=== PATIENT | female | born 1970 | race Caucasian/White ===

== ENCOUNTER 2017-06-03 09:14 | Emergency (ER) | payer BC, SELFPAY ==
[2017-06-03 09:29] VITALS: BP 152/98; PULSE 117; RESP 18; TEMP 37.5; O2SAT 95; BMI 34.9
[2017-06-03 09:57] LABS: UTC Influenza A Antigen Positive (Negative); UTC Influenza B Antigen Negative (Negative)
--- NOTE | 2017-06-03 10:03 | HMH.EDUTC ---
[facility] [place] Disposition Clinical Impression: Influenza A Disposition: Home, Self-Care Condition on Discharge: Good Instructions: Influenza Additional Instructions: Rest, fluids. Alternate Tylenol and Motrin as needed for fever. RTC or PCP if symptoms worsen. Referrals: Provider,Referral, MD [Primary Care Provider] - Time of Disposition: 10:11 Medical Decision Making Vital Signs: 06/03/17 09:29 Temperature 99.5 F Temperature Source Oral Pulse Rate [Left Brachial] 117 H Respiratory Rate 18 Blood Pressure [Right Arm] 152/98 Blood Pressure Mean [Right Arm] 116 Blood Pressure Source [Right Arm] Automatic Cuff Blood Pressure Position [Right Arm] Sitting 02 Sat by Pulse Oximetry 95 Oxygen Delivery Method Room Air - Lab Data Lab Results 06/03/17 09:31: Influenza Type A Ag Positive A, Influenza Type B Ag Negative - Miguel A Inquiry Pt receiving controlled substance: No [facility] HPI - General Stated complaint: poss flu Time Seen by Provider: 06/03/17 09:55 Mode of Arrival: Ambulatory Source of Information: Patient Limitations: No Limitations Description of Symptoms (Recalled from Triage Doc. by RN): Flu like symptoms; aches, chills, fever, cough; started feeling poorly on 06/01/17 after being exposed to the flu at work. Has tried OTC remedies without relief. HEENT Symptoms (Recalled from RN notes): Yes (runny nose) Resp Symptoms (Recalled from RN notes): Yes (cough) Skin Symptoms (Recalled from RN notes): No MS Symptoms (Recalled from RN notes): Yes (body aches) Functional Status (Recalled from RN notes): na - Related Data Previous Rx's Medication Instructions Recorded Oseltamivir Phosphate [Tamiflu 75 mg PO BID 5 Days #10 cap 06/03/17 75mg Capsule] Promethazine/Dextromethorphan 5 ml PO Q6HP PRN 10 Days #180 syrup 06/03/17 [Promethazine-Dm Syrup] predniSONE [Prednisone 20mg 20 mg PO BID 5 Days #10 tab 06/03/17 Tab] Allergies Allergy/AdvReac Type Severity Reaction Status Date / Time bisacodyl [BISACODYL] Allergy Unknown Unverified 05/15/17 15:18 - Worker's Comp Is this a Worker's Comp case?: No Is this an [facility] Worker's Comp?: No Is this a [place] Worker's Comp?: No [facility] History Medical History: Reports:: Diabetes Mellitus Type 2 Denies:: Cancer, Diabetes Mellitus Type 1, MRSA Amputation: No Fractures: No - *Social History Alcohol Intake: never - Psychiatric History Expresses thoughts of harming self/others: None Suicide Plan Description: No Plan - Constitutional Reports body ache(s), Reports fatigue, Reports fever(s), Reports headache(s), Reports malaise - ENT Reports headache(s), Reports nasal congestion, Reports nasal discharge - Respiratory Reports cough - Musculoskeletal Reports body aches Physical Exam - General General appearance: alert Comment: appears ill but non-toxic - Head Head exam: atraumatic, normocephalic, normal inspection - Eye Eye exam: Present: normal appearance, PERRL, EOMI - ENT ENT exam: Present: normal exam, normal oropharynx, mucous membranes moist, TM's normal bilaterally, normal external ear exam - Neck Neck exam: Present: normal inspection, full ROM, trachea midline. Absent: meningismus, lymphadenopathy - Chest Chest inspection: Present: normal inspection, symmetric chest wall rise. Absent: tenderness - Respiratory Respiratory exam: Present: normal lung sounds bilaterally. Absent: respiratory distress - Cardiovascular Cardiovascular exam: Present: regular rate, normal rhythm. Absent: JVD - Abdominal Exam Abdominal exam: Present: soft, normal bowel sounds. Absent: distention, tenderness, guarding - Extremities Exam Extremities exam: Present: normal inspection, full ROM, normal capillary refill. Absent: calf tenderness - Back Exam Back exam: Present: normal inspection. Absent: tenderness - Neurological Exam Neurological exam: Present: alert, oriented X3 - Psychiatric Psychiatric exam: Pres
--- NOTE | 2017-06-03 10:06 | ED_ITS ---
[facility] [place] Disposition Clinical Impression: Influenza A Disposition: Home, Self-Care Condition on Discharge: Good Instructions: Influenza Additional Instructions: Rest, fluids. Alternate Tylenol and Motrin as needed for fever. RTC or PCP if symptoms worsen. Referrals: Provider,Referral, MD [Primary Care Provider] - Time of Disposition: 10:11 Medical Decision Making Vital Signs: 06/03/17 09:29 Temperature 99.5 F Temperature Source Oral Pulse Rate [Left Brachial] 117 H Respiratory Rate 18 Blood Pressure [Right Arm] 152/98 Blood Pressure Mean [Right Arm] 116 Blood Pressure Source [Right Arm] Automatic Cuff Blood Pressure Position [Right Arm] Sitting 02 Sat by Pulse Oximetry 95 Oxygen Delivery Method Room Air - Lab Data Lab Results 06/03/17 09:31: Influenza Type A Ag Positive A, Influenza Type B Ag Negative - Miguel A Inquiry Pt receiving controlled substance: No [facility] HPI - General Stated complaint: poss flu Time Seen by Provider: 06/03/17 09:55 Mode of Arrival: Ambulatory Source of Information: Patient Limitations: No Limitations Description of Symptoms (Recalled from Triage Doc. by RN): Flu like symptoms; aches, chills, fever, cough; started feeling poorly on 06/01/17 after being exposed to the flu at work. Has tried OTC remedies without relief. HEENT Symptoms (Recalled from RN notes): Yes (runny nose) Resp Symptoms (Recalled from RN notes): Yes (cough) Skin Symptoms (Recalled from RN notes): No MS Symptoms (Recalled from RN notes): Yes (body aches) Functional Status (Recalled from RN notes): na - Related Data Previous Rx's Medication Instructions Recorded Oseltamivir Phosphate [Tamiflu 75 mg PO BID 5 Days #10 cap 06/03/17 75mg Capsule] Promethazine/Dextromethorphan 5 ml PO Q6HP PRN 10 Days #180 syrup 06/03/17 [Promethazine-Dm Syrup] predniSONE [Prednisone 20mg 20 mg PO BID 5 Days #10 tab 06/03/17 Tab] Allergies Allergy/AdvReac Type Severity Reaction Status Date / Time bisacodyl [BISACODYL] Allergy Unknown Unverified 05/15/17 15:18 - Worker's Comp Is this a Worker's Comp case?: No Is this an [facility] Worker's Comp?: No Is this a [place] Worker's Comp?: No [facility] History Medical History: Reports:: Diabetes Mellitus Type 2 Denies:: Cancer, Diabetes Mellitus Type 1, MRSA Amputation: No Fractures: No - *Social History Alcohol Intake: never - Psychiatric History Expresses thoughts of harming self/others: None Suicide Plan Description: No Plan - Constitutional Reports body ache(s), Reports fatigue, Reports fever(s), Reports headache(s), Reports malaise - ENT Reports headache(s), Reports nasal congestion, Reports nasal discharge - Respiratory Reports cough - Musculoskeletal Reports body aches Physical Exam - General General appearance: alert Comment: appears ill but non-toxic - Head Head exam: atraumatic, normocephalic, normal inspection - Eye Eye exam: Present: normal appearance, PERRL, EOMI - ENT ENT exam: Present: normal exam, normal oropharynx, mucous membranes moist, TM's normal bilaterally, normal external ear exam - Neck Neck exam: Present: normal inspection, full ROM, trachea midline. Absent: meningismus, lymphadenopathy - Chest Marisol
== END 2017-06-03 10:17 | disposition home or self-care (01) ==
PROVIDERS: Emergency Provider Physician Assistant; Family Provider Family Medicine
DX: J10.1 Influenza due to other identified influenza virus with other respiratory manifestations (principal); E11.9 Type 2 diabetes mellitus without complications
CPT/HCPCS: 87276; 87804; 99202

== ENCOUNTER → 2017-11-02 07:55 | Outpatient (CLI) | payer BC, SELFPAY ==
--- NOTE | 2017-11-02 08:02 | NVE_ITS ---
Venous Exam Indications: 729.5 Pain in limb. 729.81 Swelling of limb. IMPRESSIONS 1. There is no evidence of significant Reflux. 2. No evidence of deep or superficial vein thrombosis involving the left lower extremity Left lower extremity venous duplex evaluation. Doppler flow study including spectral analysis, color and meek scale imaging. Location: Vascular laboratory. Patient status: Outpatient. Tables: Venous flow and imaging: + +-------+ + Location Overall Flow properties + +-------+ + Left common femoral Patent Normal phasicity; spontaneous; normal augmentation; compressible + +-------+ + Left saphenofemoral junction Patent Compressible + +-------+ + Left profunda femoral Patent Compressible + +-------+ + Left femoral Patent Normal phasicity; spontaneous; normal augmentation; compressible + +-------+ + Left greater saphenous Patent Normal phasicity; spontaneous; normal augmentation; compressible + +-------+ + Left popliteal Patent Normal phasicity; spontaneous; normal augmentation; compressible + +-------+ + Left posterior tibial Patent Compressible + +-------+ + Left peroneal Patent Compressible + +-------+ + Left gastrocnemius Patent Compressible + +-------+ + Left soleal Patent Compressible + +-------+ + Electronically signed by: Sherman Martinez [id number]
== END ==
PROVIDERS: Family Provider Family Medicine; PCP Family Medicine; Visit Provider Family Medicine
DX: R60.0 Localized edema (principal)
CPT/HCPCS: 93971

== ENCOUNTER → 2018-05-07 12:42 | Outpatient (CLI) | payer BC, SELFPAY ==
--- NOTE | 2018-05-07 12:48 | US_ITS ---
US thyroid HISTORY: Dysphagia. Abnormal thyroid function test ITS.REASON: DYSPHAGIA ORDERING PHYSICIAN: Sharon Pagan MD PATIENT AGE: 48 years Comparison: None FINDINGS: The right lobe is 4.3 x 2.1 x 2.7 cm. There is heterogeneous echogenicity. Small cysts are present on the right. In addition, there is a poorly defined isoechoic nodule in the mid polar region at 2 x 2 centimeters with a small cystic area posteriorly. In the lower pole there is a 1 x 0.9 cm hypoechoic nodular area. The left lobe is 4.8 x 2.5 x 2.7 cm. 15 x 7 mm hypoechoic nodule upper pole. 2.5 x 1.5 cm ill-defined hypoechoic nodule mid polar region 12 x 9 mm hypoechoic nodule lower pole. There are decreased echogenicity centrally slight increased echogenicity peripherally. The isthmus is prominent at 5 mm. IMPRESSION: Multinodular goiter. There are bilateral heterogeneous areas of echogenicity. It is difficult to determine if these represent nodules or merely heterogeneous echogenicity of the thyroid gland. The largest nodular area is on the left. Fine-needle aspiration by ultrasound guidance is considered however, would first suggest a nuclear thyroid scan to determine if there are any of these areas which may be hypofunctioning/cold nodules which would better guide the determination of when to do a fine needle aspiration
== END ==
PROVIDERS: PCP Family Medicine; Visit Provider Family Medicine
DX: R13.10 Dysphagia, unspecified (principal)
CPT/HCPCS: 76536

== ENCOUNTER → 2018-05-29 08:40 | Outpatient (CLI) | payer BC, SELFPAY ==
--- NOTE | 2018-05-29 08:43 | MM_ITS ---
MM Dig screening mamm BI w/CAD CAD Screening COMPARISON: Analog mammograms 04/19/2004 and digital mammograms with CAD 01/28/2010 INDICATION: There is a history of breast cancer in patient's sister diagnosed before menopause. TECHNIQUE: Standard CC and MLO images were obtained. R2 CAD reviewed. FINDINGS: Moderate diffuse scattered fibroglandular densities are seen throughout each breast. There is a mole marker left breast. There is a stable nodular density deep within the left breast. There is no suspicious lesion and there are no suspicious microcalcifications. IMPRESSION: Fibrofatty parenchyma with no suspicious lesion seen BI-RADS Category: 2 Benign Finding(s) RECOMMENDED FOLLOW-UP: 1YR - 1 YEAR FOLLOW-UP (A letter has been sent to the patient regarding results of the study.)
== END ==
PROVIDERS: PCP Family Medicine; Visit Provider Family Medicine
DX: Z12.31 Encounter for screening mammogram for malignant neoplasm of breast (principal)
CPT/HCPCS: 77067

== ENCOUNTER → 2018-06-03 06:33 | Outpatient (CLI) | payer BC, SELFPAY ==
--- NOTE | 2018-06-03 07:00 | NM_ITS ---
NM thyroid image uptake CLINICAL INDICATION: Multinodular goiter, dysphasia ITS.REASON: THYROID NODULE ORDERING PHYSICIAN: Sharon Pagan MD PATIENT AGE: 48 years Comparison: 05/07/2018 DOSE: 353 uCi I-123 orally FINDINGS: The 24 hour radioiodine uptake is 16.7% which is within normal limits. Images obtained of the thyroid gland demonstrates homogeneous decrease activity of the right lobe of the thyroid gland. No obvious hypo or hyper functioning areas on the left. Specifically, the dominant nodular area of the left lobe does not demonstrate decrease activity. The thyroid gland is enlarged bilaterally. IMPRESSION: Bilateral thyroid enlargement with decrease activity of the right lobe compared to the left. If any areas are of clinical concern for biopsy then would consider fine-needle aspiration of the dominant nodule on the right due to the hypoactivity.
--- NOTE | 2018-06-03 08:12 | HMH.ITSHM ---
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 []INVOKAMET XR TRULICITY LEVOTHYROXINE CRESTOR CEFDINER
== END ==
PROVIDERS: PCP Family Medicine; Visit Provider Family Medicine
DX: E04.1 Nontoxic single thyroid nodule (principal)
CPT/HCPCS: 78014; A9516

== ENCOUNTER → 2018-06-28 14:02 | Outpatient (CLI) | payer BC, SELFPAY ==
[2018-06-28 16:04] LABS: Thyroid Stimulating Hormone 12.18 uIU/ml (0.358-3.740)
[2018-06-30 08:13] LABS: Thyroid Peroxidase Antibodies 243 IU/mL (0-34)
[2018-06-30 17:20] LABS: Triiodothyronine (T3) Free 2.7 pg/mL (2.0-4.4)
[2018-07-02 08:08] LABS: Thyroglobulin Level 928.2 IU/mL (0.0-0.9)
== END ==
PROVIDERS: Visit Provider Internal Medicine Endocrinology, Diabetes & Metabolism
DX: E04.2 Nontoxic multinodular goiter (principal); E03.8 Other specified hypothyroidism; R94.6 Abnormal results of thyroid function studies
CPT/HCPCS: 36415; 84443; 84481; 86376; 86800

== ENCOUNTER → 2018-10-07 17:26 | Outpatient (CLI) | payer BC, SELFPAY ==
[2018-10-07 19:08] LABS: Free T4 (Free Thyroxine) 0.87 ng/dl (0.76-1.46); Thyroid Stimulating Hormone 2.56 uIU/ml (0.358-3.740)
[2018-10-09 06:53] LABS: Triiodothyronine (T3) Free 2.8 pg/mL (2.0-4.4)
== END ==
PROVIDERS: Visit Provider Internal Medicine Endocrinology, Diabetes & Metabolism
DX: E04.2 Nontoxic multinodular goiter (principal); E03.8 Other specified hypothyroidism; E06.3 Autoimmune thyroiditis; R94.6 Abnormal results of thyroid function studies
CPT/HCPCS: 36415; 84439; 84443; 84481

== ENCOUNTER → 2018-10-15 07:49 | Outpatient (CLI) | payer BC, SELFPAY ==
--- NOTE | 2018-10-15 08:00 | US_ITS ---
US abdomen limited History:Right upper quadrant pain Ordering Physician:CATIE Holder Patient Age: 48 years Comparison:None Findings: Pancreas:Unremarkable. No obvious mass or abnormal fluid collection. No ductal dilatation Liver:Unremarkable. No obvious mass or abnormal fluid collection. No ductal dilatation. There are few areas of fatty infiltration within the liver. Right Kidney:Unremarkable. Normal size and echogenicity. No hydronephrosis Gallbladder:Prior cholecystectomy. No ductal dilatation. Common bile duct is 4 mm. Impression: Postcholecystectomy. No acute finding
== END ==
PROVIDERS: PCP Physician Assistant; Visit Provider Physician Assistant
DX: R10.11 Right upper quadrant pain (principal)
CPT/HCPCS: 76705

== ENCOUNTER 2019-01-18 20:35 | Observation (INO) ==
--- NOTE | 2019-01-18 20:53 | Emergency Department Note ---
ED Disposition Clinical Impression: Acquired hypothyroidism, Obesity (BMI 30.0-34.9) Chest pain Qualifiers: Chest pain type: precordial pain Qualified Code(s): R07.2 - Precordial pain Diabetes mellitus Qualifiers: Diabetes mellitus type: type 2 Diabetes mellitus fdc insulin use: unspe cified fdc insulin use status Diabetes mellitus complication status: with other specified complication Qualified Code(s): E11.69 - Type 2 diabetes mellitus with other specified complication Disposition: Admitted as Observation Condition on Discharge: Good Referrals: Provider,Referral, [Primary Care Provider] - - Critical Care Critical Care Time: No Attestation: On , the high probability of a clinically significant, sudden or life threatening deterioration of the following system(s) required my full and direct attention, intervention and personal management. The time I documented below is in addition to time spent performing reported procedures but includes the following listed in this critical care notation. Medical Decision Making - Medical Records Medical records reviewed: Yes: I reviewed the patient's medical records. - Miguel A Inquiry Pt receiving controlled substance: No Vital Signs: 01/18/19 20:35 Temperature 98.0 F Temperature Source Oral Pulse Rate [Left Radial] 87 Respiratory Rate 18 Blood Pressure [Right Arm] 133/83 Blood Pressure Mean [Right Arm] 99 Blood Pressure Source [Right Arm] Automatic Cuff Blood Pressure Position [Right Arm] Supine 02 Sat by Pulse Oximetry 99 Oxygen Delivery Method Room Air - Lab Data Lab results reviewed: Yes: I reviewed the patient's lab results. Lab Results 01/18/19 20:54: WBC 11.0 H, RBC 4.96, Hgb 16.2, Hct 46.4, MCV 93.6, MCH 32.7 H, MCHC 35.0, RDW 13.4, Plt Count 233, MPV 7.4, Neut % (Auto) 37.4, Lymph % (Auto) 45.4, [place] % (Auto) 5.7, Eos % (Auto) 11.0, Baso % (Auto) 0.5, Neut # (Auto) 4.1, Lymph # (Auto) 5.0 H, [place] # (Auto) 0.6, Eos # (Auto) 1.2 H, Baso # (Auto) 0.1 01/18/19 20:54: Sodium 139, Potassium 3.8, Chloride 104, Carbon Dioxide 27, Anion Gap 11.8, BUN 10, Creatinine 0.64, Estimated Creat Clear 165, Estimated GFR 100, Est GFR ( Amer) 121, Glucose 157 H, Calcium 9.0, Troponin I < 0.02, C-Reactive Protein 0.5 Result diagrams: 01/18/19 20:54 01/18/19 20:54 Orders (Tests/Meds): ED MEDICATIONS Discontinued Medications Generic Name Dose Route Start Last Admin Trade Name Freq PRN Reason Stop Dose Admin Aspirin 324 mg 01/18/19 20:53 01/18/19 21:01 Aspirin 81mg Chewable Tablet PO 01/18/19 20:54 324 mg ONCE ONE Administration Morphine Sulfate 4 mg 01/18/19 21:01 01/18/19 21:05 Morphine 4mg/Ml Syringe IV 01/18/19 21:02 4 mg ONCE ONE Administration Nitroglycerin 1 gm 01/18/19 21:01 01/18/19 21:05 Nitroglycerin 1 Inch Oint Udp TD 01/18/19 21:02 1 gm ONCE ONE Administration ORDERS Category Date Time Status XR chest 2V Stat Exams 01/18/19 20:50 Taken Complete Blood Count Auto Diff Stat Lab 01/18/19 20:54 Results Erythrocyte Sedimentation Rate Stat Lab 01/18/19 20:54 Results - Radiology Data #1 Image(s): Chest Image Reviewed: Yes I reviewed the patient's radiology image Preliminary Findings: Normal/NAD - ECG Data Tracing #1 Normal Sinus Rhythm: Yes Ischemic changes: non-specific ST-T wave changes - Physician Consults Physician Consulted: em Reason -: Admission Chest Pain HPI - General Chief Complaint: Chest Pain Stated Complaint: chest pain Time Seen by Provider: 01/18/19 20:53 Mode of Arrival: Ambulatory Source of Information: Patient, Medical Record Limitations: No Limitations Description of Symptoms (Recalled from ER Triage Doc. by RN): pt stated she experienced chest pain last night at bedtime for about 30 minutes. pt stated it felt like a stabbing pain that radiated up the eft side of her neck and top. of her head. pt stated shes been vatigued all day today. - History of Present Illness HPI narrative: pt with acute episode of chest pain last pm for 30 min and again this pm - has no known card dis and no tob but is diabetic - MD complaint: chest pain indicative of cardiac Onset (ago): hour(s) Duration: now resolved Activity at onset: during rest Pain location: left chest Severity: moderate Quality: tightness Pain radiation: neck Risk Factors for CAD: Family Hx of CAD, Diabetes Treatments prior to or on arrival for Cardiac Chest Pain: none - YE Score for Non-Stemi Age of Patient: 40-49 years old Heart Rate: 70-89 bpm Systolic Blood Pressure: 120-139 mmhg Serum Creatinine: 0.40-0.79 mg/dl CHF [place] Class: I-No CHF Other Risk Factors: None Non-Stemi Risk Score: 72 - Related Data On Oral Contraceptives: No Home Medications Medication Instructions Recorded Confirmed Dulaglutide [Trulicity] 1.5 mg SQ WEEKLY 01/18/19 01/18/19 Empagliflozin/Metformin HCl 2 each PO DAILY 01/18/19 01/18/19 [Synjardy 5-1,000 mg Tablet] Levothyroxine Sodium [Synthroid 112 mcg PO DAILYDM 01/18/19 01/18/19 112mcg (0.112mg) tablet] Allergies Allergy/AdvReac Type Severity Reaction Status Date / Time bisacodyl [BISACODYL] Allergy Unknown Verified 01/18/19 20:44 [facility] History - Hepatitis A Screen Drug use history?: No High risk sexual behaviors?: No History of sexually transmitted infection?: No Currently employed?: No Childcare worker?: No Do you have indoor plumbing?: Yes Do you have electricity?: Yes Attestation statement:: This patient has been screened for Hepatitis A risk factors. I have reviewed the patient's past medical history: Yes Medical History: Reports:: Diabetes Mellitus Type 2 Denies:: Cancer, Diabetes Mellitus Type 1, MRSA Amputation: No Fractures: No - Social History Educational Level: Completed High School Alcohol Intake: never Occupational Status: employed Household Members: spouse ROS Obtained: Yes All systems reviewed & no additional complaints - Constitutional Constitutional: Denies fever(s) - Eyes Eyes: Denies change in vision - ENT Ears, Nose, Mouth, and Throat: Denies sore throat - Cardiovascular Cardiovascular: Reports chest pain, Denies dyspnea, Reports radiating jaw, neck or arm pain - Respiratory Respiratory: No cough - Gastrointestinal Gastrointestingal: Denies: abdominal pain - Genitourinary Female Genitourinary: Denies abnormal vaginal bleeding - Musculoskeletal Musculoskeletal: Denies joint pain - Integumentary/Breasts Skin/Breast: Denies rash - Neurologic Neurologic: Denies seizure-like activity Physical Exam - General General appearance: alert, obese - Head Head exam: normocephalic - Eye Eye exam: Present: PERRL, EOMI. Absent: scleral icterus - ENT ENT exam: Present: mucous membranes dry - Neck Neck exam: Present: trachea midline - Respiratory Respiratory exam: Present: normal lung sounds bilaterally. Absent: respiratory distress - Cardiovascular Cardiovascular exam: Present: regular rate, systolic murmur - Abdominal Exam Abdominal exam: Present: soft - Extremities Exam Extremities exam: Absent: calf tenderness - Neurological Exam Neurological exam: Present: alert, oriented X3, CN II-XII intact - Psychiatric Psychiatric exam: Present: normal affect - Skin Skin exam: Absent: rash
[2019-01-18 21:09] LABS: Basophils # 0.1 K/mm3 (0-0.2); Basophils % 0.5 % (0.1-2.0); Eosinophils # 1.2 K/mm3 (0.0-0.4); Hematocrit 46.4 % (37.0-47.0); Hemoglobin 16.2 g/dL (12.2-16.2); Lymphocytes % 45.4 % (10-50); Mean Corpuscular Volume 93.6 fl (81-99); Mean Platelet Volume 7.4 fl (7.4-10.4); Monocytes # 0.6 K/mm3 (0.1-1.0); Monocytes % 5.7 % (1.7-9.3); Neutrophils # 4.1 K/mm3 (1.8-7.8); Neutrophils % 37.4 % (37.0-80.0); Platelet Count 233 K/mm3 (142-424); Red Blood Count 4.96 M/mm3 (4.20-5.40); Red Cell Distribution Width 13.4 % (11.5-17.5)
[2019-01-18 21:24] LABS: Anion Gap 11.8 mEq/L (5-15); Blood Urea Nitrogen 10 mg/dL (7-18); C-Reactive Protein 0.5 mg/dL (0.0-0.9); Carbon Dioxide 27 mmol/L (21.0-32.0); Chloride 104 mmol/L (98-107); Glucose 157 mg/dL (74-106); Sodium 139 mmol/L (136-145)
[2019-01-18 21:55] LABS: Erythrocyte Sedimentation Rate 8 mm/hr (0-20)
[2019-01-19 04:10] LABS: Basophils % 0.4 % (0.1-2.0); Hematocrit 42.7 % (37.0-47.0); Lymphocytes # 3.5 K/mm3 (0.7-4.5); Lymphocytes % 42.6 % (10-50); Mean Corpuscular HGB Conc 33.5 g/dL (31.8-35.4); Mean Corpuscular Volume 93.7 fl (81-99); Mean Platelet Volume 7.1 fl (7.4-10.4); Monocytes # 0.5 K/mm3 (0.1-1.0); Monocytes % 5.7 % (1.7-9.3); Neutrophils # 3.2 K/mm3 (1.8-7.8); Neutrophils % 39.3 % (37.0-80.0); Platelet Count 230 K/mm3 (142-424); Red Blood Count 4.56 M/mm3 (4.20-5.40); Red Cell Distribution Width 13.5 % (11.5-17.5); White Blood Count 8.2 K/mm3 (4.8-10.8)
[2019-01-19 04:12] LABS: Hemoglobin 14.3 g/dL (12.2-16.2)
[2019-01-19 04:25] LABS: Anion Gap 11.3 mEq/L (5-15); Blood Urea Nitrogen 11 mg/dL (7-18); Calcium 8.5 mg/dL (8.5-10.1); Carbon Dioxide 28 mmol/L (21.0-32.0); Chloride 106 mmol/L (98-107); Chol/HDL Ratio 4.9 (1-3.5); Cholesterol 162 mg/dL (140-200); Glucose 177 mg/dL (74-106); HDL Cholesterol 33 mg/dL (29-89); LDL Cholesterol 93 mg/dL (0-130); Sodium 141 mmol/L (136-145); Triglycerides 181 mg/dL (30-200); VLDL Cholesterol 36 mg/dL (0-40)
--- NOTE | 2019-01-19 08:21 | Pharmacy Consult Notes ---
[facility] Pharmacy VTE Monitoring - Patient Demographics Admission date: 01/18/19 Report Date: 01/19/19 Time: 08:21 Allergies/Adverse Reactions: Patient Allergies bisacodyl [BISACODYL] Allergy (Unknown, Verified 01/18/19 20:44) Height: 1.68 m Weight: 95.056 kg Patient Problems: Current Active Problems Chest pain (Acute) Diabetes mellitus (Acute) Acquired hypothyroidism (Acute) Obesity (BMI 30.0-34.9) (Acute) - VTE Risk Labs: VTE Related Lab Results Hgb 14.3 g/dL (12.2-16.2) D 01/19/19 04:00 Hct 42.7 % (37.0-47.0) 01/19/19 04:00 Plt Count 230 K/mm3 (142-424) 01/19/19 04:00 BUN 11 mg/dL (7-18) 01/19/19 04:00 Creatinine 0.72 mg/dL (0.55-1.02) 01/19/19 04:00 Estimated Creat Clear 143 mL/min (50-200) 01/19/19 04:00 Was VTE Risk Assessment Performed: Yes VTE Score: 5 VTE Risk Level: Low Risk - Prophylaxis VTE Prophylaxis Ordered?: Yes Types of VTE Prophylaxis: TEDS Knee High Location of Applied Device: Bilateral Lower Extremeties
--- NOTE | 2019-01-19 10:01 | History & Physical Report ---
*Admission Date: 01/18/19 *Chief complaint: Pain in the chest and headache. *History of present illness: This 48-year-old diabetic patient presented to the emergency room at [facility] last evening. She reports 2 days of left-sided chest pain with radiation up the left side of the neck and with headache. She states that she was really more concerned about the headache than the chest pain. She does not have shortness of breath and she has had some nausea with no vomiting. She does not have a past history of heart disease. She does have a strong family history of heart disease including her sister. Patient is not a smoker. 2 weeks ago the patient was treated for a cellulitis in the right leg. She took Bactrim DS 1 p.o. twice daily. She finished this about a week ago. She denies heartburn with the antibiotic. [facility] History Medical History: Reports:: Diabetes Mellitus Type 2, Hyperlipidemia, MRSA Denies:: Cancer, Diabetes Mellitus Type 1 *Have you ever received a pneumonia vaccine?: No *Have you received a flu vaccine this season?: No Other Medical History: Reports: Hypothyroidism Other Surgeries: Yes: Appendectomy, Cholecystectomy, Amputation: No Fractures: No - *Social History Educational Level: Completed College Smoking Status: Never smoker Alcohol Intake: never *Occupational Status:: employed Housing: house Household Members: spouse *Travel in the last 8 weeks: None - Psychiatric History Expresses thoughts of harming self/others: None Suicide Plan Description: No Plan Family Hx:: Cancer, Heart Attack (Father in his 60s from heart disease. Her sister has coronary artery disease. Her grandmother also), Kidney Disease, Stroke Review of Systems - Constitutional Denies body ache(s), Denies chills - Eyes Denies blurry vision, Denies double vision - ENT Denies dizziness, Denies mouth lesions, Denies sinus pain - *Cardiovascular Reports chest pain, Reports chest pain at rest, Reports radiating jaw, neck or arm pain, Denies shortness of breath, Denies irregular heart rhythm, Denies fast heart rate - *Respiratory Denies chest congestion, Denies cough, Denies shortness of breath - *Gastrointestinal Denies abdominal pain, Denies heartburn - *Genitourinary Denies abnormal vaginal bleeding - *Musculoskeletal Denies joint pain - Integumentary/Breasts Reports boil (Recent cellulitis of right lower leg pretibial area after ocean vacation) - *Neurologic Denies seizure-like activity - Psychiatric Denies abnormal sleep pattern - Endocrine Denies increased thirst - Hematologic/Lymphatic Denies easy bleeding - Allergic/Immunologic Denies GI upset with certain foods Meds Home Medications Medication Instructions Recorded Confirmed Type Dulaglutide [Trulicity] 1.5 mg SQ WEEKLY 01/18/19 01/18/19 History Empagliflozin/Metformin HCl 2 each PO DAILY 01/18/19 01/18/19 History [Synjardy 5-1,000 mg Tablet] Levothyroxine Sodium [Synthroid 112 mcg PO DAILYDM 01/18/19 01/18/19 History 112mcg (0.112mg) tablet] Allergies Allergy/AdvReac Type Severity Reaction Status Date / Time bisacodyl [BISACODYL] Allergy Unknown Verified 01/18/19 20:44 Exam Vital signs and Labs for Last 24 Hours: Temp Pulse Resp BP Pulse Ox 97.7 F 65 16 97/60 L 96 01/19/19 04:00 01/19/19 04:00 01/19/19 04:00 01/19/19 04:00 01/19/19 04:00 Laboratory Results - last 24 hr 01/18/19 20:54: WBC 11.0 H, RBC 4.96, Hgb 16.2, Hct 46.4, MCV 93.6, MCH 32.7 H, MCHC 35.0, RDW 13.4, Plt Count 233, MPV 7.4, Neut % (Auto) 37.4, Lymph % (Auto) 45.4, Cloud % (Auto) 5.7, Eos % (Auto) 11.0, Baso % (Auto) 0.5, Neut # (Auto) 4.1, Lymph # (Auto) 5.0 H, Cloud # (Auto) 0.6, Eos # (Auto) 1.2 H, Baso # (Auto) 0.1, ESR 8 01/18/19 20:54: Sodium 139, Potassium 3.8, Chloride 104, Carbon Dioxide 27, Anion Gap 11.8, BUN 10, Creatinine 0.64, Estimated Creat Clear 165, Estimated GFR 100, Est GFR ( Amer) 121, Glucose 157 H, Calcium 9.0, Troponin I < 0.02, C-Reactive Protein 0.5 08/25/19 01:15: Troponin I < 0.02 01/19/19 04:00: WBC 8.2 D, RBC 4.56, Hgb 14.3 D, Hct 42.7, MCV 93.7, MCH 31.4 H, MCHC 33.5, RDW 13.5, Plt Count 230, MPV 7.1 L, Neut % (Auto) 39.3, Lymph % (Auto) 42.6, Cloud % (Auto) 5.7, Eos % (Auto) 12.0, Baso % (Auto) 0.4, Neut # (Auto) 3.2, Lymph # (Auto) 3.5, Cloud # (Auto) 0.5, Eos # (Auto) 1.0 H, Baso # (Auto) 0.0 01/19/19 04:00: Sodium 141, Potassium 4.3, Chloride 106, Carbon Dioxide 28, Anion Gap 11.3, BUN 11, Creatinine 0.72, Estimated Creat Clear 143, Estimated GFR 87, Est GFR ( Amer) 106, Glucose 177 H, Calcium 8.5, Troponin I < 0.02, Triglycerides 181, Cholesterol 162, LDL Cholesterol 93, VLDL Cholesterol 36, HDL Cholesterol 33, Cholesterol/HDL Ratio 4.9 H 01/19/19 06:32: POC Glucose 155 H I & O for Last 24 hours: Intake & Output 01/16/19 01/17/19 01/18/19 01/19/19 11:59 11:59 11:59 11:59 Intake Total 598 / 598 Balance 598 / 598 Weight 209 lb 9 oz - Constitutional no acute distress - *Routine HEENT Exam Head: Present: normocephalic Eye: Present: PERRL, normal accommodation ENT: Present: mucous membranes moist - *Routine Neck Exam Present: supple, full ROM. Absent: lymphadenopathy - Routine Chest/Breast/Axilla Exam Chest wall: Absent: tenderness - *Routine Respiratory Exam Present: CTA bilaterally - *Routine Cardiovascular Exam Present: RRR. Absent: murmur Comments: No ectopics - *Routine Abdominal Exam Present: soft (Obese). Absent: tenderness - *Routine Extremities Exam Absent: edema Comments: There is a healed wound to the anterior tibial area on the right lower leg. - *Routine Skin Exam Comments: The leg lesion as mentioned - *Routine Neurological Exam Present: alert, oriented X3 Assessment and Plan (1) Chest pain Current visit: Yes Status: Acute Qualifiers: Chest pain type: precordial pain Qualified Code(s): R07.2 - Precordial pain Category: Medical Code(s): R07.9 - Chest pain, unspecified (2) Headache Current visit: Yes Status: Acute Category: Medical Code(s): R51 - Headache (3) Neck pain Current visit: Yes Status: Acute Category: Medical Code(s): M54.2 - Cervicalgia (4) Acquired hypothyroidism Current visit: Yes Status: Acute Category: Medical Code(s): E03.9 - Hypothyroidism, unspecified (5) Diabetes mellitus Current visit: Yes Status: Acute Qualifiers: Diabetes mellitus type: type 2 Diabetes mellitus 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 Cardiology will be consulted. Her headache is actually been accentuated with the use of nitroglycerin.
--- NOTE | 2019-01-20 07:59 | Progress Note ---
<Adrianna Espinosa - Last Filed: 01/20/19 07:54> Internal Medicine - PN: Subj *Date: 01/20/19 *Time: 07:54 Interval history: Patient biggest complaint is an ongoing headache. He states Tylenol and the morphine take the edge off. The headache starts in the left top of her head and goes down around to her neck. She did experience some chest pain yesterday which morphine relieved. She denies shortness of breath. She is been out of bed to the bathroom. She is eating without difficulty. Exam Vital signs and Labs for Last 24 Hours: Temp Pulse Resp BP Pulse Ox 98.4 F 66 19 124/74 97 01/20/19 04:00 01/20/19 04:00 01/20/19 04:00 01/20/19 04:00 01/20/19 04:00 Laboratory Results - last 24 hr 01/19/19 11:08: POC Glucose 111 H 01/19/19 16:34: POC Glucose 144 H 01/19/19 19:59: POC Glucose 161 H I & O for Last 24 hours: Intake & Output 01/17/19 01/18/19 01/19/19 01/20/19 11:59 11:59 11:59 11:59 Intake Total 718 / 718 3157 / 3157 Balance 718 / 718 3157 / 3157 Weight 209 lb 9 oz 214 lb 7 oz Radiology Reports for the Last 24 Hours: Chest x-ray 01/18/2019 IMPRESSION: No acute findings. - Constitutional no acute distress Comments: Awake and alert and complaining of a headache. - *Routine HEENT Exam Eye: Absent: conjunctival icterus ENT: Present: mucous membranes moist, oropharynx clear - *Routine Neck Exam Comments: Tender left lymphadenopathy - *Routine Respiratory Exam Present: CTA bilaterally - *Routine Cardiovascular Exam Present: RRR - *Routine Abdominal Exam Present: soft, normoactive bowel sounds. Absent: tenderness, distended - *Routine Extremities Exam Absent: edema - *Routine Neurological Exam Present: alert, oriented X3 Assessment and Plan (1) Chest pain Current visit: Yes Status: Acute Qualifiers: Chest pain type: precordial pain Qualified Code(s): R07.2 - Precordial pain Category: Medical Code(s): R07.9 - Chest pain, unspecified (2) Headache Current visit: Yes Status: Acute Category: Medical Code(s): R51 - Headache (3) Neck pain Current visit: Yes Status: Acute Category: Medical Code(s): M54.2 - Cervicalgia (4) Acquired hypothyroidism Current visit: Yes Status: Acute Category: Medical Code(s): E03.9 - Hypothyroidism, unspecified (5) Diabetes mellitus Current visit: Yes Status: Acute Qualifiers: Diabetes mellitus type: type 2 Diabetes mellitus 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 insulin 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: unspecified penitentiary insulin use status Diabetes mellitus complication status: with other specified complication Qualified Code(s): E11.69 - Type 2 diabetes mellitus with other specified complication Category: Medical Code(s): E11.9 - Type 2 diabetes mellitus without complications (6) Obesity (BMI 30.0-34.9) Current visit: Yes Status: Acute Category: Medical Code(s): E66.9 - Obesity, unspecified (7) History of mitral valve prolapse Current visit: Yes Status: Acute Category: Medical Code(s): Z86.79 - Personal history of other diseases of the circulatory system - Assessment and plan all Dx Assessment and Plan for all problems:: We will obtain an echocardiogram. Cardiology to see today. <Mike Cosby - Last Filed: 01/20/19 08:50> Internal Medicine - PN: Subj *Date: 01/20/19 *Time: 08:50 Exam Vital signs and Labs for Last 24 Hours: Temp Pulse Resp BP Pulse Ox 98.3 F 88 18 161/81 H 93 L 01/20/19 08:00 01/20/19 08:00 01/20/19 08:00 01/20/19 08:00 01/20/19 08:00 Laboratory Results - last 24 hr 01/19/19 11:08: POC Glucose 111 H 01/19/19 16:34: POC Glucose 144 H 01/19/19 19:59: POC Glucose 161 H I & O for Last 24 hours: Intake & Output 01/17/19 01/18/19 01/19/19 01/20/19 23:59 23:59 23:59 23:59 Intake Total 2218 / 2218 1657 / 1657 Balance 2218 / 2218 1657 / 1657 Weight 205 lb 2 oz 209 lb 9 oz 214 lb 7 oz Assessment and Plan (1) Chest pain Current visit: Yes Status: Acute Qualifiers: Chest pain type: precordial pain Qualified Code(s): R07.2 - Precordial pain Category: Medical Code(s): R07.9 - Chest pain, unspecified (2) Headache Current visit: Yes Status: Acute Category: Medical Code(s): R51 - Headache (3) Neck pain Current visit: Yes Status: Acute Category: Medical Code(s): M54.2 - Cervicalgia (4) Acquired hypothyroidism Current visit: Yes Status: Acute Category: Medical Code(s): E03.9 - Hypothyroidism, unspecified (5) Diabetes mellitus Current visit: Yes Status: Acute Qualifiers: Diabetes mellitus type: type 2 Diabetes mellitus 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 insulin use: unspecified penitentiary insulin use status Diabetes mellitus complication status: with other specified complication Qualified Code(s): E11.69 - Type 2 diabetes mellitus with other specified complication Category: Medical Code(s): E11.9 - Type 2 diabetes mellitus without complications (6) Obesity (BMI 30.0-34.9) Current visit: Yes Status: Acute Category: Medical Code(s): E66.9 - Obesity, unspecified (7) History of mitral valve prolapse Current visit: Yes Status: Acute Category: Medical Code(s): Z86.79 - Personal history of other diseases of the circulatory system - Assessment and plan all Dx Assessment and Plan for all problems:: Saw patient, agree with above note.
--- NOTE | 2019-01-20 08:00 | Consult Report ---
History of Present Illness Consult date: 01/20/19 Requesting physician: Sharon Pagan Consult reason: chest pain Chief complaint: chest pain Additional Medical History:: 1. Chest pain, 2014 A. [facility], 10/2014, 1. The left main artery normal 2. The left anterior descending artery mild luminal irregularities 3. The circumflex artery dominant with mild luminal irregularities 4. The right coronary artery normal 5. The MARTÍNEZ ventriculogram reveals normal ejection fraction estimated at 65% 6. The left ventricular end-diastolic pressure less than 10 mmHg 7. The right renal artery is singular and normal 8. The left renal artery is singular and normal 2. Diabetes 3. Obesity 4. FH of CAD (Sister with MN/CABG in her early 40's) 5. Hypothyroidism, on replacement 6. Cholecystectomy, Appendectomy 7. History of Gastroparesis History of present illness: 48-year-old white female with history of diabetes presented to the emergency department 2 days ago for evaluation of recurrent chest pain. Patient states symptoms started on Sunday night with a sharp stabbing sensation in the left side of the chest that lasts less than 30 minutes. Symptoms did radiate into the neck and was associated with a headache that has been persistent throughout the weekend. Symptoms again occurred Sunday morning and Sunday evening waking her from sleep. No association with exertion. No nausea or vomiting or shortness of breath. Patient denies any history of reflux or heartburn symptoms. EKG during chest pain this admission showed sinus bradycardia with no acute ST segment changes. Troponins are returned normal x3. Patient did receive nitroglycerin paste with some improvement in chest discomfort but with worsening of her headache. Symptoms are similar to what she had for years ago at which time she underwent cardiac catheterization showing only mild intraluminal irregularities and normal renal arteries. She had normal left ventricular size and function at that time. Cardiology consulted for evaluation recommendations. [facility] History Medical History: Reports:: Diabetes Mellitus Type 2, Hyperlipidemia, MRSA Denies:: Cancer, Diabetes Mellitus Type 1 *Have you ever received a pneumonia vaccine?: No *Have you received a flu vaccine this season?: No Other Medical History: Reports: Hypothyroidism Other Surgeries: Yes: Appendectomy, Cholecystectomy, Amputation: No Fractures: No - *Social History Educational Level: Completed College Smoking Status: Never smoker Alcohol Intake: never *Occupational Status:: employed Housing: house Household Members: spouse *Travel in the last 8 weeks: None - Psychiatric History Expresses thoughts of harming self/others: None Suicide Plan Description: No Plan Family Hx:: Cancer, Heart Attack (Father in his 60s from heart disease. Her sister has coronary artery disease. Her grandmother also), Kidney Disease, Stroke Meds Home Medications Medication Instructions Recorded Confirmed Type Dulaglutide [Trulicity] 1.5 mg SQ WEEKLY 01/18/19 01/18/19 History Empagliflozin/Metformin HCl 2 each PO DAILY 01/18/19 01/18/19 History [Synjardy 5-1,000 mg Tablet] Levothyroxine Sodium [Synthroid 112 mcg PO DAILYDM 01/18/19 01/18/19 History 112mcg (0.112mg) tablet] Allergies Allergy/AdvReac Type Severity Reaction Status Date / Time bisacodyl [BISACODYL] Allergy Unknown Verified 01/18/19 20:44 Review of Systems - *Cardiovascular Reports chest pain, Denies shortness of breath - *Respiratory Denies shortness of breath - *Gastrointestinal Denies loose stools, Denies nausea, Denies vomiting - *Genitourinary Denies blood in urine - *Musculoskeletal Denies joint pain, Denies back pain - *Neurologic Denies dizziness, Denies seizure-like activity Exam Vital signs and Labs for Last 24 Hours: Temp Pulse Resp BP Pulse Ox 98.4 F 66 19 124/74 97 01/20/19 04:00 01/20/19 04:00 01/20/19 04:00 01/20/19 04:00 01/20/19 04:00 Laboratory Results - last 24 hr 01/19/19 11:08: POC Glucose 111 H 01/19/19 16:34: POC Glucose 144 H 01/19/19 19:59: POC Glucose 161 H I & O for Last 24 hours: Intake & Output 01/17/19 01/18/19 01/19/19 01/20/19 11:59 11:59 11:59 11:59 Intake Total 718 / 718 3157 / 3157 Balance 718 / 718 3157 / 3157 Weight 209 lb 9 oz 214 lb 7 oz - *Routine HEENT Exam Head: Present: normocephalic Eye: Present: EOMI, PERRL ENT: Present: mucous membranes moist - *Routine Neck Exam Present: supple. Absent: JVD, carotid bruit - *Routine Respiratory Exam Present: CTA bilaterally. Absent: accessory muscle use, rales, rhonchi, wheezes - *Routine Cardiovascular Exam Present: RRR, murmur. Absent: gallop, rubs - *Routine Abdominal Exam Present: soft. Absent: tenderness, distended, guarding - *Routine Extremities Exam Absent: edema, calf tenderness - *Routine Neurological Exam Present: alert, oriented X3, moving all extremities Assessment and Plan (1) Chest pain Current visit: Yes Status: Acute Qualifiers: Qualified Code(s): R07.2 - Precordial pain Category: Medical Code(s): R07.9 - Chest pain, unspecified (2) Headache Current visit: Yes Status: Acute Category: Medical Code(s): R51 - Headache (3) Neck pain Current visit: Yes Status: Acute Category: Medical Code(s): M54.2 - Cervicalgia (4) Acquired hypothyroidism Current visit: Yes Status: Acute Category: Medical Code(s): E03.9 - Hypothyroidism, unspecified (5) Diabetes mellitus Current visit: Yes Status: Acute Qualifiers: Qualified Code(s): E11.69 - Type 2 diabetes mellitus with other specified complication Category: Medical Code(s): E11.9 - Type 2 diabetes mellitus without complications (6) Obesity (BMI 30.0-34.9) Current visit: Yes Status: Acute Category: Medical Code(s): E66.9 - Obesity, unspecified - Assessment and plan all Dx Assessment and Plan for all problems:: 1. Nonexertional chest pain with normal troponins, EKG with no acute changes with essentially normal cardiac catheterization 4 years ago. Recommend obtaining echocardiogram and if left ventricular ejection fraction continues to be normal then no further cardiac work-up at this time. 2. Consider GI etiology as patient does have a history of gastroparesis. 3. Thank you for allowing us to participate in the care of this patient.
--- NOTE | 2019-01-20 09:43 | Electrocardiograph Report ---
APPROVED REPORT Exam: Resting ECG HR:59 bpm ECG Measurements Heart Rate 59 AXES VA 152 P 19 QRSd 88 QRS 44 QT 434 T46 QTc 429 <Conclusion> Sinus bradycardia Otherwise normal ECG Electronically signed by : Max Red, 01/20/2019 09:43:12
--- NOTE | 2019-01-20 09:44 | Electrocardiograph Report ---
APPROVED REPORT Exam: Resting ECG HR:82 bpm ECG Measurements Heart Rate 82 AXES WA 130 P 44 QRSd 76 QRS 16 QT 398 T44 QTc 464 <Conclusion> Normal sinus rhythm Low voltage QRS Borderline ECG Electronically signed by : Max Red, 01/20/2019 09:44:10
--- NOTE | 2019-01-20 14:03 | Discharge Summary ---
General - General Admission date:: 01/18/19 Discharge date: 01/20/19 HPI HPI: This 48-year-old diabetic patient presented to the emergency room at [facility] reporting 2 days of left-sided chest pain with radiation up the left side of the neck and with headache. She stated that she was really more concerned about the headache than the chest pain. She denied shortness of breath. She reported some nausea with no vomiting. She was noted not to have a past personal history of heart disease, but a strong family history of heart disease including her sister. Patient also noted that she was not a smoker. Also to note 2 weeks ago the patient was treated for a cellulitis in the right leg. She took Bactrim DS 1 p.o. twice daily. She finished this about a week ago. She denied heartburn with the antibiotic. Hospital Course Hospital Course: Patient was admitted from the emergency room with a cardiology consult. Cardiology did see the patient and noted normal troponins, EKG without acute changes, and normal cardiac catheterization 4 years ago. They recommended echocardiogram and if normal, no further cardiac work-up needed. Patient was able to eat without problems, ambulate without problems, and denied respiratory issues. Her biggest complaint was the headache on the left side of her head down behind the ear and into the neck. Exam of the ear and throat were normal. She received morphine and Tylenol for chest pain which did ease the headache somewhat. She was on a sliding scale with insulin coverage before meals and at bedtime. Echocardiogram preliminary report revealed a good ejection fraction. She was felt to be stable to be discharged. On 02/20/2019 patient was discharged to home in stable and satisfactory condition. She is to follow-up with Dr. Cosby in 3 days. She will continue on meds as per medication list to include meloxicam and a PPI. Objective Vital signs: Temp Pulse Resp BP Pulse Ox 98.3 F 88 18 161/81 H 93 L 01/20/19 08:00 01/20/19 08:00 01/20/19 08:00 01/20/19 08:00 01/20/19 08:00 Narrative: Exam Vital signs and Labs for Last 24 Hours: Temp Pulse Resp BP Pulse Ox 98.4 F 66 19 124/74 97 01/20/19 04:00 01/20/19 04:00 01/20/19 04:00 01/20/19 04:00 01/20/19 04:00 Laboratory Results - last 24 hr 01/19/19 11:08: POC Glucose 111 H 01/19/19 16:34: POC Glucose 144 H 01/19/19 19:59: POC Glucose 161 H I & O for Last 24 hours: Intake & Output 01/17/19 01/18/19 01/19/19 01/20/19 11:59 11:59 11:59 11:59 Intake Total 718 / 718 3157 / 3157 Balance 718 / 718 3157 / 3157 Weight 209 lb 9 oz 214 lb 7 oz Radiology Reports for the Last 24 Hours: Chest x-ray 01/18/2019 IMPRESSION: No acute findings. - Constitutional no acute distress Comments: Awake and alert and complaining of a headache. - *Routine HEENT Exam Eye: Absent: conjunctival icterus ENT: Present: mucous membranes moist, oropharynx clear - *Routine Neck Exam Comments: Tender left lymphadenopathy - *Routine Respiratory Exam Present: CTA bilaterally - *Routine Cardiovascular Exam Present: RRR - *Routine Abdominal Exam Present: soft, normoactive bowel sounds. Absent: tenderness, distended - *Routine Extremities Exam Absent: edema - *Routine Neurological Exam Present: alert, oriented X3 Results Completed studies during hospitalization [Text1]: Laboratory Tests 01/18/19 01/18/19 01/19/19 20:54 20:54 01:15 WBC 11.0 H RBC 4.96 Hgb 16.2 Hct 46.4 MCV 93.6 MCH 32.7 H MCHC 35.0 Plt Count 233 Sodium 139 Potassium 3.8 Chloride 104 Carbon Dioxide 27 Anion Gap 11.8 BUN 10 Creatinine 0.64 Estimated Creat Clear 165 Estimated GFR 100 Glucose 157 H Calcium 9.0 Troponin I < 0.02 < 0.02 Triglycerides Cholesterol LDL Cholesterol VLDL Cholesterol HDL Cholesterol Cholesterol/HDL Ratio 01/19/19 01/19/19 04:00 04:00 WBC 8.2 D RBC 4.56 Hgb 14.3 D Hct 42.7 MCV 93.7 MCH 31.4 H MCHC 33.5 Plt Count 230 Sodium 141 Potassium 4.3 Chloride 106 Carbon Dioxide 28 Anion Gap 11.3 BUN 11 Creatinine 0.72 Estimated Creat Clear 143 Estimated GFR 87 Glucose 177 H Calcium Troponin I < 0.02 Triglycerides 181 Cholesterol 162 LDL Cholesterol 93 VLDL Cholesterol 36 HDL Cholesterol 33 Cholesterol/HDL Ratio 4.9 H Chest x-ray 01/18/2019 IMPRESSION: No acute findings. Labs on day of discharge: Labs from last 24 hours 01/20/19 01/20/19 01/19/19 11:01 06:06 19:59 POC Glucose 136 H 106 161 H 01/19/19 16:34 POC Glucose 144 H DS: Diagnosis - Discharge Diagnosis (1) Chest pain Status: Acute (2) Headache Status: Acute (3) Neck pain Status: Acute (4) Acquired hypothyroidism Status: Acute (5) Diabetes mellitus Status: Acute (6) Obesity (BMI 30.0-34.9) Status: Acute Discharge Plan - Patient Discharge Instructions ACTIVITY: Continue current activity DIET: continue same diet Patient Instructions: DI for Chest Pain - Follow up Plan Follow up with: Mike Cosby MD [Primary Care Provider] - 01/23/19 9:30 am Disposition: Home, Self-Alf Medications: Home Medications Medication Instructions Recorded Confirmed Type Dulaglutide [Trulicity] 1.5 mg SQ WEEKLY 01/18/19 01/18/19 History Empagliflozin/Metformin HCl 2 each PO DAILY 01/18/19 01/18/19 History [Synjardy 5-1,000 mg Tablet] Levothyroxine Sodium [Synthroid 112 mcg PO DAILYDM 01/18/19 01/18/19 History 112mcg (0.112mg) tablet] Meloxicam 15 mg PO DAILY #30 tab 01/20/19 Rx Pantoprazole Sodium [Protonix 40mg 40 mg PO DAILY 30 Days #30 tab 01/20/19 Rx tablet] Prescriptions/Medication Reconciliation: New Meloxicam 15 mg PO DAILY #30 tab Pantoprazole Sodium [Protonix 40mg tablet] 40 mg PO DAILY 30 Days #30 tab Continued Dulaglutide [Trulicity] 1.5 mg SQ WEEKLY Levothyroxine Sodium [Synthroid 112mcg (0.112mg) tablet] 112 mcg PO DAILYDM Empagliflozin/Metformin HCl [Synjardy 5-1,000 mg Tablet] 2 each PO DAILY - Problem Reconciliation Problems Reviewed?: Yes
== END 2019-01-20 12:32 | disposition home or self-care (01) ==
LOC: ER 20:35 → 2ND 20:35
PROVIDERS: ADMIT Family Medicine; ATTEND Family Medicine
CPT/HCPCS: 36415; 71020; 71046; 80048; 80061; 82962; 84484; 85025; 85651; 86140; 93005; 93306; 96374; 99203; G0378

== ENCOUNTER → 2020-01-21 08:11 | Outpatient (CLI) | payer BC, SELFPAY ==
--- NOTE | 2020-01-21 08:13 | MM_ITS ---
PROCEDURE: MM DIG SCREENING MAMM BI W/CAD Digital Breast Tomosynthesis Included CLINICAL INDICATION: SCREENING There is a history of breast cancer patient's sister diagnosed before menopause. COMPARISON: MG DIGMAMMS MAMMOGRAM SCREEN-APPLICATION CONSULTANT N/C from 04/19/2004 MG DMSB DIGITAL MAMM-SCREEN BILATERAL from 01/28/2010 MG SCBI MM Dig screening mamm BI w/CAD from 05/29/2018 TECHNIQUE: Standard CC and MLO images and 3D Tomosynthesis was obtained. R2 CAD reviewed. FINDINGS: Scattered diffuse fibroglandular densities are seen throughout both breast and the findings are bilateral and symmetrical. There is a stable benign-appearing nodular density deep within the right breast. There is no suspicious lesion in either breast and no suspicious microcalcifications. IMPRESSION: Fibrofatty parenchyma with no suspicious lesions seen BI-RAD Category: 2 Benign Finding(s) FOLLOW-UP: Yearly follow-up (A letter has been sent to the patient regarding results of the study.) Dictated by: Dr. Sandeep Piña MD 01/24/2020 14:53 Dr. Sandeep Piña MD in [place] 01/24/2020 14:53
== END ==
PROVIDERS: PCP Family Medicine; Visit Provider Physician Assistant
DX: Z12.31 Encounter for screening mammogram for malignant neoplasm of breast (principal)
CPT/HCPCS: 77063; 77067

== ENCOUNTER → 2020-02-11 11:11 | Outpatient (CLI) | payer BC, SELFPAY ==
[2020-02-11 12:19] LABS: Coronavirus 19 IgG Antibody Negative (Negative); Coronavirus 19 IgM Antibody Negative (Negative)
== END ==
PROVIDERS: Visit Provider Surgery
DX: Z01.818 Encounter for other preprocedural examination (principal); Z12.11 Encounter for screening for malignant neoplasm of colon; Z13.810 Encounter for screening for upper gastrointestinal disorder
CPT/HCPCS: 36415; 86328

== ENCOUNTER 2020-02-12 07:32 | Day surgery (SDC) | payer BC, SELFPAY ==
[2020-02-10 11:00] VITALS: BMI 33.9
[2020-02-12 07:49] VITALS: BP 150/91; PULSE 100; RESP 18; TEMP 36.6; O2SAT 98
[2020-02-12 08:06] LABS: POC Glucose,Bedside 201 (70-110)
--- NOTE | 2020-02-12 08:24 | P.PN_ITS ---
[facility] Anesthesia Checklist - Patient Identification Patient Identification: Arm Band, Verbal (Name & ) - Structural Data Admitted From: Home Planned Operative Procedure/s: EGD and Colonoscopy Consent for Planned Operative Procedure(s) Verified: Yes Verified Documents: Surgical Consent, History and Physical - NPO Status Verified Time NPO: 22:00 - Additional verifications Fingerstick Blood Glucose: 201 Patient : No Anesthesia Reactions: No - Airway Assessment C-Spine Mobility Assessed: Yes TMJ Mobility Assessed: Yes Dentition: Poor Dentition (a) - Neurological Assessment Level of Consciousness: Awake, Alert, Appropriate, Follows Commands Hx Seizures: No Numbness or tingling in extremities: No - Anesthesia Plan Anesthesia Risk discussed: Yes Anesthesia Plan: Verified ASA Class: III Anesthesia Type: MAC [facility] History I have reviewed the patient's past medical history: Yes Medical History: Reports:: Chronic Obstructive Pulmonary Disease (COPD), Diabetes Mellitus Type 2, Hyperlipidemia, Hypertension, MRSA (5x different location) Denies:: Cancer, Diabetes Mellitus Type 1, Internal Pacemaker, Seizures *Have you ever received a pneumonia vaccine?: Yes *Have you received a flu vaccine this season?: No Other Medical History: Reports: Hypothyroidism, Liver Disease (Fatty liver) Comment:: Obesity Anesthesia experience/problems:: No prior complications Other Surgeries: Yes: Appendectomy, Cholecystectomy, , Other. No: Pacemaker Amputation: No Fractures: No - *Social History Last grade of school completed: Advanced degree Smoking Status: Never smoker Alcohol Intake: never Substance Use Type: denies use *Occupational Status:: retired Housing: house Household Members: spouse *Travel in the last 8 weeks: None Family Hx:: Cancer, Heart Attack, Kidney Disease, Stroke
[2020-02-12 08:31] VITALS: O2SAT 98
--- NOTE | 2020-02-12 09:22 | HMH.SCOPE ---
- Procedure: Date: 02/12/20 Patient Date of :: 1970 Procedure Performed:: Esophagogastroduodenoscopy with biopsy Colonoscopy Indications:: Right upper quadrant abdominal pain Screening colonoscopy Performing Provider:: Jr Jaffe MD Referring Provider:: . Sedation:: Monitored anesthesia care Procedure:: After informed consent was obtained the patient was taken to the endoscopy suite. Sedation ensued after the patient was transferred to the left lateral decubitus position. Pulse, blood pressure, and oxygen saturation were monitored throughout the procedure. The endoscope was advanced beyond the duodenal bulb. Retroflexion within the gastric lumen was accomplished. The gastroscope was carefully removed. Digital rectal exam revealed no significant abnormality. The colonoscope was placed in position. The entire colon was evaluated. The colonoscope was carefully removed and the patient was transferred to recovery in stable condition. Please see findings and specimens below for detail. Findings:: Gastroesophageal junction at 36 cm Mild inflammatory change at gastroesophageal junction Moderate gastritis Mild duodenitis Bowel preparation fair to moderate Significant lack of relaxation Moderate colonic tortuosity Hemorrhoidal tags Specimens:: Antral biopsy Biopsy of focal inflammation of colon at 50 cm Recommendations:: Follow-up pathology Likely repeat colonoscopy in 2-3 years secondary to visualization limitations Consider abdominal wall MRI Complications:: No immediate Estimated blood obtained (mL): 1
[2020-02-12 09:26] VITALS: BP 112/73; PULSE 88; RESP 18; TEMP 36.1; O2SAT 90
[2020-02-12 09:36] VITALS: BP 122/68; PULSE 87; RESP 18; O2SAT 92
[2020-02-12 09:45] VITALS: BP 126/79; PULSE 87; RESP 18; O2SAT 94
== END 2020-02-12 09:50 ==
PROVIDERS: PCP Physician Assistant; Visit Provider Surgery
PROC: 0DJ08ZZ Inspection of Upper Intestinal Tract, Via Natural or Artificial Opening Endoscopic (ICD-10-PCS; CPT 43235; principal; 2020-02-12 08:30)
DX: Z12.11 Encounter for screening for malignant neoplasm of colon (principal); K56.2 Volvulus; K64.0 First degree hemorrhoids; K63.89 Other specified diseases of intestine; K29.80 Duodenitis without bleeding; K29.70 Gastritis, unspecified, without bleeding; K22.9 Disease of esophagus, unspecified; E11.9 Type 2 diabetes mellitus without complications; I10 Essential (primary) hypertension; J44.9 Chronic obstructive pulmonary disease, unspecified; E78.5 Hyperlipidemia, unspecified; Z86.14 Personal history of Methicillin resistant Staphylococcus aureus infection
CPT/HCPCS: 43239; 45378; 82962

== ENCOUNTER → 2020-05-07 12:57 | Outpatient (CLI) | payer BC, SELFPAY ==
--- NOTE | 2020-05-07 13:15 | CT_ITS ---
PROCEDURE: CT ABDOMEN PELVIS WO CON CLINICAL INDICATION: HEMATURIA Hematuria, right flank pain COMPARISON: No exams were available for comparison TECHNIQUE: Axial images obtained with sagittal and coronal reformats. All CT scans at the facility use one or more dose reduction, viz: automated exposure control, ma/kV adjustment per patient size (including targeted exams where dose is matched to indication, i.e. head), or iterative reconstruction technique. FINDINGS: LOWER THORAX: Patchy ground-glass attenuation noted in the lung bases nonspecific and may be due to inflammatory change/infection or atelectasis. ABDOMEN & PELVIS: The liver, spleen, adrenal glands, pancreas, and kidneys have an unremarkable appearance. No renal or ureteral calculi. Prior appendectomy. No intestinal obstruction or free air. There is thickening of the urinary bladder wall. No acute bony findings. IMPRESSION: There is thickening of the urinary bladder wall which may be seen with cystitis. Patchy ground-glass attenuation in the lung bases which may be due to atelectasis inflammation or infection. Dictated by: Yves Najera MD 05/07/2020 14:52 Yves Najera MD in [place] 05/07/2020 14:52
== END ==
PROVIDERS: PCP Family Medicine; Visit Provider Physician Assistant
DX: R31.9 Hematuria, unspecified (principal)
CPT/HCPCS: 74176

== ENCOUNTER → 2020-09-06 11:11 | Outpatient (CLI) | payer BC, SELFPAY ==
[2020-09-06 12:45] LABS: Chloride 105 mmol/L (98-107); Potassium 4.6 mmoL/L (3.5-5.1); Sodium 140 mmol/L (136-145)
[2020-09-06 12:47] LABS: Alanine Aminotransferase 28 U/L (12-78); Aspartate Amino Transferase 36 U/L (14-36); Blood Urea Nitrogen 17 mg/dl (7-17); Estimated Glomerular Filt Rate 107 ml/min (>60); GFR (African American) 129 ML/MIN (>60)
[2020-09-06 12:48] LABS: Albumin Level 5.1 g/dl (3.5-5.0); Albumin/Globulin Ratio 1.3 (1.1-1.8); Alkaline Phosphatase 63 U/L (38-126); Anion Gap 17.6 mEq/L (5-15); Bilirubin,Total 1.2 mg/dl (0.2-1.3); Calcium 10.1 mg/dl (8.4-10.2); Carbon Dioxide 22 mmol/L (22.0-30.0); Chol/HDL Ratio 4.7 (1-3.5); Cholesterol 203 mg/dl (140-200); Glucose 146 mg/dl (74-100); HDL Cholesterol 43 mg/dl (40-60); Total Protein,Serum 9.1 g/dl (6.3-8.2); Triglycerides 134 mg/dl (30-150); VLDL Cholesterol 27 mg/dL (0-40)
[2020-09-06 12:59] LABS: Direct LDL Cholesterol 129.87 mg/dL (100-129)
[2020-09-06 13:16] LABS: Hemoglobin A1C 8.5 % (4.0-6.0)
[2020-09-06 20:36] LABS: Free T4 (Free Thyroxine) 1.71 ng/dl (0.78-2.19)
[2020-09-07 16:34] LABS: FSH 37.9 mIU/mL (.); LH 24.9 mIU/mL (.)
[2020-09-14 12:36] LABS: Estrogen 108 pg/mL (.)
== END ==
PROVIDERS: Visit Provider Physician Assistant
DX: E11.9 Type 2 diabetes mellitus without complications (principal); E03.9 Hypothyroidism, unspecified; E78.2 Mixed hyperlipidemia; N95.1 Menopausal and female climacteric states; Z79.4 Long term (current) use of insulin
CPT/HCPCS: 36415; 80053; 80061; 82672; 83001; 83002; 83036; 84439

== ENCOUNTER → 2020-12-20 13:55 | Outpatient (CLI) | payer BC, SELFPAY ==
--- NOTE | 2020-12-20 13:59 | US_ITS ---
PROCEDURE: US THYROID CLINICAL INDICATION: THYROID NODULE COMPARISON: US THY US thyroid from 05/07/2018 FINDINGS: Right lobe: 4.4 x 1.8 x 1.9 cm . Left lobe: 4.8 x 1.8 x 3 cm Isthmus: The isthmus is upper limits of normal at 4 mm Additional findings: There is diffuse heterogeneous echogenicity of the thyroid gland with no discrete nodule apparent on the right. On the left there is a ill-defined 8 mm by 11 mm nodular area of decreased echogenicity in the lower pole. This may only represent an area heterogeneous echogenicity versus a nodule. Month follow-up suggested. IMPRESSION: Mild enlargement of the thyroid gland with diffuse heterogeneous echogenicity with questionable nodule on the left at 11 x 8 mm. Suggest 12 month follow-up Dictated by: Yves Najera MD 12/20/2020 18:03 Yves Najera MD in [place] 12/20/2020 18:03
== END ==
PROVIDERS: PCP Family Medicine; Visit Provider Physician Assistant
DX: E04.1 Nontoxic single thyroid nodule (principal)
CPT/HCPCS: 76536

== ENCOUNTER → 2021-01-21 10:23 | Outpatient (CLI) | payer BC, SELFPAY ==
--- NOTE | 2021-01-21 10:30 | MM_ITS ---
PROCEDURE: MM DIG SCREENING MAMM BI W/CAD Digital Breast Tomosynthesis Included CLINICAL INDICATION: SCREENING COMPARISON: MG DMSB DIGITAL MAMM-SCREEN BILATERAL from 01/28/2010 MG [facility]BI MM Dig screening mamm BI w/CAD from 05/29/2018 MG MM DIG SCREENING MAMM BI W/CAD from 01/21/2020 TECHNIQUE: Standard CC and MLO images and 3D Tomosynthesis was obtained. R2 CAD reviewed. FINDINGS: There are scattered areas of fibroglandular density. No suspicious appearing mass, malignant-appearing microcalcification, architectural distortion, or skin thickening. No change with no evidence of malignancy. IMPRESSION: Negative BI-RAD Category: 1 Negative FOLLOW-UP: 1 YR 1 Year Follow-up (A letter has been sent to the patient regarding results of the study.) Dictated by: Yves Najera MD 01/27/2021 17:50 Yves Najera MD in [place] 01/27/2021 17:50
--- NOTE | 2021-01-21 10:31 | US_ITS ---
PROCEDURE: US TRANSVAGINAL CLINICAL INDICATION: OVARIAN CYST COMPARISON: CT CT ABDOMEN PELVIS WO CON from 05/07/2020 FINDINGS: No recent MRI available for comparison UTERUS: 8cm x 5cmx 4cm with a combined endometrial thickness of 3.1mm. Small nabothian cysts are present LEFT OVARY: [id number] with a volume of 8.9ml. There is a 2 cm simple appearing left ovarian cyst. No right adnexal cystic lesions demonstrated. RIGHT OVARY: [id number] with a volume of 5.2ml. No cul-de-sac fluid IMPRESSION: 2 cm left ovarian cyst otherwise negative Dictated by: Yves Najera MD 01/21/2021 14:27 Yves Najera MD in [place] 01/21/2021 14:27
== END ==
PROVIDERS: PCP Family Medicine; Visit Provider Physician Assistant
DX: Z12.31 Encounter for screening mammogram for malignant neoplasm of breast (principal); N83.209 Unspecified ovarian cyst, unspecified side
CPT/HCPCS: 76830; 77063; 77067

== ENCOUNTER → 2021-11-12 11:38 | Outpatient (CLI) | payer BC, OTHER, SELFPAY ==
--- NOTE | 2021-11-12 12:46 | XR_ITS ---
PROCEDURE INFORMATION: Exam: XR Chest Exam date and time: 11/12/2021 12:46 PM Age: 51 years old Clinical indication: Other: Positive tb test; Additional info: Positive skin tb test TECHNIQUE: Imaging protocol: Radiologic exam of the chest. Views: 1 view. COMPARISON: CR XR CHEST 2V 01/18/2019 9:07 PM FINDINGS: Lungs: Hypoinflation and mild interstitial prominence, without acute airspace disease. Pleural spaces: No pleural effusion. Heart/Mediastinum: No cardiomegaly. Bones/joints: Mild degenerative change. IMPRESSION: No radiographic evidence for active tuberculosis.
== END ==
PROVIDERS: PCP Physician Assistant; Visit Provider Family Medicine
DX: R76.11 Nonspecific reaction to tuberculin skin test without active tuberculosis (principal)
CPT/HCPCS: 71045

== ENCOUNTER → 2021-12-08 08:12 | Outpatient (CLI) | payer BC, OTHER, SELFPAY ==
--- NOTE | 2021-12-08 08:16 | US_ITS ---
FINAL REPORT CLINICAL HISTORY: LLQ pain FINDINGS: Transvaginal Ultrasound Technique: Transvaginal sonographic images of the pelvis were obtained. Findings: The uterus is normal in size. The endometrium is unremarkable. The right ovary is unremarkable. The left ovary is unremarkable. There is no significant free fluid. IMPRESSION: No acute process. Reviewed, Interpreted and Dictated by Zane Hoang MD Transcribed by Lam Quinn Authenticated and [facility]
== END ==
PROVIDERS: PCP Physician Assistant; Visit Provider Obstetrics & Gynecology
DX: R10.2 Pelvic and perineal pain (principal)
CPT/HCPCS: 76830

== ENCOUNTER → 2022-12-05 10:52 | Outpatient (CLI) | payer BC, OTHER, SELFPAY ==
--- NOTE | 2022-12-05 11:00 | ECG_ITS ---
APPROVED REPORT Exam: Resting ECG HR:76 bpm ECG Measurements Heart Rate 76 AXES MN 149 P 26 QRSd 91 QRS 91 QT 379 T -1 QTc 410 Conclusion SINUS RHYTHM BORDERLINE RIGHT AXIS DEVIATION [QRS AXIS > 90] ABNORMAL QRS-T ANGLE [QRS-T AXIS DIFFERENCE > 60] ABNORMAL ECG UNCONFIRMED REPORT Electronically signed by : Max Red MD 12/07/2022 21:40:31
--- NOTE | 2022-12-05 11:21 | XR_ITS ---
FINAL REPORT TECHNIQUE: Chest PA & Lateral CLINICAL HISTORY: CHEST PAIN COMPARISON: October 2021 FINDINGS: 2 views of the chest were performed. The heart size is normal. The mediastinum is within normal limits. There is no acute infiltrate. There are no pleural effusions. There is no pneumothorax. The bony thorax appears intact. IMPRESSION: No acute cardiopulmonary process. Reviewed, Interpreted and Dictated by Jason Allen III, MD Transcribed by Lam Quinn Authenticated and [facility]
[2022-12-05 11:54] LABS: Basophils % 0.5 % (0.1-2.0); Eosinophils # 0.5 K/mm3 (0.0-0.4); Eosinophils % 6.6 % (0.1-12.0); Hematocrit 48.2 % (37.0-47.0); Hemoglobin 15.7 g/dL (12.2-16.2); Lymphocytes # 3.2 K/mm3 (0.7-4.5); Mean Corpuscular HGB Conc 32.6 g/dL (31.8-35.4); Mean Corpuscular Hemoglobin 30.1 pg (27.0-31.2); Mean Corpuscular Volume 92.3 fl (81-99); Mean Platelet Volume 8.3 fl (7.4-10.4); Monocytes # 0.4 K/mm3 (0.1-1.0); Monocytes % 5.8 % (1.7-9.3); Neutrophils # 3.2 K/mm3 (1.8-7.8); Neutrophils % 43.1 % (37.0-80.0); Platelet Count 200 K/mm3 (142-424); Red Blood Count 5.22 M/mm3 (4.20-5.40); White Blood Count 7.4 K/mm3 (4.8-10.8)
[2022-12-05 13:17] LABS: Alanine Aminotransferase 24 U/L (12-78); Albumin Level 4.5 g/dl (3.5-5.0); Albumin/Globulin Ratio 1.2 (1.1-1.8); Alkaline Phosphatase 90 U/L (38-126); Anion Gap 13.4 mEq/L (5-15); Aspartate Amino Transferase 35 U/L (14-36); Bilirubin,Total 0.9 mg/dl (0.2-1.3); Blood Urea Nitrogen 15 mg/dl (7-17); Calcium 9.2 mg/dl (8.4-10.2); Carbon Dioxide 25 mmol/L (22.0-30.0); Chloride 105 mmol/L (98-107); Estimated Glomerular Filt Rate 106 ml/min (>60); GFR (African American) 128 ML/MIN (>60); Globulin 3.9 g/dL (1.3-3.2); Glucose 125 mg/dl (74-100); Potassium 4.4 mmoL/L (3.5-5.1); Sodium 139 mmol/L (136-145); Total Protein,Serum 8.4 g/dl (6.3-8.2)
[2022-12-05 13:31] LABS: NT Pro Brain Natriuretic Pep. < 20.0 pg/mL (0-125)
[2022-12-05 13:32] LABS: Troponin I < 0.01 ng/ml (0.00-0.034)
== END ==
LOC: LAB 10:53
PROVIDERS: PCP Family Medicine; Visit Provider Family Medicine
DX: R06.02 Shortness of breath (principal); R07.9 Chest pain, unspecified; E11.9 Type 2 diabetes mellitus without complications; Z79.84 Long term (current) use of oral hypoglycemic drugs
CPT/HCPCS: 36415; 71046; 80053; 83036; 83880; 84484; 85025; 93005

== ENCOUNTER → 2022-12-14 06:34 | Outpatient (CLI) | payer BC, OTHER, SELFPAY ==
--- NOTE | 2022-12-14 | CA_ITS ---
APPROVED REPORT Exam: Exercise Treadmill Technologist: Parul Elias, Ht: 5 ft 7 in Wt: 201 lbs BSA: 2.03 m2 HR: 75 bpm BP: 153/98 mmHg Rhythm: NSR, NS ST-T ABNS IN LEADS III, AVF Medical History Medical History: Diabetes Medications: Levothyroxine,,,,, EMpagliflozin-Metformin,,,,, Allergies: BISACODYL Cardiac Risk Factors: Diabetes, FHX of CAD Stress Test Details Test: Yony HR Resting HR: 94 bpm Max Heart Rate (APMHR): 170 bpm Max HR Achieved: 152 bpm Target HR (85% APMHR): 145 bpm % of APMHR: 89 Recovery HR: 91 bpm HR response to stress: Normal HR response to stress BP Resting BP: 153.0/98 mmHg Max BP: 180/86 mmHg Recovery BP: 158.0/86.0 mmHg BP response to stress: Normal blood pressure response to stress. ECG Resting ECG: NSR, NS ST-T ABNS IN LEADS III, AVF Clinical Exercise duration: 07:16 min Highest Stage Achieved: Stage 3: 3.4 mph at 14% grade. Exercise capacity: 10.1 METs Overall Exercise Capacity for Age: Average Stress ECG Conclusion PT WALKED 7:15 ON YONY PROTOCOL MAX HR: 152 % OF PM: 89% MAX BP: 180/86 METS: 10.1 TEST STOPPED DUE TO: SOA, FATIGUE PT HAD CHEST HEAVINESS WITH EXERCISE RARE PVC EXAGGERATION OF BASELINE T-WAVE CHANGES. CHEST PAIN WITH EXERCISE. CONCLUSION NON-DIAGNOSTIC EXERCISE STRESS TEST DUE TO BASELINE ABNORMALITIES MYOVIEW IMAGES REPORTED SEPARATELY Test Summary REST . . . . . . . Standing REST . . . . . . . Sitting REST 05:12 0.0 0.0 94 . 153/ 98 . . Stage 1 01:00 10.0 1.7 106 . . . . Stage 1 02:00 10.0 1.7 115 . . . . Stage 1 03:00 10.0 1.7 120 . 158/ 86 . . Stage 2 01:00 12.0 2.5 128 . . . . Stage 2 02:00 12.0 2.5 132 . . . . Stage 2 03:00 12.0 2.5 138 . 180/ 86 . . Stage 3 01:00 14.0 3.4 147 . . . . Stage 3 01:16 14.0 3.4 151 . . . Stop exercise at 07:16 RECOVERY 01:00 0.0 0.0 133 . . . . RECOVERY 02:00 0.0 0.0 108 . . . . RECOVERY 03:00 0.0 0.0 113 . 177/ 79 . . RECOVERY 04:00 0.0 0.0 93 . 166/ 88 . . RECOVERY 05:00 0.0 0.0 91 . 166/ 88 . . RECOVERY 05:35 0.0 0.0 92 . 158/ 86 . . Electronically signed by : Venus Morales, 12/15/2022 12:39:25
--- NOTE | 2022-12-14 06:37 | NM_ITS ---
APPROVED REPORT Exam: Nuclear Stress Test Indication: OBESITY, DM, FM HX, C.P., SOB, FATIGUE, ABN EKG Patient Location: Outpatient Stress Tech: Parul Elias [place] Tech:Jenny LimonSARAH RT(R)(N) Ht: 5 ft 6 in Wt: 200 lbs Bra Size: 38D HR: 94 bpm BP: 153/98 mmHg BSA: 2.00 m2 Rhythm: NSR TID: 10.90 BMI: 32.2 History: OBESITY, DM, FM HX, C.P., SOB, FATIGUE, ABN EKG Procedure: Patient exercised on Kamron protocol 7:16 minutes and sec, resting heart rate 94 bpm, resting blood pressure 153/98 mmHg, with exercise maximum heart rate achived was 152 bpm which is 89 % of the maximum predicted heart rate and blood pressure was 180/86 mmHg. Test was stopped due to FATIGUE. Patient denied any complaint of chest pain. Patient has Average exercise capacity, achieved 10.1 METs of workload on treadmill, the blood pressure response to exercise was Normal. Cardiac Stress and Resting SPECT Images: Cardiac Stress and Resting SPECT images were obtained using technetium 99m Myoview 31.0 mCi stress and 10.40 mCi at rest. Resting and stress imaging in both supine and prone positions demonstrate a medium sized, moderate, predominantly reversible perfusion defect in the mid to distal anterior LV wall Gated imaging demonstrates normal global and regional LV systolic function. LVEF is calculated at 71%. Conclusion: Medium sized, moderate, predominantly reversible perfusion defect in the mid to distal anterior LV wall. Findings are consistent with reversible ischemia. Gated imaging demonstrates normal global and regional LV systolic function. LVEF is calculated at 71%. Electronically signed by : Venus Morales, 12/15/2022 12:43:11
== END ==
PROVIDERS: PCP Family Medicine; Visit Provider Family Medicine
DX: R06.02 Shortness of breath (principal); R07.89 Other chest pain; R94.31 Abnormal electrocardiogram [ECG] [EKG]; M25.522 Pain in left elbow
CPT/HCPCS: 78452; 93017; A9502

== ENCOUNTER → 2022-12-22 08:25 | Outpatient (CLI) | payer BC, OTHER, SELFPAY ==
--- NOTE | 2022-12-22 | CA_ITS ---
APPROVED REPORT EXAM: Comprehensive 2D, Doppler, and color-flow Echocardiogram Spray Blender: Zulema Garcia CRT Ht: 5 ft 7 in Wt: 201lbs BSA: 2.03 BP: 130/88 mmHg Indications: Chest Pain, Diabetes, Obesity, Hyperlipidemia 2D Dimensions LVOT 1.94 cm (M/F) 1.5-2.5 LA Volume 34.60 mL LA Volume Index 16.60 mL/m2 (M/F) 16-34 M-Mode Dimensions RVDd 1.75 cm (0.9-2.6) LA Diam 3.91 cm (1.9-4.0) LVDd 3.43 cm (3.5-5.7) Ao Diam 3.70 cm (2.0-3.7) LVDs 1.90 cm (3.5-5.7) IVSd 2.04 cm (0.6-1.1) PWd 0.68 cm (0.6-1.1) EF (Teich) 76.90% FS 44.60% EDV (Teich) 48.50 mL TAPSE 2.29 (<1.7) ESV (Teich) 11.20 mL LV Diastology E Decel Time 260.00 (160-240 msec) E/A Ratio 0.84 MED E' 8.40 (< 7 cm/sec) MED A' 12.00 cm/s E'/MED E' Ratio 8.17 (>14) LAT E' 7.00 (<10 cm/sec) LAT A' 10.20 cm/s E/LAT E' Ratio 9.80 (>14) Aortic Valve AO Peak GR. 4.70 mmHg Mitral Valve MV A Velocity 82.00 (40-130 cm/s) E/A Ratio 0.84 MV Decel. Time 260.00 (160-240 ms) Pulmonary Valve PV Peak Velocity 108.00 (50-150 cm/s) Tricuspid Valve TR P. Velocity 166.00 cm/s Left Ventricle The left ventricle is normal size. The left ventricular systolic function is normal. The left ventricular ejection fraction is within the normal range. There is increased LV wall thickness There is normal LV segmental wall motion. LVEF is 60%. Right Ventricle The right ventricle is normal size. The right ventricular systolic function is normal. Atria The left atrium size is normal. The right atrium size is normal. There is no Doppler evidence of interatrial shunt. Aortic Valve The aortic valve is mildly thickened. There is no aortic valvular stenosis. No aortic regurgitation is present. Mitral Valve The mitral valve is mildly thickened. No evidence of mitral valve stenosis. There is no mitral valve regurgitation noted. Tricuspid Valve The tricuspid valve leaflets are thin and pliable. There is trace tricuspid valve regurgitation noted. RVSP is normal. Pulmonic Valve The pulmonic valve is grossly normal in structure and function. Trace pulmonic regurgitation. Great Vessels The aortic root is normal in size. The ascending aorta is normal in size. IVC is normal in size and collapses >50% with inspiration. Pericardium There is no pericardial effusion. Other Information Study Quality: Technically Difficult. Technically limited study due to poor accoustic windows. Conclusion Normal biventricular systolic function. No significant valvular disease. Electronically signed by : Venus Morales, 12/23/2022 13:37:49
== END ==
PROVIDERS: PCP Family Medicine; Visit Provider Family Medicine
DX: R06.02 Shortness of breath (principal); R07.89 Other chest pain; R94.31 Abnormal electrocardiogram [ECG] [EKG]
CPT/HCPCS: 93306

== ENCOUNTER 2022-12-29 23:33 | Inpatient (IN) | payer BC, OTHER, SELFPAY ==
--- NOTE | 2022-12-29 23:32 | ECG_ITS ---
APPROVED REPORT Exam: Resting ECG HR:83 bpm ECG Measurements Heart Rate 83 AXES MT 146 P 57 QRSd 89 QRS 92 QT 386 T 78 QTc 426 Conclusion SINUS RHYTHM BORDERLINE RIGHT AXIS DEVIATION [QRS AXIS > 90] BORDERLINE ECG UNCONFIRMED REPORT Electronically signed by : Max Red MD 12/31/2022 07:04:08
[2022-12-29 23:34] VITALS: BP 157/95; PULSE 88; RESP 18; TEMP 36.8; O2SAT 100; BMI 33.0
--- NOTE | 2022-12-29 23:39 | XR_ITS ---
PROCEDURE INFORMATION: Exam: XR Chest Exam date and time: 12/29/2022 11:39 PM Age: 52 years old Clinical indication: Pain; Chest pressure; Additional info: Chest pain TECHNIQUE: Imaging protocol: Radiologic exam of the chest. Views: 1 view. COMPARISON: CR XR CHEST 2V 12/05/2022 11:31 AM FINDINGS: Lungs: No focal airspace consolidation. Linear density within the right mid lung likely represents atelectasis and/or scarring. Stable left lower lobe calcified granuloma. Pleural spaces: Unremarkable. No pleural effusion. No pneumothorax. Heart/Mediastinum: Unremarkable. No cardiomegaly. Bones/joints: Unremarkable. IMPRESSION: No acute pulmonary findings.
--- NOTE | 2022-12-29 23:46 | HMH.EDGENADL ---
Discharge Plan Disposition Patient Disposition: Admitted Condition: Fair Chief Complaint: Chest Pain Prescriptions Prescriptions: No Action Trulicity 0.75 mg/0.5 mL pen injector SQ WEEKLY aspirin [Adult Low Dose Aspirin] 81 mg tablet,delayed release (DR/EC) 81 mg PO DAILY Qty: 30 5RF atorvastatin [Lipitor] 40 mg tablet 40 mg PO DAILY Qty: 30 3RF nitroglycerin 0.4 mg tablet, sublingual 0.4 mg sublingual Q5M PRN (Reason: chest pain) Qty: 25 0RF Rx Instructions: do not exceed 3 doses per episode metoprolol succinate [Toprol XL] 25 mg tablet extended release 24 hr 25 mg PO DAILY Qty: 30 3RF levothyroxine 112 MCG tablet 112 mcg PO DAILYDM empagliflozin-metformin 1 EACH tablet 2 each PO DAILY Referrals Follow up/Referrals: Mike Cosby MD [Primary Care Provider] - See instructions Clinical Impressions Clinical Impression: Unstable angina Discharge ED Provider: Hayden Aviles General Adult HPI General Chief complaint: Chest Pain Stated complaint: CHEST PAIN Time Seen by Provider: 12/29/22 23:45 Mode of Arrival: Ambulatory Limitations: No Limitations Description of Symptoms (Recalled from ER Triage Doc. by RN): PT C/O RIGHT SIDED CHEST PAIN THAT RADIATES TO NECK. HAS BEEN INTERMITTENT FOR 3 WEEKS. STARTED ABOUT 1700 TODAY, PT TOOK 2 NITRO AND PAIN IMPROVED. STARTED AGAIN ABOUT 2245, TOOK 1 NITRO, WITH SOME IMPROVEMENT. REPORTS SHORTNESS OF BREATH, DENIES N/V History of Present Illness HPI narrative: Patient is a 52-year-old female with past medical history of bxw-yfgjjbl-zaxdksvub diabetes, acquired hypothyroidism, previous chest pain who presents emergency department for evaluation of chest pain. She states that it is exertional, resolves with rest, has been waxing waning over the last 3 weeks. Particularly worse over the past week. It radiates up into her right neck. Denies shortness of breath with rest however occurs with exertion, cough, abdominal pain, fevers, other acute complaints at this time. Per review of recent cardiology note patient has ejection fraction of 71%, Myoview abnormal with reversible ischemia in the distal left ventricular wall. Patient was started on metoprolol extended release, daily aspirin, Lipitor, nitroglycerin as needed and was pending left heart cath in a couple weeks. Related Data Home Medications Medication Instructions Recorded Confirmed empagliflozin 5 mg-metformin 1,000 2 each PO DAILY diabetes 01/18/19 12/27/22 mg tablet levothyroxine 112 mcg tablet 112 mcg PO DAILYDM thyroid 01/18/19 12/27/22 dulaglutide 0.75 mg/0.5 mL mg SQ WEEKLY 12/27/22 12/27/22 subcutaneous pen injector (Trulicity) Previous Rx's Medication Instructions Recorded aspirin 81 mg tablet,delayed 81 mg PO DAILY #30 tabs 12/27/22 release (Adult Low Dose Aspirin) atorvastatin 40 mg tablet (Lipitor) 40 mg PO DAILY #30 tabs 12/27/22 metoprolol succinate 25 mg 25 mg PO DAILY #30 tabs 12/27/22 tablet,extended release 24 hr (Toprol XL) nitroglycerin 0.4 mg sublingual 0.4 mg sublingual Q5M PRN chest 12/27/22 tablet pain #25 tabs Allergies Allergy/AdvReac Type Severity Reaction Status Date / Time bisacodyl [BISACODYL] Allergy Unknown Verified 12/27/22 11:28 [facility] Disclaimer: The information contained in this section may have been updated after the patient was seen, as this information can be updated by other users. Medical History (Updated 12/30/22 @ 00:52 by Hayden Aviles MD) Abnormal result of cardiovascular function study Dyspnea Typical angina Social History Smoking Status: Never smoker alcohol intake: never substance use type: denies use current occupational status: retired Travel in the last 8 weeks: None household members: spouse housing: house caffeine: Yes ROS Obtained: Yes Systems reviewed as appropriate & no additional complaints e
[2022-12-29 23:52] LABS: Basophils # 0.1 K/mm3 (0-0.2); Basophils % 0.7 % (0.1-2.0); Eosinophils # 0.8 K/mm3 (0.0-0.4); Eosinophils % 10.3 % (0.1-12.0); Hemoglobin 16.4 g/dL (12.2-16.2); Lymphocytes # 3.3 K/mm3 (0.7-4.5); Lymphocytes % 43.4 % (10-50); Mean Corpuscular HGB Conc 32.8 g/dL (31.8-35.4); Mean Corpuscular Hemoglobin 29.9 pg (27.0-31.2); Mean Corpuscular Volume 91.1 fl (81-99); Monocytes # 0.6 K/mm3 (0.1-1.0); Monocytes % 7.4 % (1.7-9.3); Neutrophils # 2.9 K/mm3 (1.8-7.8); Neutrophils % 38.2 % (37.0-80.0); Platelet Count 188 K/mm3 (142-424); Red Blood Count 5.49 M/mm3 (4.20-5.40); Red Cell Distribution Width 13.5 % (11.5-17.5); White Blood Count 7.7 K/mm3 (4.8-10.8)
[2022-12-30] VITALS (14 sets, daily range): BP systolic 102–145; BP diastolic 57–93; PULSE 19–93; RESP 14–28; TEMP 35.5–36.9; O2SAT 92–100; BMI 33.7
[2022-12-30 00:03] LABS: Alanine Aminotransferase 31 U/L (12-78); Albumin Level 4.9 g/dl (3.5-5.0); Alkaline Phosphatase 107 U/L (38-126); Anion Gap 15.3 mEq/L (5-15); Aspartate Amino Transferase 37 U/L (14-36); Blood Urea Nitrogen 18 mg/dl (7-17); Calcium 9.2 mg/dl (8.4-10.2); Carbon Dioxide 26 mmol/L (22.0-30.0); Chloride 103 mmol/L (98-107); Creatinine Clearance Estimated 141 mL/min (50-200); Estimated Glomerular Filt Rate 89 ml/min (>60); GFR (African American) 107 ML/MIN (>60); Glucose 163 mg/dl (74-100); Potassium 4.3 mmoL/L (3.5-5.1); Sodium 140 mmol/L (136-145); Total Protein,Serum 9.9 g/dl (6.3-8.2)
[2022-12-30 00:18] LABS: Troponin I < 0.01 ng/ml (0.00-0.034)
--- NOTE | 2022-12-30 00:30 | PC.NURSE ---
Rounded on patient, no concerns at this time.
--- NOTE | 2022-12-30 00:45 | PC.NURSE ---
o/p with at this time.
--- NOTE | 2022-12-30 00:52 | PC.NURSE ---
OBSERVATION ADMISSION TO 200 WITH DX OF UNSTABLE ANGINA TO SERVICE OF DR. MANRIQUEZ TO [place].
--- NOTE | 2022-12-30 00:54 | ECG_ITS ---
APPROVED REPORT Exam: Resting ECG HR:77 bpm ECG Measurements Heart Rate 77 AXES RI 166 P 64 QRSd 102 QRS 92 QT 395 T 70 QTc 427 Conclusion SINUS RHYTHM BORDERLINE RIGHT AXIS DEVIATION [QRS AXIS > 90] LOW QRS VOLTAGE IN PRECORDIAL LEADS [QRS DEFLECTION < 1.0 mV IN CHEST LEADS] BORDERLINE ECG UNCONFIRMED REPORT Electronically signed by : Max Red MD 12/31/2022 07:04:01
--- NOTE | 2022-12-30 01:03 | PC.NURSE ---
REPORT GIVEN TO PAIGE LAU
--- NOTE | 2022-12-30 01:16 | PC.NURSE ---
Pt arrived to floor via wheelchair @ 0116
[2022-12-30 01:56] LABS: INR 0.99 (0.9-1.1); Prothrombin Time 10.7 seconds (10.1-12.5)
[2022-12-30 01:57] LABS: Activated Partial Thrombo Time 26.8 seconds (22.8-30.6)
--- NOTE | 2022-12-30 02:24 | PC.NURSE ---
Spoke to Dena at [facility], Hep drip and bolus verified and PTT hep protocol lab will be drawn again at 8am. Dena to put that order in.
[2022-12-30 03:20] LABS: Troponin I < 0.01 ng/ml (0.00-0.034)
--- NOTE | 2022-12-30 05:10 | PC.NURSE ---
After arriving to the floor the patient has rested. Heparin drip is running at 20ml/hr. Patient has not complained of chest pain since arriving to floor. No other issues noted
[2022-12-30 05:52] LABS: POC Glucose,Bedside 153 (70-110)
--- NOTE | 2022-12-30 08:14 | EXP.HP ---
History of Present Illness *Admission Date: 12/30/22 *Reason for visit:: Chest pain *History of present illness: Mrs. Stark is a 52 yrear old patient of [facility] who has had chest pain off and on for the past month. She had a stress test a few weeks ago that was abnormal and she was referred to [facility] cardiology. She was seen in there office this past week and was scheduled for a left heart cath later this month. She states over the past few days her pain has become more frequent and has been related to exertion. She took NTG last night and got minimal relief, so she came to the ER for an evaluation. [facility] Disclaimer: The information contained in this section may have been updated after the patient was seen, as this information can be updated by other users. Medical History (Updated 12/30/22 @ 08:22 by Mike Cosby MD) Abnormal result of cardiovascular function study Diabetes mellitus, type 2 Dyspnea Hyperlipidemia Hypothyroid Obesity (BMI 30.0-34.9) PTSD (post-traumatic stress disorder) Typical angina Surgical History (Updated 12/30/22 @ 08:20 by Mike Cosby MD) History of appendectomy History of History of cholecystectomy Hx of nasal septoplasty Family History (Updated 12/30/22 @ 08:20 by Mike Cosby MD) Diabetes Coronary artery disease Social History Smoking Status: Never smoker alcohol intake: never substance use type: denies use current occupational status: retired Travel in the last 8 weeks: None household members: spouse housing: house marital status: caffeine: Yes Review of Systems Constitutional Constitutional: Denies chills and Denies fever(s) Eyes Eyes: Denies blurry vision ENT Ears, Nose, Mouth, and Throat: Denies dizziness and Denies epistaxis *Cardiovascular Cardiovascular: Reports as per HPI and Denies dyspnea *Respiratory Respiratory: Denies dyspnea *Gastrointestinal Gastrointestinal: Denies abdominal pain *Genitourinary Genitourinary: Denies difficulty voiding *Musculoskeletal Musculoskeletal: Denies arthralgias Integumentary/Breasts Skin/Breast: Denies rash *Neurologic Neurologic: Denies dizziness Meds Home Medications and Allergies Home Medications Medication Instructions Recorded Confirmed Type empagliflozin 5 mg-metformin 1,000 2 each PO DAILY diabetes 01/18/19 12/30/22 History mg tablet levothyroxine 112 mcg tablet 112 mcg PO DAILYDM thyroid 01/18/19 12/30/22 History aspirin 81 mg tablet,delayed 81 mg PO DAILY #30 tabs 12/27/22 12/30/22 Rx release (Adult Low Dose Aspirin) atorvastatin 40 mg tablet (Lipitor) 40 mg PO DAILY #30 tabs 12/27/22 12/30/22 Rx dulaglutide 0.75 mg/0.5 mL 1 mg SQ WEEKLY Diabetes 12/27/22 12/27/22 History subcutaneous pen injector (Trulicity) metoprolol succinate 25 mg 25 mg PO DAILY #30 tabs 12/27/22 12/30/22 Rx tablet,extended release 24 hr (Toprol XL) nitroglycerin 0.4 mg sublingual 0.4 mg sublingual Q5M PRN chest 12/27/22 12/30/22 Rx tablet pain #25 tabs New Prescriptions to Start Prescriptions: Allergies Allergy/AdvReac Type Severity Reaction Status Date / Time bisacodyl [BISACODYL] Allergy Unknown Verified 12/27/22 11:28 Exam Data for Last 24 hours Vital signs and Labs for Last 24 Hours: Temp Pulse Resp BP Pulse Ox O2 Del Method 96 F L 19 L 16 131/79 98 Room Air 12/30/22 07:27 12/30/22 07:27 12/30/22 06:00 12/30/22 07:27 12/30/22 06:00 12/30/22 06:48 Laboratory Results - last 24 hr 12/29/22 00:00: PT Cancelled, INR Cancelled, APTT Cancelled 12/29/22 23:43: WBC 7.7, RBC 5.49 H, Hgb 16.4 H, Hct 50.0 H, MCV 91.1, MCH 29.9, MCHC 32.8, RDW 13.5, Plt Count 188, MPV 8.0, Neut % (Auto) 38.2, Lymph % (Auto) 43.4, [place] % (Auto) 7.4, Eos % (Auto) 10.3, Baso % (Auto) 0.7, Neut # (Auto) 2.9, Lymph # (Auto) 3.3, [place] # (Auto) 0.6, Eos # (Auto) 0.8 H, Baso # (Auto) 0.1, PT 10.7, IN
--- NOTE | 2022-12-30 08:22 | HMH.PHAHEP ---
[facility] Heparin Dosing Demographic Data Admission date:: 12/30/22 Date: 12/30/22 Time: 08:22 Allergies Allergy/AdvReac Type Severity Reaction Status Date / Time bisacodyl [BISACODYL] Allergy Unknown Verified 12/27/22 11:28 Height: 1.68 m Weight: 95.283 kg Indication Medication therapy:: Heparin Current Indications:: ACS - UNSTABLE ANGINA - LOW DOSE PROTOCOL Current Active Problems (Updated 12/30/22 @ 08:22 by Mike Cosby MD) Obesity (BMI 30.0-34.9) (Acute) Chest pain (Acute) Diabetes mellitus (Acute) Acquired hypothyroidism (Acute) Unstable angina (Acute) Abnormal result of cardiovascular function study (Acute) Dyspnea (Acute) CVA?: No Bleeding problem?: No Kidney disease?: No NE?: No Additional History:: CHEST PAIN, DIABETES, HYPOTHYROIDISM, OBESITY, MITRAL VALVE PROLAPSE Desired PTT range:: 50-75 seconds Labs Anticoagulation Lab Results:: 12/29/22 23:43 Hgb 16.4 H Hct 50.0 H Plt Count 188 Monitoring Dose Monitor 1: Date: 12/29/22 Time: 23:43 PTT Result:: 26.8 SECONDS (BASELINE) Infusion Rate:: INITIATED HEPARIN DRIP AT 1000 UNITS/HOUR = 20 ML/HOUR AND BOLUSED 4000 UNITS HEPARIN IV ONCE. Dose Monitor 2: Date: 12/30/22 Time: 08:02 PTT Result:: 43.4 SECONDS Infusion Rate:: INCREASED HEPARIN DRIP TO 1200 UNITS/HOUR = 24 ML/HOUR AND BOLUSED 3000 UNITS HEPARIN IV ONCE. Dose Monitor 3: Date: 12/30/22 Time: 14:05 PTT Result:: 78.6 seconds Infusion Rate:: MARCIAL ECARE REDUCED RATE TO 1100 UNITS/HOUR = 22 ML/HOUR Dose Monitor 4: Date: 12/30/22 Time: 22:00 PTT Result:: 54.4 SECONDS Infusion Rate:: MARCIAL ECARE CONTINUED CURRENT RATE OF 1100 UNITS/HOUR = 22 ML/HOUR Dose Monitor 5: Date: 12/31/22 Time: 04:00 PTT Result:: 52.8 SECONDS Infusion Rate:: MARCIAL ECARE CONTINUED CURRENT RATE OF 1100 UNITS/HOUR = 22 ML/HOUR Dose Monitor 6: Date: 12/31/22 Time: 10:07 PTT Result:: 49.3 SECONDS Infusion Rate:: INCREASE HEPARIN DRIP TO 1300 UNITS/HOUR = 26 ML/HOUR Dose Monitor 7: Date: 12/31/22 Time: 15:58 PTT Result:: 57.8 seconds Infusion Rate:: CONTINUE CURRENT HEPARIN DRIP RATE OF 1300 UNITS/HOUR = 26 ML/HOUR Dose Monitor 8: Date: 12/31/22 Time: 22:07 PTT Result:: 56.1 SECONDS Infusion Rate:: CONTINUED CURRENT HEPARIN DRIP RATE OF 1300 UNITS/HOUR = 26 ML/HOUR Dose Monitor 9: Date: 01/02/23 Time: 06:51 PTT Result:: 61.8 SECONDS Infusion Rate:: CONTINUED CURRENT HEPARIN DRIP RATE OF 1300 UNITS/HOUR = 26 ML/HOUR Comment:: PATIENT WENT TO [facility], DRIP STOPPED. Core Measures Is INR > or = 2 at discharge?: No Most Recent Labs:: Laboratory Results - last 24 hr 12/29/22 00:00: PT Cancelled, INR Cancelled, APTT Cancelled 12/29/22 23:43: WBC 7.7, RBC 5.49 H, Hgb 16.4 H, Hct 50.0 H, MCV 91.1, MCH 29.9, MCHC 32.8, RDW 13.5, Plt Count 188, MPV 8.0, Neut % (Auto) 38.2, Lymph % (Auto) 43.4, [place] % (Auto) 7.4, Eos % (Auto) 10.3, Baso % (Auto) 0.7, Neut # (Auto) 2.9, Lymph # (Auto) 3.3, [place] # (Auto) 0.6, Eos # (Auto) 0.8 H, Baso # (Auto) 0.1, PT 10.7, INR 0.99, APTT 26.8, Sodium 140, Potassium 4.3, Chloride 103, Carbon Dioxide 26, Anion Gap 15.3 H, BUN 18 H, Creatinine 0.70, Estimated Creat Clear 141, Estimated GFR 89, Est GFR ( Amer) 107, Glucose 163 H, Calcium 9.2, Total Bilirubin 1.0, AST 37 H, ALT 31, Alkaline Phosphatase 107, Troponin I < 0.01, Total Protein 9.9 H, Albumin 4.9, Globulin 5.0 H, Albumin/Globulin Ratio 1.0 L 12/30/22 02:30: Troponin I < 0.01 12/30/22 05:43: POC Glucose 153 H If INR was < than 2.0 why was therapy stopped?: PATIENT WENT TO [facility], DRIP STOPPED. Were Heparin and Warfarin started on the same day?: No If not, why?: PATIENT WENT TO [facility], DRIP STOPPED.
[2022-12-30 08:36] LABS: Basophils % 0.4 % (0.1-2.0); Eosinophils # 0.9 K/mm3 (0.0-0.4); Lymphocytes # 2.9 K/mm3 (0.7-4.5); Lymphocytes % 37.2 % (10-50); Mean Corpuscular HGB Conc 33.2 g/dL (31.8-35.4); Mean Corpuscular Hemoglobin 30.3 pg (27.0-31.2); Mean Platelet Volume 8.4 fl (7.4-10.4); Monocytes # 0.5 K/mm3 (0.1-1.0); Monocytes % 6.1 % (1.7-9.3); Neutrophils # 3.4 K/mm3 (1.8-7.8); Neutrophils % 44.3 % (37.0-80.0); Platelet Count 182 K/mm3 (142-424); Red Blood Count 4.95 M/mm3 (4.20-5.40); Red Cell Distribution Width 13.5 % (11.5-17.5); White Blood Count 7.8 K/mm3 (4.8-10.8)
[2022-12-30 08:58] LABS: Chloride 103 mmol/L (98-107); Potassium 4.1 mmoL/L (3.5-5.1); Sodium 137 mmol/L (136-145)
[2022-12-30 09:01] LABS: Blood Urea Nitrogen 17 mg/dl (7-17); Creatinine Clearance Estimated 169 mL/min (50-200); Estimated Glomerular Filt Rate 106 ml/min (>60); GFR (African American) 128 ML/MIN (>60)
[2022-12-30 09:02] LABS: Anion Gap 12.1 mEq/L (5-15); Calcium 9.1 mg/dl (8.4-10.2); Carbon Dioxide 26 mmol/L (22.0-30.0); Glucose 160 mg/dl (74-100)
[2022-12-30 09:25] LABS: PTT Heparin (inpatient only) 43.4 Seconds (23.6-34.0)
--- NOTE | 2022-12-30 09:33 | PC.NURSE ---
notified pharm of aptt of 43.4
--- NOTE | 2022-12-30 09:57 | HMH.PHAINT1 ---
Pharmacy Intervention Comments: MEDICATION RECONCILIATION COMPLETE USING EXTERNAL PHARMACY FILL HISTORY AND RECENT CARDIOLOGY OFFICE VISIT (12/28/22)
--- NOTE | 2022-12-30 11:13 | PC.NURSE ---
courtesy tech note: pt is lying in bed resting. BSC emptied after use. call light is within reach.
[2022-12-30 12:37] LABS: POC Glucose,Bedside 145 (70-110)
[2022-12-30 15:14] LABS: PTT Heparin (inpatient only) 78.6 Seconds (23.6-34.0)
[2022-12-30 16:54] LABS: POC Glucose,Bedside 158 (70-110)
[2022-12-30 20:01] LABS: POC Glucose,Bedside 186 (70-110)
[2022-12-30 22:43] LABS: PTT Heparin (inpatient only) 54.4 Seconds (23.6-34.0)
--- NOTE | 2022-12-30 23:16 | PC.NURSE ---
spoke with the e-pharmacy for aptt results for heparin drip. no changes at this time.
[2022-12-31] VITALS (7 sets, daily range): BP systolic 94–117; BP diastolic 51–67; PULSE 18–88; RESP 16–20; TEMP 36.3–36.9; O2SAT 94–97; BMI 34.3
--- NOTE | 2022-12-31 03:28 | PC.NURSE ---
NO ACUTE CHANGES THIS SHIFT. PT HAS RESTED WELL. NO C/O PAIN THIS SHIFT. HEPARIN GTT TITRATED PER PHARMACY. VSS.
[2022-12-31 04:44] LABS: PTT Heparin (inpatient only) 52.8 Seconds (23.6-34.0)
--- NOTE | 2022-12-31 05:09 | PC.NURSE ---
SPOKE WITH WALKER WITH THE E-PHARMACY. STATED CONTINUE CURRENT HEPARIN GTT RATE.
[2022-12-31 05:44] LABS: POC Glucose,Bedside 166 (70-110)
--- NOTE | 2022-12-31 09:27 | EXP.ACUTE.PN ---
Subjective *Date: 12/31/22 *Time: 09:27 Interval history: Patient states she feels better today. No CP or SOB. Medical Exam Vital signs and Labs for Last 24 Hours: Vital Signs Temp Pulse Pulse Resp BP Pulse Ox O2 Del Method 12/31/22 08:00 97.5 F L 72 18 117/64 96 Room Air 12/31/22 07:34 Room Air 12/31/22 06:53 Room Air 12/31/22 05:00 Room Air 12/31/22 04:00 70 12/31/22 04:00 97.9 F 69 18 108/66 L 94 L Room Air 12/31/22 03:00 Room Air 12/31/22 00:00 70 12/31/22 01:00 Room Air 12/31/22 00:00 97.4 F L 85 16 95/51 L 94 L Room Air 12/30/22 23:00 Room Air 12/30/22 21:00 Room Air 12/30/22 20:00 Room Air 12/30/22 20:00 70 12/30/22 20:00 98.1 F 62 16 114/57 L 97 Room Air 12/30/22 18:11 Room Air 12/30/22 17:00 Room Air 12/30/22 16:00 80 12/30/22 16:00 98.2 F 68 18 111/70 94 L Room Air 12/30/22 15:00 Room Air 12/30/22 12:00 80 12/30/22 13:00 Room Air 12/30/22 11:00 Room Air 12/30/22 11:57 98.1 F 66 18 102/63 L 92 L Room Air Intake and Output 12/30/22 12/31/22 12/31/22 23:59 07:59 15:59 Intake Total 347 / 1157 245 / 785 540 / 785 Output Total 0 / 1100 1200 / 1200 Balance 347 / 57 -955 / -415 540 / -415 Intake: Intake, Oral Amount 540 / 540 Intake, Total IV Amount 347 / 347 245 / 245 Heparin Sodium,Porcine/D5w 500 347 / 347 245 / 245 ml @ 1,100 UNITS/HR 22 mls/hr IV .[id number] [facility] Rx#:[id number] Output: Output, Urine Amount 0 / 1100 1200 / 1200 Other: Number of Unmeasured Voids 1 1 Number of Bowel Movements 1 Weight 213 lb 14.4 oz Patient Weight 12/31/22 23:59 Weight 213 lb 14.4 oz Laboratory Results - last 24 hr 12/30/22 11:49: POC Glucose 145 H 12/30/22 14:05: APTT 78.6 H* 12/30/22 16:38: POC Glucose 158 H 12/30/22 19:41: POC Glucose 186 H 12/30/22 22:00: APTT 54.4 H* 12/31/22 04:05: APTT 52.8 H* 12/31/22 05:18: POC Glucose 166 H I & O for Labs for Last 24 Hours: Intake & Output 12/28/22 12/29/22 12/30/22 12/31/22 23:59 23:59 23:59 23:59 Intake Total 1157 / 1157 785 / 785 Output Total 900 / 1100 1200 / 1200 Balance 257 / 57 -415 / -415 Weight 205 lb 210 lb 1.009 oz 213 lb 14.4 oz Constitutional: Present no acute distress Respiratory: Present normal respiratory effort Cardiac: Present Reg Rate and Rhythm GI: Present normal bowel sounds; Absent tenderness Extremities: Present normal inspection and full ROM Skin: Present intact; Absent erythema Neuro: Present Grossly Intact and moves all extremities Assessment and Plan *Assessment and plan (1) Chest pain: Status: Acute Qualifiers: Chest pain type: precordial pain Qualified Code(s): R07.2 - Precordial pain Category: Medical Code(s): R07.9 - Chest pain, unspecified (2) Abnormal result of cardiovascular function study: Status: Acute Category: Medical Code(s): R94.30 - Abnormal result of cardiovascular function study, unspecified (3) Diabetes mellitus: Status: Acute Qualifiers: Diabetes mellitus complication status: with other specified complication Diabetes mellitus 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 insulin use: unspecified termite 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 insulin use status Diabetes mellitus type: type 2 Qualified Code(s): E11.69 - Type 2 diabetes mellitus with other specified complication Category: Medical Code(s): E11.9 - Type 2 diabetes mellitus without complications (4) Acquired hypothyroidism: Status: Acute Category: Medical Code(s): E03.9 - Hypothyroidism, unspecified (5) Obesity (BMI 30.0-34.9): Status: Acute Category: Medical Code(s): E66.9 - Obesity, unspecified (6) Dyspnea: Status: Acute Qualifiers: Dyspnea type: dyspnea on exertion Qualified Code(s): R06.09 - Other forms of dyspnea Category: Medical
[2022-12-31 10:53] LABS: PTT Heparin (inpatient only) 49.3 Seconds (23.6-34.0)
--- NOTE | 2022-12-31 11:38 | PC.NURSE ---
increased heparin to 26ml/hr. 1300 units/hr
[2022-12-31 11:59] LABS: POC Glucose,Bedside 169 (70-110)
--- NOTE | 2022-12-31 13:38 | PC.NURSE ---
pt called out with cp. pt at rest, lying in bed when cp started. rt side cp that radiates to back. no soa, vss. B/P-101/67 HR-71 O2-94 ra will cont to monitor.
--- NOTE | 2022-12-31 14:26 | PC.NURSE ---
Home Medications Mary Anne Stark Medication Instructions Recorded Confirmed levothyroxine 112 mcg tablet 112 mcg PO DAILYDM thyroid 01/18/19 12/30/22 dulaglutide 0.75 mg/0.5 mL 0.75 mg SQ WEEKLY Diabetes 12/27/22 12/30/22 subcutaneous pen injector (Trulicity) aspirin 81 mg tablet,delayed 81 mg PO DAILY Coronary Artery 12/30/22 12/30/22 release Disease atorvastatin 40 mg tablet 40 mg PO DAILY Cholesterol 12/30/22 12/30/22 empagliflozin 12.5 mg-metformin ER 2 tab PO DAILY Diabetes 12/30/22 12/30/22 1,000 mg tablet,extended rel 24 hr (Synjardy XR) metoprolol succinate 25 mg 25 mg PO DAILY High Blood Pressure 12/30/22 12/30/22 tablet,extended release 24 hr nitroglycerin 0.4 mg sublingual 0.4 mg sublingual Q5MINP PRN Chest 12/30/22 12/30/22 tablet Pain
[2022-12-31 17:11] LABS: POC Glucose,Bedside 117 (70-110)
[2022-12-31 17:22] LABS: PTT Heparin (inpatient only) 57.8 Seconds (23.6-34.0)
[2022-12-31 20:00] LABS: POC Glucose,Bedside 192 (70-110)
[2022-12-31 23:11] LABS: PTT Heparin (inpatient only) 56.1 Seconds (23.6-34.0)
[2023-01-01] VITALS (22 sets, daily range): BP systolic 112–163; BP diastolic 55–94; PULSE 60–94; RESP 16–20; TEMP 36.1–36.9; O2SAT 92–100; BMI 34.3
--- NOTE | 2023-01-01 04:21 | PC.NURSE ---
NO ACUTE CHANGES THIS SHIFT. PT HAS RESTED WELL. NO C/O PAIN THIS SHIFT. VSS. REMAINS ON ROOM AIR.
[2023-01-01 06:40] LABS: POC Glucose,Bedside 135 (70-110)
[2023-01-01 07:38] LABS: PTT Heparin (inpatient only) 61.8 Seconds (23.6-34.0)
--- NOTE | 2023-01-01 07:47 | EXP.ACUTE.PN ---
Subjective *Date: 01/01/23 *Time: 08:57 Interval history: Patient states she was able to sleep about 4 hours last night. She had some minimal chest pain yesterday and her chest feels tight this morning. She is short of breath with exertion with just walking around in the room. She states she is having a cardiac cath this morning. On heparin drip Medical Exam Vital signs and Labs for Last 24 Hours: Vital Signs Temp Pulse Pulse Pulse Resp BP Pulse Ox 01/01/23 07:00 01/01/23 05:00 01/01/23 04:00 70 01/01/23 04:00 98.1 F 81 16 114/55 L 92 L 01/01/23 00:00 80 12/31/22 20:00 70 12/31/22 20:00 70 01/01/23 03:00 01/01/23 00:00 80 01/01/23 01:00 01/01/23 00:00 98.2 F 74 16 121/61 92 L 12/31/22 20:00 70 12/31/22 23:00 12/31/22 20:00 98.4 F 71 20 111/55 L 12/31/22 20:40 12/31/22 20:00 12/31/22 18:03 12/31/22 17:00 12/31/22 16:00 88 12/31/22 16:00 98.2 F 58 L 16 115/66 97 12/31/22 15:00 12/31/22 13:00 12/31/22 12:00 60 12/31/22 08:00 80 12/31/22 13:38 71 101/67 L 94 L 12/31/22 12:00 98.3 F 18 L 71 94/60 L 94 L 12/31/22 11:00 12/31/22 09:00 12/31/22 08:00 97.5 F L 72 18 117/64 96 O2 Del Method 01/01/23 07:00 Room Air 01/01/23 05:00 Room Air 01/01/23 04:00 01/01/23 04:00 Room Air 01/01/23 00:00 12/31/22 20:00 12/31/22 20:00 01/01/23 03:00 Room Air 01/01/23 00:00 01/01/23 01:00 Room Air 01/01/23 00:00 12/31/22 20:00 12/31/22 23:00 Room Air 12/31/22 20:00 Room Air 12/31/22 20:40 Room Air 12/31/22 20:00 Room Air 12/31/22 18:03 Room Air 12/31/22 17:00 Room Air 12/31/22 16:00 12/31/22 16:00 Room Air 12/31/22 15:00 Room Air 12/31/22 13:00 Room Air 12/31/22 12:00 12/31/22 08:00 12/31/22 13:38 Room Air 12/31/22 12:00 Room Air 12/31/22 11:00 Room Air 12/31/22 09:00 Room Air 12/31/22 08:00 Room Air Intake and Output 12/31/22 01/01/23 01/01/23 19:59 03:59 11:59 Intake Total 480 / 480 300 / 780 601 / 1381 Output Total 0 / 0 450 / 450 Balance 480 / 480 300 / 780 151 / 931 Intake: Intake, Oral Amount 480 / 480 300 / 780 Intake, Total IV Amount 601 / 601 Heparin Sodium,Porcine/D5w 500 601 / 601 ml @ 1,300 UNITS/HR 26 mls/hr IV .[id number] [facility] Rx#:[id number] Output: Output, Urine Amount 0 / 0 450 / 450 Other: Number of Unmeasured Voids 1 Weight 213 lb 14.385 oz Patient Weight 01/01/23 11:59 Weight 213 lb 14.385 oz Laboratory Results - last 24 hr 12/31/22 10:07: APTT 49.3 H 12/31/22 11:35: POC Glucose 169 H 12/31/22 15:58: APTT 57.8 H* 12/31/22 16:33: POC Glucose 117 H 12/31/22 19:51: POC Glucose 192 H 12/31/22 22:07: APTT 56.1 H* 01/01/23 05:36: POC Glucose 135 H 01/01/23 06:51: APTT 61.8 H* I & O for Labs for Last 24 Hours: Intake & Output 12/29/22 12/30/22 12/31/22 01/01/23 11:59 11:59 11:59 11:59 Intake Total 1942 / 1942 1381 / 1381 Output Total 900 / 900 1200 / 1200 450 / 450 Balance -900 / -900 742 / 742 931 / 931 Weight 210 lb 1.009 oz 213 lb 14.4 oz 213 lb 14.385 oz Constitutional: Present no acute distress Comment:: Sitting in recliner at bedside and appears comfortable. Family is visiting Respiratory: Present wheezes (On the right which clears with deep breathing) Cardiac: Present Reg Rate and Rhythm GI: Present soft; Absent distention or tenderness Extremities: Absent tenderness, edema or calf tenderness Neuro: Present alert and oriented x 3 Assessment and Plan *Assessment and plan (1) Chest pain: Status: Acute Qualifiers: Chest pain type: precordial pain Qualified Code(s): R07.2 - Precordial pain Category: Medical Code(s): R07.9 - Chest pain, unspecified (2) Abnormal result of cardiovascular function study: Status: Acut
--- NOTE | 2023-01-01 08:24 | PC.NURSE ---
COURTESY TECH NOTE; ROUNDED ON PT 0730, PT DENIED NEED FOR ASSISTANCE WITH RESTROOM AND NEED TO REPOSITION IN BED. CALL LIGHT WITHIN REACH, NO FURTHER REQUESTS AT THIS TIME STAS PRATT
--- NOTE | 2023-01-01 09:05 | IR_ITS ---
APPROVED REPORT Patient Location: Inpatient PROCEDURES Left heart catheterization Left ventriculogram Selective coronary angiogram FFR to the LAD Drug-eluting stent deployment to the proximal ID INDICATION Angina pectoris, Abnormal stress test, Angiographic ambiguous proximal LAD disease, Ischemic response to adenosine with an FFR index of 0.80, Informed consent was obtained prior to the procedure. COMPLICATIONS None Estimated Blood Loss: Less than 10 ML TECHNIQUE One percent lidocaine used to anesthetize the right anterior aspect of the wrist. The right radial artery was accessed via the Seldinger technique. A 6 Canadian sheath was placed in the right radial artery. 150 mg magnesium sulfate, 800 mcg of nitroglycerin, 1mg Lidocaine and 5000 U Heparin were given through the arterial sheath. The papa catheter was also used to perform left heart catheterization, left ventriculogram and selective coronary angiogram. At the end the diagnostic angiogram therapeutic heparin was administered giving a therapeutic ACT and a Choice PT extra-support wire was placed down the LAD. Cornelius's FFR catheter was advanced to the mid LAD after being equalized proximally. Adenosine was infused per protocol and the FFR index immediately dropped to 0.80. The test was then terminated. At this point a 3.5 x 22 mm Adán frontier stent was deployed in the proximal LAD at 18 deion reducing the severe stenosis to 0%. ILANA-3 flow was present before and after the procedure. At the end the procedure the apparatus was removed the sheath was removed and hemostasis was achieved using TR banding patient was transferred the postop putting in stable addition ANGIOGRAPHIC RESULTS The left main artery Normal The left anterior descending artery Has a proximal 50 to 60% stenosis The circumflex artery Large dominant normal The right coronary artery Nondominant normal The MARTÍNEZ ventriculogram reveals Normal 65% The left ventricular end-diastolic pressure Elevated at 20 to 25 mmHg IMPRESSION Hemodynamically severe proximal LAD disease Successful stenting the proximal LAD severe disease reduced to 0% with 1 drug-eluting stent Normal ejection fraction Elevated LVEDP Ischemic response to adenosine with an FFR index of 0.80 PLAN 1. Dual antiplatelet therapy 2. LDL less than 55 to be achieved with high intensity statin 3. Avoidance of tobacco products 4. Risk factor modification 5. Cardiac rehabilitation Electronically signed by : Manny Ji MD 01/01/2023 11:07:15
--- NOTE | 2023-01-01 09:39 | EXP.CARD.CON ---
History of Present Illness History of Present Illness Consult date: 01/01/23 Consult reason: chest pain Chief complaint: Unstable angina History of present illness: 52-year-old white female with past medical history of diabetes mellitus type 2, hyperlipidemia, hypothyroidism, obesity, and recent abnormal cardiovascular function study presented to emergency department on Sunday with complaints of chest pain. Patient reports has been experiencing an increase in chest pain over the past 2 weeks progressing to chest pain at rest associated with shortness of breath worse with exertion. Patient reports on Sunday she developed chest pain and took a sublingual nitro with minimal relief which prompted her to go to the emergency department. EKG on presentation was normal sinus rhythm at a rate of [address] elevation or depression noted. Serial troponins remain negative. Patient was admitted for unstable angina and cardiology evaluation. Patient reports she has had intermittent chest pain at rest during hospitalization over the weekend. [facility] Disclaimer: The information contained in this section may have been updated after the patient was seen, as this information can be updated by other users. Medical History (Updated 12/30/22 @ 08:22 by Mike Cosby MD) Abnormal result of cardiovascular function study Diabetes mellitus, type 2 Dyspnea Hyperlipidemia Hypothyroid Obesity (BMI 30.0-34.9) PTSD (post-traumatic stress disorder) Typical angina Surgical History (Updated 12/30/22 @ 08:20 by Mike Cosby MD) History of appendectomy History of History of cholecystectomy Hx of nasal septoplasty Family History (Updated 12/30/22 @ 08:20 by Mike Cosby MD) Other Coronary artery disease Diabetes Social History Smoking Status: Never smoker alcohol intake: never substance use type: denies use current occupational status: retired Travel in the last 8 weeks: None household members: spouse housing: house marital status: caffeine: Yes Review of Systems ENT Ears, Nose, Mouth, and Throat: Denies dizziness *Cardiovascular Cardiovascular: Reports chest pain *Neurologic Neurologic: Denies dizziness Exam Data for Last 24 hours Vital signs and Labs for Last 24 Hours: Temp Pulse Resp BP Pulse Ox O2 Del Method 97.7 F 77 20 128/90 93 L Room Air 01/01/23 08:00 01/01/23 08:00 01/01/23 08:00 01/01/23 08:00 01/01/23 08:00 01/01/23 08:00 Laboratory Results - last 24 hr 12/31/22 10:07: APTT 49.3 H 12/31/22 11:35: POC Glucose 169 H 12/31/22 15:58: APTT 57.8 H* 12/31/22 16:33: POC Glucose 117 H 12/31/22 19:51: POC Glucose 192 H 12/31/22 22:07: APTT 56.1 H* 01/01/23 05:36: POC Glucose 135 H 01/01/23 06:51: APTT 61.8 H* I & O for Last 24 hours: Intake & Output 12/29/22 12/30/22 12/31/22 01/01/23 23:59 23:59 23:59 23:59 Intake Total 1157 / 1157 1265 / 1565 901 / 901 Output Total 900 / 1100 1200 / 1200 450 / 450 Balance 257 / 57 65 / 365 451 / 451 Weight 205 lb 210 lb 1.009 oz 213 lb 14.4 oz 213 lb 14.385 oz Constitutional Constitutional: no acute distress *Routine Respiratory Exam Respiratory: Present CTA bilaterally and symmetric chest movement *Routine Cardiovascular Exam Cardiovascular: Present RRR, Normal S1 and Normal S2 *Routine Abdominal Exam Abdominal: Present soft and normoactive bowel sounds; Absent tenderness *Routine Extremities Exam Extremities: Present full ROM and normal capillary refill; Absent edema *Routine Skin Exam Skin: Present intact, dry and warm Detailed Neck Exam: Thyroids Thyroid: Absent bruit Meds Home Medications and Allergies Home Medications Medication Instructions Recorded Confirmed Type levothyroxine 112 mcg tablet 112 mcg PO DAILYDM thyroid 01/18/19 12/30/22 History dulaglutide 0.75 mg/0.5 mL 0.75 mg SQ WEEKLY Diabetes 12/27/22 12/30/22 History sub
--- NOTE | 2023-01-01 10:20 | PC.NURSE ---
pt going off the floor to medical laboratory technicians at this time.
--- NOTE | 2023-01-01 11:16 | SUR.PHASEII ---
report called back to PAIGE Villanueva
--- NOTE | 2023-01-01 11:37 | PC.NURSE ---
pt returned to room at this time.
[2023-01-01 14:29] LABS: CATHL Activated Clotting Time 318 SEC (74-125)
[2023-01-01 16:27] LABS: POC Glucose,Bedside 122 (70-110)
--- NOTE | 2023-01-01 16:44 | PC.NURSE ---
pt alert and oriented t/o shift. LS clear. pt has denied any chest pain. pt did have cardiac cath and received 1 stent to the LAD. pt was given Brilinta after cath and c/o SOA shortly after so medication was switch to Plavix. All air removed from radial band and dressing placed- telfa, tegaderm. pt given teaching on post cath usage of right arm. pt has been up to chair intermittently. call light w/i reach, family at bedside.
[2023-01-01 21:05] LABS: POC Glucose,Bedside 198 (70-110)
[2023-01-02] VITALS: BP 101/54; PULSE 69; PULSE 71; RESP 18; TEMP 36.8; O2SAT 96
[2023-01-02 04:00] VITALS: BP 103/55; PULSE 70; PULSE 71; RESP 18; TEMP 36.7; O2SAT 96; BMI 34.8
--- NOTE | 2023-01-02 05:21 | PC.NURSE ---
Patient has rested through the night. No issues have been stated. Did have a headache early in the shift, see MAR. No other issues noted
[2023-01-02 06:26] LABS: POC Glucose,Bedside 171 (70-110)
[2023-01-02 07:59] VITALS: BP 115/85; PULSE 87; RESP 17; TEMP 36.7; O2SAT 96
--- NOTE | 2023-01-02 08:16 | EXP.ACUTE.PN ---
Subjective *Date: 01/02/23 *Time: 08:27 Interval history: Had a reaction to Brilinta with shortness of breath and some chest discomfort which is now resolved. She was able to sleep during the night. This morning she is pain-free and denies shortness of breath she has ambulated in the room without difficulties. She was able to eat a little breakfast. She is planning on going home. Medical Exam Vital signs and Labs for Last 24 Hours: Vital Signs Temp Pulse Pulse Resp BP Pulse Ox O2 Del Method 01/02/23 07:59 98.0 F 87 17 115/85 96 Room Air 01/02/23 04:00 98.0 F 71 18 103/55 L 96 Room Air 01/02/23 04:00 70 01/02/23 01:00 Room Air 01/02/23 00:00 98.2 F 69 18 101/54 L 96 Room Air 01/02/23 00:00 71 01/02/23 06:51 Room Air 01/02/23 05:00 Room Air 01/02/23 03:00 Room Air 01/01/23 23:00 Room Air 01/01/23 20:00 94 H 01/01/23 21:00 Room Air 01/01/23 20:00 Room Air 01/01/23 20:00 98.4 F 84 19 131/74 97 Room Air 01/01/23 18:31 Room Air 01/01/23 18:19 79 18 141/81 H 98 Room Air 01/01/23 17:25 77 18 140/81 97 Room Air 01/01/23 17:00 Room Air 01/01/23 16:00 60 01/01/23 16:20 73 18 124/70 97 Room Air 01/01/23 13:36 65 01/01/23 15:00 Room Air 01/01/23 15:22 68 18 126/61 100 Room Air 01/01/23 14:25 77 16 112/75 97 Room Air 01/01/23 13:55 82 16 136/85 97 Room Air 01/01/23 13:25 72 16 130/79 98 Room Air 01/01/23 12:55 79 18 136/91 H 97 Room Air 01/01/23 12:57 Room Air 01/01/23 12:25 77 16 155/78 H 98 Room Air 01/01/23 12:10 74 18 139/86 98 01/01/23 11:55 74 18 136/89 94 L Room Air 01/01/23 11:40 79 18 163/94 H 94 L Room Air 01/01/23 10:25 76 20 142/82 H 95 Room Air 01/01/23 10:20 77 20 158/83 H 94 L Room Air 01/01/23 11:15 80 16 150/87 H 94 L Room Air 01/01/23 11:19 97 F L 80 80 20 156/87 H 93 L Room Air 01/01/23 09:00 Room Air Intake and Output 01/01/23 01/02/23 01/02/23 19:59 03:59 11:59 Intake Total 480 / 480 0 / 480 480 / 960 Output Total 0 / 0 0 / 0 Balance 480 / 480 0 / 480 480 / 960 Intake: Intake, Oral Amount 480 / 480 0 / 480 480 / 960 Output: Output, Urine Amount 0 / 0 0 / 0 Other: Number of Unmeasured Voids 1 1 Weight 216 lb 14.4 oz Patient Weight 01/02/23 11:59 Weight 216 lb 14.4 oz Laboratory Results - last 24 hr 01/01/23 10:51: Activated Clotting Time 318 H* 01/01/23 16:18: POC Glucose 122 H 01/01/23 19:56: POC Glucose 198 H 01/02/23 06:04: POC Glucose 171 H I & O for Labs for Last 24 Hours: Intake & Output 12/30/22 12/31/22 01/01/23 01/02/23 11:59 11:59 11:59 11:59 Intake Total 1942 / 1942 1381 / 1381 960 / 960 Output Total 900 / 900 1200 / 1200 450 / 450 0 / 0 Balance -900 / -900 742 / 742 931 / 931 960 / 960 Weight 210 lb 1.009 oz 213 lb 14.4 oz 213 lb 14.385 oz 216 lb 14.4 oz Constitutional: Present no acute distress Comment:: Sitting in chair with legs crossed. Appears very comfortable. Respiratory: Present CTA bilaterally (Anteriorly and posteriorly) Cardiac: Present Regular Rate Extremities: Present full ROM; Absent tenderness or edema Neuro: Present alert and oriented x 3 Assessment and Plan *Assessment and plan (1) Unstable angina: Status: Acute Category: Medical Code(s): I20.0 - Unstable angina (2) Abnormal result of cardiovascular function study: Status: Acute Category: Medical Code(s): R94.30 - Abnormal result of cardiovascular function study, unspecified (3) Diabetes mellitus: Status: Acute Qualifiers: Diabetes mellitus complication status: with other specified complication Diabetes mellitus correction insulin 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
--- NOTE | 2023-01-02 09:10 | EXP.CARD.PN ---
Subjective Subjective Date: 01/02/23 Time: 08:00 Principal diagnosis: Unstable angina Interval history: Doing well this morning, denies chest pain or shortness of breath, morning labs reviewed. Exam Data for Last 24 hours Vital signs and Labs for Last 24 Hours: Temp Pulse Resp BP Pulse Ox O2 Del Method 98.0 F 87 17 115/85 96 Room Air 01/02/23 07:59 01/02/23 07:59 01/02/23 07:59 01/02/23 07:59 01/02/23 07:59 01/02/23 08:00 Laboratory Results - last 24 hr 01/01/23 10:51: Activated Clotting Time 318 H* 01/01/23 16:18: POC Glucose 122 H 01/01/23 19:56: POC Glucose 198 H 01/02/23 06:04: POC Glucose 171 H I & O for Last 24 hours: Intake & Output 12/30/22 12/31/22 01/01/23 01/02/23 23:59 23:59 23:59 23:59 Intake Total 1157 / 1157 1265 / 1565 1381 / 1381 480 / 480 Output Total 900 / 1100 1200 / 1200 450 / 450 Balance 257 / 57 65 / 365 931 / 931 480 / 480 Weight 210 lb 1.009 oz 213 lb 14.4 oz 213 lb 14.385 oz 216 lb 14.4 oz Constitutional Constitutional: no acute distress *Routine Respiratory Exam Respiratory: Present CTA bilaterally and symmetric chest movement *Routine Cardiovascular Exam Cardiovascular: Present RRR, Normal S1 and Normal S2 *Routine Abdominal Exam Abdominal: Present soft and normoactive bowel sounds; Absent tenderness *Routine Extremities Exam Extremities: Present full ROM and normal capillary refill; Absent edema *Routine Skin Exam Skin: Present intact, dry and warm Detailed Neck Exam: Thyroids Thyroid: Absent bruit Progress Note: A&P Assessment and plan (1) Unstable angina: Status: Acute (2) Abnormal result of cardiovascular function study: Status: Acute (3) Diabetes mellitus: Status: Acute (4) Obesity (BMI 30.0-34.9): Status: Acute (5) Acquired hypothyroidism: Status: Acute (6) CAD (coronary artery disease): Status: Acute (7) Status post coronary artery stent placement: Status: Acute Assessment and Plan Assessment and Plan for All Diagnoses:: Unstable angina ccs3 Abnormal cardiovascular function study -Stress test from 11/2022 shows a medium sized moderate predominantly reversible perfusion defect in the mid to distal anterior LV wall consistent with reversible ischemia. -Echo from 11/2022 shows normal biventricular systolic function with no significant valvular disease noted -Given patient's ongoing and worsening chest pain and abnormal stress test we will proceed with left heart catheterization today. Discussed risk versus benefits with patient. She is agreeable. -Continue aspirin statin and beta-maurizio 01/02/2023: Status post left heart cath with ANDRESSA to proximal LAD. Continue DAPT with Plavix aspirin, metoprolol succinate 25 mg p.o. daily and atorvastatin 40 mg p.o. daily. We will also add lisinopril 2.5 mg daily. Diabetes mellitus type 2 -Defer to primary service and consider addition of Jardiance or Ozempic. Obesity -Weight loss encouraged CV summary 01/01/2023: Stable status post left heart cath with stenting to LAD. Patient is stable for discharge home, please have patient follow-up in cardiology clinic in 1 week for reevaluation. Please send patient home on below listed medications. Cardiac medications Aspirin 81 mg p.o. daily Plavix 75 mg p.o. daily Metoprolol succinate 25 mg p.o. daily Atorvastatin 40 mg p.o. daily Lisinopril 2.5 mg daily
--- NOTE | 2023-01-02 09:48 | HMH.PHACL ---
PHA School Psychologist Assistant Discharge Med Family Support Specialist: Mary Anne Stark has received discharge medication counseling on the following medications: -ASPIRIN (PATIENT ON PREVIOUSLY) -ATORVASTATIN (PATIENT ON PREVIOUSLY) -PLAVIX (BLOOD THINNER, DAILY, BLEED/BRUISE RISK, BLEED LOCATION AND APPEARANCE, BUMP HEAD = GO TO ER TO RULE OUT HEAD BLEED, SHORTNESS OF BREATH POSSIBLE) -LISINOPRIL (FOR BLOOD PRESSURE, DAILY, DIZZINESS, LIGHTHEADEDNESS, LOWER LIMB SWELLING, COUGH POSSIBLE) -METOPROLOL (PATIENT ON PREVIOUSLY) PATIENT VERBALIZED NO QUESTIONS AT THIS TIME.
--- NOTE | 2023-01-02 12:38 | EXP.DC.SUM ---
General Admission date:: 12/30/22 Discharge date: 01/02/23 HPI HPI HPI: Mrs. Stark is a 52 yrear old patient of [facility] who has had chest pain off and on for the past month. She had a stress test a few weeks ago that was abnormal and she was referred to [facility] cardiology. She was seen in there office this past week and was scheduled for a left heart cath later this month. She states over the past few days her pain has become more frequent and has been related to exertion. She took NTG last night and got minimal relief, so she came to the ER for an evaluation. Hospital Course Hospital Course Hospital Course: On admission from the emergency room patient was started on heparin drip with plans to have a cardiac cath in a couple of days. She did feel better after admission. Troponin I was noted to be normal. On 01/01/2023 patient did admit to shortness of breath with exertion and some chest discomfort. She did have a cardiac cath which revealed severe proximal LAD disease with successful stenting to the proximal LAD. Patient was started on Brilinta which she did not tolerate. She thus will be switched to the Plavix and aspirin. On 01/03/2020 3 AM patient remained pain-free. She was able to ambulate in the room without shortness of breath. She was seen by cardiology and was stable to be discharged with follow-up in cardiology in 1 week for reevaluation. Medicines to be aspirin 81 mg daily, Plavix 75 mg daily, metoprolol 25 daily, and atorvastatin 40 mg daily and lisinopril 2.5 mg daily. She was discharged home in stable and satisfactory condition Cardiology documentation as follows: Abnormal cardiovascular function study -Stress test from 11/2022 shows a medium sized moderate predominantly reversible perfusion defect in the mid to distal anterior LV wall consistent with reversible ischemia. -Echo from 11/2022 shows normal biventricular systolic function with no significant valvular disease noted -Given patient's ongoing and worsening chest pain and abnormal stress test we will proceed with left heart catheterization today. Discussed risk versus benefits with patient. She is agreeable. -Continue aspirin statin and beta-maurizio 01/02/2023: Status post left heart cath with ANDRESSA to proximal LAD. Continue DAPT with Plavix aspirin, metoprolol succinate 25 mg p.o. daily and atorvastatin 40 mg p.o. daily. We will also add lisinopril 2.5 mg daily. CV summary 01/01/2023: Stable status post left heart cath with stenting to LAD. Patient is stable for discharge home, please have patient follow-up in cardiology clinic in 1 week for reevaluation. Please send patient home on below listed medications. Cardiac medications Aspirin 81 mg p.o. daily Plavix 75 mg p.o. daily Metoprolol succinate 25 mg p.o. daily Atorvastatin 40 mg p.o. daily Lisinopril 2.5 mg daily Exam Data for Last 24 hours Vital signs and Labs for Last 24 Hours: Temp Pulse Resp BP Pulse Ox O2 Del Method 98.0 F 87 17 115/85 96 Room Air 01/02/23 07:59 01/02/23 07:59 01/02/23 07:59 01/02/23 07:59 01/02/23 07:59 01/02/23 09:00 Laboratory Results - last 24 hr 01/01/23 10:51: Activated Clotting Time 318 H* 01/01/23 16:18: POC Glucose 122 H 01/01/23 19:56: POC Glucose 198 H 01/02/23 06:04: POC Glucose 171 H I & O for Last 24 hours: Intake & Output 12/31/22 01/01/23 01/02/23 01/03/23 11:59 11:59 11:59 11:59 Intake Total 1942 / 1942 1381 / 1381 960 / 960 Output Total 1200 / 1200 450 / 450 0 / 0 Balance 742 / 742 931 / 931 960 / 960 Weight 213 lb 14.4 oz 213 lb 14.385 oz 216 lb 14.4 oz Narrative: Medical Exam Vital signs and Labs for Last 24 Hours: Vital Signs Temp Pulse Pulse Resp BP Pulse Ox O2 Del Method 01/02/23 07:59 98.0 F 87 17 115/85 96 Room Air 01/02/23 04:00 98.0 F 71 18 103/55 L 96 Room Air 01/02/23 04:00 70 01/02/23 01:00 Room Air 01/02/23 00:00 98.2 F 69 18 101/54 L 96 Room Air 01/02/23 00:00
--- NOTE | 2023-01-03 13:26 | CARE MANAGER ---
Spok with patient for post-discharge phone interview, no issues noted.
== END 2023-01-02 10:39 | disposition home or self-care (01) | DRG 247 ==
LOC: ER 12-30 00:52 → 2ND 12-30 01:03
PROVIDERS: Internal Medicine; Admitting Provider Family Medicine; Emergency Provider Emergency Medicine; PCP Family Medicine; Visit Provider Family Medicine
PROC: 027034Z Dilation of Coronary Artery, One Artery with Drug-eluting Intraluminal Device, Percutaneous Approach (ICD-10-PCS; principal; 2023-01-01 12:30)
DX: I25.119 Atherosclerotic heart disease of native coronary artery with unspecified angina pectoris (principal); E11.9 Type 2 diabetes mellitus without complications; E03.9 Hypothyroidism, unspecified; E66.9 Obesity, unspecified; E78.5 Hyperlipidemia, unspecified; Z68.34 Body mass index [BMI] 34.0-34.9, adult
CPT/HCPCS: 36415; 71045; 80048; 80053; 82962; 84484; 85025; 85347; 85610; 85730; 92928; 93005; 93458; 93571; 99152; 99291; C1725; C1769; C1876; C9600; J0153; J1644; J2405; Q9967

== ENCOUNTER → 2023-01-08 12:05 | Outpatient (CLI) | payer BC, OTHER, SELFPAY ==
[2023-01-08 12:22] LABS: Basophils % 0.5 % (0.1-2.0); Eosinophils # 0.7 K/mm3 (0.0-0.4); Eosinophils % 9.8 % (0.1-12.0); Hematocrit 45.2 % (37.0-47.0); Hemoglobin 15.5 g/dL (12.2-16.2); Lymphocytes % 40.3 % (10-50); Mean Corpuscular HGB Conc 34.3 g/dL (31.8-35.4); Mean Corpuscular Hemoglobin 32.2 pg (27.0-31.2); Mean Corpuscular Volume 93.8 fl (81-99); Mean Platelet Volume 7.4 fl (7.4-10.4); Monocytes # 0.4 K/mm3 (0.1-1.0); Monocytes % 5.2 % (1.7-9.3); Neutrophils # 3.3 K/mm3 (1.8-7.8); Neutrophils % 44.2 % (37.0-80.0); Platelet Count 207 K/mm3 (142-424); Red Blood Count 4.82 M/mm3 (4.20-5.40); Red Cell Distribution Width 13.4 % (11.5-17.5); White Blood Count 7.4 K/mm3 (4.8-10.8)
[2023-01-08 12:33] LABS: Anion Gap 17.2 mEq/L (5-15); Blood Urea Nitrogen 18 mg/dl (7-17); Calcium 9.3 mg/dl (8.4-10.2); Carbon Dioxide 21 mmol/L (22.0-30.0); Chloride 108 mmol/L (98-107); Estimated Glomerular Filt Rate 89 ml/min (>60); GFR (African American) 107 ML/MIN (>60); Glucose 120 mg/dl (74-100); Potassium 4.2 mmoL/L (3.5-5.1); Sodium 142 mmol/L (136-145)
== END ==
PROVIDERS: PCP Family Medicine; Visit Provider Internal Medicine
DX: I25.10 Atherosclerotic heart disease of native coronary artery without angina pectoris (principal); Z95.5 Presence of coronary angioplasty implant and graft
CPT/HCPCS: 36415; 80048; 85025

== ENCOUNTER 2023-06-27 06:19 | Outpatient (CLI) | payer BC, OTHER, SELFPAY ==
--- NOTE | 2023-06-27 | CA_ITS ---
APPROVED REPORT Exam: Pharmacologic Technologist: Zora Barragan, Ht: 5 ft 7 in Wt: 211 lbs BSA: 2.07 m2 HR: 90 bpm BP: 134/85 mmHg Rhythm: NNSR, rightward axis Medical History Medications: Lisinopril,,,,, Levothyroxine,,,,, Aspirin,,,,, Metoprolol Succinate,,,,, CloPIdogrel,,,,, Nitroglycerin,,,,, AtorvaASTATIN,,,,, TrULicity,,,,, Isosorbide Monoitrate,,,,, Cardiac Risk Factors: Hyperlipidemia, Diabetes (insulin), , FHX of CAD Stress Test Details Test: LEXISCAN HR Resting HR: 95 bpm Max Heart Rate (APMHR): 169 bpm Max HR Achieved: 122 bpm Target HR (85% APMHR): 144 bpm % of APMHR: 72 Recovery HR: 112 bpm BP Resting BP: 134/85 mmHg Max BP: 134/85 mmHg Recovery BP: 108.0/72.0 mmHg ECG Resting ECG: NSR, rightward axis, T wave abnormalities Stress ECG: No significant ST changes Arrhythmia: None Clinical Exercise duration: 04:00 min Highest Stage Achieved: Exercise capacity: 1.0 METs Stress ECG Conclusion During lexiscan pt experinced mild SOA, head and leg discomfort. No CP noted. No arrhythmias noted. No significant ST changes. Conclusion: Unremarkable lexiscan stress. Myoview images reported separately. Test Summary REST . . . . . . . Sitting REST 03:23 . . 95 . 134/ 85 . . Stage 1 01:00 . . 118 . . . . Stage 2 01:00 . . 119 . 130/ 74 . . Stage 3 01:00 . . 116 . 113/ 68 . . Stage 4 01:00 . . 115 . 113/ 74 . Stop exercise at 04:00 RECOVERY 01:00 . . 112 . . . . RECOVERY 02:00 . . 112 . 108/ 72 . . RECOVERY 03:00 . . 109 . 102/ 75 . . RECOVERY 04:00 . . 111 . 115/ 74 . . RECOVERY 04:26 . . 106 . 115/ 74 . . Electronically signed by : Venus Morales MD 06/27/2023 13:27:08
[2023-06-27] MEDS: SODIUM CHLORIDE 0.9% 10ML SYR (RAD ONLY) 10 ML IV ×2 (06:30→08:10)
--- NOTE | 2023-06-27 06:33 | NM_ITS ---
APPROVED REPORT Exam: Nuclear Stress Test Indication: CAD, 1 STENT, DM, FM HX, C.P., SOB Patient Location: Outpatient Stress Tech: Zora Barragan NM Tech:Edith Heart, ARRT, RT (R)(N) Ht: 5 ft 7 in Wt: 210 lbs Bra Size: 42C HR: 95 bpm BP: 134/85 mmHg BSA: 2.07 m2 TID: 1.54 BMI: 32.8 History: CAD, 1 STENT, DM, FM HX, C.P., SOB Procedure: Patient received 0.4 mg of intravenous Lexiscan, resting heart rate 95 bpm, resting blood pressure 134/85 mmHg, with Lexiscan maximum heart rate achieved was 119 bpm which is % of the maximum predicted heart rate and blood pressure was 130/74 mmHg. With Lexiscan, patient denied any complaint of chest pain. Electrocardiogram Cardiac Stress and Resting SPECT Images: Cardiac Stress and Resting SPECT images were obtained using technetium 99m Myoview 31.0 mCi stress and 10.80 mCi at rest. Resting and stress imaging in supine and prone positions demonstrate no evidence of focal fixed or reversible perfusion defects. There is marked increase in transient ischemic dilatation (TID 1.54), suggestive of multivessel disease or balanced ischemia. Gated imaging demonstrates normal global LV systolic function. LVEF is calculated at 69%. Conclusion: No evidence of focal fixed or reversible perfusion defects. Marked increase in transient ischemic dilatation (TID 1.54), suggestive of multivessel disease or balanced ischemia. Gated imaging demonstrates normal global LV systolic function. LVEF is calculated at 69%. Electronically signed by : Venus Morales MD 06/27/2023 13:35:57
[2023-06-27] MEDS: REGADENOSON 0.4MG/5ML SYRINGE 0.400000000000000022 MG IV (08:10)
--- NOTE | 2023-06-27 08:19 | US_ITS ---
FINAL REPORT CLINICAL HISTORY: CLAUDICATION LEFT LEG,DM,HTN,CAD FINDINGS: LOWER EXTREMITY SEGMENTAL PRESSURE MEASUREMENTS Pressure indices are as follows: RIGHT LOWER EXTREMITY: Upper thigh: 0.89 Calf: 0.87 Ankle, posterior tibial artery: 0.87 Ankle, dorsalis pedis: 0.95 Toe: 0.73 LEFT LOWER EXTREMITY: Upper thigh: 1.02 Calf: 0.90 Ankle, posterior tibial artery: 0.97 Ankle, dorsalis pedis: 0.94 Toe: 0.64 IMPRESSION: Mild peripheral vascular disease on the right. No significant peripheral vascular disease on the left. Reviewed, Interpreted and Dictated by Sharon Love MD Transcribed by Adrianna Ngo Authenticated and [facility]
[2023-06-27] MEDS: ISOTOPE MYOVIEW (PER STUDY) 1 DOSE IV (09:03)
== END 2023-06-27 23:59 ==
LOC: RAD 06:19
PROVIDERS: PCP Family Medicine; Visit Provider Nurse Practitioner Family
DX: R06.09 Other forms of dyspnea (principal); R07.89 Other chest pain; I20.89 Other forms of angina pectoris; I70.212 Atherosclerosis of native arteries of extremities with intermittent claudication, left leg
CPT/HCPCS: 78452; 93017; 93018; 93923; A9502; J2785

== ENCOUNTER 2023-07-07 14:10 | Observation (INO) | payer BC, OTHER, SELFPAY ==
[2023-07-07] VITALS (12 sets, daily range): BP systolic 114–149; BP diastolic 66–94; PULSE 64–74; RESP 12–24; TEMP 36.7–37; O2SAT 91–98; BMI 32.7; BMI 32.6
--- NOTE | 2023-07-07 14:09 | ECG_ITS ---
APPROVED REPORT Exam: Resting ECG HR:91 bpm ECG Measurements Heart Rate 91 AXES IL 135 P 27 QRSd 98 QRS 60 QT 371 T 72 QTc 420 Conclusion SINUS RHYTHM NORMAL ECG UNCONFIRMED REPORT Electronically signed by : Max Red MD 07/09/2023 17:58:51
--- NOTE | 2023-07-07 14:21 | XR_ITS ---
PROCEDURE INFORMATION: Exam: XR Chest Exam date and time: 07/07/2023 2:23 PM Age: 53 years old Clinical indication: Shortness of breath and wheezing; Additional info: Chest pain, SOB TECHNIQUE: Imaging protocol: Radiologic exam of the chest. Views: 2 views. COMPARISON: CR XR CHEST PORTABLE 12/29/2022 11:39 PM FINDINGS: Lungs: There are some faint ground-glass opacities projecting peripherally over the mid lung zones more apparent on the left that may be infectious in nature and could be further assessed on CT exam.. There are no consolidating infiltrates detected. Pleural spaces: Unremarkable. No pleural effusion. No pneumothorax. Heart/Mediastinum: Unremarkable. No cardiomegaly. Bones/joints: Unremarkable for age. IMPRESSION: Patchy faint ground-glass opacities mid lung zones probably infectious in nature.
[2023-07-07 14:28] LABS: Basophils % 0.4 % (0.1-2.0); Eosinophils # 0.7 K/mm3 (0.0-0.4); Eosinophils % 9.1 % (0.1-12.0); Hematocrit 46.3 % (37.0-47.0); Hemoglobin 16.1 g/dL (12.2-16.2); Lymphocytes # 3.5 K/mm3 (0.7-4.5); Lymphocytes % 43.4 % (10-50); Mean Corpuscular HGB Conc 34.9 g/dL (31.8-35.4); Mean Corpuscular Hemoglobin 32.8 pg (27.0-31.2); Mean Corpuscular Volume 94.2 fl (81-99); Mean Platelet Volume 8.4 fl (7.4-10.4); Monocytes # 0.6 K/mm3 (0.1-1.0); Monocytes % 7.4 % (1.7-9.3); Neutrophils # 3.2 K/mm3 (1.8-7.8); Neutrophils % 39.7 % (37.0-80.0); Platelet Count 195 K/mm3 (142-424); Red Blood Count 4.92 M/mm3 (4.20-5.40); Red Cell Distribution Width 13.8 % (11.5-17.5)
[2023-07-07 14:35] LABS: Alanine Aminotransferase 36 U/L (12-78); Albumin Level 4.5 g/dl (3.5-5.0); Albumin/Globulin Ratio 1.2 (1.1-1.8); Alkaline Phosphatase 105 U/L (38-126); Anion Gap 15.3 mEq/L (5-15); Aspartate Amino Transferase 36 U/L (14-36); Bilirubin,Total 0.5 mg/dl (0.2-1.3); Blood Urea Nitrogen 14 mg/dl (7-17); Calcium 9.3 mg/dl (8.4-10.2); Carbon Dioxide 23 mmol/L (22.0-30.0); Chloride 106 mmol/L (98-107); Creatinine Clearance Estimated 166 mL/min (50-200); Estimated Glomerular Filt Rate 105 ml/min (>60); GFR (African American) 128 ML/MIN (>60); Globulin 3.7 g/dL (1.3-3.2); Glucose 269 mg/dl (74-100); Potassium 4.3 mmoL/L (3.5-5.1); Sodium 140 mmol/L (136-145); Total Protein,Serum 8.2 g/dl (6.3-8.2)
[2023-07-07 14:54] LABS: Troponin I < 0.01 ng/ml (0.00-0.034)
--- NOTE | 2023-07-07 15:35 | PC.NURSE ---
PT ASSISTED TO BR
--- NOTE | 2023-07-07 15:37 | PC.NURSE ---
DR MELLO AT BEDSIDE TO UPDATE PT
--- NOTE | 2023-07-07 15:41 | CT_ITS ---
PROCEDURE INFORMATION: Exam: CTA Chest With Contrast Exam date and time: 07/07/2023 3:50 PM Age: 53 years old Clinical indication: Pain; Radiating; Additional info: Cp rad to back TECHNIQUE: Imaging protocol: Computed tomographic angiography of the chest with contrast. Exam focused on the arteries. 3D rendering (Not supervised by radiologist): MIP and/or 3D reconstructed images were created by the technologist. Radiation optimization: All CT scans at this facility use at least one of these dose optimization techniques: automated exposure control; mA and/or kV adjustment per patient size (includes targeted exams where dose is matched to clinical indication); or iterative reconstruction. Contrast material: ISOVUE 370; Contrast volume: 75 ml; Contrast route: INTRAVENOUS (IV); COMPARISON: CR XR CHEST 2V 07/07/2023 2:23 PM FINDINGS: Pulmonary arteries: Pulmonary vasculature is adequately opacified without filling defects or other evidence of acute pulmonary embolism. Aorta: Thoracic aorta is unremarkable. No aortic aneurysm or evidence of aortic dissection. Lungs: Lung volumes are decreased. 1 cm calcified granuloma left lung base. Diffuse scattered ground-glass opacities both lung escobar intermixed with focal areas of relative radiolucency in a mosaic pattern that may be due to combination of hypoventilatory changes and reactive small airway disease with air trapping. No consolidating infiltrates detected. Pleural spaces: Unremarkable. No pneumothorax. No pleural effusion. Heart: Heart is borderline enlarged. Coronary artery stent noted within the left anterior descending coronary artery. No significant coronary artery calcifications. No significant pericardial effusion. Lymph nodes: Unremarkable. No enlarged lymph nodes. Gallbladder and bile ducts: Gallbladder has been removed. Bile ducts are not appreciably dilated. Bones/joints: Unremarkable. No acute fracture. Soft tissues: Unremarkable. IMPRESSION: 1. Negative CT angiogram of the chest. No evidence of acute pulmonary embolism. 2. Scattered ground-glass opacities in a mosaic pattern as discussed above.
--- NOTE | 2023-07-07 15:43 | ED_ITS ---
Discharge Plan Disposition Patient Disposition: Admitted Chief Complaint: Chest Pain Clinical Impressions Clinical Impression: Angina pectoris, unstable Discharge ED Provider: Hayden Aviles General Chief Complaint: Chest Pain Stated Complaint: CP Time Seen by Provider: 07/07/23 15:35 Mode of Arrival: Ambulatory Source of Information: Patient Limitations: No Limitations Description of Symptoms (Recalled from ER Triage Doc. by RN): pt reports chest pain that started around 13:45, states chest pain is in the center of her chest and radiates through to her L shoulder blade, had a stent placed 5 months ago, currently waiting for cardiology to contact her with a date for another heart cath, took 2 nitro prior to arrival, also reports dizziness and shortness of breath History of Present Illness HPI narrative: Patient is a 53-year-old female with past medical history of [id number] diabetes on Trulicity and Synjardy, coronary artery disea se status post stenting who presents emergency department for evaluation of chest pain shortness of breath. Onset was acute, occurring a couple hours prior to arrival, radiating through to her back. She has been compliant with her diabetes medications. There is associated shortness of breath, no cough. No other acute complaints at this time. Cardiac history per review of cardiology office note 06-18-2023 patient has EF of 60%, A1c of 9.3, proximal LAD stent placed in 2022 on DAPT. Related Data Home Medications Medication Instructions Recorded Confirmed levothyroxine 112 mcg tablet 112 mcg PO DAILYDM thyroid 01/18/19 07/02/23 dulaglutide 0.75 mg/0.5 mL 0.75 mg SQ WEEKLY Diabetes 12/27/22 07/02/23 subcutaneous pen injector (Trulicity) aspirin 81 mg tablet,delayed 81 mg PO DAILY Coronary Artery 12/30/22 07/02/23 release Disease empagliflozin 12.5 mg-metformin ER 2 tab PO DAILY Diabetes 12/30/22 07/02/23 1,000 mg tablet,extended rel 24 hr (Synjardy XR) Previous Rx's Medication Instructions Recorded atorvastatin 40 mg tablet 40 mg PO DAILY Cholesterol #90 tabs 03/15/23 clopidogrel 75 mg tablet 75 mg PO DAILY #90 tabs 03/15/23 isosorbide mononitrate 60 mg 60 mg PO DAILY 90 days #90 tabs 03/15/23 tablet,extended release 24 hr lisinopril 2.5 mg tablet 2.5 mg PO DAILY 30 days #30 tabs 03/15/23 metoprolol succinate 25 mg 25 mg PO DAILY High Blood Pressure 03/15/23 tablet,extended release 24 hr 90 days #90 tabs nitroglycerin 0.4 mg sublingual 0.4 mg sublingual Q5MINP PRN Chest 06/29/23 tablet Pain #20 tabs Allergies Allergy/AdvReac Type Severity Reaction Status Date / Time bisacodyl [BISACODYL] Allergy Unknown Verified 07/02/23 14:51 [facility] Disclaimer: The information contained in this section may have been updated after the patient was seen, as this information can be updated by other users. Medical History (Updated 07/07/23 @ 17:51 by Hayden Aviles MD) Abnormal ankle brachial index ([place]) Abnormal nuclear cardiac imaging test Abnormal result of cardiovascular function study Angina pectoris Claudication Diabetes mellitus, type 2 Dyspnea History of mitral valve prolapse Hyperlipidemia Hypothyroid Obesity (BMI 30.0-34.9) PTSD (post-traumatic stress disorder) Typical angina Surgical History History of appendectomy History of History of cholecystectomy Hx of nasal septoplasty Status post coronary artery stent placement Family History Other Coronary artery disease Diabetes Social History Smoking Status: Never smoker alcohol intake: never substance use type: denies use current occupational status: retired Travel in the last 8 weeks: None household members: spouse housing: house marital status: caffeine: Yes ROS Obtained: Yes Systems reviewed as appropriate & no additional complaints except as documented Physical Exam General General appearance: alert and in no apparent distress Head Head exam: atraumatic and normocephalic Eye Eye exam: Present PERRL and EOMI ENT ENT exam: Present mucous membranes moist Neck Neck exam: Present normal inspection Chest Chest inspection: Present normal inspection and symmetric chest wall rise Respiratory Respiratory exam: Present normal lung sounds bilaterally; Absent respiratory distress Cardiovascular Cardiovascular exam: Present regular rate and normal rhythm Abdominal Exam Abdominal exam: Present soft; Absent tenderness Extremities Exam Extremities exam: Present normal inspection Neurological Exam Neurological exam: Present alert Psychiatric Psychiatric exam: Present normal affect Skin Skin exam: Present warm and dry HEART Score HEART Score HEART Score assessment performed?: Yes History (anamnesis): Highly suspicious ECG: Normal Age: 45-65 years Risk factors: Atherosclerosis history Troponin: </= normal limit HEART Score: 5 Critical Care Critical Care Time Critical Care Time: Yes Attestation: On 07/07/23, the high probability of a clinically significant, sudden or life threatening deterioration of the following system(s) required my full and direct attention, intervention and personal management. The time I documented below is in addition to time spent performing reported procedures but includes the following listed in this critical care notation. Total Time Total Critical Care Time: 30 Medical Decision Making Miguel A Inquiry Pt receiving controlled substance: No Vital Signs Vital Signs: 07/07/23 14:10 07/07/23 14:28 07/07/23 15:00 Temperature 98.1 F Temperature Source Oral Pulse Rate 74 71 Pulse Rate [Left Radial] 74 Respiratory Rate 18 24 Blood Pressure 142/94 H Blood Pressure [Right Arm] 149/90 H Blood Pressure Mean Blood Pressure Mean [Right Arm] 109 Blood Pressure Source [Right Arm] Automatic Cuff Blood Pressure Position [Right Arm] Sitting 02 Sat by Pulse Oximetry 98 96 Oxygen Delivery Method Room Air Room Air 07/07/23 15:30 07/07/23 16:15 07/07/23 16:30 Temperature Temperature Source Pulse Rate 72 69 67 Pulse Rate [Left Radial] Respiratory Rate 15 12 15 Blood Pressure 145/86 H 125/78 125/80 Blood Pressure [Right Arm] Blood Pressure Mean Blood Pressure Mean [Right Arm] Blood Pressure Source [Right Arm] Blood Pressure Position [Right Arm] 02 Sat by Pulse Oximetry 96 95 95 Oxygen Delivery Method Room Air Room Air Room Air 07/07/23 17:00 07/07/23 17:30 Temperature Temperature Source Pulse Rate 74 64 Pulse Rate [Left Radial] Respiratory Rate 14 17 Blood Pressure 120/74 121/78 Blood Pressure [Right Arm] Blood Pressure Mean 90 Blood Pressure Mean [Right Arm] Blood Pressure Source [Right Arm] Blood Pressure Position [Right Arm] 02 Sat by Pulse Oximetry 96 98 Oxygen Delivery Method Room Air Lab Data Labs: Lab Results 07/07/23 14:15: WBC 8.0, RBC 4.92, Hgb 16.1, Hct 46.3, MCV 94.2, MCH 32.8 H, MCHC 34.9, RDW 13.8, Plt Count 195, MPV 8.4, Neut % (Auto) 39.7, Lymph % (Auto) 43.4, [place] % (Auto) 7.4, Eos % (Auto) 9.1, Baso % (Auto) 0.4, Neut # (Auto) 3.2, Lymph # (Auto) 3.5, [place] # (Auto) 0.6, Eos # (Auto) 0.7 H, Baso # (Auto) 0.0, Sodium 140, Potassium 4.3, Chloride 106, Carbon Dioxide 23, Anion Gap 15.3 H, BUN 14, Creatinine 0.60, Estimated Creat Clear 166, Estimated GFR 105, Est GFR ( Amer) 128, Glucose 269 H, Calcium 9.3, Total Bilirubin 0.5, AST 36, ALT 36, Alkaline Phosphatase 105, Troponin I < 0.01, Total Protein 8.2, Albumin 4.5, Globulin 3.7 H, Albumin/Globulin Ratio 1.2, Acetone Level None detected 07/07/23 15:38: VBG pH 7.31, VBG pCO2 42.7, VBG pO2 46.9 H, VBG HCO3 21.1 L, VBG Total CO2 22.4 L, VBG O2 Saturation 81.8 H, VBG Base Excess -5.1 L 07/07/23 14:15 07/07/23 14:15 Response Orders (Tests/Meds): ED MEDICATIONS Generic Name Dose Route Start Last Admin Trade Name Freq PRN Reason Stop Dose Admin Morphine Sulfate 2 mg 07/07/23 17:35 Morphine 2mg/Ml Syringe IV 08/06/23 17:34 Q2HP PRN Severe Pain (7-10) Nitroglycerin 0.4 mg 07/07/23 15:42 Nitroglycerin 0.4mg Sl Tablet SL 08/06/23 15:41 Q5MINP PRN Chest Pain Nitroglycerin 2 gm 07/07/23 17:43 Nitroglycerin 1 Gm Ointment TD 07/07/23 17:44 ONCE ONE Discontinued Medications Generic Name Dose Route Start Last Admin Trade Name Freq PRN Reason Stop Dose Admin Aspirin 324 mg 07/07/23 15:42 07/07/23 15:50 Aspirin 81mg Chewable Tablet PO 07/07/23 15:43 324 mg ONCE ONE Administration Iopamidol 75 ml 07/07/23 16:05 07/07/23 16:06 Iopamidol-370 (76%);100ml Bottle IV 07/07/23 16:06 75 ml ONCE ONE Administration Morphine Sulfate 4 mg 07/07/23 15:42 07/07/23 15:50 Morphine 4mg/Ml Syringe IV 07/07/23 15:43 4 mg ONCE ONE Administration Sodium Chloride 50 ml 07/07/23 16:05 07/07/23 16:06 0.9 % Sodium Chloride 50 Ml Vial IV 07/07/23 16:06 50 ml ONCE ONE Administration Sodium Chloride 10 ml 07/07/23 16:05 07/07/23 16:06 Sodium Chloride 0.9% 10ml Syr (Rad Only) IV 07/07/23 16:06 10 ml ONCE ONE Administration ORDERS Category Date Time Status CTA Chest [CT angio chest PE protocol] Stat Cat Scan 07/07/23 15:41 Completed XR chest 2V Stat Exams 07/07/23 14:21 Completed Acetone, Serum (Rapid) Stat Lab 07/07/23 14:15 Completed Complete Blood Count Auto Diff Stat Lab 07/07/23 14:15 Completed Comprehensive Metabolic Panel Stat Lab 07/07/23 14:15 Completed Troponin I Q3H Lab 07/07/23 17:40 Received Troponin I Q3H Lab 07/07/23 20:30 Ordered Troponin I Stat Lab 07/07/23 14:15 Completed VBG [Venous Blood Gas] Stat RT 07/07/23 15:38 Completed ECG Data Tracing #1: ECG Narrative: Independently interpreted by me, rate is 91, rhythm is regular, axis is normal, no ST elevation in anatomical contiguous leads, QTc 420 Tracing #2: ECG Narrative: Independently interpreted by me, rate is 69, rhythm is regular, axis is normal, no ST elevation in anatomical contiguous leads, QTc 418. [facility] Narrative Medical Decision Narrative: In summary patient is a 53-year-old female past medical history described above presents emergency department for evaluation of chest pain and shortness of breath. Patient is hemodynamically stable nontoxic-appearing upon arrival, afebrile. Differential diagnosis includes ACS, noncardiac chest pain, euglycemic DKA, among others. Workup will be conducted with hematologic labs, chest x-ray, EKG, VBG, acetone. Initial inventions include nitroglycerin, aspirin, morphine. Initial workup reviewed by me, hematologic labs are nonactionable, no acidosis, no critical electrolyte abnormalities, hyperglycemia without evidence of DKA. Initial troponin below detectable limit. On repeat evaluation upon patient ambulated to the bathroom had significant substernal chest pain is concerning to me for unstable angina. Repeat EKG shows no dynamic changes. CTA chest shows no acute findings, mosaic groundglass opacities reflective of reactive small airway disease without infiltrate. Given this the case discussed with cardiology regarding management who agrees patient would benefit from inpatient management and likely heart catheterization on Sunday. Nitropaste was administered and the case was discussed with Dr. Olivares regarding management patient will be admitted to his service for continued evaluation at this time.
[2023-07-07 15:49] LABS: VBG Base Excess -5.1 mmol/L (-2.4-2.3); VBG HCO3 21.1 mmol/L (23-30); VBG Oxygen Saturation 81.8 % (50-70); VBG PCO2 42.7 mmol/L (35-51); VBG PH 7.31 mmol/L (7.31-7.41); VBG PO2 46.9 mmol/L (28-40); VBG Total CO2 22.4 mmol/L (23-27)
[2023-07-07] MEDS: MORPHINE 4MG/ML SYRINGE 4 MG IV ×2 (15:50→18:16)
[2023-07-07] MEDS: ASPIRIN 81MG CHEWABLE TABLET 324 MG PO (15:50)
--- NOTE | 2023-07-07 15:57 | PC.NURSE ---
Pt gone to CT
[2023-07-07 15:58] LABS: Acetone, Serum (Rapid) None Detected (None Detect)
[2023-07-07] MEDS: 0.9 % SODIUM CHLORIDE 50 ML VIAL IV (16:06)
[2023-07-07] MEDS: SODIUM CHLORIDE 0.9% 10ML SYR (RAD ONLY) 10 ML IV (16:06)
[2023-07-07] MEDS: IOPAMIDOL-370 (76%);100ML BOTTLE 75 ML IV (16:06)
--- NOTE | 2023-07-07 16:46 | ECG_ITS ---
APPROVED REPORT Exam: Resting ECG HR:69 bpm ECG Measurements Heart Rate 69 AXES MD 146 P 43 QRSd 102 QRS 56 QT 399 T 53 QTc 418 Conclusion SINUS RHYTHM NORMAL ECG UNCONFIRMED REPORT Electronically signed by : Max Red MD 07/08/2023 14:32:30
--- NOTE | 2023-07-07 16:52 | PC.NURSE ---
DR VALENTIN PAGED
--- NOTE | 2023-07-07 17:25 | PC.NURSE ---
pt accepted by dr bush for admission
--- NOTE | 2023-07-07 17:29 | PC.NURSE ---
house aware of admission. pt will be going to room 266. er admissions aware.
--- NOTE | 2023-07-07 17:45 | PC.NURSE ---
PT TO BE ADMITTED TO [address] UNST[address]GINA TO DR MEEKS, OBS.; Cris MAC RN AND Adrien JAIMES, SRNA TO ADMIT PT TO THE UNIT.
[2023-07-07] MEDS: NITROGLYCERIN 1 GM OINTMENT 2 GM TD (17:50)
[2023-07-07 18:12] LABS: Troponin I < 0.01 ng/ml (0.00-0.034)
--- NOTE | 2023-07-07 18:17 | PC.NURSE ---
pt continues to c/o cp 10/04. notified MD. new orders received
--- NOTE | 2023-07-07 18:20 | PC.NURSE ---
Pt remains in the ER awaiting staff availability on Med/Surg
--- NOTE | 2023-07-07 18:23 | PC.NURSE ---
called for a tray for the pt.
--- NOTE | 2023-07-07 18:35 | PC.NURSE ---
pt arrived to the floor via wheelchair.
[2023-07-07 21:24] LABS: Troponin I < 0.01 ng/ml (0.00-0.034)
[2023-07-07] MEDS: LISINOPRIL 5MG TABLET 2.5 MG PO (22:05)
[2023-07-07] MEDS: METOPROLOL SUCCINATE XL 25MG TABLET 25 MG PO (22:05)
[2023-07-07] MEDS: ISOSORBIDE MONO 60MG TAB.ER.24H 60 MG PO (22:05)
[2023-07-07] MEDS: CLOPIDOGREL 75MG TAB 75 MG PO (22:05)
[2023-07-07] MEDS: MORPHINE 2MG/ML SYRINGE 2 MG IV (22:09)
[2023-07-07] MEDS: humaLOG 100 UNITS/ML 3ML VIAL (SSI) SQ (22:09)
[2023-07-08] VITALS: BP 96/67; PULSE 68; PULSE 70; RESP 17; TEMP 36.8; O2SAT 91
[2023-07-08 04:00] VITALS: BP 94/65; PULSE 65; PULSE 70; RESP 14; TEMP 36.9; O2SAT 90; BMI 32.8
[2023-07-08] MEDS: humaLOG 100 UNITS/ML 3ML VIAL (SSI) SQ ×4 (06:19→21:32)
[2023-07-08 07:39] LABS: Basophils % 0.5 % (0.1-2.0); Chloride 108 mmol/L (98-107); Eosinophils # 0.6 K/mm3 (0.0-0.4); Eosinophils % 9.9 % (0.1-12.0); Hematocrit 42.3 % (37.0-47.0); Lymphocytes % 46.6 % (10-50); Mean Corpuscular HGB Conc 34.1 g/dL (31.8-35.4); Mean Corpuscular Volume 93.8 fl (81-99); Mean Platelet Volume 8.4 fl (7.4-10.4); Monocytes # 0.4 K/mm3 (0.1-1.0); Monocytes % 6.6 % (1.7-9.3); Neutrophils # 2.3 K/mm3 (1.8-7.8); Neutrophils % 36.3 % (37.0-80.0); Platelet Count 187 K/mm3 (142-424); Red Blood Count 4.52 M/mm3 (4.20-5.40); Red Cell Distribution Width 13.8 % (11.5-17.5); Sodium 137 mmol/L (136-145); White Blood Count 6.4 K/mm3 (4.8-10.8)
[2023-07-08 07:41] LABS: Blood Urea Nitrogen 14 mg/dl (7-17); Creatinine Clearance Estimated 166 mL/min (50-200); Estimated Glomerular Filt Rate 105 ml/min (>60); GFR (African American) 128 ML/MIN (>60)
[2023-07-08 07:42] LABS: Alanine Aminotransferase 27 U/L (12-78); Albumin Level 3.9 g/dl (3.5-5.0); Albumin/Globulin Ratio 1.2 (1.1-1.8); Alkaline Phosphatase 75 U/L (38-126); Aspartate Amino Transferase 30 U/L (14-36); Bilirubin,Total 0.8 mg/dl (0.2-1.3); Calcium 8.4 mg/dl (8.4-10.2); Carbon Dioxide 26 mmol/L (22.0-30.0); Globulin 3.2 g/dL (1.3-3.2); Glucose 189 mg/dl (74-100); Total Protein,Serum 7.1 g/dl (6.3-8.2)
[2023-07-08 07:48] LABS: Hemoglobin 14.5 g/dL (12.2-16.2)
[2023-07-08 08:00] VITALS: BP 97/63; PULSE 65; PULSE 66; RESP 20; TEMP 37; O2SAT 95
--- NOTE | 2023-07-08 09:19 | EXP.HP ---
History of Present Illness *Admission Date: 07/07/23 *Reason for visit:: Chest pain *History of present illness: Mrs. Stark is a 53 year old patient of [facility] with a history of DM type 2 and CAD who presented to [facility] ER yesterday after experiencing anterior chest pain associated with shortness of breath and chest tightness. She had more chest pain after ambulating in the ER yesterday. Patient reports over the past few weeks she has been waking up at night with chest pain associated with SOB. She had a PCI with stent placement in December of 2022. She had a cardiac stress test a few weeks ago that was reportedly abnormal and is scheduled to have another left heart cath. [facility] Disclaimer: The information contained in this section may have been updated after the patient was seen, as this information can be updated by other users. Medical History (Updated 07/08/23 @ 09:25 by Mike Cosby MD) Abnormal ankle brachial index ([place]) Abnormal nuclear cardiac imaging test Abnormal result of cardiovascular function study Angina pectoris CAD (coronary artery disease) Claudication Diabetes mellitus, type 2 Dyspnea History of mitral valve prolapse Hyperlipidemia Hypothyroid Obesity (BMI 30.0-34.9) PTSD (post-traumatic stress disorder) Typical angina Surgical History History of appendectomy History of History of cholecystectomy Hx of nasal septoplasty Status post coronary artery stent placement Family History Other Coronary artery disease Diabetes Social History (Updated 07/07/23 @ 18:04 by Marah Rangel, PAIGE) Smoking Status: Never smoker alcohol intake: never substance use type: denies use current occupational status: retired Travel in the last 8 weeks: None household members: spouse housing: house marital status: caffeine: Yes Review of Systems Constitutional Constitutional: Denies chills and Denies fever(s) ENT Ears, Nose, Mouth, and Throat: Denies dizziness *Cardiovascular Cardiovascular: Reports as per HPI and Denies syncope *Respiratory Respiratory: Denies cough *Gastrointestinal Gastrointestinal: Denies abdominal pain *Genitourinary Genitourinary: Denies dysuria *Musculoskeletal Musculoskeletal: Denies arthralgias *Neurologic Neurologic: Denies dizziness and Denies syncope Meds Home Medications and Allergies Home Medications Medication Instructions Recorded Confirmed Type levothyroxine 112 mcg tablet 112 mcg PO DAILYDM thyroid 01/18/19 07/08/23 History dulaglutide 0.75 mg/0.5 mL 0.75 mg SQ WEEKLY Diabetes 12/27/22 07/07/23 History subcutaneous pen injector (Trulicity) aspirin 81 mg tablet,delayed 81 mg PO DAILY Coronary Artery 12/30/22 07/07/23 History release Disease empagliflozin 12.5 mg-metformin ER 2 tab PO DAILY Diabetes 12/30/22 07/07/23 History 1,000 mg tablet,extended rel 24 hr (Synjardy XR) atorvastatin 40 mg tablet 40 mg PO DAILY Cholesterol #90 tabs 03/15/23 07/07/23 Rx metoprolol succinate 25 mg 25 mg PO DAILY High Blood Pressure 03/15/23 07/07/23 Rx tablet,extended release 24 hr 90 days #90 tabs nitroglycerin 0.4 mg sublingual 0.4 mg sublingual Q5MINP PRN Chest 06/29/23 07/07/23 Rx tablet Pain #20 tabs clopidogrel 75 mg tablet 75 mg PO DAILY Blood Thinner 07/08/23 07/08/23 History isosorbide mononitrate 60 mg 60 mg PO DAILY Chest Pain 07/08/23 07/08/23 History tablet,extended release 24 hr lisinopril 2.5 mg tablet 2.5 mg PO DAILY High Blood Pressure 07/08/23 07/08/23 History New Prescriptions to Start Prescriptions: Allergies Allergy/AdvReac Type Severity Reaction Status Date / Time bisacodyl [BISACODYL] Allergy Unknown Verified 07/07/23 19:10 Exam Data for Last 24 hours Vital signs and Labs for Last 24 Hours: Temp Pulse Resp BP Pulse Ox O2 Del Method 98.5 F 65 14 94/65 L 90 L Room Air 07/08/23 04:00 07/08/23 04:00 07/08/23 04:00 07/08/23 04:00 07/08/23 04:00 07/08/23 06:40 Laboratory Results - last 24 hr 07/07/23 14:15: WBC 8.0, RBC 4.92, Hgb 16.1, Hct 46.3, MCV 94.2, MCH 32.8 H, MCHC 34.9, RDW 13.8, Plt Count 195, MPV 8.4, Neut % (Auto) 39.7, Lymph % (Auto) 43.4, [place] % (Auto) 7.4, Eos % (Auto) 9.1, Baso % (Auto) 0.4, Neut # (Auto) 3.2, Lymph # (Auto) 3.5, [place] # (Auto) 0.6, Eos # (Auto) 0.7 H, Baso # (Auto) 0.0, Sodium 140, Potassium 4.3, Chloride 106, Carbon Dioxide 23, Anion Gap 15.3 H, BUN 14, Creatinine 0.60, Estimated Creat Clear 166, Estimated GFR 105, Est GFR ( Amer) 128, Glucose 269 H, Calcium 9.3, Total Bilirubin 0.5, AST 36, ALT 36, Alkaline Phosphatase 105, Troponin I < 0.01, Total Protein 8.2, Albumin 4.5, Globulin 3.7 H, Albumin/Globulin Ratio 1.2, Acetone Level None detected 07/07/23 15:38: VBG pH 7.31, VBG pCO2 42.7, VBG pO2 46.9 H, VBG HCO3 21.1 L, VBG Total CO2 22.4 L, VBG O2 Saturation 81.8 H, VBG Base Excess -5.1 L 07/07/23 17:40: Troponin I < 0.01 07/07/23 20:51: Troponin I < 0.01 07/08/23 07:07: WBC 6.4, RBC 4.52, Hgb 14.5, Hct 42.3, MCV 93.8, MCH 32.0 H, MCHC 34.1, RDW 13.8, Plt Count 187, MPV 8.4, Neut % (Auto) 36.3 L, Lymph % (Auto) 46.6, [place] % (Auto) 6.6, Eos % (Auto) 9.9, Baso % (Auto) 0.5, Neut # (Auto) 2.3, Lymph # (Auto) 3.0, [place] # (Auto) 0.4, Eos # (Auto) 0.6 H, Baso # (Auto) 0.0, Sodium 137, Potassium 4.0, Chloride 108 H, Carbon Dioxide 26, Anion Gap 7.0, BUN 14, Creatinine 0.60, Estimated Creat Clear 166, Estimated GFR 105, Est GFR ( Amer) 128, Glucose 189 H D, Calcium 8.4, Total Bilirubin 0.8, AST 30, ALT 27, Alkaline Phosphatase 75, Total Protein 7.1, Albumin 3.9 D, Globulin 3.2, Albumin/Globulin Ratio 1.2 I & O for Last 24 hours: Intake & Output 07/05/23 07/06/23 07/07/23 07/08/23 23:59 23:59 23:59 23:59 Intake Total 120 / 120 Output Total 0 / 0 0 / 0 Balance 120 / 120 0 / 0 Weight 208 lb 9.6 oz 209 lb 3.2 oz Constitutional Constitutional: no acute distress *Routine HEENT Exam Head: Present normocephalic Eye: Present EOMI and PERRL ENT: Present mucous membranes moist *Routine Neck Exam Neck: Present supple; Absent lymphadenopathy *Routine Respiratory Exam Respiratory: Present CTA bilaterally *Routine Cardiovascular Exam Cardiovascular: Present RRR *Routine Abdominal Exam Abdominal: Present soft and normoactive bowel sounds; Absent tenderness *Routine Rectal Exam Rectal:: deferred *Routine Genitalia Exam Genitalia:: deferred *Routine Extremities Exam Extremities: Absent cyanosis, clubbing or edema *Routine Skin Exam Skin: Present warm; Absent rash *Routine Neurological Exam Neurological: Present alert and oriented X3 Assessment and Plan *Assessment and plan (1) Angina pectoris, unstable: Status: Acute Category: Medical Code(s): I20.0 - Unstable angina (2) Abnormal ankle brachial index ([place]): Status: Acute Category: Medical Code(s): R68.89 - Other general symptoms and signs (3) Abnormal nuclear cardiac imaging test: Status: Acute Category: Medical Code(s): R93.1 - Abnormal findings on diagnostic imaging of heart and coronary circulation (4) Claudication: Status: Acute Category: Medical Code(s): I73.9 - Peripheral vascular disease, unspecified (5) Hyperlipidemia: Status: Acute Qualifiers: Hyperlipidemia type: mixed hyperlipidemia Qualified Code(s): E78.2 - Mixed hyperlipidemia Category: Medical Code(s): E78.5 - Hyperlipidemia, unspecified (6) CAD (coronary artery disease): Status: Acute Qualifiers: Coronary Disease-Associated Artery/Lesion type: [place] artery [place] vs. 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
--- NOTE | 2023-07-08 09:20 | HMH.PHAINT1 ---
Pharmacy Intervention Comments: MEDICATION RECONCILIATION COMPLETE USING RX BOTTLES AND EXTERNAL PHARMACY FILL HISTORY.
[2023-07-08] MEDS: TRULICITY 0.75 MG/0.5 ML 0.75 EACH SQ (10:13)
[2023-07-08] MEDS: ISOSORBIDE MONO 60MG TAB.ER.24H 60 MG PO (10:14)
[2023-07-08] MEDS: LEVOTHYROXINE 112MCG (0.112MG) TAB 112 MCG PO (10:14)
[2023-07-08] MEDS: SYNJARDY 2 EACH PO (10:14)
[2023-07-08] MEDS: ATORVASTATIN 40MG TABLET 40 MG PO (10:14)
[2023-07-08] MEDS: LISINOPRIL 2.5MG TABLET 2.5 MG PO (10:14)
[2023-07-08] MEDS: CLOPIDOGREL 75MG TAB 75 MG PO (10:14)
[2023-07-08] MEDS: METOPROLOL SUCCINATE XL 25MG TABLET 25 MG PO (10:14)
[2023-07-08] MEDS: ASPIRIN EC 81MG TABLET 81 MG PO (10:15)
[2023-07-08 12:00] VITALS: BP 92/58; PULSE 60; PULSE 61; RESP 15; TEMP 36.7; O2SAT 93
[2023-07-08 12:11] LABS: POC Glucose,Bedside 178 (70-110)
[2023-07-08 12:11] LABS: POC Glucose,Bedside 157 (70-110)
[2023-07-08 12:11] LABS: POC Glucose,Bedside 227 (70-110)
--- NOTE | 2023-07-08 13:29 | PC.NURSE ---
Dr. Red notified of 10 beat run v-tach, patient alert and oriented times 4, no lingering chest pain. no new orders
[2023-07-08 16:00] VITALS: BP 101/69; PULSE 60; PULSE 61; RESP 21; TEMP 36.9; O2SAT 93
[2023-07-08] MEDS: NITROGLYCERIN 1 GM OINTMENT TD (16:01)
[2023-07-08] MEDS: 0.9 % SODIUM CHLORIDE 1000ML 1,000 ML 100 ML IV (16:01)
[2023-07-08 16:43] LABS: POC Glucose,Bedside 166 (70-110)
[2023-07-08 20:00] VITALS: BP 119/67; PULSE 75; PULSE 82; RESP 23; TEMP 37.3; O2SAT 96
[2023-07-08 20:11] LABS: POC Glucose,Bedside 179 (70-110)
[2023-07-09] VITALS (18 sets, daily range): BP systolic 103–144; BP diastolic 62–93; PULSE 70–90; RESP 14–24; TEMP 36.6–37.6; O2SAT 90–96; BMI 32.8
[2023-07-09] MEDS: 0.9 % SODIUM CHLORIDE 1000ML 1,000 ML 100 ML IV ×2 (02:14→12:31)
[2023-07-09 06:17] LABS: POC Glucose,Bedside 127 (70-110)
[2023-07-09] MEDS: LEVOTHYROXINE 112MCG (0.112MG) TAB 112 MCG PO (06:27)
--- NOTE | 2023-07-09 06:56 | PC.NURSE ---
Pt has had no complaints through the night. Walks to bathroom. RA. MICHELLE.
--- NOTE | 2023-07-09 07:50 | P.PN_ITS ---
Subjective *Date: 07/09/23 *Time: 08:11 Interval history: Had some chest discomfort with associated shortness of breath when up to bathroom. Otherwise she has done well. She slept some as well. Nurses report no further arrhythmias. Patient did complain of a headache for which Tylenol w as given Medical Exam Vital signs and Labs for Last 24 Hours: Vital Signs Temp Pulse Pulse Resp BP Pulse Ox O2 Del Method 07/09/23 06:46 Room Air 07/09/23 04:00 97.9 F 76 17 129/72 94 L Room Air 07/09/23 04:00 80 07/09/23 05:00 Room Air 07/09/23 03:00 Room Air 07/09/23 00:00 90 07/08/23 20:00 75 07/09/23 00:55 Room Air 07/09/23 00:00 99.6 F 77 18 129/72 90 L Room Air 07/08/23 23:00 Room Air 07/08/23 21:00 Room Air 07/08/23 20:00 Room Air 07/08/23 20:00 99.2 F 82 23 119/67 96 Room Air 07/08/23 18:57 Room Air 07/08/23 16:00 60 07/08/23 17:00 Room Air 07/08/23 16:00 98.5 F 61 21 101/69 L 93 L Room Air 07/08/23 15:00 Room Air 07/08/23 08:00 Room Air 07/08/23 13:00 Room Air 07/08/23 11:00 Room Air 07/08/23 09:00 Room Air 07/08/23 12:00 61 07/08/23 08:00 65 07/08/23 12:00 98.0 F 60 15 92/58 L 93 L Room Air 07/08/23 08:00 98.6 F 66 20 97/63 L 95 Room Air Intake and Output 07/08/23 07/09/23 07/09/23 19:59 03:59 11:59 Intake Total 1020 / 1020 1317 / 2337 Output Total 650 / 650 200 / 850 Balance 370 / 370 1117 / 1487 Intake: Intake, Oral Amount 1020 / 1020 Intake, Total IV Amount 1317 / 1317 0.9 % Sodium Chloride 1000ML 1, 1317 / 1317 000 ml @ 100 mls/hr IV .Q10H MAKAYLA Rx#:[id number] Output: Output, Urine Amount 650 / 650 200 / 850 Other: Number of Unmeasured Voids 0 Weight 209 lb 3.252 oz Patient Weight 07/09/23 11:59 Weight 209 lb 3.252 oz Laboratory Results - last 24 hr 07/07/23 22:03: POC Glucose 178 H 07/08/23 06:09: POC Glucose 227 H 07/08/23 12:04: POC Glucose 157 H 07/08/23 16:06: POC Glucose 166 H 07/08/23 20:04: POC Glucose 179 H 07/09/23 06:10: POC Glucose 127 H I & O for Labs for Last 24 Hours: Intake & Output 07/06/23 07/07/23 07/08/23 07/09/23 11:59 11:59 11:59 11:59 Intake Total 620 / 620 2337 / 2337 Output Total 0 / 0 850 / 850 Balance 620 / 620 1487 / 1487 Weight 209 lb 3.2 oz 209 lb 3.252 oz Constitutional: Present no acute distress Comment:: Awake and alert and sitting quietly in the bed. Appears very comfortable. Respiratory: Present CTA bilaterally (Anteriorly and posteriorly) Cardiac: Present Regular Rate (Monitor showing sinus rhythm) GI: Present soft and normal bowel sounds; Absent distention or tenderness Extremities: Absent edema or calf tenderness Neuro: Present alert, awake and oriented x 3 Assessment and Plan *Assessment and plan (1) Angina pectoris, unstable: Status: Acute Category: Medical Code(s): I20.0 - Unstable angina (2) Abnormal ankle brachial index ([place]): Status: Acute Category: Medical Code(s): R68.89 - Other general symptoms and signs (3) Abnormal nuclear cardiac imaging test: Status: Acute Category: Medical Code(s): R93.1 - Abnormal findings on diagnostic imaging of heart and coronary circulation (4) Claudication: Status: Acute Category: Medical Code(s): I73.9 - Peripheral vascular disease, unspecified (5) Hyperlipidemia: Status: Acute Qualifiers: Hyperlipidemia type: mixed hyperlipidemia Qualified Code(s): E78.2 - Mixed hyperlipidemia Category: Medical Code(s): E78.5 - Hyperlipidemia, unspecified (6) CAD (coronary artery disease): Status: Acute Qualifiers: Associated angina: unspecified whether angina present Coronary Disease- Associated Artery/Lesion type: [place] artery [place] vs. 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 Probable cardiac cath. Dr. Cosby entry - Saw patient, agree with above note.
[2023-07-09] MEDS: ASPIRIN EC 81MG TABLET 81 MG PO (09:13)
[2023-07-09] MEDS: CLOPIDOGREL 75MG TAB 75 MG PO (09:13)
[2023-07-09] MEDS: ATORVASTATIN 40MG TABLET 40 MG PO (09:13)
[2023-07-09] MEDS: LISINOPRIL 2.5MG TABLET 2.5 MG PO (09:13)
[2023-07-09] MEDS: ISOSORBIDE MONO 60MG TAB.ER.24H 60 MG PO (09:13)
[2023-07-09] MEDS: METOPROLOL SUCCINATE XL 25MG TABLET 25 MG PO (09:13)
--- NOTE | 2023-07-09 09:32 | PC.NURSE ---
Home Medications [facility] Medication Instructions Recorded Confirmed levothyroxine 112 mcg tablet 112 mcg PO DAILYDM thyroid 01/18/19 07/08/23 dulaglutide 0.75 mg/0.5 mL 0.75 mg SQ WEEKLY Diabetes 12/27/22 07/07/23 subcutaneous pen injector (Trulicity) aspirin 81 mg tablet,delayed 81 mg PO DAILY Coronary Artery 12/30/22 07/07/23 release Disease empagliflozin 12.5 mg-metformin ER 2 tab PO DAILY Diabetes 12/30/22 07/07/23 1,000 mg tablet,extended rel 24 hr (Synjardy XR) clopidogrel 75 mg tablet 75 mg PO DAILY Blood Thinner 07/08/23 07/08/23 isosorbide mononitrate 60 mg 60 mg PO DAILY Chest Pain 07/08/23 07/08/23 tablet,extended release 24 hr lisinopril 2.5 mg tablet 2.5 mg PO DAILY High Blood Pressure 07/08/23 07/08/23 Previous Rx's Medication Instructions Recorded atorvastatin 40 mg tablet 40 mg PO DAILY Cholesterol #90 tabs 03/15/23 metoprolol succinate 25 mg 25 mg PO DAILY High Blood Pressure 03/15/23 tablet,extended release 24 hr 90 days #90 tabs nitroglycerin 0.4 mg sublingual 0.4 mg sublingual Q5MINP PRN Chest 06/29/23 tablet Pain #20 tabs
--- NOTE | 2023-07-09 09:35 | IR_ITS ---
APPROVED REPORT Patient Location: Inpatient PROCEDURES Left heart catheterization Left ventriculogram Selective coronary angiogram Catheter placement in the right external iliac artery Right external iliac artery antegrade angiogram with unilateral runoff to the right foot Catheter placement in the left external iliac artery Left external iliac artery antegrade angiogram with unilateral runoff to the left foot Catheter placed to the distal abdominal aorta Distal abdominal aortogram INDICATION Unstable angina, Abnormal [place], [place] claudication class III, Peripheral artery disease, Informed consent was obtained prior to the procedure. COMPLICATIONS NONE Estimated Blood Loss: LESS THAN 10 ML TECHNIQUE One percent lidocaine used to anesthetize the right anterior aspect of the wrist. The right radial artery was accessed via the Seldinger technique. A 6 [place] sheath was placed in the right radial artery. 2.5 mg of Verapamil, 800 mcg of nitroglycerin, 1mg Lidocaine and 5000 U Heparin were given through the arterial sheath. The papa catheter was also used to perform left heart catheterization, left ventriculogram and selective coronary angiogram. At the end of the diagnostic cardiac angiogram of the catheter was placed in the transverse aorta and the wire was advanced to the descending aorta. The catheter was then exchanged for a PV multi curve the PV multi curve was placed into the right external iliac artery where antegrade angiography was performed with unilateral runoff to the right foot. This procedure was repeated into the left external iliac artery where antegrade angiography was performed. Following this the catheter was pulled back to the distal abdominal aorta were distal abdominal aortography was performed. At the end of procedure the apparatus was removed the sheath was removed and hemostasis was achieved using TR banding patient was transferred to the postop holding in stable condition ANGIOGRAPHIC RESULTS The left main artery Normal The left anterior descending artery Normal The circumflex artery Dominant normal The right coronary artery Nondominant normal The MARTÍNEZ ventriculogram reveals Normal 65% The left ventricular end-diastolic pressure 10 mmHg Infrarenal abdominal aorta is normal Bilateral common internal and external iliac arteries are widely patent Bilateral common femoral artery and profunda femoris arteries are widely patent Right superficial femoral artery right popliteal artery is widely patent with three-vessel runoff below the knee on the right side. There is slow flow at the infrageniculate level Left superficial femoral artery and left popliteal arteries widely patent with three-vessel runoff below the knee on the left side. There is slow flow at the infrageniculate level IMPRESSION Normal coronary arteries Normal ejection fraction Normal left ventricular end-diastolic pressure Widely patent aorta iliac vessels with wide patency to the bilateral knees. Slow flow at the bilateral infrageniculate level with slow three-vessel runoff to the ankle bilaterally PLAN 1. Medical management Electronically signed by : Manny Ji MD 07/09/2023 14:40:29
[2023-07-09 10:20] LABS: Basophils % 0.4 % (0.1-2.0); Eosinophils # 0.5 K/mm3 (0.0-0.4); Eosinophils % 6.5 % (0.1-12.0); Hematocrit 41.6 % (37.0-47.0); Hemoglobin 14.1 g/dL (12.2-16.2); Lymphocytes # 2.9 K/mm3 (0.7-4.5); Lymphocytes % 41.4 % (10-50); Mean Corpuscular HGB Conc 33.9 g/dL (31.8-35.4); Mean Corpuscular Hemoglobin 31.6 pg (27.0-31.2); Mean Corpuscular Volume 93.3 fl (81-99); Mean Platelet Volume 8.2 fl (7.4-10.4); Monocytes # 0.4 K/mm3 (0.1-1.0); Neutrophils # 3.3 K/mm3 (1.8-7.8); Neutrophils % 46.8 % (37.0-80.0); Platelet Count 185 K/mm3 (142-424); Red Blood Count 4.46 M/mm3 (4.20-5.40); Red Cell Distribution Width 13.8 % (11.5-17.5); White Blood Count 7.1 K/mm3 (4.8-10.8)
[2023-07-09 10:26] LABS: Chloride 111 mmol/L (98-107); Potassium 3.9 mmoL/L (3.5-5.1); Sodium 138 mmol/L (136-145)
[2023-07-09 10:29] LABS: Anion Gap 7.9 mEq/L (5-15); Blood Urea Nitrogen 14 mg/dl (7-17); Carbon Dioxide 23 mmol/L (22.0-30.0); Creatinine Clearance Estimated 199 mL/min (50-200); Estimated Glomerular Filt Rate 130 ml/min (>60); GFR (African American) 157 ML/MIN (>60)
[2023-07-09 10:30] LABS: Calcium 8.2 mg/dl (8.4-10.2); Glucose 130 mg/dl (74-100)
[2023-07-09 13:21] LABS: POC Glucose,Bedside 104 (70-110)
[2023-07-09] MEDS: 0.9 % SODIUM CHLORIDE 500 ML 25 ML IV (13:40)
[2023-07-09] MEDS: HEPARIN 1,000 UNITS/500ML NS (CATH LAB) 3000 UNIT IV (13:40)
[2023-07-09] MEDS: LIDOCAINE 1% 10ML MDV 20 ML IJ (13:40)
[2023-07-09] MEDS: HEPARIN 1,000 UNITS/ML 10ML VIAL (CATH LAB) 10000 UNIT IV (13:41)
[2023-07-09] MEDS: diphenhydrAMINE 50MG/ML VIAL 50 MG IV (13:41)
[2023-07-09] MEDS: NITROGLYCERIN 800MCG/8ML SYR (CATH LAB) 800 MCG IA (13:42)
[2023-07-09] MEDS: VERAPAMIL 2.5MG/ML 2ML VIAL 2.5 MG IV (13:55)
[2023-07-09] MEDS: FENTANYL 100MCG/2ML VIAL 50 MCG IV (14:10)
[2023-07-09] MEDS: MIDAZOLAM HCL 1MG/1ML 5ML VIAL 1 MG IV ×2 (14:10→14:12)
[2023-07-09] MEDS: IOHEXOL-240 100ML BOTTLE 100 ML IV (14:53)
[2023-07-09] MEDS: IOPAMIDOL-370 (76%);100ML BOTTLE 50 ML IV (14:54)
--- NOTE | 2023-07-09 15:12 | P.CONCA_ITS ---
History of Present Illness History of Present Illness Consult date: 07/09/23 Requesting physician: Mike Cosby Consult reason: chest pain Chief complaint: chest pain History of present illness: 53-year-old white female with past medical history of coronary artery disease with recent stenting to proximal LAD in December 2022 and DM presented to emergency department yesterday with complaints of worsening chest pressure radiating to left arm with activity and rest. Patient reports she has had ongoing intermittent chest pain since receiving stent to proximal LAD in December 2022. Recently underwent a repeat stress test for evaluation of symptoms which was abnormal. Patient also had an abnormal LEIGHTON which showed mild PAD on the right side. Patient was scheduled for a left heart cath with runoff which was pending when patient developed worsening symptoms prompting her to come to ER. Initial troponin was negative on presentation and EKG was without acute ischemic changes present. Patient was admitted for unstable angina and to proceed with left heart catheterization today for further evaluation. Morning labs as follow: WBC 7.1, hemoglobin 14.1, sodium 138, potassium 3.9, creatinine 0.5. Recent echo shows an ejection fraction of 60%. [facility] Disclaimer: The information contained in this section may have been updated after the patient was seen, as this information can be updated by other users. Medical History (Updated 07/09/23 @ 15:17 by Dara Brito APRN) Abnormal ankle brachial index ([place]) Abnormal nuclear cardiac imaging test Abnormal result of cardiovascular function study Angina pectoris CAD (coronary artery disease) Claudication Diabetes mellitus, type 2 Dyspnea History of mitral valve prolapse Hyperlipidemia Hypothyroid Obesity (BMI 30.0-34.9) PTSD (post-traumatic stress disorder) Typical angina Surgical History History of appendectomy History of History of cholecystectomy Hx of nasal septoplasty Status post coronary artery stent placement Family History Other Coronary artery disease Diabetes Social History (Updated 07/07/23 @ 18:04 by Marah Rangel, PAIGE) Smoking Status: Never smoker alcohol intake: never substance use type: denies use current occupational status: retired Travel in the last 8 weeks: None household members: spouse housing: house marital status: caffeine: Yes Review of Systems Review of Systems Review of systems:: pertinent systems reviewed and negative unless documented below Constitutional Constitutional: Reports system reviewed and no additional complaints, except as documented ENT Ears, Nose, Mouth, and Throat: Denies dizziness *Cardiovascular Cardiovascular: Reports chest pain and Denies syncope *Respiratory Respiratory: Reports system reviewed and no additional complaints, except as documented *Gastrointestinal Gastrointestinal: Reports system reviewed and no additional complaints, except as documented *Musculoskeletal Comments: Bilateral leg pain *Neurologic Neurologic: Denies confusion, Denies dizziness and Denies syncope Psychiatric Psychiatric: Reports system reviewed and no additional complaints, except as documented and Denies confusion Exam Data for Last 24 hours Vital signs and Labs for Last 24 Hours: Temp Pulse Resp BP Pulse Ox O2 Del Method 98.2 F 90 16 144/93 H 92 L Room Air 07/09/23 12:00 07/09/23 14:45 07/09/23 14:45 07/09/23 14:45 07/09/23 14:45 07/09/23 12:00 Laboratory Results - last 24 hr 07/08/23 16:06: POC Glucose 166 H 07/08/23 20:04: POC Glucose 179 H 07/09/23 06:10: POC Glucose 127 H 07/09/23 10:09: WBC 7.1, RBC 4.46, Hgb 14.1, Hct 41.6, MCV 93.3, MCH 31.6 H, MCHC 33.9, RDW 13.8, Plt Count 185, MPV 8.2, Neut % (Auto) 46.8, Lymph % (Auto) 41.4, [place] % (Auto) 5.0, Eos % (Auto) 6.5, Baso % (Auto) 0.4, Neut # (Auto) 3.3, Lymph # (Auto) 2.9, [place] # (Auto) 0.4, Eos # (Auto) 0.5 H, Baso # (Auto) 0.0, Sodium 138, Potassium 3.9, Chloride 111 H, Carbon Dioxide 23, Anion Gap 7.9, BUN 14, Creatinine 0.50 L, Estimated Creat Clear 199, Estimated GFR 130, [facility] 157 D, Glucose 130 H, Calcium 8.2 L 07/09/23 12:39: POC Glucose 104 I & O for Last 24 hours: Intake & Output 02/0907/07/23 07/08/23 07/09/23 23:59 23:59 23:59 23:59 Intake Total 120 / 120 1520 / 1520 1317 / 1317 Output Total 0 / 0 650 / 650 200 / 200 Balance 120 / 120 870 / 870 1117 / 1117 Weight 208 lb 9.6 oz 209 lb 3.2 oz 209 lb 3.252 oz Constitutional Constitutional: no acute distress *Routine Respiratory Exam Respiratory: Present CTA bilaterally and symmetric chest movement *Routine Cardiovascular Exam Cardiovascular: Present RRR, Normal S1 and Normal S2 *Routine Abdominal Exam Abdominal: Present soft and normoactive bowel sounds; Absent tenderness *Routine Extremities Exam Extremities: Present full ROM and normal capillary refill; Absent edema *Routine Skin Exam Skin: Present intact, dry and warm Detailed Neck Exam: Thyroids Thyroid: Absent bruit Meds Home Medications and Allergies Home Medications Medication Instructions Recorded Confirmed Type levothyroxine 112 mcg tablet 112 mcg PO DAILYDM thyroid 01/18/19 07/08/23 History dulaglutide 0.75 mg/0.5 mL 0.75 mg SQ WEEKLY Diabetes 12/27/22 07/07/23 History subcutaneous pen injector (Trulicity) aspirin 81 mg tablet,delayed 81 mg PO DAILY Coronary Artery 12/30/22 07/07/23 History release Disease empagliflozin 12.5 mg-metformin ER 2 tab PO DAILY Diabetes 12/30/22 07/07/23 History 1,000 mg tablet,extended rel 24 hr (Synjardy XR) atorvastatin 40 mg tablet 40 mg PO DAILY Cholesterol #90 tabs 03/15/23 07/07/23 Rx metoprolol succinate 25 mg 25 mg PO DAILY High Blood Pressure 03/15/23 07/07/23 Rx tablet,extended release 24 hr 90 days #90 tabs nitroglycerin 0.4 mg sublingual 0.4 mg sublingual Q5MINP PRN Chest 06/29/23 07/07/23 Rx tablet Pain #20 tabs clopidogrel 75 mg tablet 75 mg PO DAILY Blood Thinner 07/08/23 07/08/23 History isosorbide mononitrate 60 mg 60 mg PO DAILY Chest Pain 07/08/23 07/08/23 History tablet,extended release 24 hr lisinopril 2.5 mg tablet 2.5 mg PO DAILY High Blood Pressure 07/08/23 07/08/23 History New Prescriptions to Start Prescriptions: Allergies Allergy/AdvReac Type Severity Reaction Status Date / Time bisacodyl [BISACODYL] Allergy Unknown Verified 07/07/23 19:10 ticagrelor [From Brilinta] AdvReac Difficulty Verified 07/09/23 10:29 Breathing Assessment and Plan *Assessment and plan (1) CAD (coronary artery disease): Status: Acute Qualifiers: Coronary Disease-Associated Artery/Lesion type: [place] artery [place] vs. transplanted heart: [place] heart Associated angina: unspecified whether angina present Qualified Code(s): I25.10 - Atherosclerotic heart disease of [place] coronary artery without angina pectoris Category: Medical Code(s): I25.10 - Atherosclerotic heart disease of [place] coronary artery without angina pectoris (2) Angina pectoris, unstable: Status: Acute Category: Medical Code(s): I20.0 - Unstable angina (3) Abnormal ankle brachial index ([place]): Status: Acute Category: Medical Code(s): R68.89 - Other general symptoms and signs (4) Abnormal nuclear cardiac imaging test: Status: Acute Category: Medical Code(s): R93.1 - Abnormal findings on diagnostic imaging of heart and coronary circ ulation (5) Claudication: Status: Acute Category: Medical Code(s): I73.9 - Peripheral vascular disease, unspecified (6) Angina pectoris: Status: Acute Category: Medical Code(s): I20.9 - Angina pectoris, unspecified (7) Hyperlipidemia: Status: Acute Qualifiers: Hyperlipidemia type: mixed hyperlipidemia Qualified Code(s): E78.2 - Mixed hyperlipidemia Category: Medical Code(s): E78.5 - Hyperlipidemia, unspecified (8) Diabetes mellitus: Status: Acute Qualifiers: Diabetes mellitus complication status: with other specified complication Diabetes mellitus longterm insulin use: unspecified longterm insulin use status Diabetes mellitus type: type 2 Qualified Code(s): E11.69 - Type 2 diabetes mellitus with other specified complication Category: Medical Code(s): E11.9 - Type 2 diabetes mellitus without complications (9) Obesity (BMI 30.0-34.9): Status: Acute Category: Medical Code(s): E66.9 - Obesity, unspecified (10) HTN (hypertension): Status: Acute Category: Medical Code(s): I10 - Essential (primary) hypertension Plan CAD Unstable angina ccs 3 -Serial troponins negative -EKG negative for acute ischemic changes -Recent abnormal stress test -Prior stenting to proximal LAD December 2022 -Will proceed with left heart catheterization to further evaluate unstable angina. Discussed risk versus benefits with patient she is agreeable to proceed -Continue aspirin 81 mg daily atorvastatin 40 mg amina, and Plavix 75 mg daily. Peripheral artery disease -Recent ABIs shows mild PAD on the right side -Will proceed with angiogram with bilateral runoff to further evaluate PAD. -Recent echo shows an ejection fraction of 60% Diabetes mellitus -Defer to primary service Hypertension -Well-controlled continue lisinopril 2.5 mg daily and metoprolol 25 mg daily Hyperlipidemia -LDL goal less than 55, continue atorvastatin 40 mg daily 07/09/2023 update: We will proceed with left heart catheterization to further evaluate for unstable angina.
[2023-07-09 16:42] LABS: POC Glucose,Bedside 110 (70-110)
--- NOTE | 2023-07-12 13:56 | CARE MANAGER ---
Attempted to call patient x 2 to discuss recent discharge. VM was left.
--- NOTE | 2023-07-15 22:45 | P.DS_ITS ---
General Admission date:: 07/07/23 Discharge date: 07/09/23 HPI HPI HPI: Mrs. Stark is a 53 year old patient of [facility] with a history of DM type 2 and CAD who presented to [facility] ER yesterday after experiencing anterior chest pain associated with shortness of breath and chest tightness. She had more chest pain after ambulating in the ER yesterday. Patient reports over the past few weeks she has been waking up at night with chest pain associated with SOB. She had a PCI with stent placement in December of 2022. She had a cardiac stress test a few weeks ago that was reportedly abnormal and is scheduled to have another left heart cath. Hospital Course Hospital Course Hospital Course: Patient was admitted for chest pain and cardiology was consulted. By 07/09/2023, she had had some chest discomfort with shortness of breath when up to the bathroom, but had otherwise done well. She had no further arrhythmias. Cardiology saw the patient and due to her recent abnormal stress test, they wanted to proceed with a left heart cath to further evaluate unstable angina. She had also had recent ABIs which showed mild PAD on the right side, therefore they wanted to proceed with angiogram with bilateral runoff to further evaluate PAD. Her heart cath showed normal coronaries and a normal ejection fraction as well as a normal left ventricular diastolic pressure. She had widely patent aorta iliac vessels with wide patency to the bilateral knees. There was slow flow at the bilateral infrageniculate level with slow three-view vessel runoff to the ankle bilaterally. Cardiology recommended medical management and the patient was stable to be discharged home. Exam Data for Last 24 hours Vital signs and Labs for Last 24 Hours: Temp Pulse Resp BP Pulse Ox O2 Del Method 98.9 F 84 20 126/86 91 L Room Air 07/09/23 15:30 07/09/23 18:45 07/09/23 18:45 07/09/23 18:45 07/09/23 18:45 07/09/23 19:00 Narrative: Constitutional Constitutional: no acute distress *Routine HEENT Exam Head: Present normocephalic Eye: Present EOMI and PERRL ENT: Present mucous membranes moist *Routine Neck Exam Neck: Present supple; Absent lymphadenopathy *Routine Respiratory Exam Respiratory: Present CTA bilaterally *Routine Cardiovascular Exam Cardiovascular: Present RRR *Routine Abdominal Exam Abdominal: Present soft and normoactive bowel sounds; Absent tenderness *Routine Rectal Exam Rectal:: deferred *Routine Genitalia Exam Genitalia:: deferred *Routine Extremities Exam Extremities: Absent cyanosis, clubbing or edema *Routine Skin Exam Skin: Present warm; Absent rash *Routine Neurological Exam Neurological: Present alert and oriented X3 DS: Diagnosis Discharge Diagnosis (1) CAD (coronary artery disease): Status: Acute Code(s): I25.10 - Atherosclerotic heart disease of [place] coronary artery without angina pectoris Qualifiers: Coronary Disease-Associated Artery/Lesion type: [place] artery [place] vs. transplanted heart: [place] heart Associated angina: unspecified whether angina present Qualified Code(s): I25.10 - Atherosclerotic heart disease of [place] coronary artery without angina pectoris (2) Angina pectoris, unstable: Status: Acute Code(s): I20.0 - Unstable angina (3) Abnormal ankle brachial index ([place]): Status: Acute Code(s): R68.89 - Other general symptoms and signs (4) Abnormal nuclear cardiac imaging test: Status: Acute Code(s): R93.1 - Abnormal findings on diagnostic imaging of heart and coronary circulation (5) Claudication: Status: Acute Code(s): I73.9 - Peripheral vascular disease, unspecified (6) Angina pectoris: Status: Acute Code(s): I20.9 - Angina pectoris, unspecified (7) Hyperlipidemia: Status: Acute Code(s): E78.5 - Hyperlipidemia, unspecified Qualifiers: Hyperlipidemia type: mixed hyperlipidemia Qualified Code(s): E78.2 - Mixed hyperlipidemia (8) Diabetes mellitus: Status: Acute Code(s): E11.9 - Type 2 diabetes mellitus without complications Qualifiers: Diabetes mellitus complication status: with other specified complication Diabetes mellitus intermediate manager insulin use: unspecified fci insulin use status Diabetes mellitus type: type 2 Qualified Code(s): E11.69 - Type 2 diabetes mellitus with other specified complication (9) Obesity (BMI 30.0-34.9): Status: Acute Code(s): E66.9 - Obesity, unspecified (10) HTN (hypertension): Status: Acute Code(s): I10 - Essential (primary) hypertension Meds Home Medications and Allergies Home Medications Medication Instructions Recorded Confirmed Type levothyroxine 112 mcg tablet 112 mcg PO DAILYDM thyroid 01/18/07/08/23 History dulaglutide 0.75 mg/0.5 mL 0.75 mg SQ WEEKLY Diabetes 12/27/22 07/07/23 History subcutaneous pen injector (Trulicity) aspirin 81 mg tablet,delayed 81 mg PO DAILY Coronary Artery 12/30/22 07/07/23 History release Disease empagliflozin 12.5 mg-metformin ER 2 tab PO DAILY Diabetes 12/30/22 07/07/23 History 1,000 mg tablet,extended rel 24 hr (Synjardy XR) atorvastatin 40 mg tablet 40 mg PO DAILY Cholesterol #90 tabs 03/15/23 07/07/23 Rx metoprolol succinate 25 mg 25 mg PO DAILY High Blood Pressure 03/15/23 07/07/23 Rx tablet,extended release 24 hr 90 days #90 tabs nitroglycerin 0.4 mg sublingual 0.4 mg sublingual Q5MINP PRN Chest 06/29/23 07/07/23 Rx tablet Pain #20 tabs clopidogrel 75 mg tablet 75 mg PO DAILY Blood Thinner 07/08/23 07/08/23 History isosorbide mononitrate 60 mg 60 mg PO DAILY Chest Pain 07/08/23 07/08/23 History tablet,extended release 24 hr lisinopril 2.5 mg tablet 2.5 mg PO DAILY High Blood Pressure 07/08/23 07/08/23 History New Prescriptions to Start Prescriptions: Allergies Allergy/AdvReac Type Severity Reaction Status Date / Time bisacodyl [BISACODYL] Allergy Unknown Verified 07/07/23 19:10 ticagrelor [From Brilinta] AdvReac Difficulty Verified 07/09/23 10:29 Breathing Discharge Plan Disposition Patient Disposition: Home, Self-Care Condition: Fair Follow up Plan Follow up with: Mike Cosby MD [Primary Care Provider] - 1 week Prescriptions/Medication Reconciliation: Continued atorvastatin 40 mg tablet 40 mg PO DAILY Qty: 90 3RF metoprolol succinate 25 mg tablet extended release 24 hr 25 mg PO DAILY 90 Days Qty: 90 2RF Trulicity 0.75 mg/0.5 mL pen injector 0.75 mg SQ WEEKLY Rx Instructions: ON SUNDAYS nitroglycerin 0.4 mg tablet, sublingual 0.4 mg SUBLINGUAL Q5MINP PRN (Reason: Chest Pain) Qty: 20 0RF Rx Instructions: do not exceed 3 doses per episode levothyroxine 112 MCG tablet 112 mcg PO DAILYDM Synjardy XR 12.5-1,000 mg tablet, IR - ER, biphasic 24hr 2 tab PO DAILY Patient Comments: TAKE TWO TABLETS BY MOUTH EVERY DAY aspirin 81 mg Tablet,Delayed Release (Dr/Ec) 81 mg PO DAILY clopidogrel 75 mg tablet 75 mg PO DAILY Patient Comments: TAKE ONE TABLET BY MOUTH EVERY DAY isosorbide mononitrate 60 mg tablet extended release 24 hr 60 mg PO DAILY Patient Comments: TAKE ONE TABLET BY MOUTH EVERY DAY lisinopril 2.5 mg tablet 2.5 mg PO DAILY Patient Comments: TAKE ONE TABLET BY MOUTH EVERY DAY Problem Reconciliation Problems Reviewed?: Yes Patient Discharge Instructions ACTIVITY: Continue current activity DIET: continue same diet Patient Instructions: Angina, DI for Angina, DI for Cardiac Catheterization, DI for Surgical Site Infection Providers Primary Care Provider: Mike Cosby Admit Provider: Max Red Attending Provider: Mike Cosby
== END 2023-07-09 19:50 | disposition home or self-care (01) ==
LOC: ER 16:05 → ICU 17:40
PROVIDERS: Internal Medicine; Nurse Practitioner; Student in an Organized Health Care Education/Training Program; Admitting Provider Internal Medicine Adolescent Medicine; Emergency Provider Emergency Medicine; PCP Family Medicine; Visit Provider Family Medicine
DX: I25.110 Atherosclerotic heart disease of native coronary artery with unstable angina pectoris; E66.9 Obesity, unspecified; E03.9 Hypothyroidism, unspecified; E78.5 Hyperlipidemia, unspecified; I10 Essential (primary) hypertension; Z68.32 Body mass index [BMI] 32.0-32.9, adult; E11.51 Type 2 diabetes mellitus with diabetic peripheral angiopathy without gangrene; Z79.899 Other long term (current) drug therapy; Z79.84 Long term (current) use of oral hypoglycemic drugs; I70.203 Unspecified atherosclerosis of native arteries of extremities, bilateral legs
CPT/HCPCS: 36246; 36415; 71046; 71275; 75716; 80048; 80053; 82009; 82803; 82962; 84484; 85025; 93005; 93458; 99152; 99291; C1725; C1769; G0378; J1644; Q9966; Q9967

== ENCOUNTER 2023-07-17 15:03 | Outpatient (CLI) | payer BC, OTHER, SELFPAY | END 2023-07-17 23:59 | LOC: RT 15:05 | PROVIDERS: PCP Family Medicine; Visit Provider Physician Assistant | DX: I47.29 Other ventricular tachycardia (principal) | CPT/HCPCS: 93225 ==

== ENCOUNTER 2023-08-01 10:44 | Outpatient (CLI) | payer BC, OTHER, SELFPAY | END 2023-08-01 23:59 | LOC: RT 10:45 | PROVIDERS: PCP Family Medicine; Visit Provider Physician Assistant | DX: I47.29 Other ventricular tachycardia (principal); R93.1 Abnormal findings on diagnostic imaging of heart and coronary circulation; I20.9 Angina pectoris, unspecified; E11.69 Type 2 diabetes mellitus with other specified complication; R00.2 Palpitations; Z79.899 Other long term (current) drug therapy; E66.9 Obesity, unspecified; E78.2 Mixed hyperlipidemia | CPT/HCPCS: 93270 ==

== ENCOUNTER → 2023-08-22 09:40 | Outpatient (CLI) | payer BC, OTHER, SELFPAY | LOC: SL 09:42 | PROVIDERS: PCP Family Medicine; Visit Provider Family Medicine | DX: R06.83 Snoring (principal); I10 Essential (primary) hypertension; E66.9 Obesity, unspecified | CPT/HCPCS: G0399 ==

== ENCOUNTER 2023-11-06 12:36 | Outpatient (CLI) | payer BC, OTHER, SELFPAY ==
--- NOTE | 2023-11-06 12:40 | XR_ITS ---
FINAL REPORT CLINICAL HISTORY: TB SCREENING COMPARISON: 12/29/2022 FINDINGS: Two views of the chest were obtained. The heart size is enlarged. The pulmonary vascularity is within normal limits. The mediastinum is normal. No acute pulmonary abnormality is identified. There is a calcified granuloma in the left lung base. There is no evidence of active mycobacterial/fungal disease. There is no pneumothorax. The bony thorax is intact. IMPRESSION: No active cardiopulmonary disease. Reviewed, Interpreted and Dictated by Jason Allen III, MD Transcribed by Martha Fernandes Authenticated and [facility]
== END 2023-11-06 23:59 | disposition home or self-care (01) ==
LOC: RAD 12:37
PROVIDERS: PCP Physician Assistant; Visit Provider Nurse Practitioner Family
DX: Z11.1 Encounter for screening for respiratory tuberculosis (principal)
CPT/HCPCS: 71046

== ENCOUNTER 2024-01-08 12:33 | Outpatient (CLI) | payer BC, OTHER, SELFPAY ==
[2024-01-08] MEDS: ALBUTEROL 0.083% 2.5 MG/3 ML NEB IH (13:55)
[2024-01-11 12:40] LABS: Strongyloides IgG Antibody Positive (Negative)
[2024-01-13 23:07] LABS: D001-IgE D pteronyssinus <0.10 kU/L (Class 0); D002-IgE D farinae <0.10 kU/L (Class 0); E001-IgE Cat Dander <0.10 kU/L (Class 0); E005-IgE Dog Dander 0.12 kU/L (Class 0/I); E072-IgE Mouse Urine <0.10 kU/L (Class 0); G002-IgE Bermuda Grass <0.10 kU/L (Class 0); G006-IgE Timothy Grass <0.10 kU/L (Class 0); I006-IgE Cockroach, German <0.10 kU/L (Class 0); Immunoglobulin E, Total 734 IU/mL (6-495); M001-IgE Penicillium chrysogen <0.10 kU/L (Class 0); M002-IgE Cladosporium herbarum <0.10 kU/L (Class 0); M003-IgE Aspergillus fumigatus <0.10 kU/L (Class 0); M006-IgE Alternaria alternata <0.10 kU/L (Class 0); T001-IgE Maple/Box Elder <0.10 kU/L (Class 0); T003-IgE Common Silver Birch <0.10 kU/L (Class 0); T007-IgE Oak, White <0.10 kU/L (Class 0); T008-IgE Elm, American <0.10 kU/L (Class 0); T010-IgE Walnut <0.10 kU/L (Class 0); T011-IgE Maple Leaf Sycamore <0.10 kU/L (Class 0); T014-IgE Cottonwood <0.10 kU/L (Class 0); T022-IgE Pecan, Hickory <0.10 kU/L (Class 0); T070-IgE White Mulberry <0.10 kU/L (Class 0); W001-IgE Ragweed, Short 1.01 kU/L (Class II); W011-IgE Thistle, Russian <0.10 kU/L (Class 0); W014-IgE Pigweed, Common <0.10 kU/L (Class 0); W018-IgE Sheep Sorrel <0.10 kU/L (Class 0)
== END 2024-01-08 23:59 | disposition home or self-care (01) ==
LOC: RT 12:33
PROVIDERS: PCP Family Medicine; Visit Provider Internal Medicine Pulmonary Disease
DX: R06.09 Other forms of dyspnea (principal); J30.9 Allergic rhinitis, unspecified; D72.10 Eosinophilia, unspecified
CPT/HCPCS: 36415; 82785; 86003; 86682; 94060; 94618; 94726; 94729; J7613

== ENCOUNTER 2024-01-19 16:10 | Emergency (ER) | payer BC, OTHER, SELFPAY ==
--- NOTE | 2024-01-19 16:19 | EXP.UTC ---
Discharge Plan Disposition Patient Disposition: Home, Self-Care Condition: Good Prescriptions Prescriptions: No Action atorvastatin 40 mg tablet 40 mg PO DAILY Qty: 90 3RF metoprolol succinate 25 mg tablet extended release 24 hr 25 mg PO DAILY 90 Days Qty: 90 2RF fluticasone propionate [Flonase Allergy Relief] 50 mcg/actuation spray,suspension 1 spray intranasal BID 90 Days Qty: 16 2RF Rx Instructions: administer into each nostril budesonide-formoterol [Symbicort] 160-4.5 mcg/actuation HFA aerosol inhaler 2 puff inhalation BID 90 Days Qty: 10.2 2RF Trulicity 0.75 mg/0.5 mL pen injector 0.75 mg SQ WEEKLY Rx Instructions: ON SUNDAYS Airsupra 90-80 mcg/actuation HFA aerosol inhaler 2 inh inhalation DAILY PRN nitroglycerin 0.4 mg tablet, sublingual 0.4 mg SUBLINGUAL Q5MINP PRN (Reason: Chest Pain) Qty: 20 0RF Rx Instructions: do not exceed 3 doses per episode levothyroxine 112 MCG tablet 112 mcg PO DAILYDM Synjardy XR 12.5-1,000 mg tablet, IR - ER, biphasic 24hr 2 tab PO DAILY Patient Comments: TAKE TWO TABLETS BY MOUTH EVERY DAY aspirin 81 mg Tablet,Delayed Release (Dr/Ec) 81 mg PO DAILY clopidogrel 75 mg tablet 75 mg PO DAILY Patient Comments: TAKE ONE TABLET BY MOUTH EVERY DAY lisinopril 2.5 mg tablet 2.5 mg PO DAILY Patient Comments: TAKE ONE TABLET BY MOUTH EVERY DAY Referrals Follow up/Referrals: Mike Cosby MD [Primary Care Provider] - See instructions Activity Restrictions/Add. Instructions Additional Instructions/Restrictions: Follow up with Dr Cosby Sunday May need MRI Ice, rest, elevation this Clinical Impressions Clinical Impression: Acute pain of right knee Instructions Patient Instructions: DI for Knee Pain Print Language Print Language: [place] Discharge ED Provider: Lynne Tirado [facility] HPI General Stated complaint: AO08/24@1000 fall bilateral knee pain Time Seen by Provider: 01/19/24 16:53 History of Present Illness Provider Complaint: Right knee pain. Was at [employer] this am, fell onto both knees. Scraped both knees. Was able to walk to car. After sitting for bit, began to have severe right knee pain. Worse with weight bearing. Onset (ago): hour(s) (6) Location: right and lower extremity Relieving factors: none Exacerbating factors: none Associated symptoms: denies other symptoms Treatments prior to arrival: none Related Data Home Medications ?Medication ?Instructions ?Recorded ?Confirmed levothyroxine 112 mcg tablet 112 mcg PO DAILYDM thyroid 01/18/19 10/01/23 dulaglutide 0.75 mg/0.5 mL 0.75 mg SQ WEEKLY Diabetes 12/27/22 10/01/23 subcutaneous pen injector (Trulicity) aspirin 81 mg tablet,delayed 81 mg PO DAILY Coronary Artery 12/30/22 10/01/23 release Disease empagliflozin 12.5 mg-metformin ER 2 tab PO DAILY Diabetes 12/30/22 10/01/23 1,000 mg tablet,extended rel 24 hr (Synjardy XR) clopidogrel 75 mg tablet 75 mg PO DAILY Blood Thinner 07/08/23 10/01/23 lisinopril 2.5 mg tablet 2.5 mg PO DAILY High Blood Pressure 07/08/23 10/01/23 albuterol 90 mcg-budesonide 80 2 inh inhalation DAILY PRN 07/17/23 10/01/23 mcg/actuation HFA aerosol inhaler (Airsupra) Previous Rx's ?Medication ?Instructions ?Recorded atorvastatin 40 mg tablet 40 mg PO DAILY Cholesterol #90 tabs 03/15/23 metoprolol succinate 25 mg 25 mg PO DAILY High Blood Pressure 03/15/23 tablet,extended release 24 hr 90 days #90 tabs nitroglycerin 0.4 mg sublingual 0.4 mg sublingual Q5MINP PRN Chest 06/29/23 tablet Pain #20 tabs budesonide-formoterol HFA 160 2 puff inhalation BID 90 days 10/01/23 mcg-4.5 mcg/actuation aerosol #10.2 grams inhaler (Symbicort) fluticasone propionate 50 1 spray intranasal BID 90 days #16 10/01/23 mcg/actuation nasal grams spray,suspension (Flonase Allergy Relief) Allergies Allergy/AdvReac Type Severity Reaction Status Date / Eyal
[2024-01-19 16:20] VITALS: BP 157/92; PULSE 89; RESP 21; TEMP 36.8; O2SAT 94; BMI 32.3
--- NOTE | 2024-01-19 16:25 | XR_ITS ---
PROCEDURE INFORMATION: Exam: XR Right Knee Exam date and time: 01/19/2024 4:22 PM Age: 53 years old Clinical indication: Injury or trauma; Fall; Blunt trauma; Knee; Right TECHNIQUE: Imaging protocol: Radiologic exam of the right knee. Views: 3 views. COMPARISON: US ARTERIAL LOWER EXT REST 06/27/2023 8:21 AM FINDINGS: Bones/joints: Minimal degenerative changes medial knee compartment and patellofemoral joint with mild joint space narrowing. Joint spaces otherwise unremarkable. No fracture, dislocation or malalignment. There are some stippled sclerotic densities within the distal femoral shaft, longstanding and may be related to old bone infarct. Soft tissues: Unremarkable. IMPRESSION: No acute bony abnormalities.
--- NOTE | 2024-01-19 16:25 | XR_ITS ---
PROCEDURE INFORMATION: Exam: XR Left Knee Exam date and time: 01/19/2024 4:21 PM Age: 53 years old Clinical indication: Injury or trauma; Fall; Blunt trauma; Knee; Left TECHNIQUE: Imaging protocol: Radiologic exam of the left knee. Views: 3 views. COMPARISON: US ARTERIAL LOWER EXT REST 06/27/2023 8:21 AM FINDINGS: Bones/joints: There is a vertically oriented linear lucency projecting over the lateral femoral condyle seen only on the AP view inconclusive for hairline fracture. There are mild degenerative changes of the left knee joint with mild joint space narrowing subchondral sclerosis. Soft tissues: Unremarkable. IMPRESSION: Findings inconclusive for hairline fracture of the lateral femoral condyle recommend follow-up CT exam for clarification.
[2024-01-19 17:03] VITALS: BP 157/92; PULSE 89; RESP 21; TEMP 36.8; O2SAT 94
== END 2024-01-19 17:06 | disposition home or self-care (01) ==
PROVIDERS: Emergency Provider Physician Assistant; PCP Family Medicine
DX: M25.561 Pain in right knee (principal); W19.XXXA Unspecified fall, initial encounter
CPT/HCPCS: 73562; 99203; 99212; G0463

== ENCOUNTER 2024-01-23 11:39 | Outpatient (CLI) | payer BC, OTHER, SELFPAY ==
--- OUTSIDE RECORDS SUMMARY | 2024-01-23 11:42 | XMS_ITS ---
Author Organization [facility] Address [address] [facility] [address] [place] [id number] Care Team Providers Care Behavioral Analyst Name Role Phone Mike Cosby Primary Care Provider [phone] REASON FOR VISIT Med Request MEDICATIONS Medication SIG (Take, Route, Fr equency, Duration) Notes Start Date End Date Status Ondansetron 4 MG 1 tab(s) orally ever y 8 hours as needed 12/16/2020 Active Encounters Encounter Location Date Provider Diagnosis [facility] [address] [place] [phone] 12/27/2023 Mike Cosby Nausea R11.0 ASSESSMENTS Encounter Date Diagnosis Assessment Notes Treatment Notes Treatment Clinical Notes 12/27/2023 Nausea (ICD-10 - R11.0) PLAN OF TREATMENT Medication Medication Name Sig Start Date Stop Date Notes Ondansetron 4 MG 1 tab(s) orally every 8 hours as needed 0 12/16/2020 Next Appt Details Provider Name:Mike tolentino, 01/23/2024 10:45:00 AM, [address], [address], [place], [place], [phone], Provider Name:Mike tolentino, 02/06/2024 09:45:00 AM, [address], [address], [place], [place], [phone], Provider Name:Mike tolentino, 03/12/2024 09:15:00 AM, [address], [address], [place], [place], [phone], Provider Name:Mike tolentino, 03/17/2024 09:30:00 AM, [address], [address], [place], [phone],
--- OUTSIDE RECORDS SUMMARY | 2024-01-23 11:42 | XMS_ITS ---
Author Organization [facility] Address [address] [facility] [address] [place] [phone] Care Team Providers Care Personal Lines Agent Name Role Phone Mike Cosby Primary Care Provider [phone] REASON FOR VISIT Test results* MEDICATIONS Medication SIG (Take, Route, Frequency, Duration) Notes Start Date End Date Status Levothyroxine Sodium 150 MCG 1 tab(s) Or ally once a day for 90 days Active Encounters Encounter Location Date Provider Diagnosis [facility] [address] [place] [phone] 12/18/2023 Mike Cosby Acquired hypothyroid ism E03.9 ASSESSMENTS Encounter Date Diagnosis Assessment Notes Treatment Notes Treatment Clinical Notes 12/18/2023 Acquired hypothyroidism (ICD-10 - E03.9) PLAN OF TREATMENT Medication Medication Name Sig Start Date Stop Date Notes Levothyroxine Sodium 150 MCG 1 tab(s) Or ally once a day for 90 days Next Appt Details Provider Name:Mike tolentino, 01/23/2024 10:45:00 AM, [address], [address], [place], [place], [phone], Provider Name:Mike tolentino, 02/06/2024 09:45:00 AM, [address], [address], [place], [place], [phone], Provider Name:Mike tolentino, 03/12/2024 09:15:00 AM, [address], [address], [place], [place], [phone], Provider Name:Mike tolentino, 03/17/2024 09:30:00 AM, [address], [address], [place], [phone],
--- OUTSIDE RECORDS SUMMARY | 2024-01-23 11:42 | XMS_ITS ---
Author Organization [facility] Address [address] [place] [id number] Care Team Providers Care Elevated Guard Name Role Phone AleaIrisMike Primary Care Provider ALLERGIES Allergen (clinical drug ingredient) Drug/Non Drug Allergy documented on EMR Reaction Allergy Type Onset Date Status bisacodyl Dulcolax throat swells up Drug Allergy Active REASON FOR VISIT follow UTC , fractured knee MEDICATIONS Medication SIG (Take, Route, Frequency, Duration) Notes Start Date End Date Status Trulicity 1.5 MG/0.5ML 1.5 mg Subcutaneo us once weekly 12/17/2023 Active Lisinopril 2.5 MG 1 tablet Orally Once a day Active Synjardy XR 12.5-1000 MG 2 tab(s) orally once a day Active Levothyroxine Sodium 150 MCG 1 tab(s) Orally once a day for 90 days Active Ondansetron 4 MG 1 tab(s) orally ever y 8 hours as needed 12/16/2020 Active Nitroglycerin 0.4 MG as directed Sublingual 2023 Active Airsupra 90-80 MCG/ACT 2 puffs as needed Inhalation Six times a day as needed 07/17/2023 Active CPAP machine and supplies - as directed as directed 11/1008/30/2023 Active Plavix 75 MG 1 tablet Orally Once a day for 90 days Active Aspirin 81 MG 1 tablet Orally Once a day Active Metoprolol Succinate ER 50 MG 1 tablet Orally Once a day Active Atorvastatin Calcium 40 MG 1 tablet Oral ly Once a day Active VITAL SIGNS Weight 209.4 lbs 01/23/2024 Blood pressure systolic 142 mm Hg 01/23/20 24 Blood pressure diastolic 90 mm Hg 024 Heart Rate 116 /min 01/23/2024 Height 65 in 01/23/2024 BMI 34.84 kg/m2 01/23/2024 Encounters Encounter Location Date Provider Diagnosis [facility] [address] [place] [id number] 01/23/2024 Mike Saleemberry Pain, joint, knee, right M25.561 ASSESSMENTS Encounter Date Diagnosis Assessment Notes Treatment Notes Treatment Clinical Notes 01/23/2024 Pain, joint, knee, right (ICD-10 - M25.561) PLAN OF TREATMENT Pending Test Test Name Order Date X ray : Knee, right 01/23/2024 Next Appt Details Follow Up: 2 Weeks, Reason: Provider Name:Mike tolentino, 01/23/2024 10:45:00 AM, [address], [address], [place], [place], [id number], Provider Name:Mike tolentino, 02/06/2024 09:45:00 AM, [address], [address], [place], [place], [id number], Provider Name:Mike tolentino, 03/12/2024 09:15:00 AM, [address], [address], [place], [place], [id number], Provider Name:Mike tolentino, 03/17/2024 09:30:00 AM, [address], [address], [place], [place], [id number], History and Physical Notes * HPI (History of Present Illness) Category Sub-Category Detail Notes HPI Here for follow up on: 4 [facility] visit. Pt was seen for rt knee pain due to fall. Pt dv with lt knee hairline fracture. Pt states she is having some pain in lt knee but rt knee pain is unbearable . Pt does currently have brace on rt knee
--- OUTSIDE RECORDS SUMMARY | 2024-01-23 11:43 | XMS_ITS | Patient Health Record ---
Author Organization [facility] Address [address] [place] [id number] Care Team Providers Care Ship Carpenter Name Role Phone Mike Cosby Primary Care Provider Talia Espinosa Unavailable [phone] Jaclyn Hahn Unavailable [phone] ALLERGIES Allergen (clinical drug ingredient) Drug/Non Drug Allergy documented on EMR Reaction Allergy Type Onset Date Status bisacodyl Dulcolax throat swells up Drug Allergy Active RESULTS Component Value Reference Range Notes CBC Fingerstick (in house) Reviewed date:08/27/2023 04:54:20 PM Interpretation: Performing Lab: Notes/Report: wbc 6.4 3.5 - 10 lym 25.9 15 - 50 mid 6.2 2 - 15 gran 67.9 35 - 80 rbc 4.81 3.5 - 5.5 hgb 15.1 11.5 - 16.5 hct 45.0 35 - 55 mcv 93.5 75 - 100 mch 31.4 25 - 35 mchc 33.6 31 - 38 plat 133 100 - 400 Glucose (In-House) Reviewed date:12/17/2023 12:02:05 PM Interpretation: Performing Lab: Notes/Report: blood glucose 244 74 - 106 mg/dL Glycohemoglobin A1c (in hous e) Reviewed date:12/17/2023 12:01:35 PM Interpretation: Performing Lab: Notes/Report: glycohemoglobin 9.0% 5 - 6.5 % P-T4 Free (thyroxine) Reviewed date:12/18/2023 10:12:40 AM Interpretation:Normal Performing Lab: Notes/Report: Test performed by [facility] [address] [place] [address] , [address], [place] [address] Arpit Dutta MD, [employer] CLIA: [id number] Thyroxine Free (free T4) 1.02 0.86-1.76 ng/dL P-TSH Reviewed date:12/18/2023 10:12:40 AM Interpretation:7.69 Performing Lab: Notes/Report: Test performed by [facility] [address] [place] [address] , [address], [place] [address] Arpit Dutta MD, [employer] CLIA: [id number] TSH 7.69 0.43-5.25 mU/L Glucose (In-House) Reviewed date:03/14/2023 12:14:31 PM Interpretation: Performing Lab: Notes/Report: blood glucose 158 74 - 106 mg/dL Glycohemoglobin A1c (in hous e) Reviewed date:03/14/2023 12:14:39 PM Interpretation: Performing Lab: Notes/Report: glycohemoglobin 7.7% 5 - 6.5 % Lipid Panel (in house) Reviewed date:03/14/2023 12:14:49 PM Interpretation: Performing Lab: Notes/Report: Total Cholesterol 107 0 - 200 md/dL HDL 39 45 - 45 mg/dL Trigs 106 0 - 150 LDL 47 0 - 100 mg/dL non-HDL 68 TC/HDL 2.8 P-Comprehensive Metabolic Pa corazon ([facility]) Reviewed date:03/15/2023 08:23:14 AM Interpretation:glu 151 Performing Lab: Notes/Report: Test performed by [facility] [address] [place] [address] , [address], [place] [address] Arpit Dutta MD, [employer] CLIA: [id number] Sodium 140 135-145 mEq/L Potassium 4.3 3.5-5.3 mEq/L Chloride 103 97-108 mEq/L CO2 26 22-32 mEq/L Glucose 151 65-99 mg/dL BUN 15 6-20 mg/dL Creatinine 0.63 0.50-1.00 mg/dL Calcium 9.3 8.6-10.4 mg/dL eGFR by Creatinine 107 >59 mL/min/1.73m2 Protein 7.7 6.0-8.3 g/dL Albumin 4.5 3.5-5.3 g/dL Alkaline Phosphatase 70 35-121 IU/L ALT (SGPT) 20 <5-47 IU/L AST (SGOT) 18 <5-40 IU/L Bilirubin, Total 0.8 <0.2-1.2 mg/dL A/G Ratio 1.4 1.1-2.5 mg/dL P-T4 Free (thyroxine) Reviewed date:03/15/2023 08:23:14 AM Interpretation:normal Performing Lab: Notes/Report: Test performed by [facility] [address] , [address], [place] [address] Arpit Dutta MD, [employer] CLIA: [id number] Thyroxine Free (free T4) 1.14 0.86-1.76 ng/dL P-TSH Reviewed date:03/15/2023 08:23:14 AM Interpretation:normal Performing Lab: Notes/Report: Test performed by [facility] , [address], [place] [address] Arpit Dutta MD, [employer] CLIA: [id number] TSH 5.18 0.43-5.25 mU/L P-Microalbumin/Creatinine, R andom Urine Sample Reviewed date:03/15/2023 08:23:14 AM Interpretation:normal Performing Lab: Notes/Report: Test performed by [facility] [address] , [address], [place] [address] Arpit Dutta MD, [employer] CLIA: [id number] Albumin/Creatinine Ratio, Urine 14 0-30 ug/mg Microalbumin, Urine, Random 0.9 Creatinine, Urine 62.4 P-Uric Acid Reviewed date:03/15/2023 08:23:14 AM Interpretation:Normal Performing Lab: Notes/Report: Test performed by [facility] [address] , [address], [place] [address] Arpit Dutta MD, [employer] CLIA: [id number] Uric Acid 3.0 2.4-7.0 mg/dL CXR Reviewed date:11/07/2023 01:01:33 PM Interpretation:no acute CP disease Performing Lab: Notes/Report: no acute CP disease sleep study Reviewed date:08/30/2023 08:21:26 AM Interpretation:mild LUPE, nocturnal hypoxemia Performing Lab: Notes/Report: mild LUPE, nocturnal hypoxemia P-TSH Reviewed date:09/24/2023 09:55:45 AM Interpretation:tsh 6.33 Performing Lab: Notes/Report: Test performed by [facility] [address] [place] [address] [place] [address] Arpit Dutta MD, [employer] CLIA: [id number] TSH 6.33 0.43-5.25 mU/L P-Lipid Panel Reviewed date:09/24/2023 09:55:45 AM Interpretation:Normal Performing Lab: Notes/Report: Test performed by [facility] [address] [place] [address] [address] , [place] [address] Arpit Dutta MD, [employer] CLIA: [id number] Cholesterol 151 <200 mg/dL Triglycerides 99 <150 mg/dL HDL Cholesterol 52 >39 mg/dL Cholesterol / HDL Ratio 2.90 0.00-4.44 Ratio Non-HDL Cholesterol 99 <130 mg/dL LDL Cholesterol (Calculation) 79 <130 mg/dL LDL Cholesterol Levels* Less than 100 mg/dL Optimal 100 to 129 mg/dL Near Optimal/ Above Optimal 130 to 159 mg/dL Borderline High 160 to 189 mg/dL High 190 mg/dL and above Very High * Categories as recommended by the 2004 ATPIII guidelines LDL/HDL Ratio 1.5 <3.3 Ratio LDL Cholesterol Patient History Test Date: 09/20/2023 LDL Results: 79 Units: mg/dL % Change: - P-T4 Free (thyroxine) Reviewed date:09/24/2023 09:55:45 AM Interpretation:Normal Performing Lab: Notes/Report: Test performed by [facility] [address] , [address], [place] [address] Arpit Dutta MD, [employer] CLIA: [id number] Thyroxine Free (free T4) 0.95 0.86-1.76 ng/dL P-Comprehensive Metabolic Pa corazon (CMP) Reviewed date:09/24/2023 09:55:45 AM Interpretation:gluc 294 Performing Lab: Notes/Report: Test performed by [facility] [address] [place] [address] , [address], [place] [address] Arpit Dutta MD, [employer] CLIA: [id number] Sodium 138 135-145 mEq/L Potassium 4.4 3.5-5.3 mEq/L Chloride 101 97-108 mEq/L CO2 25 22-32 mEq/L Glucose 294 65-99 mg/dL BUN 10 6-20 mg/dL Creatinine 0.59 0.50-1.00 mg/dL Calcium 8.8 8.6-10.4 mg/dL eGFR by Creatinine 109 >59 mL/min/1.73m2 Protein 7.3 6.0-8.3 g/dL Albumin 4.2 3.5-5.3 g/dL Alkaline Phosphatase 97 35-121 IU/L ALT (SGPT) 37 <5-47 IU/L AST (SGOT) 34 <5-40 IU/L Bilirubin, Total 0.5 <0.2-1.2 mg/dL A/G Ratio 1.4 1.1-2.5 mg/dL Glycohemoglobin A1c (in hous e) Reviewed date:09/24/2023 09:55:46 AM Interpretation:10.3 Performing Lab: Notes/Report: 10.3 glycohemoglobin 10.3% on r/a 5 - 6.5 % Glucose (In-House) Reviewed date:09/24/2023 09:55:46 AM Interpretation:295 Performing Lab: Notes/Report: 295 blood glucose 295 74 - 106 mg/dL MEDICATIONS Medication SIG (Take, Route, Frequency, Duration) Notes Start Date End Date Status Nitroglycerin 0.4 MG as directed Sublingual 2023 Active Airsupra 90-80 MCG/ACT 2 puffs as needed Inhalation Six times a day as needed 07/17/2023 Active CPAP machine and supplies - as directed as directed 11/1008/30/2023 Active Plavix 75 MG 1 tablet Orally Once a day for 90 days Active Trulicity 1.5 MG/0.5ML 1.5 mg Subcutaneo us once weekly 12/17/2023 Active Lisinopril 2.5 MG 1 tablet Orally Once a day Active Synjardy XR 12.5-1000 MG 2 tab(s) orally once a day Active Levothyroxine Sodium 150 MCG 1 tab(s) Orally once a day for 90 days Active Metoprolol Succinate ER 50 MG 1 tablet Orally Once a day Active Ondansetron 4 MG 1 tab(s) orally ever y 8 hours as needed 12/16/2020 Active Atorvastatin Calcium 40 MG 1 tablet Oral ly Once a day Active Aspirin 81 MG 1 tablet Orally Once a day Active IMMUNIZATIONS Vaccine Route Administration Date Status Comme nts ppd ID Intradermal 01/07/2020 Administered ppd ID Intradermal 12/16/2020 Administered ppd ID Intradermal 11/10/2021 Administered chest X-ray on 11/12/[address] Pagan needs to be reported to health department on Sunday Tetanus Tdap-Adacel (over 7yrs) IM Intramuscular 10/11/2018 Administered SOCIAL HISTORY Sex Assigned At : Social History Observation Description Sex Assigned At Unknown PROBLEMS Problem Type ICD Code Onset Dates Problem Status W/U Status Risk SNOMED Code Notes Problem PTSD (Posttraumatic stress disorder) (NOS) (309.81) Active confirmed Posttraumatic stress disorder (77024754) Problem Essential (primary) hypertension (I10) Active confirmed Essential hypertension (46102391) Problem Obstructive sleep apnea (G47.33) Active confirmed 49414412 Problem Angina pectoris (I20.9) Active confirmed 565113650 Problem Mixed hyperlipidemia (E78.2) Active confirmed 889364318 Problem Unstable angina (I20.0) Active confirmed 7520794 Problem Pulmonary nodule (R91.1) Active confirmed Pulmonary nodul e (549216721) Problem Thyroid nodule (E04.1) Active confirmed Thyroid nodule (236070585) Problem Type 2 diabetes mellitus without complication (E11.9) Active confirmed 14813945 Problem Acquired hypothyroidism (E03.9) Active confirmed 986721513 Problem Chronic obstructive pulmonary disease, unspecified COPD type (J44.9) Active confirmed 73795541 Problem Coronary artery disease involving [place] coronary artery of [place] heart without angina pectoris (I25.10) Active confirmed 23299848 Problem Status post coronary artery stent placement (Z95.5) Active confirmed 911677139 Problem Claudication (I73.9) Active confirmed 13951476 Problem MRSA infection (A49.02) Active confirmed 935118059 Problem Hyperlipidemia, unspecified hyperlipidemia type (E78.5) Active confirmed 15476889 Problem Hypothyroidism, unspecified type (E03.9) Active confirmed 64950123 Problem Dysphagia, unspecified type (R13.10) Active confirmed 41463904 Problem Abnormal CT of the abdomen (R93.5) Active confirmed CT of abdome n abnormal (790308637931849 07) Problem Essential hypertension with goal blood pressure less than 130\/80 (I10) Active confirmed 55009932 Problem Screening mammogram, encounter for (Z12.31) Active confirmed 028381628 Problem Status post nasal surgery (Z98.89) Active confirmed 287177694 Problem Atherosclerosis of [place] coronary artery without angina pectoris, unspecified whether [place] or transplanted heart (I25.10) Active confirmed 968709551 Problem Non morbid obesity (E66.9) Active confirmed 177312868 Problem Type 2 diabetes mellitus without complication, unspecified whether retirement insulin use (E11.9) Active confirmed 412032525 Problem Hot flashes due to menopause (N95.1) Active confirmed 939428376 VITAL SIGNS Heart Rate 116 /min 01/23/2024 Blood pressure diastolic 90 mm Hg 01/23/2024 Height 65 in 01/23/2024 Blood pressure systolic 142 mm Hg 01/23/2024 Weight 209.4 lbs 01/23/2024 BMI 34.84 kg/m2 01/23/2024 Encounters Encounter Location Date Provider Diagnosis [facility] [address] [place], [place] [id number] 03/14/2023 Mike Portland Type 2 diabetes mellitus without complication E11.9 ; Essential hypertension with goal blood pressure less than 130\/80 I10 ; Acquired hypothyroidism E03.9 ; Mixed hyperlipidemia E78.2 ; Coronary artery disease involving [place] coronary artery of [place] heart without angina pectoris I25.10 and Influenza vaccination declined by patient Z28.21 [facility] [address] [place], [place] [id number] 03/15/2023 Mike Portland [facility] [address] [place], [place] [id number] 03/15/2023 Mike Portland [facility] [address] [place] [id number] 06/29/2023 Imke Portland [facility] [address] [facility] [address] [place], [place] [id number] 07/17/2023 Mike Portland Chest pain, unspecif ied type R07.9 ; Snoring R06.83 ; Essential hypertension with goal blood pressure less than 130\/80 I10 ; Chronic obstructive pulmonary disease, unspecified COPD type J44.9 and Non morbid obesity E66.9 [facility] [address] [place] [id number] 08/01/2023 Mike Portland [facility] [address] [place] [id number] 08/14/2023 Mike Portland [facility] [address] [place] [id number] 08/27/2023 Mike Portland Acute conjunctivitis of right eye, unspecified acute conjunctivitis type H10.31 [facility] [address] [place], [place] [id number] 08/30/2023 Mike Portland [facility] [address] [place] [id number] 09/20/2023 Mike Portland Type 2 diabetes mellitus without complication E11.9 ; Essential hypertension with goal blood pressure less than 130\/80 I10 ; Acquired hypothyroidism E03.9 ; Mixed hyperlipidemia E78.2 ; Non morbid obesity E66.9 ; Obstructive sleep apnea G47.33 and Coronary artery disease involving [place] coronary artery of [place] heart without angina pectoris I25.10 [facility] [address] [place], [place] [id number] 09/24/2023 Mike Portland [facility] [address] [place] [id number] 11/06/2023 Talia Espinosa Tuberculosis screeni ng Z11.1 [facility] [address] [place], [place] [id number] 11/14/2023 Jaclyn Crowdy Abscess of buttock, right L02.31 [facility] [address] [place], [place] [id number] 11/15/2023 Jaclyn Crowdy MRSA infection A49.0 2 [facility] [address] [place] [id number] 12/12/2023 Mike Portland [facility] [address] [place] [id number] 12/17/2023 Mike Portland Type 2 diabetes mellitus without complication E11.9 ; Acquired hypothyroidism E03.9 and Essential (primary) hypertension I10 [facility] [address] [place], [place] [id number] 12/18/2023 Mike Portland Acquired hypothyroid ism E03.9 [facility] [address] [place], [place] [id number] 12/27/2023 Mike Portland Nausea R11.0 [facility] [address] [place], [place] [id number] 01/23/2024 Mike Portland Pain, joint, knee, right M25.561 ASSESSMENTS Encounter Date Diagnosis Assessment Notes Treatment Notes Treatment Clinical Notes 03/14/2023 Essential hypertension with goal blood pressure less than 130\/80 (ICD-10 - I10) 07/17/2023 Snoring (ICD-10 - R06.83) 07/17/2023 Chest pain, unspecified type (ICD-10 - R07.9) Patient to see cardiology at [facility] this afternoon 08/27/2023 Acute conjunctivitis of right eye, unspecified acute conjunctivitis type (ICD-10 - H10.31) 09/20/2023 Type 2 diabetes mellitus without complication (ICD-10 - E11.9) 09/20/2023 Essential hypertension with goal blood pressure less than 130\/80 (ICD-10 - I10) 11/06/2023 Tuberculosis screening (ICD-10 - Z11.1) has had a + TB skin test; will repeat CXR; form completed and scanned into chart 11/14/2023 Abscess of buttock, right (ICD-10 - L02.31) Will apply a hot compress. 11/15/2023 MRSA infection (ICD-10 - A49.02) Discussed with Dr. Cosby. She is leaving on vacation tomorrow. Will try to get linezolid approved and she will f/u when she gets back from vacation. 12/17/2023 Type 2 diabetes mellitus without complication (ICD-10 - E11.9) 12/17/2023 Acquired hypothyroidism (ICD-10 - E03.9) 12/18/2023 Acquired hypothyroidism (ICD-10 - E03.9) 12/27/2023 Nausea (ICD-10 - R11.0) 01/23/2024 Pain, joint, knee, right (ICD-10 - M25.561) 03/14/2023 Type 2 diabetes mellitus without complication (ICD-10 - E11.9) 03/14/2023 Acquired hypothyroidism (ICD-10 - E03.9) 12/17/2023 Essential (primary) hypertension (ICD-10 - I10) 09/20/2023 Acquired hypothyroidism (ICD-10 - E03.9) 07/17/2023 Essential hypertension with goal blood pressure less than 130\/80 (ICD-10 - I10) 07/17/2023 Chronic obstructive pulmonary disease, unspecified COPD type (ICD-10 - J44.9) 09/20/2023 Mixed hyperlipidemia (ICD-10 - E78.2) 03/14/2023 Mixed hyperlipidemia (ICD-10 - E78.2) 03/14/2023 Coronary artery disease involving [place] coronary artery of [place] heart without angina pectoris (ICD-10 - I25.10) 07/17/2023 Non morbid obesity (ICD-10 - E66.9) 09/20/2023 Non morbid obesity (ICD-10 - E66.9) 09/20/2023 Obstructive sleep apnea (ICD-10 - G47.33) Patient is doing well with CPAP and should continue using it when she sleeps 03/14/2023 Influenza vaccinatio n declined by patient (ICD-10 - Z28.21) 09/20/2023 Coronary artery disease involving [place] coronary artery of [place] heart without angina pectoris (ICD-10 - I25.10) PLAN OF TREATMENT Pending Test Test Name Order Date X ray : Knee, right 01/23/2024 TSH 09/03/2020 Mammogram 02/01/2022 Next Appt Details Provider Name:Mike tolentino, 01/23/2024 10:45:00 AM, [address], [address], [place], [place], [id number], Provider Name:Mike tolentino, 02/06/2024 09:45:00 AM, [address], [address], [place], [place], [id number], Provider Name:Mike tolentino, 03/12/2024 09:15:00 AM, [address], [address], [place], [place], [id number], Provider Name:Mike tolentino, 03/17/2024 09:30:00 AM, [address], [address], [place], [place], [phone], Insurance Providers Payer Name Payer Address Payer Phone Subscriber Number Group Number Insured Name Patient Relationship to Insured Coverage Start Date Coverage End Date [facility] [address] [place] [address] [id number] MARY ANNE GOMEZ Self - patient is the insured MEDICATIONS ADMINISTERED Medication Instructions Date of Administration Dosage Notes Dexamethasone 12/31/2009 4 mg Dexamethasone 11/14/2011 1 cm3 Dexamethasone 02/24/2015 1 mL Morphine 03/15/2011 phenergan 25 mg/ml 03/15/2011 25 mg MEDICAL (GENERAL) HISTORY Medical History History ICD Code Coronary Artery Disease, s/p 1 stent gold cosme 2022 at [facility] Type 2 Diabetes Hypothyroidism Post Traumatic Stress Disorder Osteoarthritis allergic rhinitis asthma Surgical History Surgery Date(Month/Year) Cholecystectomy Appendectomy Lysis of Adhesions 2003 Heart Cath, Normal 01/14/2010 Upper GI Scope 2009 Lower abdominal wall resection, MRSA inf ection 10/2013 Deviated Septum Repair 09/16/2015 Percutaneous coronary intervention with 1 stent placed at [facility] 12/2022 LT Heart Cath, Normal, at [facility] 07/07/2023 Hospitalization History Reason Date(Month/Year) Nasal Drainage Surgery- 11/26/2015 Shoulder Pain- [facility] ER 02/29/2012 LT Nostril Packing- 11/27-975468 Constipation MRSA- [facility] 10/2013 Sinus Infection from Sinus Surgery- [facility] 09/23/2015 Pneumonia 2006, 2007, 2009, 20 13 ER [facility] transported to [facility] 01/13/2010 LT Leg Injury- [facility] and [place] 2010 Headache, Chest Pain- [place] ER 04/2011 Chest Pain- [facility] 01/18-
--- NOTE | 2024-01-23 11:46 | XR_ITS ---
FINAL REPORT CLINICAL HISTORY: Right knee pain COMPARISON: None FINDINGS: RIGHT KNEE 3 views of the right knee were obtained. There is no acute fracture or dislocation. Mild osteophytes are noted in the medial joint space. Small osteophytes are noted along the undersurface of the patella. Soft tissues are unremarkable. IMPRESSION: No acute bony abnormality. Reviewed, Interpreted and Dictated by Zane Hoang MD Transcribed by Martha Fernandes Authenticated and [facility]
== END 2024-01-23 23:59 | disposition home or self-care (01) ==
LOC: RAD 11:40
PROVIDERS: PCP Family Medicine; Visit Provider Family Medicine
DX: M25.561 Pain in right knee (principal)
CPT/HCPCS: 73562

== ENCOUNTER 2024-03-04 07:37 | Outpatient (CLI) | payer BC, OTHER, SELFPAY ==
[2024-03-17 08:42] LABS: Miscellaneous Test SCANNED IMAGE
== END 2024-03-04 23:59 | disposition home or self-care (01) ==
PROVIDERS: PCP Family Medicine; Visit Provider Internal Medicine
DX: E11.9 Type 2 diabetes mellitus without complications (principal); E27.9 Disorder of adrenal gland, unspecified
CPT/HCPCS: 36415; 82533

== ENCOUNTER 2024-05-19 09:36 | Emergency (ER) | payer BC, OTHER, SELFPAY ==
--- NOTE | 2024-05-19 09:50 | XR_ITS ---
FINAL REPORT CLINICAL HISTORY: Shortness of breath, wheeze COMPARISON: 11/06/2023 FINDINGS: There is a left perihilar nodular opacity, which is new since the prior exam. This could be due to pneumonia or pulmonary nodule. The right lung is clear. The mediastinum has a normal appearance. The cardiac silhouette is unremarkable. IMPRESSION: Left perihilar opacity. Recommend follow-up chest radiography after treatment for pneumonia. Reviewed, Interpreted and Dictated by Sharon Love MD Transcribed by Brittny Ann Authenticated and [facility]
[2024-05-19 10:12] VITALS: BP 130/79; PULSE 84; RESP 20; TEMP 36.6; O2SAT 99; BMI 33.9
--- NOTE | 2024-05-19 10:40 | ED_ITS ---
Discharge Plan Disposition Patient Disposition: Home, Self-Care Condition: Good Prescriptions Prescriptions: New benzonatate 100 mg capsule 100 mg PO TIDP PRN (Reason: Cough) Qty: 30 0RF methylprednisolone 4 mg Tablets,Dose Pack 4 mg PO DIRECTED 6 Days Qty: 21 0RF Rx Instructions: Take 1 pack as directed for 6 days amoxicillin-pot clavulanate 875-125 mg Tablet 1 tab PO Q12H Qty: 20 0RF No Action montelukast 10 mg tablet 10 mg PO QPM 90 Days Qty: 90 2RF azelastine 137 mcg (0.1 %) spray,non-aerosol 2 spray intranasal HS 90 Days Qty: 30 2RF Rx Instructions: administer into each nostril Trulicity 3 mg/0.5 mL pen injector SQ Patient Comments: INJECT THE CONTENTS OF 1 PEN (3 MG / 0.5 ML) SUBCUTANEOUSLY ONCE A WEEK fluticasone propion-salmeterol 250-50 mcg/dose blister with device 1 inh inhalation BID 90 Days Qty: 180 3RF Airsupra 90-80 mcg/actuation HFA aerosol inhaler 2 inh inhalation DAILY PRN isosorbide mononitrate 30 mg tablet extended release 24 hr 30 mg PO DAILY 90 Days Qty: 90 2RF nitroglycerin 0.4 mg tablet, sublingual 0.4 mg SUBLINGUAL Q5MINP PRN (Reason: Chest Pain) Qty: 20 0RF Rx Instructions: do not exceed 3 doses per episode metoprolol succinate 25 mg tablet extended release 24 hr 25 mg PO DAILY 90 Days Qty: 90 1RF atorvastatin 40 mg tablet 40 mg PO DAILY Qty: 90 1RF fluticasone propionate 50 mcg/actuation spray,suspension See Rx Instructions .ROUTE .COMPLEX Qty: 16 2RF Dose Instruction: instill 1 SPRAY IN EACH NOSTRIL TWICE DAILY Rx Instructions: instill 1 SPRAY IN EACH NOSTRIL TWICE DAILY levothyroxine 112 mcg tablet 112 mcg PO DAILYDM Synjardy XR 12.5-1,000 mg tablet, IR - ER, biphasic 24hr 2 tab PO DAILY Patient Comments: TAKE TWO TABLETS BY MOUTH EVERY DAY aspirin 81 mg Tablet,Delayed Release (Dr/Ec) 81 mg PO DAILY clopidogrel 75 mg tablet 75 mg PO DAILY Patient Comments: TAKE ONE TABLET BY MOUTH EVERY DAY lisinopril 2.5 mg tablet 2.5 mg PO DAILY Patient Comments: TAKE ONE TABLET BY MOUTH EVERY DAY Referrals Follow up/Referrals: Mike Cosby MD [Primary Care Provider] - See instructions Activity Restrictions/Add. Instructions Additional Instructions/Restrictions: Drink plenty of fluids. Take tylenol or ibuprofen for pain or fever. Take the medications as directed. Follow up with your regular doctor. GO TO THE ER FOR ANY WORSENING SYMPTOMS Don't start the oral steroids (medrol dose pack) until tomorrow since you had the shot here Make sure you follow up with your primary care physician. You will need several follow up chest x-rays to make sure this pneumonia resolves. Clinical Impressions Clinical Impression: Pneumonia Instructions Patient Instructions: Pneumonia--Adult, Ceftriaxone Injection, Dexamethasone Injection Print Language Print Language: Jamaican Discharge ED Provider: Joshua Arvizu [facility] General Stated complaint: SOA Mode of Arrival: Ambulatory Source of Information: Patient Time Seen by Provider: 05/19/24 10:40 Description of Symptoms (Recalled from Triage Doc. by RN): SOB, WHEEZING HEENT Symptoms (Recalled from RN notes): No Resp Symptoms (Recalled from RN notes): Yes Skin Symptoms (Recalled from RN notes): No MS Symptoms (Recalled from RN notes): No Functional Status (Recalled from RN notes): WNL Related Data Home Medications ?Medication ?Instructions ?Recorded ?Confirmed aspirin 81 mg tablet,delayed 81 mg PO DAILY Coronary Artery 12/30/22 03/13/24 release Disease empagliflozin 12.5 mg-metformin ER 2 tab PO DAILY Diabetes 12/30/22 03/13/24 1,000 mg tablet,extended rel 24 hr (Synjardy XR) clopidogrel 75 mg tablet 75 mg PO DAILY Blood Thinner 07/08/23 03/13/24 lisinopril 2.5 mg tablet 2.5 mg PO DAILY High Blood Pressure 07/08/23 03/13/24 albuterol 90 mcg-budesonide 80 2 inh inhalation DAILY PRN 07/17/23 03/13/24 mcg/actuation HFA aerosol inhaler (Airsupra) levothyroxine 112 mcg tablet 112 mcg PO DAILYDM thyroid 02/12/24 03/13/24 dulaglutide 3 mg/0.5 mL mg SQ 05/13/24 05/13/24 subcutaneous pen injector (Trulicity) Previous Rx's ?Medication ?Instructions ?Recorded nitroglycerin 0.4 mg sublingual 0.4 mg sublingual Q5MINP PRN Chest 06/29/23 tablet Pain #20 tabs azelastine 137 mcg (0.1 %) nasal 2 spray intranasal HS 90 days #30 02/12/24 spray mL montelukast 10 mg tablet 10 mg PO QPM 90 days #90 tabs 02/12/24 isosorbide mononitrate 30 mg 30 mg PO DAILY 90 days #90 tabs 03/13/24 tablet,extended release 24 hr atorvastatin 40 mg tablet 40 mg PO DAILY Cholesterol #90 tabs 05/13/24 fluticasone 250 mcg-salmeterol 50 1 inh inhalation BID 90 days #180 05/13/24 mcg/dose blistr powdr for ea inhalation fluticasone propionate 50 See Rx Instructions .Route 05/13/24 mcg/actuation nasal .COMPLEX #16 grams spray,suspension metoprolol succinate 25 mg 25 mg PO DAILY High Blood Pressure 05/13/24 tablet,extended release 24 hr 90 days #90 tabs amoxicillin 875 mg-potassium 1 tab PO Q12H #20 tabs 05/19/24 clavulanate 125 mg tablet benzonatate 100 mg capsule 100 mg PO TIDP PRN Cough #30 caps 05/19/24 methylprednisolone 4 mg tablets in 4 mg PO DIRECTED 6 days #21 tabs 05/19/24 a dose pack Allergies Allergy/AdvReac Type Severity Reaction Status Date / Time bisacodyl (BISACODYL) Allergy Unknown Verified 05/13/24 10:42 ticagrelor (From Brilinta) AdvReac Difficulty Verified 05/13/24 10:42 Breathing Worker's Comp Is this a Worker's Comp case?: No [facility] Disclaimer: The information contained in this section may have been updated after the patient was seen, as this information can be updated by other users. Medical History Strongyloidiasis Allergic rhinitis Asthma Dyspnea on exertion Dyspnea Abnormal ankle brachial index (LEIGHTON) Abnormal nuclear cardiac imaging test Claudication Angina pectoris CAD (coronary artery disease) PTSD (post-traumatic stress disorder) Hyperlipidemia Diabetes mellitus, type 2 Hypothyroid Typical angina Abnormal result of cardiovascular function study History of mitral valve prolapse Obesity (BMI 30.0-34.9) Surgical History Status post coronary artery stent placement Hx of nasal septoplasty History of appendectomy History of cholecystectomy History of Family History Other Coronary artery disease Diabetes Social History Smoking Status: Never smoker alcohol intake: never substance use type: denies use current occupational status: retired Travel in the last 8 weeks: Outside the [facility] household members: spouse housing: house marital status: caffeine: Yes Have you lived/traveled outside [place] in past 30 days?: No Contact w/someone who lives/traveled outside US past 30 days?: No Exposure to someone with infectious disease in past 14 days?: No Do you have a fever (greater than 100.4 F or 38 C)?: No Have you tested positive for COVID-19: No Exposed to someone with COVID-19 in past 14 days?: No Do you have a sore throat?: No Do you have a cough?: No Do you have any weakness?: No Do you have any diarrhea?: No Are you experiencing any unusual bleeding?: No Do you have any muscle aches/pain?: No Do you have any abdominal pain?: No Are you experiencing loss of taste or smell?: No ROS Obtained: Yes All systems reviewed & no additional complaints except as documented Constitutional Constitutional: Reports chills and Reports fever(s) Eyes Eyes: Denies eye discharge ENT Ears, Nose, Mouth, and Throat: Reports as per HPI Cardiovascular Cardiovascular: Denies chest pain Respiratory Respiratory: Denies chest congestion and Reports cough Gastrointestinal Gastrointestingal: Reports nausea; Denies abdominal pain, constipation, cramping, diarrhea or vomiting Musculoskeletal Musculoskeletal: Denies arthralgias Integumentary/Breasts Skin/Breast: Denies rash Neurologic Neurologic: Denies paresthesias Physical Exam General General appearance: alert and in no apparent distress Head Head exam: atraumatic, normocephalic and normal inspection Eye Eye exam: Present normal appearance, PERRL and EOMI ENT ENT exam: Present normal exam, normal oropharynx, mucous membranes moist, TM's normal bilaterally and normal external ear exam Neck Neck exam: Present normal inspection, full ROM and trachea midline; Absent meningismus or lymphadenopathy Chest Chest inspection: Present normal inspection and symmetric chest wall rise; Absent tenderness Respiratory Respiratory exam: Present normal lung sounds bilaterally; Absent respiratory distress Cardiovascular Cardiovascular exam: Present regular rate and normal rhythm; Absent JVD Abdominal Exam Abdominal exam: Present soft and normal bowel sounds; Absent distention, tenderness or guarding Extremities Exam Extremities exam: Present normal inspection, full ROM and normal capillary refill; Absent calf tenderness Back Exam Back exam: Present normal inspection; Absent tenderness Neurological Exam Neurological exam: Present alert and oriented X3 Psychiatric Psychiatric exam: Present normal affect and normal mood Skin Skin exam: Present warm, dry, intact and normal color Lymphatic Lymphatic Findings: no adenopathy Medical Decision Making Medical Records Medical records reviewed: No I reviewed the patient's medical records. Screening: Per USPSTF and CDC recommendations, given the prevalence of disease in our region, it is our hospital?s policy to screen for HIV and viral Hepatitis for all patients aged 18 and over and those with ongoing risk factors. Miguel A Inquiry Pt receiving controlled substance: No Vital Signs: 05/19/24 10:12 Temperature 97.8 F Temperature Source Oral Pulse Rate [Left Radial] 84 Respiratory Rate 20 Blood Pressure [Left Arm] 130/79 Blood Pressure Mean [Left Arm] 96 02 Sat by Pulse Oximetry 99 Lab Data Lab results reviewed: Yes I reviewed the patient's lab results. Orders (Tests/Meds): ORDERS Category Date Time Status Chest XR 2 view (NOT portable) [XR chest 2V] Stat Exams 05/19/24 09:50 Completed
--- NOTE | 2024-05-19 11:19 | ECG_ITS ---
APPROVED REPORT Exam: Resting ECG HR:85 bpm ECG Measurements Heart Rate 85 AXES AL 144 P 6 QRSd 86 QRS 29 QT 385 T 46 QTc 427 Conclusion SINUS RHYTHM NORMAL ECG UNCONFIRMED REPORT Electronically signed by : CARLIN FORTE, 05/20/2024 07:07:09
[2024-05-19] MEDS: cefTRIAXone 1GM VIAL 1 GM IM (11:45)
[2024-05-19] MEDS: DEXAMETHASONE 4MG/ML 1ML VIAL 8 MG IM (11:45)
[2024-05-19] MEDS: LIDOCAINE 1% 5ML PF VIAL IM (11:45)
[2024-05-19 12:00] VITALS: BP 130/79; PULSE 84; RESP 20; TEMP 36.6
== END 2024-05-19 12:00 | disposition home or self-care (01) ==
PROVIDERS: Emergency Provider Nurse Practitioner Family; PCP Family Medicine
DX: J18.9 Pneumonia, unspecified organism (principal); R50.9 Fever, unspecified; R05.9 Cough, unspecified; R11.0 Nausea
CPT/HCPCS: 71046; 93005; 99212; G0381; J0696; J1100

== ENCOUNTER 2024-05-26 11:16 | Outpatient (CLI) | payer BC, OTHER, SELFPAY ==
--- NOTE | 2024-05-26 11:22 | XR_ITS ---
FINAL REPORT CLINICAL HISTORY: COMMUNITY ACQUIRED PNEUMONIA OF LEFT LUNG COMPARISON: 05/19/2024 FINDINGS: PA and lateral views of the chest were obtained. The cardiac and mediastinal silhouettes are within normal limits. The previously noted left perihilar opacity seen on the prior exam of 05/19/2024 has resolved. There is no pleural effusion or pneumothorax. No acute osseous abnormality is identified. IMPRESSION: Previously noted left perihilar opacity seen on the chest x-ray dated 05/19/2024 has resolved. Reviewed, Interpreted and Dictated by Kiersten Stevens MD Transcribed by Lamar Keys Authenticated and [facility]
== END 2024-05-26 23:59 | disposition home or self-care (01) ==
LOC: RAD 11:19
PROVIDERS: PCP Family Medicine; Visit Provider Family Medicine
DX: J18.9 Pneumonia, unspecified organism (principal)
CPT/HCPCS: 71046

== ENCOUNTER 2024-06-06 11:38 | Outpatient (CLI) | payer BC, OTHER, SELFPAY ==
--- NOTE | 2024-06-06 11:45 | XR_ITS ---
FINAL REPORT CLINICAL HISTORY: Injury 5th toe on left foot. Bruising on bottom of toe. COMPARISON: None FINDINGS: LEFT FOOT Three views demonstrate no acute fracture or dislocation. The joint spaces appear normal. No acute soft tissue abnormality is seen. A small plantar spur is noted. There is a small accessory navicular. IMPRESSION: No acute bony abnormality. Reviewed, Interpreted and Dictated by Zane Hoang MD Transcribed by Brittny Ann Authenticated and [facility]
== END 2024-06-06 23:59 | disposition home or self-care (01) ==
LOC: RAD 11:40
PROVIDERS: PCP Family Medicine; Visit Provider Physician Assistant
DX: S99.922A Unspecified injury of left foot, initial encounter (principal)
CPT/HCPCS: 73630

== ENCOUNTER 2024-09-15 10:38 | Outpatient (CLI) | payer BC, OTHER, SELFPAY ==
[2024-09-15 11:22] LABS: Basophils % 0.4 % (0.1-2.0); Eosinophils # 0.6 Kmm3 (0.0-0.4); Eosinophils % 10.6 % (0.1-12.0); Hematocrit 46.2 % (37.0-47.0); Hemoglobin 15.6 g/dL (12.2-16.2); Lymphocytes # 2.2 K/mm3 (0.7-4.5); Lymphocytes % 38.7 % (10-50); Mean Corpuscular HGB Conc 33.8 g/dL (31.8-35.4); Mean Corpuscular Hemoglobin 32.3 pg (27.0-31.2); Mean Corpuscular Volume 95.7 fl (81-99); Mean Platelet Volume 10.1 fl (7.4-10.4); Monocytes # 0.5 K/mm3 (0.1-1.0); Monocytes % 9.4 % (1.7-9.3); Neutrophils # 2.3 K/mm3 (1.8-7.8); Neutrophils % 40.7 % (37.0-80.0); Nucleated Red Blood Cells # 0 10^3/uL; Nucleated Red Blood Cells % 0 %; Platelet Count 194 K/mm3 (142-424); Red Blood Count 4.83 M/mm3 (4.20-5.40); White Blood Count 5.7 K/mm3 (4.8-10.8)
[2024-09-15 11:49] LABS: Alanine Aminotransferase 30 U/L (12-78); Albumin Level 4.4 g/dl (3.5-5.0); Alkaline Phosphatase 84 U/L (38-126); Anion Gap 15.3 mEq/L (5-15); Aspartate Amino Transferase 34 U/L (14-36); Bilirubin,Direct 0.1 mg/dl (0.0-0.4); Bilirubin,Indirect 0.5 mg/dL (0.0-0.9); Bilirubin,Total 0.6 mg/dl (0.2-1.3); Bilirubin,Unconjugated 0.5 mg/dL (0.0-1.1); Blood Urea Nitrogen 13 mg/dl (7-17); Calcium 9.5 mg/dl (8.4-10.2); Carbon Dioxide 27 mmol/L (22.0-30.0); Chloride 105 mmol/L (98-107); Chol/HDL Ratio 2.6 (1-3.5); Cholesterol 124 mg/dl (140-200); Estimated Glomerular Filt Rate 130 ml/min (>60); GFR (African American) 157 ML/MIN (>60); Glucose 121 mg/dl (74-100); HDL Cholesterol 47 mg/dl (40-60); Magnesium 1.8 mg/dl (1.6-2.3); Potassium 4.3 mmoL/L (3.5-5.1); Sodium 143 mmol/L (136-145); Total Protein,Serum 7.9 g/dl (6.3-8.2); Triglycerides 107 mg/dl (30-150); VLDL Cholesterol 21 mg/dL (0-40)
[2024-09-15 12:00] LABS: Direct LDL Cholesterol 52.99 mg/dL (100-129)
[2024-09-15 12:05] LABS: Free T4 (Free Thyroxine) 1.09 ng/dl (0.78-2.19)
[2024-09-15 12:20] LABS: Thyroid Stimulating Hormone 3.41 uIU/mL (0.465-4.68)
[2024-09-15 12:33] LABS: Hemoglobin A1C 5.8 % (4.0-6.0)
== END 2024-09-15 23:59 | disposition home or self-care (01) ==
LOC: LAB 10:39
PROVIDERS: PCP Family Medicine; Visit Provider Physician Assistant
DX: I10 Essential (primary) hypertension (principal); I25.10 Atherosclerotic heart disease of native coronary artery without angina pectoris; E78.2 Mixed hyperlipidemia; E66.811 Obesity, class 1; Z68.31 Body mass index [BMI] 31.0-31.9, adult; E03.9 Hypothyroidism, unspecified; E11.69 Type 2 diabetes mellitus with other specified complication; Z79.84 Long term (current) use of oral hypoglycemic drugs; Z79.85 Long-term (current) use of injectable non-insulin antidiabetic drugs
CPT/HCPCS: 36415; 80048; 80061; 80076; 83036; 83735; 84439; 84443; 85025

== ENCOUNTER 2025-02-12 16:14 | Outpatient (CLI) | payer BC, OTHER, SELFPAY ==
--- NOTE | 2025-02-12 | MM_ITS ---
PROCEDURE INFORMATION: Exam: MG Bilateral Screening 3D Mammography Exam date and time: 02/12/2025 4:20 PM Age: 55 years old Clinical indication: Screening examination TECHNIQUE: Imaging protocol: Bilateral Screening tomosynthesis and 2D mammography including computer-aided detection (CAD) when performed. COMPARISON: 1. MG MM DIG SCREENING MAMM BI W/CAD 01/21/2021 10:35 AM 2. MG MM DIG SCREENING MAMM BI W/CAD 01/21/2020 8:23 AM FINDINGS: MAMMOGRAPHY: Breast composition: There are scattered areas of fibroglandular density. Mass: No suspicious masses. Architectural distortion: None. Calcifications: No suspicious calcifications. Asymmetric density: None. Skin thickening: None. Axillary adenopathy: None. IMPRESSION: No mammographic evidence of malignancy. Annual screening is recommended unless otherwise clinically indicated. ASSESSMENT: BI-RADS Category 1: Negative.
== END 2025-02-12 23:59 | disposition home or self-care (01) ==
LOC: RAD 16:14
PROVIDERS: PCP Family Medicine; Visit Provider Family Medicine
DX: Z12.31 Encounter for screening mammogram for malignant neoplasm of breast (principal); R92.323 Mammographic fibroglandular density, bilateral breasts
CPT/HCPCS: 77063; 77067

== ENCOUNTER 2025-03-18 21:47 | Emergency (ER) | payer BC, OTHER, SELFPAY ==
[2025-03-18 21:48] VITALS: BP 172/103; PULSE 84; RESP 18; TEMP 36.9; O2SAT 97; BMI 28.5
--- NOTE | 2025-03-18 21:53 | ECG_ITS ---
APPROVED REPORT Exam: Resting ECG HR:72 bpm ECG Measurements Heart Rate 72 AXES VA 150 P 43 QRSd 114 QRS 62 QT 401 T 63 QTc 425 Conclusion SINUS RHYTHM MODERATE INTRAVENTRICULAR CONDUCTION DELAY [110+ ms QRS DURATION] NONSPECIFIC T-WAVE ABNORMALITY BORDERLINE ECG UNCONFIRMED REPORT Electronically signed by : Joshua Saleh, 03/18/2025 23:10:48
--- NOTE | 2025-03-18 22:00 | XR_ITS ---
PROCEDURE INFORMATION: Exam: XR Chest Exam date and time: 03/18/2025 10:16 PM Age: 55 years old Clinical indication: Pain; Chest pressure; Additional info: Chest pain TECHNIQUE: Imaging protocol: Radiologic exam of the chest. Views: 1 view. COMPARISON: CR XR CHEST 2V 05/26/2024 11:27 AM FINDINGS: Lungs: Low lung volumes without definite focal airspace consolidation. Probable atelectatic changes. Pleural spaces: No pneumothorax. Heart/Mediastinum: Unremarkable cardiomediastinal silhouette. Bones/joints: No acute osseous findings. IMPRESSION: Low lung volumes without definite focal airspace consolidation.
--- OUTSIDE RECORDS SUMMARY | 2025-03-18 22:03 | XMS_ITS ---
Author Organization Unknown ENCOUNTERS Encounter Performer Location Date Diagnosis Diagnosis Status Emergency [facility] [address] [facility] [address] [place] [id number] Pre Admit [facility] [address] [facility] [address] [place] [phone] Emergency [facility] [address] [facility] [address] [place] [id number] DAVID Pre Admit [facility] [address] [facility] [address] [place] [address] [id number] Emergency [facility] [address] [facility] [address] [place] [id number] DAVID Pre Admit [facility] [address] [facility] [address] [place] [id number] Outpatient [facility] [address] [facility] [address] [place] [address] [id number] DAVID Emergency [facility] [facility] [address] [place] [phone] Pre Admit [facility] [address] [facility] [address] [place] [address] [id number] Outpatient [facility] [address] [facility] [address] [place] [address] [phone] Inpatient [facility] [address] [facility] [address] [place] [address] [id number] DAVID Emergency [facility] [address] [facility] [address] [place] [id number] A Pre Admit [facility] [address] [facility] [address] [place] [phone] *Note: Encounters from your own facility or health system may be excluded. Allergies, Adverse Reactions, Alerts Allergen Type Severity Identification Date ticagrelor drug allergy 1 [id number] bisacodyl drug allergy 0 28057109 Medications Name Date Quantity Days Supplied GPI Number
[2025-03-18 22:08] LABS: Hematocrit 43.3 % (37.0-47.0); Hemoglobin 15.5 g/dL (12.2-16.2); Immature Granulocytes % 0.1 %; Mean Corpuscular HGB Conc 35.8 g/dL (31.8-35.4); Mean Corpuscular Hemoglobin 32.5 pg (27.0-31.2); Mean Corpuscular Volume 90.8 fl (81-99); Nucleated Red Blood Cells % 0 %; Platelet Count 191 K/mm3 (142-424); Red Blood Count 4.77 M/mm3 (4.20-5.40); Red Cell Distribution Width-SD 40.9 fL; White Blood Count 8.3 K/mm3 (4.8-10.8)
--- NOTE | 2025-03-18 22:13 | ED_ITS ---
Discharge Plan Disposition Patient Disposition: Home, Self-Care Prescriptions Prescriptions: No Action montelukast 10 mg tablet 10 mg PO QPM 90 Days Qty: 90 2RF fluticasone propion-salmeterol 250-50 mcg/dose blister with device 1 inh inhalation BID 90 Days Qty: 180 3RF levothyroxine 150 mcg tablet 150 mcg PO DAILY Patient Comments: TAKE ONE TABLET BY MOUTH EVERY DAY Trulicity 1.5 mg/0.5 mL pen injector SQ Patient Comments: INJECT THE CONTENTS OF 1 PEN (1.5 MG / 0.5ML) SUBCUTANEOUSLY ONCE A WEEK Airsupra 90-80 mcg/actuation HFA aerosol inhaler 2 inh inhalation DAILY PRN isosorbide mononitrate 60 mg tablet extended release 24 hr 60 mg PO DAILY 90 Days Qty: 90 2RF nitroglycerin 0.4 mg tablet, sublingual 0.4 mg SUBLINGUAL Q5MINP PRN (Reason: Chest Pain) Qty: 20 0RF Rx Instructions: do not exceed 3 doses per episode metoprolol succinate 25 mg tablet extended release 24 hr 25 mg PO DAILY 90 Days Qty: 90 1RF atorvastatin 40 mg tablet 40 mg PO DAILY Qty: 90 1RF azelastine 137 mcg (0.1 %) spray,non-aerosol See Rx Instructions .ROUTE .COMPLEX Qty: 30 2RF Dose Instruction: instill 2 SPRAYS IN EACH NOSTRIL AT BEDTIME Rx Instructions: instill 2 SPRAYS IN EACH NOSTRIL AT BEDTIME fluticasone propionate 50 mcg/actuation spray,suspension See Rx Instructions .ROUTE .COMPLEX Qty: 16 2RF Dose Instruction: instill 1 SPRAY IN EACH NOSTRIL TWICE DAILY Rx Instructions: instill 1 SPRAY IN EACH NOSTRIL TWICE DAILY Synjardy XR 12.5-1,000 mg tablet, IR - ER, biphasic 24hr 2 tab PO DAILY Patient Comments: TAKE TWO TABLETS BY MOUTH EVERY DAY aspirin 81 mg Tablet,Delayed Release (Dr/Ec) 81 mg PO DAILY clopidogrel 75 mg tablet 75 mg PO DAILY Patient Comments: TAKE ONE TABLET BY MOUTH EVERY DAY lisinopril 2.5 mg tablet 2.5 mg PO DAILY Patient Comments: TAKE ONE TABLET BY MOUTH EVERY DAY Referrals Follow up/Referrals: Mike Cosby MD [Primary Care Provider, Medical] - See instructions Activity Restrictions/Add. Instructions Additional Instructions/Restrictions: Please follow-up with your primary care provider and with Dr. Ji. Please return to the emergency department if you develop any new or worsening symptoms or become concerned for your health. Clinical Impressions Clinical Impression: Chest pain Print Language Print Language: Nepali Discharge ED Provider: Bjorn Carlson HPI <Rose Saleh MD - Last Filed: 03/18/25 22:38> General Chief Complaint: Chest Pain Stated Complaint: chest pain Time Seen by Provider: 03/18/25 22:05 Mode of Arrival: Ambulatory Source of Information: Patient Description of Symptoms (Recalled from ER Triage Doc. by RN): Pt presents for evaluation of left sided chest pain that started 30 minutes [employer]. Pt states she became clammy and sick to her stomach. The pain also radiates to her neck. Pt reports having increased belching over the last two weeks. Rates pain as a 5/10 at this time. Has a hx of heart stents History of Present Illness HPI narrative: Patient is a 55-year-old female with a known history of coronary artery disease who presents today with chest pain states that she did have some diaphoresis and nausea associated with this it was short-lived and intermittent and presented 30 minutes prior to arrival. Has not had her aspirin nor her Plavix today. Denies any exertional symptoms. States that currently she only has some chest pressure and that the sharp pain that concerned her has since resolved. She is followed by Dr. Ji's team here at [place]. Related Data Home Medications ?Medication ?Instructions ?Recorded ?Confirmed aspirin 81 mg tablet,delayed 81 mg PO DAILY Coronary A rtery 12/30/22 11/11/24 release Disease empagliflozin 12.5 mg-metformin ER 2 tab PO DAILY Diab etes 12/30/22 11/11/24 1,000 mg tablet,extended rel 24 hr (Synjardy XR) clopidogrel 75 mg tablet 75 mg PO DAILY Blood Thinner 07/08/23 11/11/24 lisinopril 2.5 mg tablet 2.5 mg PO DAILY High Blood P ressure 07/08/23 11/11/24 albuterol 90 mcg-budesonide 80 2 inh inhalation DAILY PRN 07/17/23 11/11/24 mcg/actuation HFA aerosol inhaler (Airsupra) dulaglutide 1.5 mg/0.5 mL mg SQ 11/11/24 11/11/24 subcutaneous pen injector (Trulicity) levothyroxine 150 mcg tablet 150 mcg PO DAILY 11/11/24 11/11/24 Previous Rx's ?Medication ?Instructions ?Recorded nitroglycerin 0.4 mg sublingual 0.4 mg sublingual Q5MI [employer] PRN Chest 06/29/23 tablet Pain #20 tabs montelukast 10 mg tablet 10 mg PO QPM 90 days #90 tab s 02/12/24 atorvastatin 40 mg tablet 40 mg PO DAILY Cholesterol # 90 tabs 05/13/24 fluticasone 250 mcg-salmeterol 50 1 inh inhalation BID 90 days #180 05/13/24 mcg/dose blistr powdr for ea inhalation metoprolol succinate 25 mg 25 mg PO DAILY High Blood P ressure 05/13/24 tablet,extended release 24 hr 90 days #90 tabs azelastine 137 mcg (0.1 %) nasal See Rx Instructions . Route 07/11/24 spray .COMPLEX #30 mL fluticasone propionate 50 See Rx Instructions .Route 0 08/04/24 mcg/actuation nasal .COMPLEX #16 grams spray,suspension isosorbide mononitrate 60 mg 60 mg PO DAILY 90 days #9 0 tabs 09/15/24 tablet,extended release 24 hr Allergies Allergy/AdvReac Type Severity Reaction Status Date / Time bisacodyl (BISACODYL) Allergy Unknown Verified 11/11/24 10:18 ticagrelor (From Brilinta) AdvReac Difficulty Verified 11/11/24 10:18 Breathing [facility] <Rose Saleh MD - Last Filed: 03/18/25 22:38> [facility] Disclaimer: The information contained in this section may have been updated after the patient was seen, as this information can be updated by other users. Medical History Strongyloidiasis Allergic rhinitis Asthma Dyspnea on exertion Dyspnea Abnormal ankle brachial index (LEIGHTON) Abnormal nuclear cardiac imaging test Claudication Angina pectoris CAD (coronary artery disease) PTSD (post-traumatic stress disorder) Hyperlipidemia Diabetes mellitus, type 2 Hypothyroid Typical angina Abnormal result of cardiovascular function study History of mitral valve prolapse Obesity (BMI 30.0-34.9) Surgical History Status post coronary artery stent placement Hx of nasal septoplasty History of appendectomy History of cholecystectomy History of Family History Other Coronary artery disease Diabetes Social History Smoking Status: Never smoker alcohol intake: never substance use type: denies use current occupational status: retired Travel in the last 8 weeks?: Outside the [facility] household members: spouse housing: house marital status: caffeine: Yes Have you lived/traveled outside [place] in past 30 days?: No Contact w/someone who lives/traveled outside US past 30 days?: No Exposure to someone with infectious disease in past 14 days?: No Do you have a fever (greater than 100.4 F or 38 C)?: No Have you tested positive for COVID-19?: No Exposed to someone with COVID-19 in past 14 days?: No Do you have a sore throat?: No Do you have a cough?: No Do you have any weakness?: No Do you have any diarrhea?: No Are you experiencing any unusual bleeding?: No Do you have any muscle aches/pain?: No Do you have any abdominal pain?: No Are you experiencing loss of taste or smell?: No Other Medical History Have you received the Flu Vaccine for this season: No Have you received the Pneumonia Vaccine: Yes <Rose Saleh MD - Last Filed: 03/18/25 22:38> ROS Obtained: Yes All systems reviewed & no additional complaints except as documented Physical Exam <Rose Saleh MD - Last Filed: 03/18/25 22:38> General General appearance: alert and in no apparent distress Respiratory Respiratory exam: Present normal lung sounds bilaterally; Absent respiratory distress Cardiovascular Cardiovascular exam: Present regular rate and normal rhythm Abdominal Exam Abdominal exam: Present soft; Absent distention or tenderness Neurological Exam Neurological exam: Present alert and oriented X3 HEART Score <Rose Saleh MD - Last Filed: 03/18/25 22:38> HEART Score HEART Score assessment performed?: Yes History (anamnesis): Moderately suspicious ECG: Non-specific disturbance Age: 45-65 years Risk factors: Atherosclerosis history Troponin: </= normal limit HEART Score: 5 <Bjorn Carlson MD - Last Filed: 03/19/25 02:06> HEART Score HEART Score: 5 Critical Care <Rose Saleh MD - Last Filed: 03/18/25 22:38> Critical Care Time Critical Care Time: No Medical Decision Making <Rose Saleh MD - Last Filed: 03/18/25 22:38> Miguel A Inquiry Pt receiving controlled substance: No Vital Signs Vital Signs: 03/18/25 21:48 03/18/25 23:00 03/18/25 23:27 Temperature 98.5 F Temperature Source Oral Pulse Rate 69 84 Pulse Rate [Right] 84 Respiratory Rate 18 14 21 Blood Pressure 127/81 143/81 H Blood Pressure [Right Arm] 172/103 H Blood Pressure Mean [Right Arm] 126 Blood Pressure Source [Right Arm] Automatic Cuff Blood Pressure Position [Right Arm] Sitting 02 Sat by Pulse Oximetry 97 98 99 Oxygen Delivery Method Room Air 03/18/25 23:30 03/18/25 23:53 03/19/25 00:00 Temperature Temperature Source Pulse Rate 76 73 75 Pulse Rate [Right] Respiratory Rate 15 15 16 Blood Pressure 152/93 H 147/89 H 138/91 H Blood Pressure [Right Arm] Blood Pressure Mean [Right Arm] Blood Pressure Source [Right Arm] Blood Pressure Position [Right Arm] 02 Sat by Pulse Oximetry 99 96 94 L Oxygen Delivery Method 03/19/25 00:31 03/19/25 00:56 03/19/25 01:00 Temperature 98.7 F Temperature Source Pulse Rate 70 87 75 Pulse Rate [Right] Respiratory Rate 15 21 18 Blood Pressure 126/63 139/82 106/62 L Blood Pressure [Right Arm] Blood Pressure Mean [Right Arm] Blood Pressure Source [Right Arm] Blood Pressure Position [Right Arm] 02 Sat by Pulse Oximetry 94 L 94 L Oxygen Delivery Method Room Air 03/19/25 01:30 Temperature Temperature Source Pulse Rate 64 Pulse Rate [Right] Respiratory Rate 15 Blood Pressure 102/69 L Blood Pressure [Right Arm] Blood Pressure Mean [Right Arm] Blood Pressure Source [Right Arm] Blood Pressure Position [Right Arm] 02 Sat by Pulse Oximetry 91 L Oxygen Delivery Method Lab Data Lab results reviewed: Yes I reviewed the patient's lab results. Labs: Lab Results 03/18/25 21:49: WBC 8.3, RBC 4.77, Hgb 15.5, Hct 43.3, MCV 90.8, MCH 32.5 H, M CHC 35.8 H, RDW 12.4, Plt Count 191, MPV 9.9, Neut % (Auto) 33.8 L, Lymph % (Auto) 47.0, [place] % (Auto) 7.8, Eos % (Auto) 10.7, Baso % (Auto) 0.6, Neut # (Auto) 2.8, Lymph # (Auto) 3.9, [place] # (Auto) 0.6, Eos # (Auto) 0.9 H, Baso # (Auto) 0.1, D-Dimer 0.38, Sodium 138, Potassium 3.6, Chloride 102, Carbon Dioxide 26, Anion Gap 13.6, BUN 22 H, Creatinine 0.60, Estimated Creat Clear 141, Estimated GFR 105, Est GFR ( Amer) 127, Glucose 129 H, Calcium 9.3, Total Bilirubin 1.0, AST 33, ALT 23, Alkaline Phosphatase 95, Troponin I 0.02, Total Protein 7.7, Albumin 4.4, Globulin 3.3 H, Albumin/Globulin Ratio 1.3 03/19/25 01:15: Troponin I < 0.01 03/18/25 21:49 03/18/25 21:49 Response Orders (Tests/Meds): ED MEDICATIONS Discontinued Medications Generic Name Dose Route Start Last Admin Trade Name Freq PRN Reason Stop Dose Admin Acetaminophen 1,000 mg 03/18/25 23:27 03/18/25 23:33 Acetaminophen 500mg Tab PO 03/18/25 23:28 1,000 mg ONCE ONE Administration Aspirin 324 mg 03/18/25 22:12 03/18/25 22:30 Aspirin 81mg Chewable Tablet PO 03/18/25 22:13 324 mg ONCE ONE Administration Belladonna Alkaloids 60 ml 03/18/25 23:27 03/18/25 23:33 Belladonna Alkaloids 60 Ml Ml PO 03/18/25 23:28 60 ml ONCE ONE Administration ORDERS Category Date Time Status XR chest portable Stat Exams 03/18/25 22:00 Completed Complete Blood Count Auto Diff Stat Lab 03/18/25 21:49 Completed Comprehensive Metabolic Panel Stat Lab 03/18/25 21:49 Completed D-Dimer Stat Lab 03/18/25 21:49 Completed Troponin I Q3H Lab 03/19/25 01:15 Completed Troponin I Q3H Lab 03/19/25 04:15 Ordered Troponin I Stat Lab 03/18/25 21:49 Completed ECG Data Tracing #1: Attestation: I reviewed this ECG and interpreted as documented below: ECG Narrative: EKG performed which I personally interpreted shows a ventricular rate of 72 no acute ischemic changes noted normal axis no significant conduction abnormalities MDM Narrative Medical Decision Narrative: 55-year-old with above history and physical. EKG is not concerning. Heart score is 5. Patient's been placed in ED observation for serial troponins given the onset of symptoms and her presenting time. Also given her age we will add a D-dimer onto her workup and utilize years criteria at which point we would get a CT scan if her D-dimer is greater than 1.0. She is functionally asymptomatic other than some very mild pressure at this moment but the majority of her symptoms have since resolved. Aspirin has been administered. If there is no elevation in her serial troponins I believe she will be stable for outpatient follow-up. However care will be transitioned to the oncoming physician at 11:00 as patient is in ED observation for serial troponins. Dr. Carlson will take over at this point <Bjorn Carlson MD - Last Filed: 03/19/25 02:06> Vital Signs Vital Signs: 03/18/25 21:48 03/18/25 23:00 03/18/25 23:27 Temperature 98.5 F Temperature Source Oral Pulse Rate 69 84 Pulse Rate [Right] 84 Respiratory Rate 18 14 21 Blood Pressure 127/81 143/81 H Blood Pressure [Right Arm] 172/103 H Blood Pressure Mean [Right Arm] 126 Blood Pressure Source [Right Arm] Automatic Cuff Blood Pressure Position [Right Arm] Sitting 02 Sat by Pulse Oximetry 97 98 99 Oxygen Delivery Method Room Air 03/18/25 23:30 03/18/25 23:53 03/19/25 00:00 Temperature Temperature Source Pulse Rate 76 73 75 Pulse Rate [Right] Respiratory Rate 15 15 16 Blood Pressure 152/93 H 147/89 H 138/91 H Blood Pressure [Right Arm] Blood Pressure Mean [Right Arm] Blood Pressure Source [Right Arm] Blood Pressure Position [Right Arm] 02 Sat by Pulse Oximetry 99 96 94 L Oxygen Delivery Method 03/19/25 00:31 03/19/25 00:56 03/19/25 01:00 Temperature 98.7 F Temperature Source Pulse Rate 70 87 75 Pulse Rate [Right] Respiratory Rate 15 21 18 Blood Pressure 126/63 139/82 106/62 L Blood Pressure [Right Arm] Blood Pressure Mean [Right Arm] Blood Pressure Source [Right Arm] Blood Pressure Position [Right Arm] 02 Sat by Pulse Oximetry 94 L 94 L Oxygen Delivery Method Room Air 03/19/25 01:30 Temperature Temperature Source Pulse Rate 64 Pulse Rate [Right] Respiratory Rate 15 Blood Pressure 102/69 L Blood Pressure [Right Arm] Blood Pressure Mean [Right Arm] Blood Pressure Source [Right Arm] Blood Pressure Position [Right Arm] 02 Sat by Pulse Oximetry 91 L Oxygen Delivery Method Lab Data Labs: Lab Results 03/18/25 21:49: WBC 8.3, RBC 4.77, Hgb 15.5, Hct 43.3, MCV 90.8, MCH 32.5 H, M CHC 35.8 H, RDW 12.4, Plt Count 191, MPV 9.9, Neut % (Auto) 33.8 L, Lymph % (Auto) 47.0, [place] % (Auto) 7.8, Eos % (Auto) 10.7, Baso % (Auto) 0.6, Neut # (Auto) 2.8, Lymph # (Auto) 3.9, [place] # (Auto) 0.6, Eos # (Auto) 0.9 H, Baso # (Auto) 0.1, D-Dimer 0.38, Sodium 138, Potassium 3.6, Chloride 102, Carbon Dioxide 26, Anion Gap 13.6, BUN 22 H, Creatinine 0.60, Estimated Creat Clear 141, Estimated GFR 105, Est GFR ( Amer) 127, Glucose 129 H, Calcium 9.3, Total Bilirubin 1.0, AST 33, ALT 23, Alkaline Phosphatase 95, Troponin I 0.02, Total Protein 7.7, Albumin 4.4, Globulin 3.3 H, Albumin/Globulin Ratio 1.3 03/19/25 01:15: Troponin I < 0.01 Response Orders (Tests/Meds): ED MEDICATIONS Discontinued Medications Generic Name Dose Route Start Last Admin Trade Name Freq PRN Reason Stop Dose Admin Acetaminophen 1,000 mg 03/18/25 23:27 03/18/25 23:33 Acetaminophen 500mg Tab PO 03/18/25 23:28 1,000 mg ONCE ONE Administration Aspirin 324 mg 03/18/25 22:12 03/18/25 22:30 Aspirin 81mg Chewable Tablet PO 03/18/25 22:13 324 mg ONCE ONE Administration Belladonna Alkaloids 60 ml 03/18/25 23:27 03/18/25 23:33 Belladonna Alkaloids 60 Ml Ml PO 03/18/25 23:28 60 ml ONCE ONE Administration ORDERS Category Date Time Status XR chest portable Stat Exams 03/18/25 22:00 Completed Complete Blood Count Auto Diff Stat Lab 03/18/25 21:49 Completed Comprehensive Metabolic Panel Stat Lab 03/18/25 21:49 Completed D-Dimer Stat Lab 03/18/25 21:49 Completed Troponin I Q3H Lab 03/19/25 01:15 Completed Troponin I Q3H Lab 03/19/25 04:15 Ordered Troponin I Stat Lab 03/18/25 21:49 Completed MDM Narrative Medical Decision Narrative: 55-year-old with above history and physical. EKG is not concerning. Heart score is 5. Patient's been placed in ED observation for serial troponins given the onset of symptoms and her presenting time. Also given her age we will add a D-dimer onto her workup and utilize years criteria at which point we would get a CT scan if her D-dimer is greater than 1.0. She is functionally asymptomatic other than some very mild pressure at this moment but the majority of her symptoms have since resolved. Aspirin has been administered. If there is no elevation in her serial troponins I believe she will be stable for outpatient follow-up. However care will be transitioned to the oncoming physician at 11:00 as patient is in ED observation for serial troponins. Dr. Carlson will take over at this point. Aldo HUMPHREYS: I assumed care of the patient at the time of handoff from the prior provider. On reassessment patient is sleeping comfortably. She has remained hemodynamically stable on cardiac monitoring. On repeat assessment, troponin is undetectably low. Labs are otherwise unremarkable including negative D-dimer. I had an interactive discussion with patient regarding her presentation. Given she is symptomatically improving and has had a negative workup, I do not think she requires further observation and she is appropriate for discharge and outpatient management. Less than 30 minutes were utilized in preparing this discharge.
[2025-03-18 22:14] LABS: Alanine Aminotransferase 23 U/L (12-78); Albumin Level 4.4 g/dl (3.5-5.0); Albumin/Globulin Ratio 1.3 (1.1-1.8); Alkaline Phosphatase 95 U/L (38-126); Anion Gap 13.6 mEq/L (5-15); Aspartate Amino Transferase 33 U/L (14-36); Bilirubin,Total 1.0 mg/dl (0.2-1.3); Blood Urea Nitrogen 22 mg/dl (7-17); Calcium 9.3 mg/dl (8.4-10.2); Carbon Dioxide 26 mmol/L (22.0-30.0); Chloride 102 mmol/L (98-107); Creatinine Clearance Estimated 141 mL/min (50-200); Creatinine,Serum 0.60 mg/dl (0.52-1.04); Estimated Glomerular Filt Rate 105 ml/min (>60); GFR (African American) 127 ML/MIN (>60); Globulin 3.3 g/dL (1.3-3.2); Glucose 129 mg/dl (74-100); Potassium 3.6 mmoL/L (3.5-5.1); Sodium 138 mmol/L (136-145); Total Protein,Serum 7.7 g/dl (6.3-8.2)
[2025-03-18 22:26] LABS: Troponin I 0.02 ng/ml (0.00-0.034)
[2025-03-18 22:27] LABS: D-Dimer 0.38 ug/mL (0.0-0.5)
[2025-03-18] MEDS: ASPIRIN 81MG CHEWABLE TABLET 324 MG PO (22:30)
[2025-03-18 23:00] VITALS: BP 127/81; PULSE 69; RESP 14; O2SAT 98
[2025-03-18 23:27] VITALS: BP 143/81; PULSE 84; RESP 21; O2SAT 99
[2025-03-18 23:30] VITALS: BP 152/93; PULSE 76; RESP 15; O2SAT 99
--- NOTE | 2025-03-18 23:31 | ECG_ITS ---
APPROVED REPORT Exam: Resting ECG HR:76 bpm ECG Measurements Heart Rate 76 AXES QRSd 107 QRS -11 QT 403 T -8 QTc 433 Conclusion ATRIAL FIBRILLATION NONSPECIFIC T-WAVE ABNORMALITY ABNORMAL RHYTHM ECG UNCONFIRMED REPORT Electronically signed by : CARLIN FORTE, 03/19/2025 06:42:45
--- NOTE | 2025-03-18 23:32 | PC.NURSE ---
pt c/o chest pain, provider aware PRN EKG complete
[2025-03-18] MEDS: BELLADONNA ALKALOIDS 60 ML ML PO (23:33)
[2025-03-18] MEDS: ACETAMINOPHEN 500MG TAB 1000 MG PO (23:33)
[2025-03-18 23:53] VITALS: BP 147/89; PULSE 73; RESP 15; O2SAT 96
[2025-03-19] VITALS: BP 138/91; PULSE 75; RESP 16; O2SAT 94
[2025-03-19 00:31] VITALS: BP 126/63; PULSE 70; RESP 15; O2SAT 94
[2025-03-19 00:56] VITALS: BP 139/82; PULSE 87; RESP 21; TEMP 37.1; O2SAT 99
[2025-03-19 01:00] VITALS: BP 106/62; PULSE 75; RESP 18; O2SAT 94
[2025-03-19 01:30] VITALS: BP 102/69; PULSE 64; RESP 15; O2SAT 91
[2025-03-19 01:49] LABS: Troponin I < 0.01 ng/ml (0.00-0.034)
[2025-03-19 02:01] VITALS: BP 122/72; PULSE 83; RESP 16; O2SAT 96
== END 2025-03-19 02:09 | disposition home or self-care (01) ==
PROVIDERS: Student in an Organized Health Care Education/Training Program; Emergency Provider Emergency Medicine; PCP Family Medicine
DX: R07.9 Chest pain, unspecified (principal); I10 Essential (primary) hypertension; E78.5 Hyperlipidemia, unspecified; Z86.79 Personal history of other diseases of the circulatory system; Z79.01 Long term (current) use of anticoagulants; Z95.5 Presence of coronary angioplasty implant and graft
CPT/HCPCS: 71045; 80053; 84484; 85025; 85378; 93005; 99285

== ENCOUNTER 2025-03-18 21:49 | Emergency (ER) | payer BC, OTHER, SELFPAY ==
--- OUTSIDE RECORDS SUMMARY | 2024-01-23 06:45 | XMS_ITS ---
Author Organization [facility] Address [address] [place] [id number] Care Team Providers Care Tail End Rider Name Role Phone Mike Cosby Primary Care Provider [phone] Allergies Allergen (clinical drug ingredient) Drug/Non Drug Allergy documented on EMR Reaction Allergy Type Onset Date Status bisacodyl Dulcolax throat swells up Drug Allergy Active Results Component Value Reference Range Notes X ray : Knee, right Reviewed date:01/24/2024 12:24:53 PM Interpretation:mild osteophytes Performing Lab: Notes/Report: mild osteophytes REASON FOR VISIT follow UTC , fractured knee Medications Medication SIG (Take, Route, Frequency, Duration) Notes Start Date End Date Status Trulicity 1.5 MG/0.5ML 1.5 mg Subcutaneo us once weekly 12/17/2023 Active Lisinopril 2.5 MG 1 tablet Orally Once a day Active Synjardy XR 12.5-1000 MG 2 tab(s) orally once a day Active Levothyroxine Sodium 150 MCG 1 tab(s) Orally once a day; Duration: 90 days Active Ondansetron 4 MG 1 tab(s) orally ever y 8 hours as needed 12/16/2020 Active Nitroglycerin 0.4 MG as directed Sublingual 2023 Active Airsupra 90-80 MCG/ACT 2 puffs as needed Inhalation Six times a day as needed 07/17/2023 Active CPAP machine and supplies - as directed as directed 11/1008/30/2023 Active Plavix 75 MG 1 tablet Orally Once a day; Duration: 90 days Active Aspirin 81 MG 1 tablet Orally Once a day Active Metoprolol Succinate ER 50 MG 1 tablet Orally Once a day Active Atorvastatin Calcium 40 MG 1 tablet Oral ly Once a day Active Vital Signs Blood pressure systolic 142 mm Hg 01/23/20 24 Blood pressure diastolic 90 mm Hg 024 Heart Rate 116 /min 01/23/2024 Height 65 in 01/23/2024 Weight 209.4 lbs 01/23/2024 BMI 34.84 kg/m2 01/23/2024 Encounters Encounter Location Date Provider Diagnosis [facility] [address] [facility] [address] [facility] [address] [place] [id number] 01/23/2024 Mike Cosby Pain, joint, knee, right M25.561 Assessments Encounter Date Diagnosis (ICD Code) Assessment Notes Treatment Notes Treatment Clinical Notes Section Notes 01/23/2024 Pain, joint, knee, right (ICD-10 - M25.561) Plan Of Treatment Next Appt Details Follow Up: 2 Weeks, Reason: Provider Name:Mike Mccann , 05/12/2025 09:30:00 AM, [address] [facility] [address] [facility], [address], [place], [phone], Progress Notes * MARY ANNE SABADOB:1970 (7 3 yo F)Acc No.[id number]:01/23/2024 Progress Notes Patient: MARY ANNE CHEN Provider: Jono Cosby M.D. :1970 A ge:53 Y S ex:Female Date:01/23/2024 Address:[facility] [address], [facility], [phone] Subjective: * Chief Complaints: * [address] [facility] , fractured knee. * HPI: H PI: 53 year old female presents with c/o Here for follow up on:?01[place]19/20[place] [facility] [place] Pt was seen for rt knee pain due to fall. Pt dx with l t knee hairline f racture. Pt states she is having some pain in lt knee but rt knee pain is unbearable . Pt does currently have brace on rt knee. * ROS: D ERMATOLOGY: no R payton. n o H latoya. G ASTROENTEROLOGY: no N ausea. n o V omiting. U ROLOGY: no D ifficulty urinating. n o B lood in urine. * Medical History: C oronary Artery Disease, s/p 1 stent placed 2022 at [facility], Type 2 Diabetes, Hypothyroidism, Post Traumatic Stress Disorder, Osteoarthritis, Allergic rhinitis, Asthma. * Surgical History: C holecystectomy , Appendectomy , Lysis of Adhesions 2003, , Heart Cath, Normal 01/14/2010, Upper GI Scope 2009, Lower abdominal wall resection, MRSA infection 10/2013, Deviated Septum Repair 09/16/2015, Percutaneous coronary intervention with 1 stent placed at [facility] 12/2022, LT Heart Cath, Normal, at [facility] 07/07/2023. * Hospitalization/Major Diagno stic Procedure: P jwia 2005, 2006, 2008, 2012, ER [facility] transported to [facility] 01/13/2010, LT Leg Injury- [facility] and [place] 01/08/2011, Headache, Chest Pain- [place] [facility] 04/2011, Shoulder Pain- [facility] ER 02/29/2012, Constipation , MRSA- [facility] 10/2013, Sinus Infection from Sinus Surgery- [facility] 09/23/2015, Nasal Drainage Surgery- 11/26/2015, LT Nostril Packing- [id number], Chest Pain- [facility] 01/18-. * Family History: F ather: , coronary artery disease, of [place] at age 62. M other: alive, Diabetes. S iblings: sister CVA and [place] age 41. 2 sister(s) - healthy. 2 son(s) , 2 daughter(s) - healthy. . sister DX at age of 32 with breast cancer. * Social History: C URRENT TOBACCO USE S moking Status: Patient does NOT smoke. C affeine: yes, frequency: tea, daily. Past smoking status: no. * Medications: T aking Metoprolol Succinate ER 50 MG Tablet Extended Release 24 Hour 1 tablet Orally Once a day , Taking Atorvastatin Calcium 40 MG Tablet 1 tablet Orally Once a day , Taking Aspirin 81 MG Tablet Delayed Release 1 tablet Orally Once a day , Taking Nitroglycerin 0.4 MG Tablet Sublingual as directed Sublingual , Taking Airsupra 90-80 MCG/ACT Aerosol 2 puffs as needed Inhalation Six times a day as needed , Taking CPAP machine and supplies - - as directed as directed , Notes to Pharmacist: 11/10, Taking Plavix 75 MG Tablet 1 tablet Orally Once a day , Taking Trulicity 1.5 MG/0.5ML Solution Pen-injector 1.5 mg Subcutaneous once weekly , Taking Lisinopril 2.5 MG Tablet 1 tablet Orally Once a day , Taking Synjardy XR 12.5-1000 MG Tablet Extended Release 24 Hour 2 tab(s) orally once a day , Taking Levothyroxine Sodium 150 MCG Tablet 1 tab(s) Orally once a day , Taking Ondansetron 4 MG Tablet Disintegrating 1 tab(s) orally every 8 hours as needed , Medication List reviewed and reconciled with the patient * Allergies: D ulcolax: throat swells up. Objective: * Vitals: W t:209.4, Temp:98.0, BP:142/90, HR:116, Nurse:karo, Ht: 65, BMI:34.84. * Examination: G eneral Examination: General Appearance: N AD, using a walker to assist with ambulation. K nee / Bailey: Knee: right. P alpation: tenderness on medial jointline. R thuy of motion: painful movements. M cmurray: b orderline positive medially. Assessment: * Assessment: 1. P ain, joint, knee, right - M25.561 (Primary) Plan: * Treatment: * Follow Up: 2 Weeks * Images: Billing Information: * Visit Code: 70828 Office Visit, Est Pt., Level 3. * Procedure Codes: * Electronic signature of Mary Cosby MD on 03/18/2025 at 09:57 PM EDT Sign off status: Pending * Provider: Jono Cosby M.D. Date: 0 01/23/2024 Generated for Qi noyola/Francisca/Joseluis on: 09:57 PM EDT History and Physical Notes * HPI (History of Present Illness) Category Sub-Category Detail Notes Category Not es HPI Here for follow up on: 4 [facility] [place] Pt was seen for rt knee pain due to fall. Pt dx with lt knee hairline fracture. Pt states she is having some pain in lt knee but rt knee pain is unbearable . Pt does currently have brace on rt knee Examination Category Sub-Category Detail Notes Category Not es General Examination General Appearance: NAD, usi ng a walker to assist with ambulation Knee / Bailey Carlie: borderline positive medially Palpation: tenderness on medial jointline Knee: right Range of motion: painful movements
--- OUTSIDE RECORDS SUMMARY | 2024-02-06 05:45 | XMS_ITS ---
Author Organization [facility] Address [address] [place] [id number] Care Team Providers Care Creative Writing Professor Name Role Phone Alea Mike Primary Care Provider [phone] Allergies Allergen (clinical drug ingredient) Drug/Non Drug Allergy documented on EMR Reaction Allergy Type Onset Date Status bisacodyl Dulcolax throat swells up Drug Allergy Active REASON FOR VISIT 2 weeks Medications Medication SIG (Take, Route, Frequency, Duration) Notes Start Date End Date Status dexAMETHasone 1 MG 1 tablet Orally Once 02/06/2024 Active Synjardy XR 12.5-1000 MG 2 tab(s) orally once a day Active Lisinopril 2.5 MG 1 tablet Orally Once a day Active Ondansetron 4 MG 1 tab(s) orally ever y 8 hours as needed Active Levothyroxine Sodium 150 MCG 1 tab(s) Orally once a day; Duration: 90 days Active CPAP machine and supplies - as directed as directed 11/1008/30/2023 Active Airsupra 90-80 MCG/ACT 2 puffs as needed Inhalation Six times a day as needed 07/17/2023 Active Trulicity 1.5 MG/0.5ML 1.5 mg Subcutaneo us once weekly 12/17/2023 Active Plavix 75 MG 1 tablet Orally Once a day; Duration: 90 days Active Nitroglycerin 0.4 MG as directed Sublingual 2023 Active Atorvastatin Calcium 40 MG 1 tablet Oral ly Once a day Active Metoprolol Succinate ER 50 MG 1 tablet Orally Once a day Active Aspirin 81 MG 1 tablet Orally Once a day Active Vital Signs Blood pressure systolic 134 mm Hg 02/06/20 24 Blood pressure diastolic 82 mm Hg 024 Heart Rate 89 /min 02/06/2024 Height 65 in 02/06/2024 Weight 214 lbs 02/06/2024 BMI 35.61 kg/m2 02/06/2024 Encounters Encounter Location Date Provider Diagnosis [facility] [address] [place] [address] [address] [place] [id number] 02/06/2024 Mike Cosby Pain, joint, knee, right M25.561 and Fatigue, unspecified type R53.83 Assessments Encounter Date Diagnosis (ICD Code) Assessment Notes Treatment Notes Treatment Clinical Notes Section Notes 02/06/2024 Pain, joint, knee, right (ICD-10 - M25.561) Improved 02/06/2024 Fatigue, unspecified type (ICD-10 - R53.83) Plan for an overnight dexamethasone suppression test, will need to have an AM cortisol and dexamethasone level drawn in office between 8 and 9 am Plan Of Treatment Medication Medication Name Sig Start Date Stop Date Notes dexAMETHasone 1 MG 1 tablet Orally Once 02/06/2024 Treatment Notes Assessment Notes Pain, joint, knee, right Improved Fatigue, unspecified type Plan for an ov ernight dexamethasone suppression test, will need to have an AM cortisol and dexamethasone level drawn in office between 8 and 9 am Next Appt Details Follow Up: as scheduled,and prn, Reason: Provider Name:Mike Mccann , 05/12/2025 09:30:00 AM, [address] [facility] [address] [facility], [address], [place], [id number], Progress Notes * MARY ANNE SABADOB:1970 (7 3 yo F)Acc No.[id number]:02/06/2024 Progress Notes Patient: Kayleigh HILARIAShruthi MARY ANNE Provider: Jono Csoby M.D. :1970 A ge:54 Y S ex:Female Date:02/06/2024 Address:[address] [place] [address], [id number] Subjective: * Chief Complaints: * 1 . 2 weeks. * HPI: K nee/Bailey: 54 year old female presents with c/o knee pain P t here for 2 week f/u on knee pain from fall. Pt states rt knee pain has improved and she no longer need to wear brace. Pt states she does still have some pain when standing and walking but no pain when sitting. * ROS: C ONSTITUTIONAL: Fatigue yes. D ERMATOLOGY: no R payton. n o H latoya. G ASTROENTEROLOGY: no N ausea. n o V omiting. U ROLOGY: no D ifficulty urinating. n o B lood in urine. * Medical History: C oronary Artery Disease, s/p 1 stent placed 2022 at [facility], Type 2 Diabetes, Hypothyroidism, Post Traumatic Stress Disorder, Osteoarthritis, Allergic rhinitis, Asthma. * Surgical History: C holecystectomy , Appendectomy , Lysis of Adhesions 2003, , Heart Cath, Normal 01/14/2010, Upper GI Scope 2009, Lower abdominal wall resection, MRSA infection 10/2013, Deviated Septum Repair 09/16/2015, Percutaneous coronary intervention with 1 stent placed at [facility] 12/2022, LT Heart Cath, Normal, at [facility] 07/07/2023. * Hospitalization/Major Diagno stic Procedure: P neumonia 2005, 2006, 2008, 2012, ER [facility] transported to [facility] 01/13/2010, LT Leg Injury- [facility] and [facility] 01/08/2011, Headache, Chest Pain- [facility] 04/2011, Shoulder Pain- [facility] ER 02/29/2012, Constipation , MRSA- [facility] 10/2013, Sinus Infection from Sinus Surgery- [facility] 09/23/2015, Nasal Drainage Surgery- 11/26/2015, LT Nostril Packing- [id number], Chest Pain- [facility] 01/18-. * Family History: F ather: , coronary artery disease, of [place] at age 62. M other: alive, Diabetes. S iblings: sister CVA and CT age 41. 2 sister(s) - healthy. 2 [...] throat swells up. Objective: * Vitals: W t:214, Temp:98.0, BP:134/82, HR:89, Nurse:karo, Ht: 65, BMI:35.61. * Examination: G eneral Examination: General Appearance: N AD. H eart: R SR. L ungs:?clear to auscultation. E xtremities: r ight knee ROM has improved, there is less swelling. Assessment: * Assessment: 1. P ain, joint, knee, right - M25.561 (Primary) 2 . F atigue, unspecified type - R53.83 Plan: * Treatment: 2. F atigue, unspecified type Start dexAMETHasone Tablet, 1 MG, 1 tablet, Orally, Once, 1, Refills 0. Notes: Plan for an overnight dexamethasone suppression test, will need to have an AM cortisol and dexamethasone level drawn in office between 8 and 9 am * Follow Up: a s scheduled,and prn * Images: Billing Information: * Visit Code: 89775 Office Visit, Est Pt., Level 3. * Procedure Codes: * Electronic signature of Mary Cosby MD on 03/18/2025 at 09:58 PM EDT Sign off status: Pending * Provider: Jono Cosby M.D. Date: 0 02/06/2024 Generated for Qi noyola/Francisca/eTransmitting on: 1 09:58 PM EDT History and Physical Notes * HPI (History of Present Illness) Category Sub-Category Detail Notes Category Not es Knee/Bailey knee pain Pt here for 2 we ek f/u on knee pain from fall. Pt states rt knee pain has improved and she no longer need to wear brace. Pt states she does still have some pain when standing and walking but no pain when sitting Examination Category Sub-Category Detail Notes Category Not es General Examination Heart: RSR Lungs: clear to auscultatio n Extremities: right knee ROM has i mproved, there is less swelling General Appearance: NAD
--- OUTSIDE RECORDS SUMMARY | 2024-03-12 05:15 | XMS_ITS ---
Author Organization [facility] Address [address] [place] [id number] Care Team Providers Care Structural Architect Name Role Phone Mike Cosby Primary Care Provider Allergies Allergen (clinical drug ingredient) Drug/Non Drug [...] 160, bun 21 Performing Lab: Notes/Report: CLIA: [id number] Arpit Dutta MD, [facility] , [address], [place] [address] Test performed by [email or web address], [facility] Sodium 137 135-145 mmol/L Potassium 4.4 3.5-5.3 [...] Normal Performing Lab: Notes/Report: Test performed by [facility] [address] [place] [address] , [address] [place] [id number] Arpit Dutta MD, Lens Gauger CLIA: [id number] Thyroxine Free (free T4) 1.32 0.86-1.76 ng/dL P-Lipid Panel Reviewed date:03/13/2024 10:30:19 AM Interpretation: Normal Performing Lab: Notes/Report: Test performed by [facility] [address] [place] [address] , [address], [place] [address] Arpit Dutta MD, Lens Gauger CLIA: [id number] Cholesterol 111 <200 mg/dL Triglycerides 142 <150 [...] Interpretation:0.32 Performing Lab: Notes/Report: Test performed by [facility] [address] [place] [address] , [place] [address] Arpit Dutta MD, Lens Gauger CLIA: [id number] TSH 0.32 0.43-5.25 mU/L P-Microalbumin/Creatinine, R andom Urine Sample Reviewed date:03/13/2024 10:30:20 AM Interpretation: Normal Performing Lab: Notes/Report: Test performed by [facility] [address] [place], [place] [address] , [place] [address] Arpit Dutta MD, Lens Gauger CLIA: [id number] Albumin/Creatinine Ratio, Urine 17 0-30 ug/m g [...] 03/12/2024 Encounters Encounter Location Date Provider Diagnosis [facility] [address] [facility] [address] [place], [place] [address], [place] [id number] 03/12/2024 Mike Cosby Type 2 diabetes cora [...] 4 Months, Reason: Provider Name:Mike Mccann ry, 05/12/2025 09:30:00 AM, [address] [facility] [address] [facility], [address] , [place], [place], [id number], Progress Notes * MARY ANNE SABADOB:1970 ([age] yo F)Acc No.[id number]:03/12/2024 Progress Notes Patient: MARY ANNE CHEN Provider: Jono Cosby M.D. :1970 A ge:54 Y S ex:Female Date:03/12/2024 Address:[address] [place] [address], [id number] Subjective: * Chief Complaints: * 1 . [...] Disease, s/p 1 stent placed 2022 at [facility], Type 2 Diabetes, Hypothyroidism, Post Traumatic Stress Disorder, Osteoarthritis, Allergic rhinitis, Asthma, Strongyloides Ig G positive - treated in . * Surgical History: C holecystectomy , Appendectomy , Lysis of Adhesions 2003, , Heart Cath, Normal 01/14/2010, Upper GI Scope 2009, Lower abdominal wall resection, MRSA infection 10/2013, Deviated Septum Repair 09/16/2015, Percutaneous coronary intervention with 1 stent placed at [facility] 12/2022, LT Heart Cath, Normal, at [facility] 07/07/2023. * Hospitalization/Major Diagno stic Procedure: P neumonia 2005, 2006, 2008, 2012, ER [facility] transported to [facility] 01/13/2010, LT Leg Injury- [facility] and [place] 01/08/2011, Headache, Chest Pain- [place] [facility] 04/2011, Shoulder Pain- [facility] ER 02/29/2012, Constipation , MRSA- [facility] 10/2013, Sinus Infection from Sinus Surgery- [facility] 09/23/2015, Nasal Drainage Surgery- 11/26/2015, LT Nostril Packing- [id number], Chest Pain- [facility] 01/18-. * Family History: F ather: , coronary artery disease, of MD at age 62. M other: alive, Diabetes. S iblings: sister CVA and MD age 41. 2 sister(s) - healthy. 2 [...] * Procedure Codes: 8 2950 GLUCOSE TEST, 38854 GLYCATED HEMOGLOBIN TEST, Modifiers: QW * Follow Up: 4 Months * Images: Billing Information: * Visit Code: 33971 Office Visit, Est Pt., Level 4. * Procedure Codes: 41787 GLUCOSE TEST. 41427 GLYCATED HEMOGLOBIN TEST. Modifiers: QW * Electronic signature of Mary Cosby MD on 03/18/2025 at 09:58 PM EDT Sign off status: Pending * Provider: Jono Cosby M.D. Date: Generated for Qi noyola/Francisca/eTransmitting on: 09:58 PM EDT History and Physical Notes [...]
--- OUTSIDE RECORDS SUMMARY | 2024-03-17 05:30 | XMS_ITS ---
Author Organization [facility] Address [address] [facility] [address] [facility] [address] [place] [id number] Care Team Providers Care Director [facility] Name Role Phone Mike Cosby Primary Care Provider [phone] REASON FOR VISIT 3 month f/u Encounters Encounter Location Date Provider Diagnosis [facility] [address] [facility] [address] [place] [id number] 03/17/2024 Mike Cosby Plan Of Treatment Next Appt Details Provider Name:Mike Mccann ry, 05/12/2025 09:30:00 AM, [address], [address], [place], [phone], Progress Notes * MARY ANNE SABADOB:1970 ([age] yo F)Acc No.[id number]:03/17/2024 Progress Notes Patient: Kayleigh LINCOLN MARY ANNE Provider: Jono Cosby M.D. :1970 A ge:54 Y S ex:Female Date:03/17/2024 Address:[address] [facility] [address], [phone] Subjective: * Chief Complaints: * 1 . 3 month f/u. * Medical History: Objective: * Vitals: Assessment: Plan: * Treatment: * Images: Billing Information: * Visit Code: * Procedure Codes: * Electronic signature of Mary Cosby MD on 03/18/2025 at 09:57 PM EDT Sign off status: Pending * Provider: Jono Cosby M.D. Date: 1 Generated for Qi noyola/Francisca/Joseluis on: 09:57 PM EDT
--- OUTSIDE RECORDS SUMMARY | 2024-05-26 06:45 | XMS_ITS ---
Author Organization [facility] Address [address] [place] [phone] Care Team Providers Care Engraver Block Name Role Phone Mike Cosby Primary Care Provider Allergies Allergen (clinical drug ingredient) Drug/Non Drug Allergy documented on EMR Reaction Allergy Type Onset Date Status bisacodyl Dulcolax throat swells up Drug Allergy Active Results Component Value Reference Range Notes CXR Reviewed date:05/27/2024 01:10:13 PM Interpretation:previously noted opacity has resolved Performing Lab: Notes/Report: previously noted opacity has resolved REASON FOR VISIT f/u FROM [facility] pneumonia Medications Medication SIG (Take, Route, Frequency, [...] 05/26/2024 Encounters Encounter Location Date Provider Diagnosis [facility] [address] [facility] [address] [place] [phone] 05/26/2024 Mike Cosby Community acquired pneumonia of [...] test results, Reason: Provider Name:Mike Mccann ry, 05/12/2025 09:30:00 AM, [address], [address], [place], [phone], Progress Notes * MARY ANNE SABADOB:1970 ([age] yo F)Acc No.[id number]:05/26/2024 Progress Notes Patient: Kayleigh LINCOLN MARY ANNE Provider: Jono Cosby M.D. :1970 A ge:54 Y S ex:Female Date:05/26/2024 Address:[address], [place], [id number] Subjective: * Chief Complaints: * 1 . f/u FROM [facility] pneumonia. * HPI: H PI: 54 year old female presents with c/o Here for follow up on:?05/19/2024 [facility] visit, see pt docs. Pt went to [facility] for shortness of breath and wheezing. [...] Disease, s/p 1 stent placed 2022 at [facility], Type 2 Diabetes, Hypothyroidism, Post Traumatic Stress Disorder, Osteoarthritis, Allergic rhinitis, Asthma, Strongyloides Ig G positive - treated in . * Surgical History: C holecystectomy , Appendectomy , Lysis of Adhesions 2003, , Heart Cath, Normal 01/14/2010, Upper GI Scope 2009, Lower abdominal wall resection, MRSA infection 10/2013, Deviated Septum Repair 09/16/2015, Percutaneous coronary intervention with 1 stent placed at [facility] 12/2022, LT Heart Cath, Normal, at [facility] 07/07/2023. * Hospitalization/Major Diagno stic Procedure: P jwia 2005, 2006, 2008, 2012, ER [facility] transported to [facility] 01/13/2010, LT Leg Injury- [facility] and [place] 01/08/2011, Headache, Chest Pain- [place] ER 04/2011, Shoulder Pain- [facility] ER 02/29/2012, Constipation , MRSA- [facility] 10/2013, Sinus Infection from Sinus Surgery- [facility] 09/23/2015, Nasal Drainage Surgery- 11/26/2015, LT Nostril Packing- [id number], Chest Pain- [facility] 01/18-. * Family History: F ather: , coronary artery disease, of [place] at age 62. M other: alive, Diabetes. S iblings: sister CVA and [place] age 41. 2 sister(s) - healthy. 2 [...] * Images: Billing Information: * Visit Code: 01335 Office Visit, Est Pt., Level 3. * Procedure Codes: 26559 PULSE OX. * Electronic signature of Mary Cosby MD on 03/18/2025 at 09:57 PM EDT Sign off status: Pending * Provider: Jono Cosby M.D. Date: 1 Generated for Qi noyola/Francisca/eTransmitting on: 09:57 PM EDT History and Physical Notes * HPI (History of Present Illness) Category Sub-Category Detail Notes Category Not es HPI Here for follow up on: 4 [facility] visit, see pt docs. Pt went to [facility] for shortness of breath and wheezing. Pt was dx with pneumonia. Pt states she is feeling better but still coughing a little bit Examination Category Sub-Category Detail Notes Category Not es General Examination Heart: RSR Lungs: clear to auscultatio n General Appearance: NAD Chest: normal shape and exp ansion
--- OUTSIDE RECORDS SUMMARY | 2024-06-06 07:00 | XMS_ITS ---
Author Organization [facility] Address [address] [place] [id number] Care Team Providers Care Fur Operator Name Role Phone Mike Cosby Primary Care Provider Jaclyn Hahn Unavailable [phone] Allergies Allergen (clinical drug ingredient) Drug/Non Drug [...] 06/06/2024 Encounters Encounter Location Date Provider Diagnosis [facility] [address] [facility] [address] [facility] [address] [place] [id number] 06/06/2024 Jaclyn Hahn Injury of toe on lef t foot, initial encounter S99.922A Assessments Encounter Date Diagnosis (ICD Code) Assessment Notes Treatment Notes Treatment Clinical Notes Section Notes 06/06/2024 Injury of toe on left foot, initial encounter (ICD-10 - S99.922A) Plan Of Treatment Next Appt Details Follow Up: via phone to repo rt test results, Reason: Provider Name:Mike Mccann , 05/12/2025 09:30:00 AM, [address] [facility] [address] [facility], [address], [place], [id number], Progress Notes * MARY ANNE SABADOB:1970 (5 5 yo F)Acc No.[id number]:06/06/2024 Progress Notes Patient: MARY ANNE CHEN Provider: CATIE Weems :1970 A ge:54 Y S ex:Female Date:06/06/2024 Address:[address] [place] [address], [place], [id number] Pcp:Mike Cosby Subjective: * Chief Complaints: * [...] Disease, s/p 1 stent placed 2022 at [facility], Type 2 Diabetes, Hypothyroidism, Post Traumatic Stress Disorder, Osteoarthritis, Allergic rhinitis, Asthma, Strongyloides Ig G positive - treated in . * Surgical History: C holecystectomy , Appendectomy , Lysis of Adhesions 2003, , Heart Cath, Normal 01/14/2010, Upper GI Scope 2009, Lower abdominal wall resection, MRSA infection 10/2013, Deviated Septum Repair 09/16/2015, Percutaneous coronary intervention with 1 stent placed at [facility] 12/2022, LT Heart Cath, Normal, at [facility] 07/07/2023. * Hospitalization/Major Diagno stic Procedure: P tabby 2005, 2006, 2008, 2012, ER [facility] transported to [facility] 01/13/2010, LT Leg Injury- [facility] and [place] 01/08/2011, Headache, Chest Pain- [place] ER 04/2011, Shoulder Pain- [facility] ER 02/29/2012, Constipation , MRSA- [facility] 10/2013, Sinus Infection from Sinus Surgery- [facility] 09/23/2015, Nasal Drainage Surgery- 11/26/2015, LT Nostril Packing- [id number], Chest Pain- [facility] 01/18-. * Family History: F ather: , coronary artery disease, of [place] at age 62. M other: alive, Diabetes. S iblings: sister CVA and [place] age 41. 2 sister(s) - healthy. 2 [...] * Images: Billing Information: * Visit Code: 52566 Office Visit, Est Pt., Level 3. * Procedure Codes: * Electronic signature of CATIE Guaman on 03/18/2025 at 05:11 PM EDT Sign off status: Pending * Provider: CATIE Weems Date: 0 06/06/2024 Generated for Qi noyola/Francisca/eTransmitting on: 05:11 PM EDT History and Physical Notes * [...]
--- OUTSIDE RECORDS SUMMARY | 2024-07-15 05:45 | XMS_ITS ---
Author Organization [facility] Address [address] [place] [id number] Care Team Providers Care Concrete Precast Moulder Name Role Phone Mike Cosby Primary Care Provider [phone] Allergies Allergen (clinical drug ingredient) Drug/Non Drug [...] Encounter Location Date Provider Diagnosis [facility] [facility]10 [facility] 36 [facility] [address] [place], [place] [phone] 07/15/2024 Mike Cosby Type 2 diabetes cora [...] Up: 6 Months, Reason: Provider Name:Mike tolentino, 05/12/2025 09:30:00 AM, [address] [facility], [address], [place], [place], [id number], Progress Notes * TOÑO SABA:1970 ([age] yo F)Acc No.[id number]:07/15/2024 Progress Notes Patient: MARY ANNE CHEN Provider: Jono Cosby M.D. :1970 A ge:54 Y S ex:Female Date:07/15/2024 Address:[address] [place] [address], [place], [id number] Subjective: * Chief Complaints: * 1 . [...] Disease, s/p 1 stent placed 2022 at [facility], Type 2 Diabetes, Hypothyroidism, Post Traumatic Stress Disorder, Osteoarthritis, Allergic rhinitis, Asthma, Strongyloides Ig G positive - treated in . * Surgical History: C holecystectomy , Appendectomy , Lysis of Adhesions 2003, , Heart Cath, Normal 01/14/2010, Upper GI Scope 2009, Lower abdominal wall resection, MRSA infection 10/2013, Deviated Septum Repair 09/16/2015, Percutaneous coronary intervention with 1 stent placed at [facility] 12/2022, LT Heart Cath, Normal, at [facility] 07/07/2023. * Hospitalization/Major Diagno stic Procedure: P neumonia 2005, 2006, 2008, 2012, ER [facility] transported to [facility] 01/13/2010, LT Leg Injury- [facility] and [place] 01/08/2011, Headache, Chest Pain- [place] ER 04/2011, Shoulder Pain- [facility] ER 02/29/2012, Constipation , MRSA- [facility] 10/2013, Sinus Infection from Sinus Surgery- [facility] 09/23/2015, Nasal Drainage Surgery- 11/26/2015, LT Nostril Packing- 11/[id number], Chest Pain- [facility] 01/18-. * Family History: F ather: , coronary artery disease, of [place] at age 62. M other: alive, Diabetes. S iblings: sister CVA and [place] age 41. 2 sister(s) - healthy. 2 [...] Procedure Codes: 3 6416 CAPILLARY BLOOD DRAW, 13926 GLUCOSE TEST, 60383 GLYCATED HEMOGLOBIN TEST, Modifiers: QW , 3075F SYST BP GE 130 - 139MM HG, 3079F DIAST BP 80-89 MM HG, 3052F HG A1C>EQUAL 8.0%<EQUAL 9.0% * Follow Up: 6 Months * Images: Billing Information: * Visit Code: 42324 Office Visit, Est Pt., Level 3. * Procedure Codes: 76818 CAPILLARY BLOOD DRAW. 24793 GLUCOSE TEST. 65797 GLYCATED HEMOGLOBIN TEST. Modifiers: QW 3075F SYST BP GE 130 - 139MM HG. 3079F DIAST BP 80-89 MM HG. 3052F HG A1C>EQUAL 8.0%<EQUAL 9.0%. * Electronic signature of Mary Cosby MD on 03/18/2025 at 05:11 PM EDT Sign off status: Pending * Provider: Jono Cosby M.D. Date: 0 07/15/2024 Generated for Qi noyola/Francisca/Mamadouitting on: 1 05:11 PM EDT History and Physical Notes [...]
--- OUTSIDE RECORDS SUMMARY | 2025-01-12 06:00 | XMS_ITS ---
Author Organization [facility] Address [address] [place] [phone] Care Team Providers Care Tape Folding Machine Operator Name Role Phone Mike Cosby Primary [...] Encounter Location Date Provider Diagnosis [facility] [facility] [address] [id number] 01/12/2025 Mike Cosby Type 2 diabetes [address], [place], [phone], Progress Notes * MARY ANNE SABADOB:1970 ([age] yo F)Acc No.[id number]:01/12/2025 Progress Notes Patient: MARY ANNE CHEN Provider: Jono Cosby M.D. :1970 A ge:54 Y S ex:Female Date:01/12/2025 Address:[address] [place] [address], [place], [id number] Subjective: * Chief Complaints: * 1 . [...] Disease, s/p 1 stent placed 2022 at [facility], Type 2 Diabetes, Hypothyroidism, Post Traumatic Stress Disorder, Osteoarthritis, Allergic rhinitis, Asthma, Strongyloides Ig G positive - treated in . * Surgical History: C holecystectomy , Appendectomy , Lysis of Adhesions 2003, , Heart Cath, Normal 01/14/2010, Upper GI Scope 2009, Lower abdominal wall resection, MRSA infection 10/2013, Deviated Septum Repair 09/16/2015, Percutaneous coronary intervention with 1 stent placed at [facility] 12/2022, LT Heart Cath, Normal, at [facility] 07/07/2023. * Hospitalization/Major Diagno stic Procedure: P neumonia 2005, 2006, 2008, 2012, ER [facility] transported to [facility] 01/13/2010, LT Leg Injury- [facility] and [place] 01/08/2011, Headache, Chest Pain- [place] ER 04/2011, Shoulder Pain- [facility] ER 02/29/2012, Constipation , MRSA- [facility] 10/2013, Sinus Infection from Sinus Surgery- [facility] 09/23/2015, Nasal Drainage Surgery- 11/26/2015, LT Nostril Packing- [id number], Chest Pain- [facility] 01/18-. * Family History: F ather: , [...] Procedure Codes: 3 6416 CAPILLARY BLOOD DRAW, 85960 GLUCOSE TEST, 25535 GLYCATED HEMOGLOBIN TEST, Modifiers: QW , 3044F HG A1C LEVEL LT 7.0%, 1036F TOBACCO NON-USER, 3074F SYST BP LT 130 MM HG, 3079F DIAST BP 80-89 MM HG * Follow Up: 4 Months * Images: Billing Information: * Visit Code: 14263 Office Visit, Est Pt., Level 3. * Procedure Codes: 02276 CAPILLARY BLOOD DRAW. 60591 GLUCOSE TEST. 61379 GLYCATED HEMOGLOBIN TEST. Modifiers: QW 3044F HG A1C LEVEL LT 7.0%. 1036F TOBACCO NON-USER. 3074F SYST BP LT 130 MM HG. 3079F DIAST BP 80-89 MM HG. * Electronic signature of Mary Cosby MD on 03/18/2025 at 05:11 PM EDT Sign off status: Pending * Provider: Jono Cosby M.D. Date: 0 01/12/2025 Generated for Qi noyola/Francisca/Joseluis on: 1 05:11 PM EDT History and [...]
--- OUTSIDE RECORDS SUMMARY | 2025-01-29 10:37 | XMS_ITS ---
Author Organization [facility] Address [address] [facility] [address] [facility] [address] [place] [id number] Care Team Providers Care Counter Tender Name Role Phone Mike Cosby Primary Care Provider [phone] Results Component Value Reference Range Notes Mammogram Reviewed date:02/24/2025 12:12:01 PM Interpretation:Negative Performing Lab: Notes/Report: Negative result Negative REASON FOR VISIT due beth, col Encounters Encounter Location Date Provider Diagnosis [place] [address] [facility] [address] [place] [id number] 01/29/2025 Mike Cosby Breast cancer screening Z12.31 Assessments Encounter Date Diagnosis (ICD Code) Assessment Notes Treatment Notes Treatment Clinical Notes Section Notes 01/29/2025 Breast cancer screening (ICD-10 - Z12.31) Plan Of Treatment Next Appt Details Provider Name:Mike Mccann ry, 05/12/2025 09:30:00 AM, [address] [facility] [address] [facility], [address], [place], [phone], Progress Notes * MARY ANNE SABADOB:1970 ([age] yo F)Acc No.[id number]:01/29/2025 Patient: Kayleigh LINCOLN MARY ANNE :1970 A ge:55 Y S ex:Female Address:[address] [facility] [address], [place] [address] Subjective: * Chief Complaints: * D ue beth, col * Medical History: * Surgical History: * Hospitalization/Major Diagno stic Procedure: * Medications: Objective: * Vitals: * Physical Examination: Assessment: * Assessment: 1. B reast cancer screening - Z12.31 (Primary) Plan: * Treatment: * Procedure Codes: * true * Date: Generated for Qi noyola/Francisca/Joseluis on: 09:59 PM EDT
[2025-03-18 21:54] VITALS: BP 000/00; PULSE 0; RESP 0; TEMP -17.7; TEMP 0; O2SAT 0
--- OUTSIDE RECORDS SUMMARY | 2025-03-18 21:58 | XMS_ITS | Patient Health Record ---
Author Organization [facility] Address [address] [place] [phone] Care Team Providers Care It Infrastructure Engineer Name Role Phone Iris Cosbyian Primary Care Provider EltonJaclyn suarez Alejandra [phone] Allergies Allergen (clinical drug ingredient) Drug/Non Drug Allergy documented on EMR Reaction Allergy Type Onset Date Status bisacodyl Dulcolax throat swells up Drug Allergy Active Results Component Value Reference Range Notes CXR Reviewed date:05/27/2024 01:10:13 PM Interpretation:previously noted opacity has resolved Performing Lab: Notes/Report: previously noted opacity has resolved Mammogram Reviewed date:02/24/2025 12:12:01 PM Interpretation:Negative Performing Lab: Notes/Report: Negative result Negative Glucose (In-House) Reviewed date:07/15/2024 01:25:21 PM Interpretation: Performing Lab: Notes/Report: blood glucose 110 74 - 106 mg/dL Glycohemoglobin A1c (in hous e) Reviewed date:07/15/2024 01:25:29 PM Interpretation: Performing Lab: Notes/Report: glycohemoglobin 8.4% 5 - 6.5 % Glucose (In-House) Reviewed date:01/12/2025 12:21:54 PM Interpretation:117 Performing Lab: Notes/Report: 117 blood glucose 117 74 - 106 mg/dL Glycohemoglobin A1c (in hous e) Reviewed date:01/12/2025 12:21:47 PM Interpretation:5.8% Performing Lab: Notes/Report: 5.8% glycohemoglobin 5.8% 5 - 6.5 % x ray: 5th digit left foot Reviewed date:06/10/2024 04:31:19 PM Interpretation:Negative Performing Lab: Notes/Report: Negative Medications Medication SIG (Take, Route, Frequency, Duration) Notes Start Date End Date Status Ondansetron 4 MG 1 tab(s) orally every 8 hours as needed Active Azelastine-Fluticason e 137-50 MCG/ACT 1 spray in each nostril Nasally Twice a day; Duration: 30 day(s) Active Clopidogrel Bisulfate 75 mg TAKE ONE TABLET BY MOUTH EVERY DAY; Duration: 90 Active CPAP machine and supplies - as directed as directed 11/1008/30/2023 Active CPAP Supplies - as directed as directed 03/12/2024 Active Airsupra 90-80 MCG/ACT 2 puffs as needed Inhalation Six times a day as needed 07/17/2023 Active Levothyroxine Sodium 150 MCG 1 tab(s) Orally once a day; Duration: 90 days Active Montelukast Sodium 10 MG 1 tablet Orally Once a day; Duration: 90 days Active Trulicity 1.5 MG/0.5ML 1.5 mg Subcutaneous once weekly Cancel previous Rx for 3 mg Trulicity 07/15/2024 Active Scopolamine 1 MG/3DAYS 1 patch to skin behind the ear as needed Transdermal every 72 hours 01/12/2025 Active Synjardy XR 12.5-1000 MG TAKE ONE TABLET BY MOUTH TWICE DAILY; Duration: 90 days Active Atorvastatin Calcium 40 MG 1 tablet Orally Once a day; Duration: 90 days Active Aspirin 81 MG 1 tablet Orally Once a day Active Metoprolol Succinate ER 50 MG 1 tablet Orally Once a day; Duration: 90 days Active Nitroglycerin 0.4 MG as directed Sublingual 06/29/2023 Active Lisinopril 2.5 MG 1 tablet Orally Once a day; Duration: 90 days Active Immunizations Vaccine Route Administration Date Status Comme nts Tetanus Tdap-Adacel (over 7yrs) IM Intramuscular 10/11/2018 Administered Prevnar (PCV20) IM Intramuscular 03/12/2024 Administered ppd ID Intradermal 01/07/2020 Administered ppd ID Intradermal 12/16/2020 Administered ppd ID Intradermal 11/10/2021 Administered chest X-ray on 11/12/[address] Pagan needs to be reported to health department on Sunday Problems Problem Type SNOMED Code ICD Code Onset Dates Problem Status W/U Status Risk Notes Problem Posttraumatic stress disorder (14918492) PTSD (Posttraumatic stress disorder) (NOS) (309.81) Active confirmed Problem Essential hypertension (51536685) Essential (primary) hypertension (I10) Active confirmed Problem Obstructive sleep apnea (99170313) Obstructive sleep apnea (G47.33) Active confirmed Problem Angina pectoris (073421075) Angina pectoris (I20.9) Active confirmed Problem Mixed hyperlipidemia (928170144) Mixed hyperlipidemia (E78.2) Active confirmed Problem Unstable angina (5462439) Unstable angina (I20.0) Active confirmed Problem Pulmonary nodule (131494817) Pulmonary nodule (R91.1) Active confirmed Problem Thyroid nodule (947752154) Thyroid nodule (E04.1) Active confirmed Problem Type II diabetes mellitus without complication (568557976) Type 2 diabetes mellitus without complication (E11.9) Active confirmed Problem Acquired hypothyroidism (320191909) Acquired hypothyroidism (E03.9) Active confirmed Problem COPD - Chronic obstructive pulmonary disease (51167301) Chronic obstructive pulmonary disease, unspecified COPD type (J44.9) Active confirmed Problem Atherosclerotic heart disease of saxman coronary artery without angina pectoris (016938906011079) Coronary artery disease involving saxman coronary artery of saxman heart without angina pectoris (I25.10) Active confirmed Problem History of placement of stent for coronary artery disease (situation) (830843019) Status post coronary artery stent placement (Z95.5) Active confirmed Problem Claudication (30062968) Claudication (I73.9) Active confirmed Problem Methicillin resistant Staphylococcus aureus infection (718182614) MRSA infection (A49.02) Active confirmed Problem Hyperlipidaemia (11269147) Hyperlipidemia, unspecified hyperlipidemia type (E78.5) Active confirmed Problem Disorder of adrenal gland (07513757) Adrenal abnormality (E27.9) Active confirmed Problem Hypothyroidism (39485294) Hypothyroidism, unspecified type (E03.9) Active confirmed Problem Dysphagia (82351491) Dysphagia, unspecified type (R13.10) Active confirmed Problem CT of abdomen abnormal (18004293711574522 ) Abnormal CT of the abdomen (R93.5) Active confirmed Problem Essential hypertension (96118695) Essential hypertension with goal blood pressure less than 130\/80 (I10) Active confirmed Problem mammogram - screening (97407107) Screening mammogram, encounter for (Z12.31) Active confirmed Problem Status post nasa l surgery (Z98.89) Active confirmed Problem Atherosclerotic heart disease of saxman coronary artery without angina pectoris (478014488055939) Atherosclerosis of saxman coronary artery without angina pectoris, unspecified whether saxman or transplanted heart (I25.10) Active confirmed Problem Obesity (226453364) Non morbid obesity (E66.9) Active confirmed Problem Type II diabetes mellitus without complication (978985062) Type 2 diabetes mellitus without complication, unspecified whether residential insulin use (E11.9) Active confirmed Problem Menopausal symptom (31354326) Hot flashes due to menopause (N95.1) Active confirmed Vital Signs Heart Rate 77 /min 01/12/2025 Blood pressure diastolic 80 mm Hg 01/12/2025 Height 65 in 01/12/2025 Blood pressure systolic 124 mm Hg 01/12/2025 Weight 181 lbs 01/12/2025 BMI 30.12 kg/m2 01/12/2025 Encounters Encounter Location Date Provider Diagnosis [facility] [facility] [facility] [address] [place], [place] [phone] 05/26/2024 Mike Saltese Community acquired pneumonia of left lung, unspecified part of lung J18.9 [facility] [address] [place], [place] [id number] 06/06/2024 Jaclyn Crowdy Injury of toe on lef t foot, initial encounter S99.922A [facility] [address] [place], [place] [phone] 07/15/2024 Mike Saltese Type 2 diabetes cora itus without complication E11.9 [facility] [address] [facility] [address] [place], [place] [phone] 01/12/2025 Mike Saltese Type 2 diabetes cora itus without complication E11.9 and History of motion sickness Z87.898 [facility] [address] [facility] [address] [place], [place] [phone] 06/12/2024 Mike Saltese Type 2 diabetes cora itus without complication E11.9 [facility] [facility] [address] [place], [place] [phone] 11/21/2024 Mike Cosby Coronary artery dise ase involving saxman coronary artery of saxman heart without angina pectoris I25.10 and Essential hypertension with goal blood pressure less than 130\/80 [facility]10 [facility] 36 [facility] [address] [place] [id number] 01/29/2025 Mike Cosby Breast cancer screen ing Z12.31 [facility] [facility] 36 [facility] [address] [place] [phone] 02/18/2025 Mike Cosby Assessments Encounter Date Diagnosis (ICD Code) Assessment Notes Treatment Notes Treatment Clinical Notes Section Notes 01/29/2025 Breast cancer screening (ICD-10 - Z12.31) 01/12/2025 Type 2 diabetes mellitus without complication (ICD-10 - E11.9) 01/12/2025 History of motion sickness (ICD-10 - Z87.898) 07/15/2024 Type 2 diabetes mellitus without complication (ICD-10 - E11.9) 06/12/2024 Type 2 diabetes mellitus without complication (ICD-10 - E11.9) 06/06/2024 Injury of toe on left foot, initial encounter (ICD-10 - S99.922A) 05/26/2024 Community acquired pneumonia of left lung, unspecified part of lung (ICD-10 - J18.9) Clinically improved 11/21/2024 Coronary artery disease involving saxman coronary artery of saxman heart without angina pectoris (ICD-10 - I25.10) 11/21/2024 Essential hypertension with goal blood pressure less than 130\/80 (ICD-10 - I10) Plan Of Treatment Pending Test Test Name Order Date TSH 09/03/2020 Next Appt Details Provider Name:Mike Mccann , 05/12/2025 09:30:00 AM, [address] [facility] 36 [facility], [facility] [address], [place], [phone], Insurance Providers Payer Name Payer Address Payer Phone Subscriber Number Group Number Insured Name Patient Relationship to Insured Coverage Start Date Coverage End Date [employer] [address] [place] [address] [id number] MARY ANNE SABA Self - patient is the insured Medications Administered Medication Instructions Date of Administration Dosage Notes Dexamethasone 12/31/2009 4 mg Dexamethasone 11/14/2011 1 mL Dexamethasone 02/24/2015 1 mL Morphine 03/15/2011 phenergan 25 mg/ml 03/15/2011 25 mg Medical (General) History Medical History History ICD Code Coronary Artery Disease, s/p 1 stent gold cosme 2022 at [facility] Type 2 Diabetes Hypothyroidism Post Traumatic Stress Disorder Osteoarthritis allergic rhinitis asthma Strongyloides Ig G positive - treated in Surgical History Surgery Date(Month/Year) Cholecystectomy Appendectomy Lysis of Adhesions 2003 Heart Cath, Normal 01/14/2010 Upper GI Scope 2009 Lower abdominal wall resection, MRSA inf ection 10/2013 Deviated Septum Repair 09/16/2015 Percutaneous coronary intervention with 1 stent placed at [facility] 12/2022 LT Heart Cath, Normal, at [facility] 07/07/2023 Hospitalization History Reason Date(Month/Year) Headache, Chest Pain- [facility] 04/2011 Chest Pain- [facility] 01/18- LT Nostril Packing- [id number] Nasal Drainage Surgery- 11/26/2015 Sinus Infection from Sinus Surgery- [facility] 09/23/2015 MRSA- [facility] 10/2013 Constipation Shoulder Pain- [facility] ER 02/29/2012 LT Leg Injury- [facility] and [place] 2010 ER [facility] transported to [facility] 01/13/2010 Pneumonia 2006, 2007, 2009, 20 13
== END 2025-03-18 21:55 | disposition home or self-care (01) ==
LOC: ER 21:55
PROVIDERS: Emergency Provider Student in an Organized Health Care Education/Training Program; PCP Family Medicine
DX: Z00.8 Encounter for other general examination (principal)
CPT/HCPCS: 99211

== ENCOUNTER 2025-05-18 07:53 | Outpatient (CLI) | payer BC, OTHER, SELFPAY ==
--- OUTSIDE RECORDS SUMMARY | 2024-03-12 04:15 | XMS_ITS ---
Author Organization [facility] Address [address] [place] [id number] Care Team Providers Care Distribution Spec Name Role Phone Mike Cosby Primary Care Provider [phone] Allergies Allergen (clinical drug ingredient) Drug/Non Drug Allergy documented on EMR Reaction Allergy Type Onset Date Status bisacodyl Dulcolax throat swells up Drug Allergy Active Results Component Value Reference Range Notes Glucose (In-House) Reviewed date:03/13/2024 10:30:20 AM Interpretation:160 Performing Lab: Notes/Report: 160 blood glucose 160 74 - 106 mg/dL Glycohemoglobin A1c (in hous e) Reviewed date:03/13/2024 10:30:20 AM Interpretation:10 Performing Lab: Notes/Report: 10 glycohemoglobin 10.0% 5 - 6.5 % P-Comprehensive Metabolic Pa corazon (CMP) Reviewed date:03/13/2024 10:30:19 AM Interpretation:gluc 160, bun 21 Performing Lab: Notes/Report: CLIA: [id number] Arpit Dutta MD, [facility] , [address], [place] [address] Test performed by [facility], [facility] Sodium 137 135-145 mmol/L Potassium 4.4 3.5-5.3 mmol/L Chloride 101 97-108 mmol/L CO2 25 22-32 mmol/L Glucose 160 65-99 mg/dL BUN 21 6-20 mg/dL Creatinine 0.58 0.50-1.00 mg/dL Calcium 9.5 8.6-10.4 mg/dL eGFR by Creatinine 109 >59 mL/min/1.73m2 Protein 8.0 6.0-8.3 g/dL Albumin 4.5 3.5-5.3 g/dL Alkaline Phosphatase 94 35-121 IU/L ALT (SGPT) 32 <5-47 IU/L AST (SGOT) 30 <5-40 IU/L Bilirubin, Total 0.6 <0.2-1.2 mg/dL A/G Ratio 1.3 1.1-2.5 P-T4 Free (thyroxine) Reviewed date:03/13/2024 10:30:19 AM Interpretation: Normal Performing Lab: Notes/Report: Test performed by [facility] [address] [place] [address] , [address] [id number] Arpit Dutta MD, [facility] CLIA: [id number] Thyroxine Free (free T4) 1.32 0.86-1.76 ng/dL P-Lipid Panel Reviewed date:03/13/2024 10:30:19 AM Interpretation: Normal Performing Lab: Notes/Report: Test performed by [facility] [address] [place] [address] , [address], [place] [address] Arpit Dutta MD, [facility] CLIA: [id number] Cholesterol 111 <200 mg/dL Triglycerides 142 <150 mg/dL HDL Cholesterol 43 >39 mg/dL Cholesterol / HDL Ratio 2.58 0.00-4.44 Ratio Non-HDL Cholesterol 68 <130 mg/dL LDL Cholesterol (Calculation) 40 <130 mg/dL LDL Cholesterol Levels* Less than 100 mg/dL Optimal 100 to 129 mg/dL Near Optimal/ Above Optimal 130 to 159 mg/dL Borderline High 160 to 189 mg/dL High 190 mg/dL and above Very High * Categories as recommended by the 2004 ATPIII guidelines LDL/HDL Ratio 0.9 <3.3 Ratio LDL Cholesterol Patient History Test Date: 09/20/2023 LDL Results: 79 Units: mg/dL % Change: - Test Date: 03/12/2024 LDL Results: 40 Units: mg/dL % Change: -49% P-TSH Reviewed date:03/13/2024 10:30:19 AM Interpretation:0.32 Performing Lab: Notes/Report: Test performed by [facility] [address] [place] [address] , [place] [address] Arpit Dutta MD, [facility] CLIA: [id number] TSH 0.32 0.43-5.25 mU/L P-Microalbumin/Creatinine, R andom Urine Sample Reviewed date:03/13/2024 10:30:20 AM Interpretation: Normal Performing Lab: Notes/Report: Test performed by [facility] [address] [place], [place] [address] [place] , [place] [address] Arpit Dutta MD, [facility] CLIA: [id number] Albumin/Creatinine Ratio, Urine 17 0-30 ug/m g Microalbumin, Urine, Random 1.0 Creatinine, Urine 57.9 REASON FOR VISIT 6 months Medications Medication SIG (Take, Route, Frequency, Duration) Notes Start Date End Date Status Metoprolol Succinate ER 50 MG 1 tablet Orally Once a day Active Lisinopril 2.5 MG 1 tablet Orally Once a day Active Trulicity 1.5 MG/0.5ML 1.5 mg Subcutaneo us once weekly 12/17/2023 Active Synjardy XR 12.5-1000 MG 2 tab(s) orally once a day Active Nitroglycerin 0.4 MG as directed Sublingual 2023 Active Airsupra 90-80 MCG/ACT 2 puffs as needed Inhalation Six times a day as needed 07/17/2023 Active CPAP machine and supplies - as directed as directed 11/1008/30/2023 Active Plavix 75 MG 1 tablet Orally Once a day; Duration: 90 days Active Levothyroxine Sodium 150 MCG 1 tab(s) Orally once a day Active Atorvastatin Calcium 40 MG 1 tablet Oral ly Once a day Active Azelastine-Fluticasone 137-50 MCG/ACT 1 spray in each nostril Nasally Twice a day; Duration: 30 day(s) Active Montelukast Sodium 10 MG 1 tablet Orally Once a day; Duration: 30 day(s) Active Ondansetron 4 MG 1 tab(s) orally ever y 8 hours as needed Active Aspirin 81 MG 1 tablet Orally Once a day Active CPAP Supplies - as directed as directed 03/12/2024 Active Immunizations Vaccine Route Administration Date Status Comme nts Prevnar (PCV20) IM Intramuscular 03/12/2024 Administered Vital Signs Blood pressure systolic 136 mm Hg 03/12/20 24 Blood pressure diastolic 82 mm Hg 024 Heart Rate 101 /min 03/12/2024 Height 65 in 03/12/2024 Weight 208.6 lbs 03/12/2024 BMI 34.71 kg/m2 03/12/2024 Encounters Encounter Location Date Provider Diagnosis [facility] [address] [facility] [address] [place], [place] [address], [place] [id number] 03/12/2024 Mike Cosby Type 2 diabetes cora itus without complication E11.9 ; Essential hypertension with goal blood pressure less than 130\/80 I10 ; Acquired hypothyroidism E03.9 ; Mixed hyperlipidemia E78.2 and Obstructive sleep apnea G47.33 Assessments Encounter Date Diagnosis (ICD Code) Assessment Notes Treatment Notes Treatment Clinical Notes Section Notes 03/12/2024 Type 2 diabetes mellitus without complication (ICD-10 - E11.9) 03/12/2024 Essential hypertension with goal blood pressure less than 130\/80 (ICD-10 - I10) 03/12/2024 Acquired hypothyroidism (ICD-10 - E03.9) 03/12/2024 Mixed hyperlipidemia (ICD-10 - E78.2) 03/12/2024 Obstructive sleep apnea (ICD-10 - G47.33) Tobin is using and benefiting from the use of her CPAP. It is recommended that she continue to use the device. Plan Of Treatment Medication Medication Name Sig Start Date Stop Date Notes Metoprolol Succinate ER 50 MG 1 tablet Orally Once a day Lisinopril 2.5 MG 1 tablet Orally Once a day Trulicity 1.5 MG/0.5ML 1.5 mg Subcutaneo us once weekly 12/17/2023 Synjardy XR 12.5-1000 MG 2 tab(s) orally once a day Levothyroxine Sodium 150 MCG 1 tab(s) Orally once a day Ondansetron 4 MG 1 tab(s) orally ever y 8 hours as needed CPAP Supplies - as directed as directed 03/12/2024 Treatment Notes Assessment Notes Obstructive sleep apnea Tobin is using and benefiting from the use of her CPAP. It is recommended that she continue to use the device. Next Appt Details Follow Up: 4 Months, Reason: Provider Name:Mike Mccann ry, 11/11/2025 09:30:00 AM, [address] [facility] [address] [facility], [address] , [place], [place], [id number], Progress Notes * Mary Anne SABADOB:1970 (5 5 yo F)Acc No.[id number]:03/12/2024 Progress Notes Patient: Mary Anne CHEN Provider: Jono Cosby M.D. :1970 A ge:54 Y S ex:Female Date:03/12/2024 Address:[address] [place] [address], [id number] Subjective: * Chief Complaints: * 1 . 6 months. * HPI: C ardiology: 54 year old female presents with c/o Blood Pressure Elevated?Pt here for 6 mo f/u on hypertension, states she is doing well and does not have any concerns.? c/o Hyperlipidemia P t is fasting today. E ndocrinology: c/o Hypothyroidism P t here to f/u. * ROS: D ERMATOLOGY: no R payton. n o H latoya. G ASTROENTEROLOGY: no N ausea. n o V omiting. U ROLOGY: no D ifficulty urinating. n o B lood in urine. * Medical History: C oronary Artery Disease, s/p 1 stent placed 2022 at [facility], Type 2 Diabetes, Hypothyroidism, Post Traumatic Stress Disorder, Osteoarthritis, Allergic rhinitis, Asthma, Strongyloides Ig G positive - treated in . * Surgical History: C holecystectomy , Appendectomy , Lysis of Adhesions 2003, , Heart Cath, Normal 01/14/2010, Upper GI Scope 2009, Lower abdominal wall resection, MRSA infection 10/2013, Deviated Septum Repair 09/16/2015, Percutaneous coronary intervention with 1 stent placed at [facility] 12/2022, LT Heart Cath, Normal, at [facility] 07/07/2023. * Hospitalization/Major Diagno stic Procedure: P neumonia 2005, 2006, 2008, 2012, ER [facility] transported to [facility] 01/13/2010, LT Leg Injury- [facility] and [facility] 01/08/2011, Headache, Chest Pain- [facility] 04/2011, Shoulder Pain- [facility] ER 02/29/2012, Constipation , MRSA- [facility] 10/2013, Sinus Infection from Sinus Surgery- [facility] 09/23/2015, Nasal Drainage Surgery- 11/26/2015, LT Nostril Packing- [id number], Chest Pain- [facility] 01/18-. * Family History: F ather: , coronary artery disease, of [place] at age 62. M other: alive, Diabetes. S iblings: sister CVA and [place] age 41. 2 sister(s) - healthy. 2 son(s) , 2 daughter(s) - healthy. . sister DX at age of 32 with breast cancer. * Social History: C URRENT TOBACCO USE S moking Status: Patient does NOT smoke. C affeine: yes, frequency: tea, daily. Past smoking status: no. * Medications: T aking Azelastine-Fluticasone 137-50 MCG/ACT Suspension 1 spray in each nostril Nasally Twice a day , Taking Montelukast Sodium 10 MG Tablet 1 tablet Orally Once a day , Taking Metoprolol Succinate ER 50 MG Tablet Extended [...] orally every 8 hours as needed , Discontinued dexAMETHasone 1 MG Tablet 1 tablet Orally Once , Medication List reviewed and reconciled with the patient * Allergies: D ulcolax: throat swells up. Objective: * Vitals: W t:208.6, Temp:97.8, BP:136/82, HR:101, Nurse:karo, Ht: 65, BMI:34.71. * Examination: G eneral Examination: General Appearance: N AD. H eart: R SR. L ungs:?clear to auscultation. P eripheral pulses: n ormal (2+) bilaterally. E xtremities:?no leg edema. Assessment: * Assessment: 1. T ype 2 diabetes mellitus without complication - E11.9 (Primary) 2 . E ssential hypertension with goal blood pressure less than 130\/80 - I10 3 . A cquired hypothyroidism - E03.9 4 . M ixed hyperlipidemia - E78.2 5 . Obstructive sleep apnea - G47.33 Plan: * Treatment: Value Reference Range A /G Ratio 1.3 1.1-2.5 - * A lbumin 4.5 3.5-5.3 - g/dL * A lkaline Phosphatase 94 35-121 - IU/L * A LT (SGPT) 32 <5-47 - IU/L * A ST (SGOT) 30 <5-40 - IU/L * B ilirubin, Total 0.6 <0.2-1.2 - mg/dL * B UN 21 H 6-20 - mg/dL * C alcium 9.5 8.6-10.4 - mg/dL * C hloride 101 97-108 - mmol/L * C O2 25 22-32 - mmol/L * C reatinine 0.58 0.50-1.00 - mg/dL * G lucose 160 H 65-99 - mg/dL * P otassium 4.4 3.5-5.3 - mmol/L * S odium 137 135-145 - mmol/L * P rotein 8.0 6.0-8.3 - g/dL * e GFR by Creatinine 109 >59 - mL/min/1.73m2 * Leyla Downing 03/13/2024 10:3 0:09 AM >See phone encounter ?LAB: P-Microalbumin/Creatinine, Random Urine Sample (Collection Date & Time - 03/12/2024 09:00 AM)?Normal* Value Reference Range A lbumin/Creatinine Ratio, Urine 17 0-30 - ug /mg * C reatinine, Urine 57.9 - mg/dL * M icroalbumin, Urine, Random 1.0 - mg/dL * Leyla Downing 03/13/2024 10:3 0:09 AM >See phone encounter ?LAB: Glucose (In-House) (Collection Date & Time - 03/12/2024)?160* Value Reference Range b lood glucose 160 74 - 106 mg/dL * Isabelle Marques 03/12/2024 10:39: 34 AM > Leyla Downing 03/13/2024 10:30:09 AM >See phone encounter ?LAB: Glycohemoglobin A1c (in house) (Collection Date & Time - 03/12/2024)? 10* Value Reference Range g lycohemoglobin 10.0% 5 - 6.5 % * JeraldRobertIsabelle 03/12/2024 10:44: 03 AM > Leyla Downing 03/13/2024 10:30:09 AM >See phone encounter 2.?Essential hypertension with goal blood pressure less than 130\/80? Continue Lisinopril Tablet, 2.5 MG, 1 tablet, Orally, Once a day;?Continue Metoprolol Succinate ER Tablet Extended Release 24 Hour, 50 MG, 1 tablet, Orally, Once a day.?LAB: P-Comprehensive Metabolic Panel (CMP) (Collection Date & Time - 03/12/2024 09:00 AM)?gluc 160, bun 21* Value Reference Range A /G Ratio 1.3 1.1-2.5 - * A lbumin 4.5 3.5-5.3 - g/dL * A lkaline Phosphatase 94 35-121 - IU/L * A LT (SGPT) 32 <5-47 - IU/L * A ST (SGOT) 30 <5-40 - IU/L * B ilirubin, Total 0.6 <0.2-1.2 - mg/dL * B UN 21 H 6-20 - mg/dL * C alcium 9.5 8.6-10.4 - mg/dL * C hloride 101 97-108 - mmol/L * C O2 25 22-32 - mmol/L * C reatinine 0.58 0.50-1.00 - mg/dL * G lucose 160 H 65-99 - mg/dL * P otassium 4.4 3.5-5.3 - mmol/L * S odium 137 135-145 - mmol/L * P rotein 8.0 6.0-8.3 - g/dL * e GFR by Creatinine 109 >59 - mL/min/1.73m2 * Leyla Downing 03/13/2024 10:3 0:09 AM >See phone encounter 3.?Acquired hypothyroidism? Continue Levothyroxine Sodium Tablet, 150 MCG, 1 tab(s), Orally, once a day.?LAB: P-T4 Free (thyroxine) (Collection Date & Time - 03/12/2024 09:00 AM)? Normal* Value Reference Range T hyroxine Free (free T4) 1.32 0.86-1.76 - ng/d L * Leyla Downing 03/13/2024 10:3 0:09 AM >See phone encounter ?LAB: P-TSH (Collection Date & Time - 03/12/2024 09:00 AM)?0.32* Value Reference Range T SH 0.32 L 0.43-5.25 - mU/L * Leyla Downing 03/13/2024 10:3 0:09 AM >See phone encounter 4.?Mixed hyperlipidemia?LAB: P-Comprehensive Metabolic Panel (CMP) (Collection Date & Time - 03/12/2024 09:00 AM)?gluc 160, bun 21* Value Reference Range A /G Ratio 1.3 1.1-2.5 - * A lbumin 4.5 3.5-5.3 - g/dL * A lkaline Phosphatase 94 35-121 - IU/L * A LT (SGPT) 32 <5-47 - IU/L * A ST (SGOT) 30 <5-40 - IU/L * B ilirubin, Total 0.6 <0.2-1.2 - mg/dL * B UN 21 H 6-20 - mg/dL * C alcium 9.5 8.6-10.4 - mg/dL * C hloride 101 97-108 - mmol/L * C O2 25 22-32 - mmol/L * C reatinine 0.58 0.50-1.00 - mg/dL * G lucose 160 H 65-99 - mg/dL * P otassium 4.4 3.5-5.3 - mmol/L * S odium 137 135-145 - mmol/L * P rotein 8.0 6.0-8.3 - g/dL * e GFR by Creatinine 109 >59 - mL/min/1.73m2 * Leyla Downing 03/13/2024 10:3 0:09 AM >See phone encounter ?LAB: P-Lipid Panel (Collection Date & Time - 03/12/2024 09:00 AM)?Normal* Value Reference Range C holesterol / HDL Ratio 2.58 0.00-4.44 - Ratio * C holesterol 111 <200 - mg/dL * H DL Cholesterol 43 >39 - mg/dL * L DL Cholesterol (Calculation) 40 <130 - mg/d L * L DL/HDL Ratio 0.9 <3.3 - Ratio * N on-HDL Cholesterol 68 <130 - mg/dL * T riglycerides 142 <150 - mg/dL * Leyla Downing 03/13/2024 10:3 0:09 AM >See phone encounter 5.?Obstructive sleep apnea? Start CPAP Supplies -, -, as directed, as directed, 1, Refills 0.?? Notes: Tobin is using and benefiting from the use of her CPAP. It is recommended that she continue to use the device.??6.?Others? Refill Ondansetron Tablet Disintegrating, 4 MG, 1 tab(s), orally, every 8 hours as needed, 30, Refills 0.?? * Immunizations: Prevnar (PCV20) : 0.5 mL (Route: Intramuscular) given by Isabelle Marques on Left Deltoid * Procedure Codes: 8 2950 GLUCOSE TEST, 81595 GLYCATED HEMOGLOBIN TEST, Modifiers: QW * Follow Up: 4 Months * Images: Billing Information: * Visit Code: 54199 Office Visit, Est Pt., Level 4. * Procedure Codes: 67276 GLUCOSE TEST. 10944 GLYCATED HEMOGLOBIN TEST. Modifiers: QW * Electronic signature of Mary Cosby MD on 05/18/2025 at 07:55 AM EST Sign off status: Pending * Provider: Jono Cosby M.D. Date: Generated for Qi noyola/Francisca/Katarzynasmitting on: 07/19/2024 07:55 AM EST History and Physical Notes * HPI (History of Present Illness) Category Sub-Category Detail Notes Category Not es Endocrinology Hypothyroidism Pt here to f/u Cardiology Blood Pressure Elevated Pt here for 6 mo f/u on hypertension, states she is doing well and does not have any concerns Hyperlipidemia Pt is fasting today Examination Category Sub-Category Detail Notes Category Not es General Examination Heart: RSR Lungs: clear to auscultatio n Extremities: no leg edema General Appearance: NAD Peripheral pulses: normal (2+) bilatera lly
--- OUTSIDE RECORDS SUMMARY | 2024-03-17 04:30 | XMS_ITS ---
Author Organization [facility] Address [address] [facility] [address] [facility] [address] [place] [id number] Care Team Providers Care Forensic Photographer Name Role Phone Mike Cosby Primary Care Provider REASON FOR VISIT 3 month f/u Encounters Encounter Location Date Provider Diagnosis [facility] [address] [facility] [address] [place] [id number] 03/17/2024 Mike Cosby Plan Of Treatment Next Appt Details Provider Name:Mike Mccann ry, 11/11/2025 09:30:00 AM, [address], [address], [place], [id number], Progress Notes * Mary Anne SABADOB:1970 (5 5 yo F)Acc No.[id number]:03/17/2024 Progress Notes Patient: Kayleigh HILARIAShruthi Mary Anne Provider: Jono Cosby M.D. :1970 A ge:54 Y S ex:Female Date:03/17/2024 Address:[address] [facility] [address], [phone] Subjective: * Chief Complaints: * 1 . 3 month f/u. * Medical History: Objective: * Vitals: Assessment: Plan: * Treatment: * Images: Billing Information: * Visit Code: * Procedure Codes: * Electronic signature of Mary Cosby MD on 05/18/2025 at 07:55 AM EST Sign off status: Pending * Provider: Jono Cosby M.D. Date: 1 Generated for Qi noyola/Francisca/Joseluis on: 07/19/2024 07:55 AM EST
--- OUTSIDE RECORDS SUMMARY | 2024-05-26 05:45 | XMS_ITS ---
Author Organization [facility] Address [address] [place] [id number] Care Team Providers Care Hotel Front Office Manager Name Role Phone Mike Cosby Primary Care Provider Allergies Allergen (clinical drug ingredient) Drug/Non Drug Allergy documented on EMR Reaction Allergy Type Onset Date Status bisacodyl Dulcolax throat swells up Drug Allergy Active Results Component Value Reference Range Notes CXR Reviewed date:05/27/2024 01:10:13 PM Interpretation:previously noted opacity has resolved Performing Lab: Notes/Report: previously noted opacity has resolved REASON FOR VISIT f/u FROM [facility] pneumonia Medications Medication SIG (Take, Route, Frequency, Duration) Notes Start Date End Date Status Levothyroxine Sodium 150 MCG 1 tab(s) Orally once a day; Duration: 90 days Active Synjardy XR 12.5-1000 MG 2 tab(s) orally once a day Active Metoprolol Succinate ER 50 MG 1 tablet Orally Once a day Active Trulicity 3 MG/0.5ML 3 mg Subcutaneous o nce weekly 12/17/2023 Active Lisinopril 2.5 MG 1 tablet Orally Once a day; Duration: 90 days Active Airsupra 90-80 MCG/ACT 2 puffs as needed Inhalation Six times a day as needed 07/17/2023 Active CPAP machine and supplies - as directed as directed 11/1008/30/2023 Active Plavix 75 MG 1 tablet Orally Once a day; Duration: 90 days Active CPAP Supplies - as directed as directed 03/12/2024 Active Ondansetron 4 MG 1 tab(s) orally ever y 8 hours as needed Active Aspirin 81 MG 1 tablet Orally Once a day Active Nitroglycerin 0.4 MG as directed Sublingual 2023 Active Amoxicillin-Pot Clavulanate 875-125 MG 1 tablet Orally every 12 hrs Active Montelukast Sodium 10 MG 1 tablet Orally Once a day; Duration: 30 day(s) Active Atorvastatin Calcium 40 MG 1 tablet Oral ly Once a day Active Benzonatate 100 MG 1 capsule as needed Orally Three times a day Active Azelastine-Fluticasone 137-50 MCG/ACT 1 spray in each nostril Nasally Twice a day; Duration: 30 day(s) Active Vital Signs Blood pressure systolic 142 mm Hg 05/26/20 24 Blood pressure diastolic 90 mm Hg 024 Heart Rate 112 /min 05/26/2024 Height 65 in 05/26/2024 Weight 211.2 lbs 05/26/2024 BMI 35.14 kg/m2 05/26/2024 Encounters Encounter Location Date Provider Diagnosis [facility] [address] [facility] [address] [place] [phone] 05/26/2024 Mike Cosby Community acquired pneumonia of left lung, unspecified part of lung J18.9 Assessments Encounter Date Diagnosis (ICD Code) Assessment Notes Treatment Notes Treatment Clinical Notes Section Notes 05/26/2024 Community acquired pneumonia of left lung, unspecified part of lung (ICD-10 - J18.9) Clinically improved Plan Of Treatment Medication Medication Name Sig Start Date Stop Date Notes Amoxicillin-Pot Clavulanate 875-125 MG 1 tablet Orally every 12 hrs Benzonatate 100 MG 1 capsule as needed Orally Three times a day Treatment Notes Assessment Notes Community acquired pneumonia of left lung, unspecified part of lung Clinically improved Next Appt Details Follow Up: via phone to repo rt test results, Reason: Provider Name:Mike Mccann ry, 11/11/2025 09:30:00 AM, [address], [address], [place], [phone], Progress Notes * Mary Anne SABADOB:1970 (5 3 yo F)Acc No.[id number]:05/26/2024 Progress Notes Patient: Kayleigh LINCOLN Mary Anne Provider: Jono Cosby M.D. :1970 A ge:54 Y S ex:Female Date:05/26/2024 Address:[address], [place], [id number] Subjective: * Chief Complaints: * 1 . f/u FROM [facility] pneumonia. * HPI: H PI: 54 year old female presents with c/o Here for follow up on:?05/19/2024 [facility] visit, see pt docs. Pt went to [facility] for shortness of breath and wheezing. Pt was dx with pneumonia. Pt states she is feeling better but still coughing a little bit. * ROS: D ERMATOLOGY: no R payton. n o H latoya. G ASTROENTEROLOGY: no N ausea. n o V omiting. U ROLOGY: no D ifficulty urinating. n o B lood in urine. * Medical History: C oronary Artery Disease, s/p 1 stent placed 2022 at [facility], Type 2 Diabetes, Hypothyroidism, Post Traumatic Stress Disorder, Osteoarthritis, Allergic rhinitis, Asthma, Strongyloides Ig G positive - treated in . * Surgical History: C holecystectomy , Appendectomy , Lysis of Adhesions 2003, , Heart Cath, Normal 01/14/2010, Upper GI Scope 2009, Lower abdominal wall resection, MRSA infection 10/2013, Deviated Septum Repair 09/16/2015, Percutaneous coronary intervention with 1 stent placed at [facility] 12/2022, LT Heart Cath, Normal, at [facility] 07/07/2023. * Hospitalization/Major Diagno stic Procedure: P jwia 2005, 2006, 2008, 2012, ER [facility] transported to [facility] 01/13/2010, LT Leg Injury- [facility] and [place] 01/08/2011, Headache, Chest Pain- [place] [facility] 04/2011, Shoulder Pain- [facility] ER 02/29/2012, Constipation , MRSA- [facility] 10/2013, Sinus Infection from Sinus Surgery- [facility] 09/23/2015, Nasal Drainage Surgery- 11/26/2015, LT Nostril Packing- [id number], Chest Pain- [facility] 01/18-. * Family History: F ather: , coronary artery disease, of [place] at age 62. M other: alive, Diabetes. S iblings: sister CVA and [place] age 41. 2 sister(s) - healthy. 2 son(s) , 2 daughter(s) - healthy. . sister DX at age of 32 with breast cancer. * Social History: C URRENT TOBACCO USE S moking Status: Patient does NOT smoke. C affeine: yes, frequency: tea, daily. Past smoking status: no. * Medications: T aking Benzonatate 100 MG Capsule 1 capsule as needed Orally Three times a day , Taking Amoxicillin-Pot Clavulanate 875-125 MG Tablet 1 tablet Orally every 12 hrs , stop date 05/27/2024, Taking Azelastine-Fluticasone 137-50 MCG/ACT Suspension 1 spray in [...] tablet Orally Once a day , Taking CPAP Supplies - - as directed as directed , Taking Ondansetron 4 MG Tablet Disintegrating 1 tab(s) orally every 8 hours as needed , Taking Synjardy XR 12.5-1000 MG Tablet Extended Release 24 Hour 2 tab(s) orally once a day , Taking Metoprolol Succinate ER 50 MG Tablet Extended Release 24 Hour 1 tablet Orally Once a day , Taking Trulicity 3 MG/0.5ML Solution Auto-injector 3 mg Subcutaneous once weekly , Taking Lisinopril 2.5 MG Tablet 1 tablet Orally Once a day , Taking Levothyroxine Sodium 150 MCG Tablet 1 tab(s) Orally once a day , Medication List reviewed and reconciled with the patient * Allergies: D ulcolax: throat swells up. Objective: * Vitals: W t:211.2, Temp:98.1, BP:142/90, HR:112, O2 Sat:98% on RA, Nurse:karo, Ht: 65, BMI:35.14. * Examination: G eneral Examination: General Appearance: N AD. C hest: n ormal shape and expansion. H eart: R SR. L ungs: c lear to auscultation. Assessment: * Assessment: 1. C ommunity acquired pneumonia of left lung, unspecified part of lung - J18.9 (Primary) ? Plan: * Treatment: Notes: Clinically improved?? * Procedure Codes: 9 4760 PULSE OX * Follow Up: v ia phone to report test results * Images: Billing Information: * Visit Code: 78446 Office Visit, Est Pt., Level 3. * Procedure Codes: 02492 PULSE OX. * Electronic signature of Mary Cosby MD on 05/18/2025 at 07:55 AM EST Sign off status: Pending * Provider: Jono Cosby M.D. Date: Generated for Qi noyola/Francisca/Jillransmitting on: 07/19/2024 07:55 AM EST History and Physical Notes * HPI (History of Present Illness) Category Sub-Category Detail Notes Category Not es HPI Here for follow up on: 4 [facility] visit, see pt docs. Pt went to [facility] for shortness of breath and wheezing. Pt was dx with pneumonia. Pt states she is feeling better but still coughing a little bit Examination Category Sub-Category Detail Notes Category Not es General Examination Heart: RSR Lungs: clear to auscultatio n General Appearance: NAD Chest: normal shape and exp ansion
--- OUTSIDE RECORDS SUMMARY | 2024-06-06 06:00 | XMS_ITS ---
Author Organization [facility] Address [address] [place] [id number] Care Team Providers Care Oncology Specialist Name Role Phone Mike Cosby Primary Care Provider Jaclyn Hahn Unavailable [phone] Allergies Allergen (clinical drug ingredient) Drug/Non Drug Allergy documented on EMR Reaction Allergy Type Onset Date Status bisacodyl Dulcolax throat swells up Drug Allergy Active Results Component Value Reference Range Notes x ray: 5th digit left foot Reviewed date:06/10/2024 04:31:19 PM Interpretation:Negative Performing Lab: Notes/Report: Negative REASON FOR VISIT bruising of toe Medications Medication SIG (Take, Route, Frequency, Duration) Notes Start Date End Date Status CPAP machine and supplies - as directed as directed 11/1008/30/2023 Active Airsupra 90-80 MCG/ACT 2 puffs as needed Inhalation Six times a day as needed 07/17/2023 Active Ondansetron 4 MG 1 tab(s) orally ever y 8 hours as needed Active CPAP Supplies - as directed as directed 03/12/2024 Active Plavix 75 MG 1 tablet Orally Once a day; Duration: 90 days Active Nitroglycerin 0.4 MG as directed Sublingual 2023 Active Aspirin 81 MG 1 tablet Orally Once a day Active Atorvastatin Calcium 40 MG 1 tablet Oral ly Once a day Active Montelukast Sodium 10 MG 1 tablet Orally Once a day; Duration: 30 day(s) Active Azelastine-Fluticasone 137-50 MCG/ACT 1 spray in each nostril Nasally Twice a day; Duration: 30 day(s) Active Benzonatate 100 MG 1 capsule as needed Orally Three times a day Active Levothyroxine Sodium 150 MCG 1 tab(s) Orally once a day; Duration: 90 days Active Lisinopril 2.5 MG 1 tablet Orally Once a day; Duration: 90 days Active Trulicity 3 MG/0.5ML 3 mg Subcutaneous o nce weekly 12/17/2023 Active Metoprolol Succinate ER 50 MG 1 tablet Orally Once a day Active Synjardy XR 12.5-1000 MG 2 tab(s) orally once a day Active Vital Signs Blood pressure systolic 130 mm Hg 06/06/19 25 Blood pressure diastolic 82 mm Hg 025 Heart Rate 99 /min 06/06/2024 Height 65 in 06/06/2024 Weight 213.0 lbs 06/06/2024 BMI 35.44 kg/m2 06/06/2024 Encounters Encounter Location Date Provider Diagnosis [facility] [address] [facility] [address] [facility] [address] [place] [id number] 06/06/2024 Jaclyn Hahn Injury of toe on lef t foot, initial encounter S99.922A Assessments Encounter Date Diagnosis (ICD Code) Assessment Notes Treatment Notes Treatment Clinical Notes Section Notes 06/06/2024 Injury of toe on left foot, initial encounter (ICD-10 - S99.922A) Plan Of Treatment Next Appt Details Follow Up: via phone to repo rt test results, Reason: Provider Name:Mike Mccann , 11/11/2025 09:30:00 AM, [address] [facility] [address] [facility], [address], [place], [id number], Progress Notes * Mary Anne SABADOB:1970 (5 3 yo F)Acc No.[id number]:06/06/2024 Progress Notes Patient: Mary Anne CHEN Provider: CATIE Weems :1970 A ge:54 Y S ex:Female Date:06/06/2024 Address:[address] [place] [address], [facility] [id number] Pcp:Mike Cosby Subjective: * Chief Complaints: * 1 . Bruising of toe. * HPI: D ermatology: 54 year old female presents with c/o bruising P t sts she has bruising on the toe. Pt sts her left 5th toe is bruised. Pt sts she noticed yesterday, but sts a couple of days ago her grandson threw his sippy cup and hit the top of her toe. Pt sts only the bottom is bruised and sts her sister was diabetic and lost all her toes and she wants to make sure it is not from that. Pt sts it only hurts if touched and that it feels cold. Pt is unsure if it may be broken. * ROS: D ERMATOLOGY: no R payton. n o H latoya. G ASTROENTEROLOGY: no N ausea. n o V omiting. U ROLOGY: no D ifficulty urinating. n o B lood in urine. * Medical History: C oronary Artery Disease, s/p 1 stent placed 2022 at [facility], Type 2 Diabetes, Hypothyroidism, Post Traumatic Stress Disorder, Osteoarthritis, Allergic rhinitis, Asthma, Strongyloides Ig G positive - treated in . * Surgical History: C holecystectomy , Appendectomy , Lysis of Adhesions 2003, , Heart Cath, Normal 01/14/2010, Upper GI Scope 2009, Lower abdominal wall resection, MRSA infection 10/2013, Deviated Septum Repair 09/16/2015, Percutaneous coronary intervention with 1 stent placed at [facility] 12/2022, LT Heart Cath, Normal, at [facility] 07/07/2023. * Hospitalization/Major Diagno stic Procedure: P tabby 2005, 2006, 2008, 2012, ER [facility] transported to [facility] 01/13/2010, LT Leg Injury- [facility] and [place] 01/08/2011, Headache, Chest Pain- [place] ER 04/2011, Shoulder Pain- [facility] ER 02/29/2012, Constipation , MRSA- [facility] 10/2013, Sinus Infection from Sinus Surgery- [facility] 09/23/2015, Nasal Drainage Surgery- 11/26/2015, LT Nostril Packing- [id number], Chest Pain- [facility] 01/18-. * Family History: F ather: , coronary artery disease, of [place] at age 62. M other: alive, Diabetes. S iblings: sister CVA and [place] age 41. 2 sister(s) - healthy. 2 [...] tab(s) Orally once a day , Taking Benzonatate 100 MG Capsule 1 capsule as needed Orally Three times a day , Medication List reviewed and reconciled with the patient * Allergies: D ulcolax: throat swells up. Objective: * Vitals: W t:213.0, Temp:98.4, BP:130/82, HR:99, Nurse:GIFTY, Ht: 65, BMI:35.44. * Examination: G eneral Examination: General Appearance: N AD. C hest: n ormal shape and expansion. H eart: R SR. L ungs: c lear to auscultation. S kin: left 5th toe with ecchymosis along the MTP joint, tender with palpation. Assessment: * Assessment: 1. I njury of toe on left foot, initial encounter - S99.922A (Primary) Plan: * Treatment: * Follow Up: v ia phone to report test results * Images: Billing Information: * Visit Code: 03340 Office Visit, Est Pt., Level 3. * Procedure Codes: * Electronic signature of CATIE Guaman on 05/18/2025 at 07:56 AM EST Sign off status: Pending * Provider: CATIE Weems Date: 0 06/06/2024 Generated for Qi noyola/Francisca/Jillransmitting on: 07/19/2024 07:56 AM EST History and Physical Notes * HPI (History of Present Illness) Category Sub-Category Detail Notes Category Not es Dermatology bruising Pt sts she has b ruising on the toe. Pt sts her left 5th toe is bruised. Pt sts she noticed yesterday, but sts a couple of days ago her grandson threw his sippy cup and hit the top of her toe. Pt sts only the bottom is bruised and sts her sister was diabetic and lost all her toes and she wants to make sure it is not from that. Pt sts it only hurts if touched and that it feels cold. Pt is unsure if it may be broken Examination Category Sub-Category Detail Notes Category Not es General Examination Heart: RSR Lungs: clear to auscultatio n General Appearance: NAD Skin: left 5th toe with ec chymosis along the MTP joint, tender with palpation Chest: normal shape and exp ansion
--- OUTSIDE RECORDS SUMMARY | 2024-07-15 04:45 | XMS_ITS ---
Author Organization [facility] Address [address] [place] [id number] Care Team Providers Care Valve Repairer Reclamation Name Role Phone Mike Cosby Primary Care Provider Allergies Allergen (clinical drug ingredient) Drug/Non Drug Allergy documented on EMR Reaction Allergy Type Onset Date Status bisacodyl Dulcolax throat swells up Drug Allergy Active Results Component Value Reference Range Notes Glucose (In-House) Reviewed date:07/15/2024 01:25:21 PM Interpretation: Performing Lab: Notes/Report: blood glucose 110 74 - 106 mg/dL Glycohemoglobin A1c (in hous e) Reviewed date:07/15/2024 01:25:29 PM Interpretation: Performing Lab: Notes/Report: glycohemoglobin 8.4% 5 - 6.5 % REASON FOR VISIT 4 mths w fasting labs Medications Medication SIG (Take, Route, Frequency, Duration) Notes Start Date End Date Status Aspirin 81 MG 1 tablet Orally Once a day Active Nitroglycerin 0.4 MG as directed Sublingual 06/29/2023 Active CPAP Supplies - as directed as directed 03/12/2024 Active CPAP machine and supplies - as directed as directed 11/1008/30/2023 Active Airsupra 90-80 MCG/ACT 2 puffs as needed Inhalation Six times a day as needed 07/17/2023 Active Trulicity 1.5 MG/0.5ML 1.5 mg Subcutaneous once weekly Cancel previous Rx for 3 mg Trulicity 07/15/2024 Active Synjardy XR 12.5-1000 MG TAKE TWO TABLETS BY MOUTH EVERY DAY Active Atorvastatin Calcium 40 MG 1 tablet Orally Once a day Active Levothyroxine Sodium 150 MCG 1 tab(s) Orally once a day; Duration: 90 days Active Lisinopril 2.5 MG 1 tablet Orally Once a day; Duration: 90 days Active Clopidogrel Bisulfate 75 mg TAKE ONE TABLET BY MOUTH EVERY DAY; Duration: 90 Active Montelukast Sodium 10 MG 1 tablet Orally Once a day; Duration: 30 day(s) Active Azelastine-Fluticason e 137-50 MCG/ACT 1 spray in each nostril Nasally Twice a day; Duration: 30 day(s) Active Metoprolol Succinate ER 50 MG 1 tablet Orally Once a day Active Ondansetron 4 MG 1 tab(s) orally every 8 hours as needed Active Vital Signs Blood pressure systolic 130 mm Hg 07/15/19 25 Blood pressure diastolic 82 mm Hg 025 Heart Rate 106 /min 07/15/2024 Height 65 in 07/15/2024 Weight 206.6 lbs 07/15/2024 BMI 34.38 kg/m2 07/15/2024 Encounters Encounter Location Date Provider Diagnosis [facility] [facility] [address] [place], [place] [id number] 07/15/2024 Mike Cosby Type 2 diabetes cora itus without complication E11.9 Assessments Encounter Date Diagnosis (ICD Code) Assessment Notes Treatment Notes Treatment Clinical Notes Section Notes 07/15/2024 Type 2 diabetes mellitus without complication (ICD-10 - E11.9) Plan Of Treatment Medication Medication Name Sig Start Date Stop Date Notes Trulicity 1.5 MG/0.5ML 1.5 mg Subcutaneous once weekly 07/15/2024 Cancel previous Rx for 3 mg Trulicity Trulicity 3 MG/0.5ML INJECT THE CONTENTS OF 1 PEN (3 MG / 0.5 ML) SUBCUTANEOUSLY ONCE A WEEK Synjardy XR 12.5-1000 MG TAKE TWO TABLETS BY MOUTH EVERY DAY Next Appt Details Follow Up: 6 Months, Reason: Provider Name:Mike tolentino, 11/11/2025 09:30:00 AM, [address] [facility], [place], [place], [id number], Progress Notes * Hailey SABA:1970 ([age] yo F)Acc No.[id number]:07/15/2024 Progress Notes Patient: Mary Anne CHEN Provider: Jono Cosby M.D. :1970 A ge:54 Y S ex:Female Date:07/15/2024 Address:[address] [place] [address], [place], [id number] Subjective: * Chief Complaints: * 1 . 4 mths w fasting labs. * HPI: E ndocrinology: 54 year old female presents with c/o Recent Blood Sugars P t here to f/u on DM 2. pt states she has been checking blood sugar at home and it has been 80-125. Pt states she has not taken Trulicity in about 3 weeks . * ROS: D ERMATOLOGY: no R payton. n o H latoya. G ASTROENTEROLOGY: no N ausea. n o V omiting. U ROLOGY: no D ifficulty urinating. n o B lood in urine. * Medical History: C oronary Artery Disease, s/p 1 stent placed 2022 at [facility], Type 2 Diabetes, Hypothyroidism, Post Traumatic Stress Disorder, Osteoarthritis, Allergic rhinitis, Asthma, Strongyloides Ig G positive - treated in . * Surgical History: C holecystectomy , Appendectomy , Lysis of Adhesions 2003, , Heart Cath, Normal 01/14/2010, Upper GI Scope 2009, Lower abdominal wall resection, MRSA infection 10/2013, Deviated Septum Repair 09/16/2015, Percutaneous coronary intervention with 1 stent placed at [facility] 12/2022, LT Heart Cath, Normal, at [facility] 07/07/2023. * Hospitalization/Major Diagno stic Procedure: P neumonia 2005, 2006, 2008, 2012, ER [facility] transported to [facility] 01/13/2010, LT Leg Injury- [facility] and [place] 01/08/2011, Headache, Chest Pain- [place] ER 04/2011, Shoulder Pain- [facility] ER 02/29/2012, Constipation , MRSA- [facility] 10/2013, Sinus Infection from Sinus Surgery- [facility] 09/23/2015, Nasal Drainage Surgery- 11/26/2015, LT Nostril Packing- [phone]/[id number], Chest Pain- [facility] 01/18-. * Family History: F ather: , coronary artery disease, of [place] at age 62. M other: alive, Diabetes. S iblings: sister CVA and [place] age 41. 2 sister(s) - healthy. 2 son(s) , 2 daughter(s) - healthy. . sister DX at age of 32 with breast cancer. * Social History: C URRENT TOBACCO USE S moking Status: Patient does NOT smoke. C affeine: yes, frequency: tea, daily. Past smoking status: no. * Medications: T aking Atorvastatin Calcium 40 MG Tablet 1 tablet [...] directed , Notes to Pharmacist: 11/10, Taking CPAP Supplies - - as directed as directed , Taking Ondansetron 4 MG Tablet Disintegrating 1 tab(s) orally every 8 hours as needed , Taking Metoprolol Succinate ER 50 MG Tablet Extended Release 24 Hour 1 tablet Orally Once a day , Taking Lisinopril 2.5 MG Tablet 1 tablet Orally Once a day , Taking Levothyroxine Sodium 150 MCG Tablet 1 tab(s) Orally once a day , Taking Synjardy XR 12.5-1000 MG Tablet Extended Release 24 Hour TAKE TWO TABLETS BY MOUTH EVERY DAY , Taking Clopidogrel Bisulfate 75 mg Tablet TAKE ONE TABLET BY MOUTH EVERY DAY , Taking Azelastine-Fluticasone 137-50 MCG/ACT Suspension 1 spray in each nostril Nasally Twice a day , Taking Montelukast Sodium 10 MG Tablet 1 tablet Orally Once a day , Taking Trulicity 3 MG/0.5ML Solution Auto-injector INJECT THE CONTENTS OF 1 PEN (3 MG / 0.5 ML) SUBCUTANEOUSLY ONCE A WEEK , Discontinued Benzonatate 100 MG Capsule 1 capsule as needed Orally Three times a day , Medication List reviewed and reconciled with the patient * Allergies: D ulcolax: throat swells up. Objective: * Vitals: W t:206.6, Temp:97.8, BP:130/82, HR:106, Nurse:karo, Ht: 65, BMI:34.38. * Examination: G eneral Examination: General Appearance: N AD. H eart: R SR. L ungs:?clear to auscultation. Assessment: * Assessment: 1. T ype 2 diabetes mellitus without complication - E11.9 (Primary) Plan: * Treatment: Value Reference Range b lood glucose 110 74 - 106 mg/dL * Isabelle Marques 07/15/2024 10:24:1 1 AM > , Provider reviewed results while patient in office. ?LAB: Glycohemoglobin A1c (in house) (Collection Date & Time - 07/15/2024)* Value Reference Range g lycohemoglobin 8.4% 5 - 6.5 % * Isabelle Marques 07/15/2024 11:17:5 5 AM > , Provider reviewed results while patient in office. * Procedure Codes: 3 6416 CAPILLARY BLOOD DRAW, 14354 GLUCOSE TEST, 56093 GLYCATED HEMOGLOBIN TEST, Modifiers: QW , 3075F SYST BP GE 130 - 139MM HG, 3079F DIAST BP 80-89 MM HG, 3052F HG A1C>EQUAL 8.0%<EQUAL 9.0% * Follow Up: 6 Months * Images: Billing Information: * Visit Code: 28585 Office Visit, Est Pt., Level 3. * Procedure Codes: 41456 CAPILLARY BLOOD DRAW. 32195 GLUCOSE TEST. 84031 GLYCATED HEMOGLOBIN TEST. Modifiers: QW 3075F SYST BP GE 130 - 139MM HG. 3079F DIAST BP 80-89 MM HG. 3052F HG A1C>EQUAL 8.0%<EQUAL 9.0%. * Electronic signature of Mary Cosby MD on 05/18/2025 at 07:56 AM EST Sign off status: Pending * Provider: Jono Cosby M.D. Date: 0 07/15/2024 Generated for Qi noyola/Francisca/Mamadouitting on: 1 07/19/2024 07:56 AM EST History and Physical Notes * HPI (History of Present Illness) Category Sub-Category Detail Notes Category Not es Endocrinology Recent Blood Sugars Pt here to f /u on DM 2. pt states she has been checking blood sugar at home and it has been 80-125. Pt states she has not taken Trulicity in about 3 weeks Examination Category Sub-Category Detail Notes Category Not es General Examination Heart: RSR Lungs: clear to auscultatio n General Appearance: NAD
--- OUTSIDE RECORDS SUMMARY | 2025-01-12 05:00 | XMS_ITS ---
Author Organization [facility] Address [address] [place] [id number] Care Team Providers Care Pattern Finisher Name Role Phone Mike Cosby Primary Care Provider Allergies Allergen (clinical drug ingredient) Drug/Non Drug Allergy documented on EMR Reaction Allergy Type Onset Date Status bisacodyl Dulcolax throat swells up Drug Allergy Active Results Component Value Reference Range Notes Glucose (In-House) Reviewed date:01/12/2025 12:21:54 PM Interpretation:117 Performing Lab: Notes/Report: 117 blood glucose 117 74 - 106 mg/dL Glycohemoglobin A1c (in hous e) Reviewed date:01/12/2025 12:21:47 PM Interpretation:5.8% Performing Lab: Notes/Report: 5.8% glycohemoglobin 5.8% 5 - 6.5 % REASON FOR VISIT 6 month ckup Medications Medication SIG (Take, Route, Frequency, Duration) Notes Start Date End Date Status Azelastine-Fluticason e 137-50 MCG/ACT 1 spray in each nostril Nasally Twice a day; Duration: 30 day(s) Active Clopidogrel Bisulfate 75 mg TAKE ONE TABLET BY MOUTH EVERY DAY; Duration: 90 Active Trulicity 1.5 MG/0.5ML 1.5 mg Subcutaneous once weekly Cancel previous Rx for 3 mg Trulicity 07/15/2024 Active Scopolamine 1 MG/3DAYS 1 patch to skin behind the ear as needed Transdermal every 72 hours 01/12/2025 Active Synjardy XR 12.5-1000 MG TAKE ONE TABLET BY MOUTH TWICE DAILY; Duration: 90 days Active Ondansetron 4 MG 1 tab(s) orally every 8 hours as needed Active CPAP machine and supplies - as directed as directed 11/1008/30/2023 Active CPAP Supplies - as directed as directed 03/12/2024 Active Airsupra 90-80 MCG/ACT 2 puffs as needed Inhalation Six times a day as needed 07/17/2023 Active Nitroglycerin 0.4 MG as directed Sublingual 06/29/2023 Active Levothyroxine Sodium 150 MCG 1 tab(s) Orally once a day; Duration: 90 days Active Montelukast Sodium 10 MG 1 tablet Orally Once a day; Duration: 90 days Active Aspirin 81 MG 1 tablet Orally Once a day Active Metoprolol Succinate ER 50 MG 1 tablet Orally Once a day; Duration: 90 days Active Lisinopril 2.5 MG 1 tablet Orally Once a day; Duration: 90 days Active Atorvastatin Calcium 40 MG 1 tablet Orally Once a day; Duration: 90 days Active Vital Signs Blood pressure systolic 124 mm Hg 01/13/20 25 Blood pressure diastolic 80 mm Hg 025 Heart Rate 77 /min 01/12/2025 Height 65 in 01/12/2025 Weight 181 lbs 01/12/2025 BMI 30.12 kg/m2 01/12/2025 Encounters Encounter Location Date Provider Diagnosis [facility] [facility] [address] [id number] 01/12/2025 Mike Cosby Type 2 diabetes cora itus without complication E11.9 and History of motion sickness Z87.898 Assessments Encounter Date Diagnosis (ICD Code) Assessment Notes Treatment Notes Treatment Clinical Notes Section Notes 01/12/2025 Type 2 diabetes mellitus without complication (ICD-10 - E11.9) 01/12/2025 History of motion sickness (ICD-10 - Z87.898) Plan Of Treatment Medication Medication Name Sig Start Date Stop Date Notes Trulicity 1.5 MG/0.5ML 1.5 mg Subcutaneo us once weekly 07/15/2024 Cancel previous Rx for 3 mg Trulicity Scopolamine 1 MG/3DAYS 1 patch to skin b ehind the ear as needed Transdermal every 72 hours 01/12/2025 Next Appt Details Follow Up: 4 Months, Reason: Provider Name:Mike Mccann ry, 11/11/2025 09:30:00 AM, [address], [address], [place], [id number], Progress Notes * Mary Anne SABADOB:1970 ([age] yo F)Acc No.[id number]:01/12/2025 Progress Notes Patient: Mary Anne CHEN Provider: Jono Cosby M.D. :1970 A ge:54 Y S ex:Female Date:01/12/2025 Address:[address] [place] [address], [place], [id number] Subjective: * Chief Complaints: * 1 . 6 month ckup. * HPI: C ardiology: 54 year old female presents with c/o Blood Pressure Elevated?Pt here for 6 mo check up on hypertension. Pt states she is doing well and does not have any concerns. c/o Hyperlipidemia P t is fasting today. E ndocrinology: c/o Recent Blood Sugars P t here to check up on DM 2. c/o Hypothyroidism P t here to f/u. * ROS: D ERMATOLOGY: no R payton. n o H latoya. G ASTROENTEROLOGY: no N ausea. n o V omiting. U ROLOGY: no D ifficulty urinating. n o B lood in urine. * Medical History: C oronary Artery Disease, s/p 1 stent placed 2022 at [facility], Type 2 Diabetes, Hypothyroidism, Post Traumatic Stress Disorder, Osteoarthritis, Allergic rhinitis, Asthma, Strongyloides Ig G positive - treated in . * Surgical History: C holecystectomy , Appendectomy , Lysis of Adhesions 2003, , Heart Cath, Normal 01/14/2010, Upper GI Scope 2009, Lower abdominal wall resection, MRSA infection 10/2013, Deviated Septum Repair 09/16/2015, Percutaneous coronary intervention with 1 stent placed at [facility] 12/2022, LT Heart Cath, Normal, at [facility] 07/07/2023. * Hospitalization/Major Diagno stic Procedure: P neumonia 2005, 2006, 2008, 2012, ER [facility] transported to [facility] 01/13/2010, LT Leg Injury- [facility] and [place] 01/08/2011, Headache, Chest Pain- [place] ER 04/2011, Shoulder Pain- [facility] ER 02/29/2012, Constipation , MRSA- [facility] 10/2013, Sinus Infection from Sinus Surgery- [facility] 09/23/2015, Nasal Drainage Surgery- 11/26/2015, LT Nostril Packing- [phone]/[id number], Chest Pain- [facility] 01/18-. * Family History: F ather: , coronary artery disease, of [place] at age 62. M other: alive, Diabetes. S iblings: sister CVA and [place] age 41. 2 sister(s) - healthy. 2 son(s) , 2 daughter(s) - healthy. . sister DX at age of 32 with breast cancer. * Social History: C URRENT TOBACCO USE: No S moking Status: Patient does NOT smoke. C affeine: yes, frequency: tea, daily. Past smoking status: no. * Medications: T aking Aspirin 81 MG Tablet Delayed Release 1 [...] every 8 hours as needed , Taking Azelastine-Fluticasone 137-50 MCG/ACT Suspension 1 spray in each nostril Nasally Twice a day , Taking Trulicity 1.5 MG/0.5ML Solution Auto-injector 1.5 mg Subcutaneous once weekly , Notes to Pharmacist: Cancel previous Rx for 3 mg Trulicity, Taking Clopidogrel Bisulfate 75 mg Tablet TAKE ONE TABLET BY MOUTH EVERY DAY , Taking Synjardy XR 12.5-1000 MG Tablet Extended Release 24 Hour TAKE ONE TABLET BY MOUTH TWICE DAILY , Taking Atorvastatin Calcium 40 MG Tablet 1 tablet Orally Once a day , Taking Metoprolol Succinate ER 50 MG Tablet Extended Release 24 Hour 1 tablet Orally Once a day , Taking Lisinopril 2.5 MG Tablet 1 tablet Orally Once a day , Taking Levothyroxine Sodium 150 MCG Tablet 1 tab(s) Orally once a day , Taking Montelukast Sodium 10 MG Tablet 1 tablet Orally Once a day , Medication List reviewed and reconciled with the patient * Allergies: D ulcolax: throat swells up. Objective: * Vitals: W t: 181, Temp: 97.0, BP: 124/80, HR: 77, Nurse: karo, Ht: 65, BMI:30.12. * Examination: G eneral Examination: General Appearance: N AD. H eart: R SR. L ungs:?clear to auscultation. Assessment: * Assessment: 1. T ype 2 diabetes mellitus without complication - E11.9 (Primary) 2 . H istory of motion sickness - Z87.898 Plan: * Treatment: Value Reference Range b lood glucose 117 74 - 106 mg/dL * Angella Still 01/12/2025 10:4 9:49 AM EDT > Provider reviewed results while patient in office. ?LAB: Glycohemoglobin A1c (in house) (Collection Date & Time - 01/12/2025)? 5.8%* Value Reference Range g lycohemoglobin 5.8% 5 - 6.5 % * Angella Still 01/12/2025 10:5 1:58 AM EDT > Provider reviewed results while patient in office. 2.?History of motion sickness? Start Scopolamine Patch 72 Hour, 1 MG/3DAYS, 1 patch to skin behind the ear as needed, Transdermal,every 72 hours, 4, Refills 0.?? * Procedure Codes: 3 6416 CAPILLARY BLOOD DRAW, 58604 GLUCOSE TEST, 55325 GLYCATED HEMOGLOBIN TEST, Modifiers: QW , 3044F HG A1C LEVEL LT 7.0%, 1036F TOBACCO NON-USER, 3074F SYST BP LT 130 MM HG, 3079F DIAST BP 80-89 MM HG * Follow Up: 4 Months * Images: Billing Information: * Visit Code: 80335 Office Visit, Est Pt., Level 3. * Procedure Codes: 70323 CAPILLARY BLOOD DRAW. 49858 GLUCOSE TEST. 42241 GLYCATED HEMOGLOBIN TEST. Modifiers: QW 3044F HG A1C LEVEL LT 7.0%. 1036F TOBACCO NON-USER. 3074F SYST BP LT 130 MM HG. 3079F DIAST BP 80-89 MM HG. * Electronic signature of Mary Cosby MD on 05/18/2025 at 07:56 AM EST Sign off status: Pending * Provider: Jono Cosby M.D. Date: 0 01/12/2025 Generated for Qi noyola/Francisca/Joseluis on: 1 07/19/2024 07:56 AM EST History and Physical Notes * HPI (History of Present Illness) Category Sub-Category Detail Notes Category Not es Endocrinology Recent Blood Sugars Pt here to check up on DM 2 Hypothyroidism Pt here to f/u Cardiology Blood Pressure Elevated Pt here for 6 mo check up on hypertension. Pt states she is doing well and does not have any concerns Hyperlipidemia Pt is fasting today Examination Category Sub-Category Detail Notes Category Not es General Examination Heart: RSR Lungs: clear to auscultatio n General Appearance: NAD
--- OUTSIDE RECORDS SUMMARY | 2025-03-19 05:45 | XMS_ITS ---
Author Organization [facility] Address [address] [place] [id number] Care Team Providers Care Master Yacht Name Role Phone Alea Mike Primary Care Provider Allergies Allergen (clinical drug ingredient) Drug/Non Drug Allergy documented on EMR Reaction Allergy Type Onset Date Status bisacodyl Dulcolax throat swells up Drug Allergy Active REASON FOR VISIT ER f/u Medications Medication SIG (Take, Route, Frequency, Duration) Notes Start Date End Date Status Scopolamine 1 MG/3DAYS 1 patch to skin behind the ear as needed Transdermal every 72 hours 01/12/2025 Active Trulicity 1.5 MG/0.5ML 1.5 mg Subcutaneous once weekly Cancel previous Rx for 3 mg Trulicity 07/15/2024 Active Montelukast Sodium 10 MG 1 tablet Orally Once a day; Duration: 90 days Active Levothyroxine Sodium 150 MCG 1 tab(s) Orally once a day; Duration: 90 days Active Esomeprazole Magnesium 40 MG 1 capsule 1/2 to 1 hour before morning meal Orally Once a day; Duration: 90 days 03/19/2025 Active Metoprolol Succinate ER 50 MG 1 tablet Orally Once a day; Duration: 90 days Active Atorvastatin Calcium 40 MG 1 tablet Orally Once a day; Duration: 90 days Active Synjardy XR 12.5-1000 MG TAKE ONE TABLET BY MOUTH TWICE DAILY; Duration: 90 days Active Clopidogrel Bisulfate 75 mg TAKE ONE TABLET BY MOUTH EVERY DAY; Duration: 90 Active Lisinopril 2.5 MG 1 tablet Orally Once a day; Duration: 90 days Active Azelastine-Fluticason e 137-50 MCG/ACT 1 spray in each nostril Nasally Twice a day; Duration: 30 day(s) Active Ondansetron 4 MG 1 tab(s) orally every 8 hours as needed Active CPAP Supplies - as directed as directed 03/12/2024 Active CPAP machine and supplies - as directed as directed 11/1008/30/2023 Active Airsupra 90-80 MCG/ACT 2 puffs as needed Inhalation Six times a day as needed 07/17/2023 Active Aspirin 81 MG 1 tablet Orally Once a day Active Isosorbide Mononitrate ER 60 MG 1 tablet in the morning Orally Once a day Active Nitroglycerin 0.4 MG as directed Sublingual 06/29/2023 Active Vital Signs Blood pressure systolic 132 mm Hg 03/19/20 25 Blood pressure diastolic 80 mm Hg 025 Heart Rate 66 /min 03/19/2025 Height 65 in 03/19/2025 Weight 186.6 lbs 03/19/2025 BMI 31.05 kg/m2 03/19/2025 Encounters Encounter Location Date Provider Diagnosis [facility] [address] [facility] [address] [place] [address], [place] [id number] 03/19/2025 Mike Cosby Atypical chest pain R07.89 and Dyspepsia R10.13 Assessments Encounter Date Diagnosis (ICD Code) Assessment Notes Treatment Notes Treatment Clinical Notes Section Notes 03/19/2025 Atypical chest pain (ICD-10 - R07.89) Patient to follow up with [facility] cardiology in 4 days. 03/19/2025 Dyspepsia (ICD-10 - R10.13) 03/19/2025 Other ER reports including provider note, labs and EKG reviewed in office today with patient. Plan Of Treatment Medication Medication Name Sig Start Date Stop Date Notes Esomeprazole Magnesium 40 MG 1 capsule 1 /2 to 1 hour before morning meal Orally Once a day; Duration: 90 days 03/19/2025 Nitroglycerin 0.4 MG as directed Sublingual 06/29/2023 Treatment Notes Assessment Notes Atypical chest pain Patient to follow up with [facility] cardiology in 4 days. Other ER reports including provider note, labs and EKG reviewed in office today with patient. Next Appt Details Follow Up: via phone to repo rt progress, Reason: Provider Name:Mike Mccann ry, 11/11/2025 09:30:00 AM, [address], [address], [place], [phone], Progress Notes * Mary Anne SABADOB:1970 ([age] yo F)Acc No.[id number]:03/19/2025 Progress Notes Patient: Mary Anne CHEN Provider: Jono Cosby M.D. :1970 A ge:55 Y S ex:Female Date:03/19/2025 Address:[address] [place] [address] 1938, [place], [id number] Subjective: * Chief Complaints: * 1 . ER f/u. * HPI: H PI: 55 year old female presents with c/o Here for follow up on:?Pt here for [facility] ER discharge. Pt was seen in ER on 03/18 for left sided c hest pain. Pt became clammy and sick to her stomach. Pt stated the pain radiated to her neck. Increase in belching over the last two weeks. Pt states she feels tired and her chest feels heavy. Pt states she does not have any sharp pains in her neck like she did last night. * Medical History: C oronary Artery Disease, s/p 1 stent placed 2022 at [facility], Type 2 Diabetes, Hypothyroidism, Post Traumatic Stress Disorder, Osteoarthritis, Allergic rhinitis, Asthma, Strongyloides Ig G positive - treated in . * Surgical History: C holecystectomy , Appendectomy , Lysis of Adhesions 2003, , Heart Cath, Normal 01/14/2010, Upper GI Scope 2009, Lower abdominal wall resection, MRSA infection 10/2013, Deviated Septum Repair 09/16/2015, Percutaneous coronary intervention with 1 stent placed at [facility] 12/2022, LT Heart Cath, Normal, at [facility] 07/07/2023. * Hospitalization/Major Diagno stic Procedure: P neumonia 2005, 2006, 2008, 2012, ER [facility] transported to [facility] 01/13/2010, LT Leg Injury- [facility] and [place] 01/08/2011, Headache, Chest Pain- [facility] 04/2011, Shoulder Pain- [facility] ER 02/29/2012, Constipation , MRSA- [facility] 10/2013, Sinus Infection from Sinus Surgery- [facility] 09/23/2015, Nasal Drainage Surgery- 11/26/2015, LT Nostril Packing- [id number], Chest Pain- [facility] 01/18-. * Family History: F [...] smoking status: no. * Medications: T aking Isosorbide Mononitrate ER 60 MG Tablet Extended Release 24 Hour 1 tablet in the morning Orally Once a day , Taking Aspirin [...] nostril Nasally Twice a day , Taking Clopidogrel Bisulfate 75 mg Tablet [...] previous Rx for 3 mg Trulicity, Taking Scopolamine 1 MG/3DAYS Patch 72 Hour 1 patch to skin behind the ear as needed Transdermal every 72 hours , Medication List reviewed and reconciled with the patient * Allergies: D ulcolax: throat swells up. Objective: * Vitals: W t: 186.6, Temp: 97.8, BP: 132/80, HR: 66, Nurse: SF, Ht: 65, BMI:31.05. * Examination: G astroenterology: General Appearance: p leasant, NAD. O ral cavity: n ormal. S clera: a nicteric. H eart sounds: r egular, normal S1 S2. L ungs: c lear, no rales or wheezes. A bdomen: B S present, soft, nontender, no guarding or rigidity, no masses felt. Assessment: * Assessment: 1. A typical chest pain - R07.89 (Primary) 2 . D yspepsia - R10.13 ? Plan: * Treatment: 2. D yspepsia Start Esomeprazole Magnesium Capsule Delayed Release, 40 MG, 1 capsule 1/2 to 1 hour before morning meal, Orally, Once a day, 90 days, 90, Refills 0. 3. O thers Notes: ER reports including provider note, labs and EKG reviewed in office today with patient. * Procedure Codes: 1 036F TOBACCO NON-USER, 3075F SYST BP GE 130 - 139MM HG, 3079F DIAST BP 80-89 MM HG, 3017F COLORECTAL CA SCREEN DOC REV * Preventive Medicine: Screening / Special Tests: C olonoscopy 0 02/18/2020 DR VARGAS - repeat 2-3 years.? * Follow Up: v ia phone to report progress * Images: Billing Information: * Visit Code: 68972 Office Visit, Est Pt., Level 4. * Procedure Codes: 1036F TOBACCO NON-USER. 3075F SYST BP GE 130 - 139MM HG. 3079F DIAST BP 80-89 MM HG. 3017F COLORECTAL CA SCREEN DOC REV. * Electronic signature of Mary Cosby MD on 05/18/2025 at 07:56 AM EST Sign off status: Pending * Provider: Jono Cosby M.D. Date: Generated for Qi noyola/Francisca/Mamadouitting on: 07/19/2024 07:56 AM EST History and Physical Notes * HPI (History of Present Illness) Category Sub-Category Detail Notes Category Not es HPI Here for follow up on: Pt here f or [facility] ER discharge. Pt was seen in ER on 03/18 for left sided chest pain. Pt became clammy and sick to her stomach. Pt stated the pain radiated to her neck. Increase in belching over the last two weeks. Pt states she feels tired and her chest feels heavy. Pt states she does not have any sharp pains in her neck like she did last night Examination Category Sub-Category Detail Notes Category Not es Gastroenterology Oral cavity: normal Sclera: anicteric Heart sounds: regular, normal S1 S 2 Lungs: clear, no rales or w heezes Abdomen: BS present, soft, no ntender, no guarding or rigidity, no masses felt General Appearance: pleasant, NAD
--- OUTSIDE RECORDS SUMMARY | 2025-05-12 04:30 | XMS_ITS ---
Author Organization [facility] Address [address] [place] [id number] Care Team Providers Care Spring Inspector Name Role Phone Mike Cosby Primary Care Provider [phone] Allergies Allergen (clinical drug ingredient) Drug/Non Drug Allergy documented on EMR Reaction Allergy Type Onset Date Status bisacodyl Dulcolax throat swells up Drug Allergy Active Results Component Value Reference Range Notes Glucose (In-House) Reviewed date:05/13/2025 09:42:37 AM Interpretation:117 Performing Lab: Notes/Report: 117 blood glucose 117 74 - 106 mg/dL Glycohemoglobin A1c (in hous e) Reviewed date:05/13/2025 09:42:37 AM Interpretation:6.2 Performing Lab: Notes/Report: 6.2 glycohemoglobin 6.2% 5 - 6.5 % P-Comprehensive Metabolic Pa corazon (CMP) Reviewed date:05/13/2025 09:42:37 AM Interpretation:Normal Performing Lab: Notes/Report: Test performed by [facility], [facility] , [address], [place] [address] Karina Bone MD, PhD, [facility], [employer] CLIA: [id number] Sodium 141 135-145 mmol/L Potassium 4.5 3.5-5.3 mmol/L Chloride 107 97-108 mmol/L CO2 24 20-32 mmol/L Glucose 103 65-99 mg/dL BUN 19 6-20 mg/dL Creatinine 0.60 0.50-1.00 mg/dL Calcium 9.1 8.6-10.4 mg/dL eGFR by Creatinine 107 >59 mL/min/1.73m2 Protein 7.2 6.0-8.3 g/dL Albumin 4.3 3.5-5.3 g/dL Alkaline Phosphatase 65 41-145 IU/L ALT (SGPT) 14 <5-47 IU/L AST (SGOT) 16 <5-40 IU/L Bilirubin, Total 0.3 <0.2-1.2 mg/dL A/G Ratio 1.5 1.1-2.5 P-T4 Free (thyroxine) Reviewed date:05/13/2025 09:42:37 AM Interpretation:Normal Performing Lab: Notes/Report: Test performed by [facility] [address] [place], [place] [address] [place] [address] Karina Bone MD, PhD, [facility], [employer] CLIA: [id number] Thyroxine Free (free T4) 0.95 0.86-1.76 ng/dL P-Lipid Panel Reviewed date:05/13/2025 09:42:37 AM Interpretation:Non-HDL 143, LDL 122, LDL/HDL 2.35 Performing Lab: Notes/Report: Test performed by [facility] [address] [place], [place] [address] [address], [place] [address] Karina Bone MD, PhD, [facility], [employer] CLIA: [id number] Lipid Panel Footnote See Below *Based on optimal reference values. Please refer to the DOS for additional information regarding diagnostic lipid reference ranges, patient management based on the recently updated lipid guidelines ([place] [employer]/[place] [employer] Task Force on Clinical Practice Guidelines (2018), and pediatric diagnostic lipid reference values (<18 years old). Total Cholesterol 195 <200 mg/dL Triglycerides 105 <150 mg/dL HDL Cholesterol 52 >50 mg/dL Total Cholesterol / HDL Ratio* 3.75 <3.99 Rati o Non-HDL Cholesterol 143 <130 mg/dL LDL Cholesterol (Calculation) 122 <100 mg/dL LDL / HDL Ratio* 2.35 <1.99 Ratio LDL Cholesterol Patient History Test Date: 09/20/2023 LDL Results: 79 Units: mg/dL % Change: - Test Date: 03/12/2024 LDL Results: 40 Units: mg/dL % Change: -49% Test Date: 05/12/2025 LDL Results: 122 Units: mg/dL % Change: +204% P-TSH Reviewed date:05/13/2025 09:42:37 AM Interpretation:6.22 Performing Lab: Notes/Report: Test performed by [facility], [address] , [facility] C, [place] [address] Karina Bone MD, PhD, FCAP, [employer] CLIA: [id number] TSH 6.22 0.43-5.25 mU/L P-Microalbumin/Creatinine, R andom Urine Sample Reviewed date:05/13/2025 09:42:37 AM Interpretation:Normal Performing Lab: Notes/Report: Test performed by [facility], [facility] [address] [place] [address] , [address], [place] [address] Karina Bone MD, PhD, [facility], [employer] CLIA: [id number] Albumin/Creatinine Ratio, Urine 13 0-30 ug/m g Microalbumin, Urine, Random 0.7 Creatinine, Urine 53.4 REASON FOR VISIT 6 month ckup Medications Medication SIG (Take, Route, Frequency, Duration) Notes Start Date End Date Status Clopidogrel Bisulfate 75 mg 1 tablet orally once a day; Duration: 90 days Active Airsupra 90-80 MCG/ACT 2 puffs as needed Inhalation Six times a day as needed 07/17/2023 Active Isosorbide Mononitrate ER 60 MG 1 tablet in the morning Orally Once a day Active Montelukast Sodium 10 MG 1 tablet Orally Once a day; Duration: 90 days Active Esomeprazole Magnesium 40 MG 1 capsule 1/2 to 1 hour before morning meal Orally Once a day; Duration: 90 days Active Metoprolol Succinate ER 50 MG 1 tablet Orally Once a day; Duration: 90 days Active Lisinopril 2.5 MG 1 tablet Orally Once a day; Duration: 90 days Active Atorvastatin Calcium 40 MG 1 tablet Orally Once a day; Duration: 90 days Active Levothyroxine Sodium 150 MCG 1 tab(s) Orally once a day; Duration: 90 days Active Azelastine-Fluticasone 137-50 MCG/ACT 1 spray in each nostril Nasally Twice a day; Duration: 30 day(s) Active Trulicity 1.5 MG/0.5ML 1.5 mg Subcutaneo us once weekly 07/15/2024 Active Nitroglycerin 0.4 MG as directed Sublingual 2023 Not-Taking Synjardy XR 12.5-1000 MG TAKE ONE TABLET BY MOUTH TWICE DAILY; Duration: 90 days Active CPAP machine and supplies - as directed as directed 11/1008/30/2023 Not- Taking CPAP Supplies - as directed as directed 03/12/2024 Not-Taking Vital Signs Blood pressure systolic 126 mm Hg 05/12/20 25 Blood pressure diastolic 80 mm Hg 025 Heart Rate 76 /min 05/12/2025 Height 65 in 05/12/2025 Weight 189.4 lbs 05/12/2025 BMI 31.51 kg/m2 05/12/2025 Encounters Encounter Location Date Provider Diagnosis [facility] [address] [facility] [address] [facility] [address] [place] [phone] 05/12/2025 Mike Cosby Type 2 diabetes cora itus without complication E11.9 ; Essential hypertension with goal blood pressure less than 130\/80 I10 ; Acquired hypothyroidism E03.9 and Mixed hyperlipidemia E78.2 Assessments Encounter Date Diagnosis (ICD Code) Assessment Notes Treatment Notes Treatment Clinical Notes Section Notes 05/12/2025 Type 2 diabetes mellitus without complication (ICD-10 - E11.9) 05/12/2025 Essential hypertension with goal blood pressure less than 130\/80 (ICD-10 - I10) 05/12/2025 Acquired hypothyroidism (ICD-10 - E03.9) 05/12/2025 Mixed hyperlipidemia (ICD-10 - E78.2) 05/12/2025 Other No change in treatment. A1c is now normal Plan Of Treatment Treatment Notes Assessment Notes Other No change in treatme nt. A1c is now normal Next Appt Details Follow Up: 6 Months, Reason: Provider Name:Mike Mccann ry, 11/11/2025 09:30:00 AM, [address] [facility], [address], [place], [phone], Progress Notes * Mray Anne SABADOB:1970 (7 3 yo F)Acc No.[id number]:05/12/2025 Progress Notes Patient: Kayleigh LINCOLN Mary Anne Provider: Jono Cosby M.D. :1970 A ge:55 Y S ex:Female Date:05/12/2025 Address:[address] [place] [address] 1938, [id number] Subjective: * Chief Complaints: * 1 . 6 month ckup. * HPI: C ardiology: 55 year old female presents with c/o Blood Pressure Elevated?Pt here for 6 mo checkup on hypertension. Pt states she is doing well and does not have any concerns at this time. c/o Hyperlipidemia P t is fasting today. E ndocrinology: c/o Recent Blood Sugars P t here for checkup on DM 2. Pt states that she does not regularly check blood sugar at home but when she does it is under 150. c/o Hypothyroidism P t here for checkup. * Medical History: C oronary Artery Disease, s/p 1 stent placed 2022 at [facility], Type 2 Diabetes, Hypothyroidism, Post Traumatic Stress Disorder, Osteoarthritis, Allergic rhinitis, Asthma, Strongyloides Ig G positive - treated in 2023. * Surgical History: C holecystectomy , Appendectomy , Lysis of Adhesions 2003, , Heart Cath, Normal 01/14/2010, Upper GI Scope 2009, Lower abdominal wall resection, MRSA infection 10/2013, Deviated Septum Repair 09/16/2015, Percutaneous coronary intervention with 1 stent placed at [facility] 12/2022, LT Heart Cath, Normal, at [facility] 07/07/2023. * Hospitalization/Major Diagno stic Procedure: P tabby 2005, 2006, 2008, 2012, ER [facility] transported to [facility] 01/13/2010, LT Leg Injury- [facility] and [facility] 01/08/2011, Headache, Chest Pain- [facility] 04/2011, Shoulder Pain- [facility] ER 02/29/2012, Constipation , MRSA- [facility] 10/2013, Sinus Infection from Sinus Surgery- [facility] 09/23/2015, Nasal Drainage Surgery- 11/26/2015, LT Nostril Packing- [id number], Chest Pain- [facility] 01/18-. * Family History: F ather: , coronary artery disease, of [place] at age 62. M other: alive, Diabetes. S iblings: sister CVA and [place] age 41. 2 sister(s) - healthy. 2 [...] morning Orally Once a day , Taking Airsupra 90-80 MCG/ACT Aerosol 2 puffs as needed Inhalation Six times a day as needed , Taking Azelastine-Fluticasone 137-50 MCG/ACT Suspension 1 spray in each nostril Nasally Twice a day , Taking Synjardy XR 12.5-1000 MG Tablet Extended Release 24 Hour TAKE ONE TABLET BY MOUTH TWICE DAILY , Taking Trulicity 1.5 MG/0.5ML Solution Auto-injector 1.5 mg Subcutaneous once weekly , Taking Levothyroxine Sodium 150 MCG Tablet 1 tab(s) Orally once a day , Taking Esomeprazole Magnesium 40 MG Capsule Delayed Release 1 capsule 1/2 to 1 hour before morning meal Orally Once a day , Taking Metoprolol Succinate ER 50 MG Tablet Extended Release 24 Hour 1 tablet Orally Once a day , Taking Lisinopril 2.5 MG Tablet 1 tablet Orally Once a day , Taking Atorvastatin Calcium 40 MG Tablet 1 tablet Orally Once a day , Taking Clopidogrel Bisulfate 75 mg Tablet 1 tablet orally once a day , Taking Montelukast Sodium 10 MG Tablet 1 tablet Orally Once a day , Not-Taking CPAP machine and supplies - - as directed as directed , Notes to Pharmacist: 11/10, Not-Taking CPAP Supplies - - as directed as directed , Not-Taking Nitroglycerin 0.4 MG Tablet Sublingual as directed Sublingual , Discontinued Aspirin 81 MG Tablet Delayed Release 1 tablet Orally Once a day , Discontinued Ondansetron 4 MG Tablet Disintegrating 1 tab(s) orally every 8 hours as needed , Discontinued Scopolamine 1 MG/3DAYS Patch 72 Hour 1 patch to skin behind the ear as needed Transdermal every 72 hours , Medication List reviewed and reconciled with the patient * Allergies: D ulcolax: throat swells up. Objective: * Vitals: W t: 189.4, Temp: 98.0, BP: 126/80, HR: 76, Nurse: karo, Ht: 65, BMI:31.51. * Examination: G eneral Examination: General Appearance: N AD. H eart: R SR. L ungs:?clear to auscultation. Assessment: * Assessment: 1. T ype 2 diabetes mellitus without complication - E11.9 (Primary) 2 . E ssential hypertension with goal blood pressure less than 130\/80 - I10 3 . A cquired hypothyroidism - E03.9 4 . M ixed hyperlipidemia - E78.2 Plan: * Treatment: Value Reference Range A /G Ratio 1.5 1.1-2.5 - * A lbumin 4.3 3.5-5.3 - g/dL * A lkaline Phosphatase 65 41-145 - IU/L * A LT (SGPT) 14 <5-47 - IU/L * A ST (SGOT) 16 <5-40 - IU/L * B ilirubin, Total 0.3 <0.2-1.2 - mg/dL * B UN 19 6-20 - mg/dL * C alcium 9.1 8.6-10.4 - mg/dL * C hloride 107 97-108 - mmol/L * C O2 24 20-32 - mmol/L * C reatinine 0.60 0.50-1.00 - mg/dL * G lucose 103 H 65-99 - mg/dL * P otassium 4.5 3.5-5.3 - mmol/L * S odium 141 135-145 - mmol/L * P rotein 7.2 6.0-8.3 - g/dL * e GFR by Creatinine 107 >59 - mL/min/1.73m2 * Abi Perry 05/13/2025 09 :42:30 AM EST > See phone encounter ?LAB: P-Microalbumin/Creatinine, Random Urine Sample (Collection Date & Time - 05/12/2025 09:15 AM)?Normal* Value Reference Range A lbumin/Creatinine Ratio, Urine 13 0-30 - ug /mg * C reatinine, Urine 53.4 - mg/dL * M icroalbumin, Urine, Random 0.7 - mg/dL * Abi Perry 05/13/2025 09 :42:30 AM EST > See phone encounter ?LAB: Glucose (In-House) (Collection Date & Time - 05/12/2025)?117* Value Reference Range b lood glucose 117 74 - 106 mg/dL * Dianne Canseco 05/12/2025 10 :41:46 AM EST > Abi Perry 05/13/2025 09:42:30 AM EST > See phone encounter ?LAB: Glycohemoglobin A1c (in house) (Collection Date & Time - 05/12/2025)? 6.2* Value Reference Range g lycohemoglobin 6.2% 5 - 6.5 % * Dianne Canseco 05/12/2025 10 :45:23 AM EST > Abi Perry 05/13/2025 09:42:30 AM EST > See phone encounter 2.?Essential hypertension with goal blood pressure less than 130\/80?LAB: P-Comprehensive Metabolic Panel (CMP) (Collection Date & Time - 05/12/2025 09:15 AM)?Normal* Value Reference Range A /G Ratio 1.5 1.1-2.5 - * A lbumin 4.3 3.5-5.3 - g/dL * A lkaline Phosphatase 65 41-145 - IU/L * A LT (SGPT) 14 <5-47 - IU/L * A ST (SGOT) 16 <5-40 - IU/L * B ilirubin, Total 0.3 <0.2-1.2 - mg/dL * B UN 19 6-20 - mg/dL * C alcium 9.1 8.6-10.4 - mg/dL * C hloride 107 97-108 - mmol/L * C O2 24 20-32 - mmol/L * C reatinine 0.60 0.50-1.00 - mg/dL * G lucose 103 H 65-99 - mg/dL * P otassium 4.5 3.5-5.3 - mmol/L * S odium 141 135-145 - mmol/L * P rotein 7.2 6.0-8.3 - g/dL * e GFR by Creatinine 107 >59 - mL/min/1.73m2 * Abi Perry 05/13/2025 09 :42:30 AM EST > See phone encounter 3.?Acquired hypothyroidism?LAB: P-T4 Free (thyroxine) (Collection Date & Time - 05/12/2025 09:15 AM)? Normal* Value Reference Range T hyroxine Free (free T4) 0.95 0.86-1.76 - ng/d L * Abi Perry 05/13/2025 09 :42:30 AM EST > See phone encounter ?LAB: P-TSH (Collection Date & Time - 05/12/2025 09:15 AM)?6.22* Value Reference Range T SH 6.22 H 0.43-5.25 - mU/L * Abi Perry 05/13/2025 09 :42:30 AM EST > See phone encounter 4.?Mixed hyperlipidemia?LAB: P-Comprehensive Metabolic Panel (CMP) (Collection Date & Time - 05/12/2025 09:15 AM)?Normal* Value Reference Range A /G Ratio 1.5 1.1-2.5 - * A lbumin 4.3 3.5-5.3 - g/dL * A lkaline Phosphatase 65 41-145 - IU/L * A LT (SGPT) 14 <5-47 - IU/L * A ST (SGOT) 16 <5-40 - IU/L * B ilirubin, Total 0.3 <0.2-1.2 - mg/dL * B UN 19 6-20 - mg/dL * C alcium 9.1 8.6-10.4 - mg/dL * C hloride 107 97-108 - mmol/L * C O2 24 20-32 - mmol/L * C reatinine 0.60 0.50-1.00 - mg/dL * G lucose 103 H 65-99 - mg/dL * P otassium 4.5 3.5-5.3 - mmol/L * S odium 141 135-145 - mmol/L * P rotein 7.2 6.0-8.3 - g/dL * e GFR by Creatinine 107 >59 - mL/min/1.73m2 * VickyAbi 05/13/2025 09 :42:30 AM EST > See phone encounter ?LAB: P-Lipid Panel (Collection Date & Time - 05/12/2025 09:15 AM)?Non-HDL 143, LDL 122, LDL/HDL 2.35* Value Reference Range C holesterol / HDL Ratio 3.75 <3.99 - Ratio * C holesterol 195 <200 - mg/dL * H DL Cholesterol 52 >50 - mg/dL * L DL Cholesterol (Calculation) 122 H <100 - mg/d L * L DL/HDL Ratio 2.35 H <1.99 - Ratio * N on-HDL Cholesterol 143 H <130 - mg/dL * T riglycerides 105 <150 - mg/dL * L ipid Panel Footnote See Below - * Abi Perry 05/13/2025 09 :42:30 AM EST > See phone encounter 5.?Others? Notes: No change in treatment. A1c is now normal?? * Procedure Codes: 8 2950 GLUCOSE TEST, [address] GLYCATED HEMOGLOBIN TEST, Modifiers: QW , 3044F HG A1C LEVEL LT 7.0%, 3074F SYST BP LT 130 MM HG, 3079F DIAST BP 80-89 MM HG * Follow Up: 6 Months * Images: Billing Information: * Visit Code: 10512 Office Visit, Est Pt., Level 4. * Procedure Codes: 24262 [address]SE [address]. [address] GLYCATED HEMOGLOBIN TEST. Modifiers: QW 3044F HG A1C LEVEL LT 7.0%. 3074F SYST BP LT 130 MM HG. 3079F DIAST BP 80-89 MM HG. * Electronic signature of Mary Cosby MD on 05/18/2025 at 07:56 AM EST Sign off status: Pending * Provider: Jono Cosby M.D. Date: 1 07/13/2024 Generated for Qi noyola/Francisca/Katarzynasmitting on: 07/19/2024 07:56 AM EST History and Physical Notes * HPI (History of Present Illness) Category Sub-Category Detail Notes Category Not es Endocrinology Recent Blood Sugars Pt here for checkup on DM 2. Pt states that she does not regularly check blood sugar at home but when she does it is under 150 Hypothyroidism Pt here for checkup Cardiology Blood Pressure Elevated Pt here for 6 mo checkup on hypertension. Pt states she is doing well and does not have any concerns at this time Hyperlipidemia Pt is fasting today Examination Category Sub-Category Detail Notes Category Not es General Examination Heart: RSR Lungs: clear to auscultatio n General Appearance: NAD
--- OUTSIDE RECORDS SUMMARY | 2025-05-18 07:56 | XMS_ITS | Patient Health Record ---
Author Organization [facility] Address [address] [place] [id number] Care Team Providers Care Sales Vendor Name Role Phone Iris Cosbyian Primary Care Provider EltonJaclyn suarez Alejandra [phone] Allergies Allergen (clinical drug ingredient) Drug/Non Drug Allergy documented on EMR Reaction Allergy Type Onset Date Status bisacodyl Dulcolax throat swells up Drug Allergy Active Results Component Value Reference Range Notes CXR Reviewed date:05/27/2024 01:10:13 PM Interpretation:previously noted opacity has resolved Performing Lab: Notes/Report: previously noted opacity has resolved Glucose (In-House) Reviewed date:01/12/2025 12:21:54 PM Interpretation:117 Performing Lab: Notes/Report: 117 blood glucose 117 74 - 106 mg/dL Glycohemoglobin A1c (in hous e) Reviewed date:01/12/2025 12:21:47 PM Interpretation:5.8% Performing Lab: Notes/Report: 5.8% glycohemoglobin 5.8% 5 - 6.5 % Mammogram Reviewed date:02/24/2025 12:12:01 PM Interpretation:Negative Performing Lab: Notes/Report: Negative result Negative Glucose (In-House) Reviewed date:07/15/2024 01:25:21 PM Interpretation: Performing Lab: Notes/Report: blood glucose 110 74 - 106 mg/dL Glycohemoglobin A1c (in hous e) Reviewed date:07/15/2024 01:25:29 PM Interpretation: Performing Lab: Notes/Report: glycohemoglobin 8.4% 5 - 6.5 % Glucose (In-House) Reviewed date:05/13/2025 09:42:37 AM Interpretation:117 Performing Lab: Notes/Report: 117 blood glucose 117 74 - 106 mg/dL Glycohemoglobin A1c (in hous e) Reviewed date:05/13/2025 09:42:37 AM Interpretation:6.2 Performing Lab: Notes/Report: 6.2 glycohemoglobin 6.2% 5 - 6.5 % P-Comprehensive Metabolic Pa corazon (CMP) Reviewed date:05/13/2025 09:42:37 AM Interpretation:Normal Performing Lab: Notes/Report: Test performed by [facility] [address] [place] [address] , [address], [place] [address] Karina Bone MD, PhD, [facility], Retirement Assistant CLIA: [id number] Sodium 141 135-145 mmol/L Potassium 4.5 3.5-5.3 [...] Interpretation:Normal Performing Lab: Notes/Report: Test performed by [facility] [address] [place] [address] , [address], [place] [address] Karina Bone MD, PhD, AP, Retirement Assistant CLIA: [id number] Thyroxine Free (free T4) 0.95 0.86-1.76 ng/dL P-Lipid Panel Reviewed date:05/13/2025 09:42:37 AM Interpretation:Non-HDL 143, LDL 122, LDL/HDL 2.35 Performing Lab: Notes/Report: Test performed by [facility] [address] [place] [address] , [address], [place] [address] Karina Bone MD, PhD, [facility], Retirement Assistant GLENN: [id number] Lipid Panel Footnote See Below *Based on optimal reference values. Please refer to the DOS for additional information regarding diagnostic lipid reference ranges, patient management based on the recently updated lipid guidelines ([place] [employer]/[place] [employer] Task Force on Clinical Practice [...] Interpretation:6.22 Performing Lab: Notes/Report: Test performed by [facility] [address] [place] [address] , [place] [address] Karina Bone MD, PhD, [facility], Retirement Assistant CLIA: [id number] TSH 6.22 0.43-5.25 mU/L P-Microalbumin/Creatinine, R andom Urine Sample Reviewed date:05/13/2025 09:42:37 AM Interpretation:Normal Performing Lab: Notes/Report: Test performed by [facility] [address] [place] [address] , [address], [place] [address] Karina Bone MD, PhD, [facility], Retirement Assistant CLIA: [id number] Albumin/Creatinine Ratio, Urine 13 0-30 ug/m g Microalbumin, Urine, Random 0.7 Creatinine, Urine 53.4 x ray: 5th digit left foot Reviewed date:06/10/2024 04:31:19 PM Interpretation:Negative Performing Lab: Notes/Report: Negative Medications Medication SIG (Take, Route, Frequency, Duration) Notes Start Date End Date Status Clopidogrel Bisulfate 75 mg 1 tablet orally once a day; Duration: 90 days Active Azelastine-Fluticasone 137-50 MCG/ACT 1 spray in each nostril Nasally Twice a day; Duration: 30 day(s) Active Esomeprazole Magnesium 40 MG 1 capsule 1/2 to 1 hour before morning meal Orally Once a day; Duration: 90 days Active Airsupra 90-80 MCG/ACT 2 puffs as needed Inhalation Six times a day as needed 07/17/2023 Active Metoprolol Succinate ER 50 MG 1 tablet Orally Once a day; Duration: 90 days Active CPAP machine and supplies - as directed as directed 11/1008/30/2023 Not- Taking Lisinopril 2.5 MG 1 tablet Orally Once a day; Duration: 90 days Active CPAP Supplies - as directed as directed 03/12/2024 Not-Taking Atorvastatin Calcium 40 MG 1 tablet Orally Once a day; Duration: 90 days Active Levothyroxine Sodium 175 MCG 1 tablet in the morning on an empty stomach Orally Once a day; Duration: 90 days 05/14/2025 Active Trulicity 1.5 MG/0.5ML 1.5 mg Subcutaneo us once weekly 07/15/2024 Active Nitroglycerin 0.4 MG as directed Sublingual 2023 Not-Taking Isosorbide Mononitrate ER 60 MG 1 tablet in the morning Orally Once a day Active Montelukast Sodium 10 MG 1 tablet Orally Once a day; Duration: 90 days Active Synjardy XR 12.5-1000 MG TAKE ONE TABLET BY MOUTH TWICE DAILY; Duration: 90 days Active Immunizations Vaccine Route [...] Status Risk Notes Problem Posttraumatic stress disorder (49723944) PTSD (Posttraumatic stress disorder) (NOS) (309.81) Active confirmed Problem Essential hypertension (55670097) Essential (primary) hypertension (I10) Active confirmed Problem Obstructive sleep apnea (49872619) Obstructive sleep apnea (G47.33) Active confirmed Problem Angina pectoris (101387805) Angina pectoris (I20.9) Active confirmed Problem Mixed hyperlipidemia (132654859) Mixed hyperlipidemia (E78.2) Active confirmed Problem Unstable angina (0158278) Unstable angina (I20.0) Active confirmed Problem Pulmonary nodule (304544487) Pulmonary nodule (R91.1) Active confirmed Problem Thyroid nodule (929981843) Thyroid nodule (E04.1) Active confirmed Problem Type II diabetes mellitus without complication (423909093) Type 2 diabetes mellitus without complication (E11.9) Active confirmed Problem Acquired hypothyroidism (442752293) Acquired hypothyroidism (E03.9) Active confirmed Problem COPD - Chronic obstructive pulmonary disease (82327299) Chronic obstructive pulmonary disease, unspecified COPD type (J44.9) Active confirmed Problem Atherosclerotic heart disease of [place] coronary artery without angina pectoris (060233374073376) Coronary artery disease involving [place] coronary artery of [place] heart without angina pectoris (I25.10) Active confirmed Problem History of placement of stent for coronary artery disease (situation) (795051978) Status post coronary artery stent placement (Z95.5) Active confirmed Problem Claudication (28681758) Claudication (I73.9) Active confirmed Problem Methicillin resistant Staphylococcus aureus infection (876498768) MRSA infection (A49.02) Active confirmed Problem Hyperlipidaemia (70350356) Hyperlipidemia, unspecified hyperlipidemia type (E78.5) Active confirmed Problem Disorder of adrenal gland (26277670) Adrenal abnormality (E27.9) Active confirmed Problem Hypothyroidism (52741560) Hypothyroidism, unspecified type (E03.9) Active confirmed Problem Dysphagia (15588420) Dysphagia, unspecified type (R13.10) Active confirmed Problem CT of abdomen abnormal (21531536133497881 ) Abnormal CT of the abdomen (R93.5) Active confirmed Problem Essential hypertension (40723264) Essential hypertension with goal blood pressure less than 130\/80 (I10) Active confirmed Problem mammogram - screening (71986103) Screening mammogram, encounter for (Z12.31) Active confirmed Problem Status post nasa l surgery (Z98.89) Active confirmed Problem Atherosclerotic heart disease of [place] coronary artery without angina pectoris (962049587699936) Atherosclerosis of [place] coronary artery without angina pectoris, unspecified whether [place] or transplanted heart (I25.10) Active confirmed Problem Obesity (723664556) Non morbid obesity (E66.9) Active confirmed Problem Type II diabetes mellitus without complication (683236550) Type 2 diabetes mellitus without complication, unspecified whether half-way insulin use (E11.9) Active confirmed Problem Menopausal symptom (85119118) Hot flashes due to menopause (N95.1) Active confirmed Vital Signs Heart Rate 76 /min 05/12/2025 Blood pressure diastolic 80 mm Hg 05/12/2025 Height 65 in 05/12/2025 Blood pressure systolic 126 mm Hg 05/12/2025 Weight 189.4 lbs 05/12/2025 BMI 31.51 kg/m2 05/12/2025 Encounters Encounter Location Date Provider Diagnosis [place] [address] [facility] [address] [place] [id number] 05/26/2024 Mike [facility] Community acquired pneumonia of left lung, unspecified part of lung J18.9 [place] [address] [facility] [address] [place] [id number] 06/06/2024 Jaclyn Crowdy Injury of toe on lef t foot, initial encounter S99.922A [place] [address] [facility] [address] [place] [id number] 07/15/2024 Mike Riverside Type 2 diabetes cora itus without complication E11.9 [facility] [address] [facility] [address] [place] [id number] 01/12/2025 Mike Riverside Type 2 diabetes cora itus without complication E11.9 and History of motion sickness Z87.898 [facility] [address] [facility] [address] [place] [id number] 03/19/2025 Mike Riverside Atypical chest pain R07.89 and Dyspepsia R10.13 [facility] [address] [facility] [address] [place] [id number] 05/12/2025 Mike Riverside Type 2 diabetes cora itus without complication E11.9 ; Essential hypertension with goal blood pressure less than 130\/80 I10 ; Acquired hypothyroidism E03.9 and Mixed hyperlipidemia E78.2 [facility] [address] [facility] [address] [place] [id number] 06/12/2024 Mike Riverside Type 2 diabetes cora itus without complication E11.9 [facility] [address] [facility] [address] [place] [id number] 11/21/2024 Mike Riverside Coronary artery dise ase involving [place] coronary artery of [place] heart without angina pectoris I25.10 and Essential hypertension with goal blood pressure less than 130\/80 I10 [facility] [address] [place], [place] [id number] 01/29/2025 Mike Riverside Breast cancer screen ing Z12.31 [facility] [address] [place], [place] [id number] 02/18/2025 Mike Riverside [facility] [address] [place], [place] [id number] 04/13/2025 Mike Riverside [facility] [address] [place], [place] [id number] 04/21/2025 Mike Riverside [facility] [address] [place], [place] [id number] 05/13/2025 Mike Riverside Assessments Encounter Date Diagnosis (ICD Code) Assessment Notes Treatment Notes Treatment Clinical Notes Section Notes 05/12/2025 Type 2 diabetes mellitus without complication (ICD-10 - E11.9) 05/12/2025 Essential hypertension with goal blood pressure less than 130\/80 (ICD-10 - I10) 11/21/2024 Coronary artery disease involving [place] coronary artery of [place] heart without angina pectoris (ICD-10 - I25.10) 05/26/2024 Community acquired pneumonia of left lung, unspecified part of lung (ICD-10 - J18.9) Clinically improved 06/12/2024 Type 2 diabetes mellitus without complication (ICD-10 - E11.9) 07/15/2024 Type 2 diabetes mellitus without complication (ICD-10 - E11.9) 01/12/2025 Type 2 diabetes mellitus without complication (ICD-10 - E11.9) 01/12/2025 History of motion sickness (ICD-10 - Z87.898) 03/19/2025 Dyspepsia (ICD-10 - R10.13) 03/19/2025 Atypical chest pain (ICD-10 - R07.89) Patient to follow up with [facility] cardiology in 4 days. 01/29/2025 Breast cancer screening (ICD-10 - Z12.31) 06/06/2024 Injury of toe on left foot, initial encounter (ICD-10 - S99.922A) 11/21/2024 Essential hypertension with goal blood pressure less than 130\/80 (ICD-10 - I10) 05/12/2025 Acquired hypothyroidism (ICD-10 - E03.9) 05/12/2025 Mixed hyperlipidemia (ICD-10 - E78.2) 03/19/2025 Other ER reports including provider note, labs and EKG reviewed in office today with patient. 05/12/2025 Other No change in treatment. A1c is now normal Plan Of Treatment Pending Test Test Name Order Date TSH 09/03/2020 Next Appt Details Provider Name:Mike Dayami Mccann ry, 11/11/2025 09:30:00 AM, [address], [place], [place], [id number], Insurance Providers Payer Name Payer Address Payer Phone Subscriber Number Group Number Insured Name Patient Relationship to Insured Coverage Start Date Coverage End Date [facility] [address] [place] [address] [phone] [id number] Mary Anne Stark Self - patient is the insured Medications Administered Medication Instructions Date of Administration Dosage Notes Dexamethasone 12/31/2009 4 mg Dexamethasone 11/14/2011 1 mL Dexamethasone 02/24/2015 1 mL Morphine 03/15/2011 phenergan 25 mg/ml 03/15/2011 25 mg Medical (General) History Medical History History ICD Code Coronary Artery Disease, s/p 1 stent gold cosme 2022 at [facility] Type 2 Diabetes Hypothyroidism Post Traumatic Stress Disorder Osteoarthritis allergic rhinitis asthma Strongyloides Ig G positive - treated in 2023 Surgical History Surgery Date(Month/Year) Cholecystectomy Appendectomy Lysis of Adhesions 2003 Heart Cath, Normal 01/14/2010 Upper GI Scope 2009 Lower abdominal wall resection, MRSA inf ection 10/2013 Deviated Septum Repair 09/16/2015 Percutaneous coronary intervention with 1 stent placed at [facility] 12/2022 LT Heart Cath, Normal, at [facility] 07/07/2023 Hospitalization History Reason Date(Month/Year) MRSA- [facility] 10/2013 Constipation Shoulder Pain- [facility] ER 02/29/2012 Headache, Chest Pain- [facility] 04/2011 LT Leg Injury- [facility] and [place] 2010 ER [facility] transported to [facility] 01/13/2010 Pneumonia 2006, 2007, 2009, 20 13 Chest Pain- [facility] 01/18- LT Nostril Packing- [id number] Nasal Drainage Surgery- 11/26/2015 Sinus Infection from Sinus Surgery- [facility] 09/23/2015
--- OUTSIDE RECORDS SUMMARY | 2025-05-18 07:57 | XMS_ITS | Clinical Summary ---
Author Organization [facility] Address [address] [place] [address] Care Team Providers Care Desk Editor Name Role Phone Unavailable Primary Care Provider Unavailabl e Social History Tobacco Use Types Packs/Day Years Used Date Smoking Tobacco: Never Assessed Comments Unknown Sex and Gender Information Value Date Recorded Sex Assigned at Not on file Legal Sex Female 11:09 AM EST Gender Identity Not on file Sexual Orientation Not on file Plan of Treatment Not on file Medical Devices Not on file
[2025-05-18 09:00] VITALS: PULSE 70; PULSE 78
[2025-05-18] MEDS: ALBUTEROL 0.083% 2.5 MG/3 ML NEB IH (09:00)
== END 2025-05-18 23:59 | disposition home or self-care (01) ==
LOC: RT 07:53
PROVIDERS: PCP Family Medicine; Visit Provider Internal Medicine Pulmonary Disease
DX: R94.2 Abnormal results of pulmonary function studies (principal); R06.02 Shortness of breath; R06.09 Other forms of dyspnea
CPT/HCPCS: 94060; 94618; 94640